=== PATIENT | female | born 1950 | race Caucasian/White ===

== ENCOUNTER 2023-03-24 05:19 | Observation (INO) ==
[2023-03-24 06:24] LABS: Albumin Level 3.6 gm/dl (3.4-5.0); Bilirubin,Total 0.5 mg/dl (0.2-1.0); Calcium 9.3 mg/dl (8.6-10.3); Potassium 3.9 mmol/L (3.5-5.1)
[2023-03-24 06:30] LABS: Albumin Globulin Ratio 1.3 (0.9-2); BUN Creatinine Ratio 15.2 (10-20); Creatinine Clr Calc Pharmacy 63.7 ml/min; Est GFR (African American) 84.9 ml/min; Est GFR (Non-African American) 73.2 ml/min; Globulin 2.8 gm/dl (2.5-4.0); Total Protein 6.4 gm/dl (6.0-8.3)
--- NOTE | 2023-03-24 06:34 | Emergency Department Note ---
Impression & Plan Chest pain, HTN (hypertension), Anemia ED Provider Note NAME: LAUREN GERARDO AGE: 73 SEX: F : 1950 ARRIVES VIA: Walk-In INFORMANT: Patient ED PROVIDER(S): Emilio Morales DO CHIEF COMPLAINT: chest pain HPI: Patient is a 73-year-old female with a past medical history of an WV as well as a CABG who presents to the ER for chest pain which she has been getting intermittently over the past 2 weeks. She notes this comes and goes mainly with walking. Today it started at 3 AM this morning. Lasted for several minutes and then resolved. She took 81 mg of aspirin. No nitro. No arm pain. She does have some pain that goes to to the left shoulder wound occurs. No dysuria urgency or frequency. No nausea or vomiting. No other exacerbating or remitting factors. Additional history provided by at bedside who notes that CABG was within the past two years. ADDITIONAL HISTORY OBTAINED: Per HPI Chronic Medical/Social Conditions Affecting Care: Per HPI PAST MEDICAL HISTORY:See Below PAST SURGICAL HISTORY:See Below FAMILY HISTORY:See Below SOCIAL HISTORY:See Below HOME MEDICATIONS:See Below ALLERGIES:See Below VITALS:See Below PHYSICAL EXAMINATION: GENERAL: Sitting up in bed, alert, well appearing, well nourished, no distress, non-toxic EYE EXAM: normal conjunctiva. OROPHARYNX: no exudate, no erythema, lips, buccal mucosa, and tongue normal and mucous membranes are moist NECK: supple, no nuchal rigidity, no adenopathy, non-tender LUNGS: Clear to auscultation. Normal chest wall mechanics HEART: no murmurs, S1 normal and S2 normal ABDOMEN: abdomen soft, non-tender, normo-active bowel sounds, no masses, no rebound or guarding. UPPER EXTREMITIES: upper extremities are grossly normal. LOWER EXTREMITIES: No pitting edema. Calves are equal bilaterally NEURO EXAM: Normal sensorium, cranial nerves II-XII grossly intact, normal speech, no gross weakness of arms, no gross weakness of legs. MEDICAL DECISION MAKING: Patient is a 73-year-old female with a previous history of an WV and CABG who presents to the ER for intermittent chest pain over the past 2 weeks which is mainly exertional but this morning it occurred and woke her up out of bed. Lasted for several minutes and resolved. [place] like her previous [place]. IV was established blood work was obtained. Labs show no significant leukocytosis. Mild anemia at 11.4. Nothing previous to compare to. BMP along with LFTs bilirubin was unremarkable. Troponin was negative. Lipase was normal. Patient currently pain-free. She was given 243 of aspirin as she took 81 mg at home. Additional history was obtained by who was present at bedside. Discussed with Dr. Ramírez from the hospital service patient was admitted for further work-up. Patient was chest pain-free. External Records Reviewed: None Consults/Care Managements Discussions: Per [facility] Triage Nursing notes reviewed. Limited review of prior medical records performed Vital Signs: reviewed and remarkable for no significant abnormalities Differential diagnosis: Cardiac ischemia, aortic dissection, pulmonary embolism, pneumothorax, pneumonia, pericarditis, myocarditis, esophageal rupture, GERD, cholecystitis, pancreatitis, musculoskeletal, as well as other pathologies. ER treatment provided: See below Diagnostics interpreted by me include EKG and cardiac monitoring as listed below: -Cardiac Monitoring: An order was placed for continuous cardiac monitoring. The monitor shows a rate of 60 with sinus rhythm. -ECG: Sinus rhythm rate 63 Normal axis No PVCs QTc 468 Septal Q waves -Laboratory studies:Interpreted by me as stated above in MDM and shown below. Imaging studies: Xrays: As interpreted by me: Portable AP upright 1 view of the chest shows no focal infiltrate CTs show: none Procedures:none Critical Care: None Past Med/Surg History Medical History (Updated 03/24/23 @ 13:23 by Emilio Morales DO) CAD (coronary artery disease) of bypass graft DM II (diabetes mellitus, type II), controlled HLD (hyperlipidemia) HTN (hypertension) Hx of completed stroke Neuropathy Osteoarthritis Surgical History (Updated 03/24/23 @ 08:47 by Kim Krause PA-C) History of back surgery Hx of colonoscopy Hx of hysterectomy Family History Mother Cancer Grandmother (Maternal) Myocardial infarction Grandfather (Maternal) Myocardial infarction Social History (Updated 07/11/21 @ 13:23 by Whit Bruno) Smoking Status: Never smoker Hx Alcohol Use: No Feels Safe at Home: Yes Allergies Allergies Allergy/AdvReac Type Severity Reaction Status Date / Time lisinopril Allergy Severe ANGIOEDEMA Verified 02/02/22 13:15 Home Meds Home Medications Medication Instructions Recorded Confirmed doxepin 100 mg capsule 100 mg PO HS 07/11/21 03/24/23 famotidine 40 mg tablet 40 mg PO HS 07/11/21 03/24/23 losartan 50 mg tablet 25 mg PO DAILY 07/11/21 03/24/23 metformin 500 mg tablet 500 mg PO DAILY 07/11/21 03/24/23 polyethylene glycol 3350 17 17 g PO DAILY 07/11/21 03/24/23 gram/dose oral powder (Miralax) aspirin 81 mg chewable tablet 81 mg PO QAM 03/24/23 03/24/23 atorvastatin 40 mg tablet 40 mg PO HS 03/24/23 03/24/23 donepezil 10 mg tablet 10 mg PO HS 03/24/23 03/24/23 furosemide 40 mg tablet 40 mg PO QA 03/24/23 03/24/23 hydroxychloroquine 200 mg tablet 200 mg PO QA 03/24/23 03/24/23 metoprolol succinate 25 mg 12.5 mg PO 03/24/23 03/24/23 tablet,extended release 24 hr potassium chloride 10 mEq 10 meq PO QA 03/24/23 03/24/23 tablet,extended release Results & Data (ED) Vital Signs Vital Signs - 24 hr 03/24/23 05:22 03/24/23 05:52 03/24/23 05:52 Temperature 35.7 C L Temperature Source Temporal Artery Scan Pulse Rate 78 Pulse Rate [Apical] 58 L Pulse Rate from SpO2 Sensor Respiratory Rate 16 19 Respiratory Effort / Characteristics Non-Labored Spontaneous Respiratory Depth Normal Blood Pressure 109/61 Blood Pressure Mean 77 Blood Pressure Position Sitting Pulse Oximetry 95 94 Oxygen Delivery Method Room Air Room Air Room Air Sepsis Recent Fever Within 48 Hours No Sepsis New/Unexplained Change in Mental Status N/A Sepsis Action Taken by Nursing No Action Required 03/24/23 05:52 03/24/23 05:53 03/24/23 08:15 Temperature Temperature Source Pulse Rate 57 L 63 Pulse Rate [Apical] Pulse Rate from SpO2 Sensor 63 Respiratory Rate 17 Respiratory Effort / Characteristics Respiratory Depth Blood Pressure 122/78 Blood Pressure Mean 92 Blood Pressure Position Pulse Oximetry 97 Oxygen Delivery Method Room Air Room Air Sepsis Recent Fever Within 48 Hours Sepsis New/Unexplained Change in Mental Status Sepsis Action Taken by Nursing Laboratory Data 03/24/23 05:44 03/24/23 05:44 Lab Results 03/24/23 03/24/23 03/24/23 Range/Units 05:44 05:44 06:03 WBC Cancelled 7.05 RBC Cancelled 3.34 L Hgb Cancelled 11.4 L Hct Cancelled 33.2 L MCV Cancelled 99.4 MCH Cancelled 34.1 H MCHC Cancelled 34.3 RDW Std Deviation Cancelled 52.2 H RDW Coeff of Yanni Cancelled 14.4 Plt Count Cancelled 188 MPV Cancelled 9.5 Immature Gran % (Auto) Cancelled 0.7 Neut % (Auto) Cancelled 50.8 Lymph % (Auto) Cancelled 39.1 [place] % (Auto) Cancelled 6.0 Eos % (Auto) Cancelled 2.7 Baso % (Auto) Cancelled 0.7 Neut # (Auto) Cancelled 3.58 Lymph # (Auto) Cancelled 2.76 [place] # (Auto) Cancelled 0.42 Eos # (Auto) Cancelled 0.19 Baso # (Auto) Cancelled 0.05 Immature Gran # (Auto) Cancelled 0.05 Absolute Nucleated RBC Cancelled Nucleated RBC % (auto) Cancelled Neutrophils % (Manual) Cancelled Band Neutrophils % Cancelled Lymphocytes % (Manual) Cancelled Prolymphocyte % Cancelled Reactive Lymphs % (Man) Cancelled Monocytes % (Manual) Cancelled Eosinophils % (Manual) Cancelled Basophils % (Manual) Cancelled Metamyelocytes % (Man) Cancelled Myelocytes % (Man) Cancelled Promyelocytes % (Man) Cancelled Blast Cells % (Manual) Cancelled Plasma Cell % (Manual) Cancelled Other Cells % Cancelled Nucleated RBC % Cancelled Neutrophils # (Manual) Cancelled Band Neutrophils # Cancelled Total Absolute Neuts Cancelled Lymphocytes # (Manual) Cancelled Prolymphocyte # Cancelled Reactive Lymphs # Cancelled Total Abs Lymphocytes Cancelled Monocytes # (Manual) Cancelled Eosinophils # (Manual) Cancelled Basophils # (Manual) Cancelled Metamyelocytes # (Man) Cancelled Myelocytes # (Manual) Cancelled Promyelocytes # (Man) Cancelled Blast Cells # (Man) Cancelled Plasma Cell # (Manual) Cancelled Other Cells # Cancelled Nucleated RBCs # (Man) Cancelled Hypersegmented Neuts Cancelled Hyposegmented Neuts Cancelled Hypogranular Neuts Cancelled Large Granular Lymphs Cancelled # Lrg Granular Lymphs Cancelled Hairy Cells Cancelled Smudge Cells Cancelled Toxic Granulation Cancelled Toxic Vacuolation Cancelled Dohle Bodies Cancelled Abdelrahman Rods Cancelled Platelet Estimate Cancelled Hypogranular Platelets Cancelled Giant Platelets Cancelled Platelet Satelliting Cancelled RBC Morphology Cancelled Polychromasia Cancelled Hypochromasia Cancelled Poikilocytosis Cancelled Basophilic Stippling Cancelled Anisocytosis Cancelled Microcytosis Cancelled Macrocytosis Cancelled Spherocytes Cancelled Pappenheimer Bodies Cancelled Sickle Cells Cancelled Target Cells Cancelled Tear Drop Cells Cancelled Ovalocytes Cancelled Stomatocytes Cancelled Keen[place] Bodies Cancelled Echinocytes Cancelled Acanthocytes (Spur) Cancelled Rouleaux Cancelled RBC Agglutinates Cancelled Schistocytes Cancelled Sezary Cell Cancelled Sodium 138 (136-145) mmol/L Potassium 3.9 (3.5-5.1) mmol/L Chloride 105 (98-107) mmol/L Carbon Dioxide 23 (21-32) mmol/L Anion Gap 10 (3-11) BUN 12 (6-23) mg/dl Creatinine 0.79 (0.6-1.2) mg/dl Est Cr Clr Drug Dosing 63.7 ml/min Est GFR ( Amer) 84.9 ml/min Est GFR (Non-Af Amer) 73.2 ml/min BUN/Creatinine Ratio 15.2 (10-20) Glucose 106 H (70-99(Fasting)) mg/dl Calcium 9.3 (8.6-10.3) mg/dl Total Bilirubin 0.5 (0.2-1.0) mg/dl AST 28 (13-39) U/L ALT 30 (7-52) U/L Alkaline Phosphatase 120 H (34-104) U/L Troponin I High Sens 3.9 (0-14) pg/ml Total Protein 6.4 (6.0-8.3) gm/dl Albumin 3.6 (3.4-5.0) gm/dl Globulin 2.8 (2.5-4.0) gm/dl Albumin/Globulin Ratio 1.3 (0.9-2) Lipase 26 (11-82) U/L Blood Parasites ID Cancelled 03/24/23 Range/Units 09:24 WBC RBC Hgb Hct MCV MCH MCHC RDW Std Deviation RDW Coeff of Yanni Plt Count MPV Immature Gran % (Auto) Neut % (Auto) Lymph % (Auto) [place] % (Auto) Eos % (Auto) Baso % (Auto) Neut # (Auto) Lymph # (Auto) [place] # (Auto) Eos # (Auto) Baso # (Auto) Immature Gran # (Auto) Absolute Nucleated RBC Nucleated RBC % (auto) Neutrophils % (Manual) Band Neutrophils % Lymphocytes % (Manual) Prolymphocyte % Reactive Lymphs % (Man) Monocytes % (Manual) Eosinophils % (Manual) Basophils % (Manual) Metamyelocytes % (Man) Myelocytes % (Man) Promyelocytes % (Man) Blast Cells % (Manual) Plasma Cell % (Manual) Other Cells % Nucleated RBC % Neutrophils # (Manual) Band Neutrophils # Total Absolute Neuts Lymphocytes # (Manual) Prolymphocyte # Reactive Lymphs # Total Abs Lymphocytes Monocytes # (Manual) Eosinophils # (Manual) Basophils # (Manual) Metamyelocytes # (Man) Myelocytes # (Manual) Promyelocytes # (Man) Blast Cells # (Man) Plasma Cell # (Manual) Other Cells # Nucleated RBCs # (Man) Hypersegmented Neuts Hyposegmented Neuts Hypogranular Neuts Large Granular Lymphs # Lrg Granular Lymphs Hairy Cells Smudge Cells Toxic Granulation Toxic Vacuolation Dohle Bodies Abdelrahman Rods Platelet Estimate Hypogranular Platelets Giant Platelets Platelet Satelliting RBC Morphology Polychromasia Hypochromasia Poikilocytosis Basophilic Stippling Anisocytosis Microcytosis Macrocytosis Spherocytes Pappenheimer Bodies Sickle Cells Target Cells Tear Drop Cells Ovalocytes Stomatocytes Keen[place] Bodies Echinocytes Acanthocytes (Spur) Rouleaux RBC Agglutinates Schistocytes Sezary Cell Sodium (136-145) mmol/L Potassium (3.5-5.1) mmol/L Chloride (98-107) mmol/L Carbon Dioxide (21-32) mmol/L Anion Gap (3-11) BUN (6-23) mg/dl Creatinine (0.6-1.2) mg/dl Est Cr Clr Drug Dosing ml/min Est GFR ( Amer) ml/min Est GFR (Non-Af Amer) ml/min BUN/Creatinine Ratio (10-20) Glucose (70-99(Fasting)) mg/dl Calcium (8.6-10.3) mg/dl Total Bilirubin (0.2-1.0) mg/dl AST (13-39) U/L ALT (7-52) U/L Alkaline Phosphatase (34-104) U/L Troponin I High Sens 4.0 (0-14) pg/ml Total Protein (6.0-8.3) gm/dl Albumin (3.4-5.0) gm/dl Globulin (2.5-4.0) gm/dl Albumin/Globulin Ratio (0.9-2) Lipase (11-82) U/L Blood Parasites ID Administered Medications Discontinued Medications Aspirin (Aspirin Chew 324 Mg) 243 mg PO NOW STA Stop: 03/24/23 06:36 Last Admin: 03/24/23 06:43 Dose: 243 mg Documented By: GEOVANNY Imaging Data Radiologist's Impression: Chest X-Ray 03/24/23 05:33 XR chest 1V portable CLINICAL HISTORY: Chest pain, nonspecific COMPARISON STUDY: Chest radiograph October 28, 2013. FINDINGS: No pneumothorax or pleural effusion is present. There is moderate elevation of the right hemidiaphragm. Median sternotomy wires and mediastinal surgical clips are noted. Cardiac size is normal. Mediastinal contours are normal. There is no evidence for pulmonary edema. No consolidation is identified to suggest pneumonia. IMPRESSION: No acute cardiopulmonary findings. ACT 112: Negative or not required by law. Electronically signed by: Vick Self M.D. 03/24/2023 7:18 AM Discharge Plan Visit Data Chief Complaint: Chest Pain Stated Complaint: CHEST PAIN,PAIN UN LEFT BREAST TO BACK ED Provider: Emilio Morales Discharge Problem: Chest pain, HTN (hypertension), Anemia Patient Disposition: Admitted As Inpatient Discharge Instructions Interventions: ED Discharge Assessment Last Done: 03/24/23 10:27
[2023-03-24 06:35] LABS: Troponin I High Sensitivity 3.9 pg/ml (0-14)
[2023-03-24] MEDS ORDERED: ASPIRIN CHEW 324 MG PO STA (06:35)
[2023-03-24 06:52] LABS: Basophils # (auto) 0.05 K/uL (0.00-0.20); Basophils % (auto) 0.7 %; Eosinophils # (auto) 0.19 K/uL (0.00-0.50); Eosinophils % (auto) 2.7 %; Hematocrit (blood only) 33.2 % (37.0-47.0); Hemoglobin 11.4 g/dl (12.0-16.0); Immature Granulocytes # (auto) 0.05 K/uL (0.01-0.20); Immature Granulocytes % (auto) 0.7 %; Lymphocytes # (auto) 2.76 K/uL (1.20-3.40); Lymphocytes % (auto) 39.1 %; Mean Corpuscular Hemoglobin 34.1 pg (25.0-34.0); Mean Corpuscular Hgb Conc 34.3 g/dL (32.0-36.0); Mean Corpuscular Volume 99.4 fL (80.0-100.0); Mean Platelet Volume 9.5 fL (9.4-12.4); Monocytes # (auto) 0.42 K/uL (0.11-0.59); Neutrophils # (auto) 3.58 K/uL (1.40-6.50); Neutrophils % (auto) 50.8 %; Platelet Count 188 K/uL (130-400); RDW Coefficient of Variation 14.4 % (11.5-14.5); RDW Standard Deviation 52.2 fL (36.4-46.3); Red Blood Count 3.34 M/uL (4.20-5.40); White Blood Count 7.05 K/ul (4.8-10.8)
--- NOTE | 2023-03-24 07:19 | XRay Report ---
XR chest 1V portable CLINICAL HISTORY: Chest pain, nonspecific COMPARISON STUDY: Chest radiograph October 28, 2013. FINDINGS: No pneumothorax or pleural effusion is present. There is moderate elevation of the right he midiaphragm. Median sternotomy wires and mediastinal surgical clips are noted. Cardiac size is normal . Mediastinal contours are normal. There is no evidence for pulmonary edema. No consolidation is iden tified to suggest pneumonia. IMPRESSION: No acute cardiopulmonary findings. ACT 112: Negative or not required by law. Electronically signed by: Vick Self M.D. 03/24/2023 7:18 AM
--- NOTE | 2023-03-24 08:22 | History & Physical Report ---
Date of Service March 24, 2023 Assessment & Plan (1) Chest pain: (2) CAD (coronary artery disease) of bypass graft: (3) HTN (hypertension): (4) HLD (hyperlipidemia): Plan: - Admit to tele for observation for r/o - Trend cardiac biomarkers, initial set was negative, recheck now and Q6H - EKG reviewed as above - Check 2 D echo, no previous to review per the chart - If negative enzymes can consider a stress test - Consult cardiology - PT/OT consulted (5) DM II (diabetes mellitus, type II), controlled: Plan: - Hold metformin, will check A1C - ISS with accuchecks - Follow glucose (6) Neuropathy: Plan: - Bilateral lower extremities - Chronic, stable (7) Osteoarthritis: Plan: - Pt reports no h of rheum arthritis, 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 She reports chest pain on and off for about the past 2 weeks which is radiating into her back. She states its happening at least once per day up to 2-3 x per day, normally when she is walking through the house, it last for a couple of minutes and then goes away on its own. Last night it occurred while she was lying in bed and therefore saw this was severe enough and needed to come to the hospital. She has not trialed any medication to make it better. She didn't think to call her turf farmer in the past weeks. Patient denies any associated shortness of breath, flutter, palpitations. She has been taking her medications as routinely prescribed. Follows with Cardiology, her primary turf farmer is Dr. Prater from [facility]. She is scheduled to see a new provider in May because he was leaving the practice last time she was there, which was about 1 year ago. She notes she fell and broke her shoulder about 5 weeks ago. She has been wearing a sling and using tylenol for pain relief. She is following with Dr. Peoples with [facility] in [place]. She was told to wear the sling for at least 2 more weeks. Patient has been ambulating without any assistive devices. Allergies Allergy/AdvReac Type Severity Reaction Status Date / Time lisinopril Allergy Severe ANGIOEDEMA Verified 07/11/21 13:15 Home Medications Medication Instructions Recorded Confirmed Type doxepin 100 mg capsule 100 mg PO HS 07/11/21 03/24/23 History famotidine 40 mg tablet 40 mg PO HS 07/11/21 03/24/23 History losartan 50 mg tablet 25 mg PO DAILY 07/11/21 03/24/23 History metformin 500 mg tablet 500 mg PO DAILY 07/11/21 03/24/23 History polyethylene glycol 3350 17 17 g PO DAILY 07/11/21 03/24/23 History gram/dose oral powder (Miralax) aspirin 81 mg chewable tablet 81 mg PO QAM 03/24/23 03/24/23 History atorvastatin 40 mg tablet 40 mg PO HS 03/24/23 03/24/23 History donepezil 10 mg tablet 10 mg PO HS 03/24/23 03/24/23 History furosemide 40 mg tablet 40 mg PO QAM 03/24/23 03/24/23 History hydroxychloroquine 200 mg tablet 200 mg PO QAM 03/24/23 03/24/23 History metoprolol succinate 25 mg 12.5 mg PO HS 03/24/23 03/24/23 History tablet,extended release 24 hr potassium chloride 10 mEq 10 meq PO QAM 03/24/23 03/24/23 History tablet,extended release Past Med/Surg History Medical History (Updated 03/24/23 @ 13:23 by Emilio Morales DO) CAD (coronary artery disease) of bypass graft DM II (diabetes mellitus, type II), controlled HLD (hyperlipidemia) HTN (hypertension) Hx of completed stroke Neuropathy Osteoarthritis Surgical History (Updated 03/24/23 @ 08:47 by Kim Krause PA-C) History of back surgery Hx of colonoscopy Hx of hysterectomy Family History Mother Cancer Grandmother (Maternal) Myocardial infarction Grandfather (Maternal) Myocardial infarction Social History (Updated 07/11/21 @ 13:23 by Whit Bruno) Smoking Status: Never smoker Hx Alcohol Use: No Feels Safe at Home: Yes Review of Systems Review of Systems: Constitutional: No fever, sweats or chills Eyes: No diplopia, no worsening or blurred vision ENT: normal hearing, no trouble swallowing Respiratory: No cough, sputum, dyspnea at rest or on exertion Cardiovascular: As per HPI Abdomen: No pain, nausea, vomiting, diarrhea, + chronic constipation, last bm was 3 days ago which is normal for her Musculoskeletal: R shoulder pain due to fracture, otherwiseNo joint pain, calf pain, swelling Neurologic: No weakness, + chronic numbness/tingling in bilateral feet due to neuropathy, or balance problems Psychiatric: No anxiety or depression Skin: No rash or itch Physical Exam Physical Exam: General: awake, alert, no apparent distress,white female Head: Normocephalic, atraumatic ENT: PERRL, EOMI, no pharyngeal exudate, mucous membranes moist Chest: Clear to auscultation, on room air, no adventitious breath sounds Cardiac: No chest pain reproducible with palpation, regular rate and rhythm, no murmur, no JVD, normal peripheral pulses, good capillary refill Abdominal: Hypoactive BS x 4 quadrants, soft, nondistended, nontender to palpation, no rebound or guarding Extremities: Normal inspection, no peripheral edema or erythema, calfs nontender to palpation Psych: Normal mood and affect Neuro: AAO x 3, strength intact bilaterally and rated 5/5, no motor deficits, speech is clear, no peripheral sensory deficits Results & Data Results & Data Vital Signs (Past 12 Hours) Vital Signs Temp Pulse Pulse Resp BP Pulse Ox O2 Del Method 03/24/23 05:53 57 L 03/24/23 05:52 Room Air 03/24/23 05:52 58 L 19 94 Room Air 03/24/23 05:52 Room Air 03/24/23 05:22 35.7 C L 78 16 109/61 95 Room Air Laboratory Results 03/24/23 03/24/23 03/24/23 06:03 05:44 05:44 WBC 7.05 Cancelled RBC 3.34 L Cancelled Hgb 11.4 L Cancelled Hct 33.2 L Cancelled MCV 99.4 Cancelled MCH 34.1 H Cancelled MCHC 34.3 Cancelled RDW Std Deviation 52.2 H Cancelled RDW Coeff of Yanni 14.4 Cancelled Plt Count 188 Cancelled MPV 9.5 Cancelled Immature Gran % (Auto) 0.7 Cancelled Neut % (Auto) 50.8 Cancelled Lymph % (Auto) 39.1 Cancelled Ward % (Auto) 6.0 Cancelled Eos % (Auto) 2.7 Cancelled Baso % (Auto) 0.7 Cancelled Neut # (Auto) 3.58 Cancelled Lymph # (Auto) 2.76 Cancelled Ward # (Auto) 0.42 Cancelled Eos # (Auto) 0.19 Cancelled Baso # (Auto) 0.05 Cancelled Immature Gran # (Auto) 0.05 Cancelled Absolute Nucleated RBC Cancelled Nucleated RBC % (auto) Cancelled Neutrophils % (Manual) Cancelled Band Neutrophils % Cancelled Lymphocytes % (Manual) Cancelled Prolymphocyte % Cancelled Reactive Lymphs % (Man) Cancelled Monocytes % (Manual) Cancelled Eosinophils % (Manual) Cancelled Basophils % (Manual) Cancelled Metamyelocytes % (Man) Cancelled Myelocytes % (Man) Cancelled Promyelocytes % (Man) Cancelled Blast Cells % (Manual) Cancelled Plasma Cell % (Manual) Cancelled Other Cells % Cancelled Nucleated RBC % Cancelled Neutrophils # (Manual) Cancelled Band Neutrophils # Cancelled Total Absolute Neuts Cancelled Lymphocytes # (Manual) Cancelled Prolymphocyte # Cancelled Reactive Lymphs # Cancelled Total Abs Lymphocytes Cancelled Monocytes # (Manual) Cancelled Eosinophils # (Manual) Cancelled Basophils # (Manual) Cancelled Metamyelocytes # (Man) Cancelled Myelocytes # (Manual) Cancelled Promyelocytes # (Man) Cancelled Blast Cells # (Man) Cancelled Plasma Cell # (Manual) Cancelled Other Cells # Cancelled Nucleated RBCs # (Man) Cancelled Hypersegmented Neuts Cancelled Hyposegmented Neuts Cancelled Hypogranular Neuts Cancelled Large Granular Lymphs Cancelled # Lrg Granular Lymphs Cancelled Hairy Cells Cancelled Smudge Cells Cancelled Toxic Granulation Cancelled Toxic Vacuolation Cancelled Dohle Bodies Cancelled Abdelrahman Rods Cancelled Platelet Estimate Cancelled Hypogranular Platelets Cancelled Giant Platelets Cancelled Platelet Satelliting Cancelled RBC Morphology Cancelled Polychromasia Cancelled Hypochromasia Cancelled Poikilocytosis Cancelled Basophilic Stippling Cancelled Anisocytosis Cancelled Microcytosis Cancelled Macrocytosis Cancelled Spherocytes Cancelled Pappenheimer Bodies Cancelled Sickle Cells Cancelled Target Cells Cancelled Tear Drop Cells Cancelled Ovalocytes Cancelled Stomatocytes Cancelled [place] Bodies Cancelled Echinocytes Cancelled Acanthocytes (Spur) Cancelled Rouleaux Cancelled RBC Agglutinates Cancelled Schistocytes Cancelled Sezary Cell Cancelled Sodium 138 Potassium 3.9 Chloride 105 Carbon Dioxide 23 Anion Gap 10 BUN 12 Creatinine 0.79 Est Cr Clr Drug Dosing 63.7 Est GFR ( Amer) 84.9 Est GFR (Non-Af Amer) 73.2 BUN/Creatinine Ratio 15.2 Glucose 106 H Calcium 9.3 Total Bilirubin 0.5 AST 28 ALT 30 Alkaline Phosphatase 120 H Troponin I High Sens 3.9 Total Protein 6.4 Albumin 3.6 Globulin 2.8 Albumin/Globulin Ratio 1.3 Lipase 26 Blood Parasites ID Cancelled Diagnostic Findings Chest X-Ray 03/24/23 05:33 XR chest 1V portable CLINICAL HISTORY: Chest pain, nonspecific COMPARISON STUDY: Chest radiograph October 28, 2013. FINDINGS: No pneumothorax or pleural effusion is present. There is moderate elevation of the right hemidiaphragm. Median sternotomy wires and mediastinal surgical clips are noted. Cardiac size is normal. Mediastinal contours are normal. There is no evidence for pulmonary edema. No consolidation is identified to suggest pneumonia. IMPRESSION: No acute cardiopulmonary findings. ACT 112: Negative or not required by law. Electronically signed by: Vick Self M.D. 03/24/2023 7:18 AM ECG Additional Comments: 24-MAR-2023 05:28:53 [facility]-EDSTAT ROUTINE RETRIEVAL Normal sinus rhythm Septal infarct , age undetermined Abnormal ECG When compared with ECG of 28-OCT-2013 16:43, Premature atrial complexes are no longer Present Septal infarct is now Present Nonspecific T wave abnormality now evident in Anterior leads 25mm/s10mm/[id number] 243CID: 19Unconfirmed Vent. rate 63 BPM MD interval 176 ms QRS duration 86 ms QT/QTc 458/468 ms Supervising Physician Co-Signing Physician Notes I have seen and discussed the case with the collaborating ROXANA. I agree with the above H&P. I have reviewed and confirmed the patients medical history, the findings on physical examination, and the patients diagnosis and treatment plan with Nelida SCHMIDT and agree with the information documented. In short, Ms. Lisbet Painter is 73 year old with history of obstructive coronary artery disease, HTN, DMTII who is admitted for typical chest pain with concern for unstable angina. Work up negative, with stable appearing EKG c/w reported history and negative trop. PE unremarkable. Labs and VS benign. Cardiology consult to eval for unstable angina. Rest of plan as above.
[2023-03-24] MEDS ORDERED: ACETAMINOPHEN 325 MG TAB PO PRN (08:25)
[2023-03-24] MEDS ORDERED: ONDANSETRON INJ 2 MG/ML 2 ML VIAL IV PRN (08:25)
[2023-03-24] MEDS ORDERED: CARBOHYDRATES FOR HYPOGLYCEMIA PO PRN (09:38)
[2023-03-24] MEDS ORDERED: GLUCAGON FOR INJ 1 MG VIAL SQ PRN (09:38)
[2023-03-24] MEDS ORDERED: GLUCOSE 40% GEL 15 GM TUBE PO PRN (09:38)
[2023-03-24] MEDS ORDERED: DEXTROSE 50% 50 ML SYRINGE IV PRN (09:38)
[2023-03-24] MEDS ORDERED: GLUCOSE 10 TAB/TUBE PO PRN (09:38)
[2023-03-24] MEDS ORDERED: FUROSEMIDE 40 MG TAB PO SCH (11:15)
[2023-03-24] MEDS ORDERED: INSULIN ASPART PER UNIT CHARGE SC SCH (11:30)
[2023-03-24] MEDS ORDERED: POLYETHYLENE (MIRALAX) 17 GM PACK PO SCH (11:30)
[2023-03-24] MEDS ORDERED: LOSARTAN POTASSIUM 25 MG TAB PO SCH (11:30)
[2023-03-24] MEDS ORDERED: POTASSIUM CHLORIDE 10 MEQ TABCR PO SCH (11:30)
[2023-03-24] MEDS ORDERED: HYDROXYCHLOROQUINE SULFATE 200 MG TAB PO SCH (11:30)
--- NOTE | 2023-03-24 13:13 | Cardiology Consultation ---
Date of Consultation March 24, 2023 Assessment & Plan (1) Chest pain: (2) CAD (coronary artery disease) of bypass graft: (3) HTN (hypertension): Plan Patient seen/examined today in collaboration with attending shellfish sorter. See supervising shellfish sorter's documentation for additional recommendations and plan of care. Monique Oreilly PA-C [facility] Cardiology Supervising Physician Co-Signing Physician Notes Pt seen and evaluated with [facility] staff. Concur with observations and plans. I was present for H&P. 73 yo woman presenting with chest pain * Known CAD * S/P CABG in 2020 * 3 episodes of chest pain * Duration -minutes * Sharp * Radiating to back * No major HTN on presentation * Troponin negative * EKG - old septal /old inferior (?) - no acute ischemic changes * ECHOcardiogram - LVEF 60-65% - no WMA. No major valvular abnormalities * Continue ASA 81 mg po per day * Continue Lipitor 40 mg po per day * Check Lipids as an outpt * Appears euvolemic - 40 mg po per day * + Fluttering sensation - check Zio patch as an outpt * SBP 120 mmHg - continue Losartan 25 mg po per day * Continue Toprol Xl 12.5 mg po per day * Outpt Sleep Study for NABILA * F/u with [facility] for outpatient nuclear stress test + establish care Morales Delong History of Present Illness Reason for Consultation: Chest pain; history of CAD Requesting Physician: Brooklyn Krause PA-C Attending Physician: Dr. Delong History of Present Illness Patient is a 73 year old female who was admitted to [facility] with complaints of chest pain. History includes: 1. CAD s/p CABGx3 in [facility] in Jul 2020. Primary shellfish sorter is Dr. Prater from [place]. 2. Hypertension 3. Dyslipidemia 4. Prior CVA 5. DM type II 6. Memory impairment Inpatient records reviewed. No documentation in [facility] outpatient records. Patient reports intermittent chest pain x2 weeks. Comes and goes intermittently. Occurs at rest or with exertion. Last night she had episode while laying in bed, and did not resolve quickly, so she came to ER. She did not report symptoms to her shellfish sorter. She did not try SL nitro at home. In ER, EKG demonstrated NSR with poor R wave progression, possible old inferior/septal infarct. Recent EKG not available for comparison. HS troponin negative x3 since admission. Chest xray without acute findings. Other labs without significant findings. Since ER evaluation, no recurrent chest pain. She describes the chest pain as sharp, located in the epigastric, under left breast region and radiating to her back. Allergies Allergy/AdvReac Type Severity Reaction Status Date / Time lisinopril Allergy Severe ANGIOEDEMA Verified 07/11/21 13:15 Home Medications Medication Instructions Recorded Confirmed Type doxepin 100 mg capsule 100 mg PO HS 07/11/21 03/24/23 History famotidine 40 mg tablet 40 mg PO HS 07/11/21 03/24/23 History losartan 50 mg tablet 25 mg PO DAILY 07/11/21 03/24/23 History metformin 500 mg tablet 500 mg PO DAILY 07/11/21 03/24/23 History polyethylene glycol 3350 17 17 g PO DAILY 07/11/21 03/24/23 History gram/dose oral powder (Miralax) aspirin 81 mg chewable tablet 81 mg PO QAM 03/24/23 03/24/23 History atorvastatin 40 mg tablet 40 mg PO HS 03/24/23 03/24/23 History donepezil 10 mg tablet 10 mg PO HS 03/24/23 03/24/23 History furosemide 40 mg tablet 40 mg PO QAM 03/24/23 03/24/23 History hydroxychloroquine 200 mg tablet 200 mg PO QAM 03/24/23 03/24/23 History metoprolol succinate 25 mg 12.5 mg PO HS 03/24/23 03/24/23 History tablet,extended release 24 hr potassium chloride 10 mEq 10 meq PO QAM 03/24/23 03/24/23 History tablet,extended release Patient History Medical History (Updated 03/24/23 @ 13:23 by Emilio Morales DO) CAD (coronary artery disease) of bypass graft DM II (diabetes mellitus, type II), controlled HLD (hyperlipidemia) HTN (hypertension) Hx of completed stroke Neuropathy Osteoarthritis Surgical History (Updated 03/24/23 @ 08:47 by Kim Krause PA-C) History of back surgery Hx of colonoscopy Hx of hysterectomy Family History Mother Cancer Grandmother (Maternal) Myocardial infarction Grandfather (Maternal) Myocardial infarction Social History (Updated 07/11/21 @ 13:23 by Whit Bruno) Smoking Status: Never smoker Hx Alcohol Use: No Feels Safe at Home: Yes Review of Systems Review of Systems: All systems reviewed & are unremarkable except as noted in HPI & below Physical Exam Physical Exam: Obese JVP at base of neck Sternotomy (S/P) S1S2 - soft 2/6 systolic murmur CTA B Right humeral fx - no swelling suggestive of DVT No LE swelling Warm and perfusing Morales Delong Results & Data Vital Signs (Past 12 Hours) Vital Signs Temp Pulse Pulse Resp BP BP Pulse Ox 03/24/23 12:06 68 16 96 03/24/23 12:06 68 16 126/65 96 03/24/23 09:41 63 03/24/23 08:15 63 17 122/78 97 03/24/23 05:53 57 L 03/24/23 05:52 03/24/23 05:52 58 L 19 94 03/24/23 05:52 03/24/23 05:22 35.7 C L 78 16 109/61 95 O2 Del Method 03/24/23 12:06 Room Air 03/24/23 12:06 Room Air 03/24/23 09:41 03/24/23 08:15 Room Air 03/24/23 05:53 03/24/23 05:52 Room Air 03/24/23 05:52 Room Air 03/24/23 05:52 Room Air 03/24/23 05:22 Room Air Laboratory Results Cardiac Enzymes 03/24/23 03/24/23 Range/Units 05:44 09:24 AST 28 (13-39) U/L Troponin I High Sens 3.9 4.0 (0-14) pg/ml CBC 03/24/23 03/24/23 Range/Units 05:44 06:03 WBC Cancelled 7.05 RBC Cancelled 3.34 L Hgb Cancelled 11.4 L Hct Cancelled 33.2 L Plt Count Cancelled 188 Neut # (Auto) Cancelled 3.58 Lymph # (Auto) Cancelled 2.76 [place] # (Auto) Cancelled 0.42 Eos # (Auto) Cancelled 0.19 Baso # (Auto) Cancelled 0.05 Comprehensive Metabolic Panel 03/24/23 Range/Units 05:44 Sodium 138 (136-145) mmol/L Potassium 3.9 (3.5-5.1) mmol/L Chloride 105 (98-107) mmol/L Carbon Dioxide 23 (21-32) mmol/L BUN 12 (6-23) mg/dl Creatinine 0.79 (0.6-1.2) mg/dl Glucose 106 H (70-99(Fasting)) mg/dl Calcium 9.3 (8.6-10.3) mg/dl AST 28 (13-39) U/L ALT 30 (7-52) U/L Alkaline Phosphatase 120 H (34-104) U/L Total Protein 6.4 (6.0-8.3) gm/dl Albumin 3.6 (3.4-5.0) gm/dl Intake and Output 03/23/23 03/24/23 03/24/23 22:59 06:59 14:59 Other: Weight 75.1 kg Weight Measurement Method Chair Scale Diagnostic Findings Telemetry reviewed: NSR no arrhythmias Echo completed 03/24/23: EF 60-65% Borderline concentric LVH Grade I diastolic dysfunction Aortic valve sclerosis without stenosis Mild TR No pulm hypertension EKG reviewed: NSR with old septal infarct vs Poor R wave progression. left axis deviation No recent comparison Chest X-Ray 03/24/23 05:33 XR chest 1V portable CLINICAL HISTORY: Chest pain, nonspecific COMPARISON STUDY: Chest radiograph October 28, 2013. FINDINGS: No pneumothorax or pleural effusion is present. There is moderate elevation of the right hemidiaphragm. Median sternotomy wires and mediastinal surgical clips are noted. Cardiac size is normal. Mediastinal contours are norm al. There is no evidence for pulmonary edema. No consolidation is identified to suggest pneumonia. IMPRESSION: No acute cardiopulmonary findings. ACT 112: Negative or not required by law. Electronically signed by: Vick Self M.D. 03/24/2023 7:18 AM Medications Administered Current Inpatient Medications Acetaminophen (Acetaminophen 325 Mg Tab) 650 mg PO Q4H PRN PRN Reason: Moderate Pain (Scale 4, 5, 6) Stop: 04/23/23 08:24 Aspirin (Aspirin 81 Mg Chew) 81 mg PO QAM ADOLFO Stop: 04/24/23 08:59 Atorvastatin Calcium (Atorvastatin 40 Mg Tab) 40 mg PO HS ADOLFO Stop: 04/23/23 20:59 Dextrose (Dextrose 50% 50 Ml Syringe) 25 - 50 ml IV UD PRN; Protocol PRN Reason: Hypoglycemia Protocol Stop: 04/23/23 09:37 Donepezil HCl (Donepezil Hcl 10 Mg Tab) 10 mg PO HS ADOLFO Stop: 04/23/23 20:59 Doxepin HCl (Doxepin Hcl 50 Mg Capsule) 100 mg PO HS ADOLFO Stop: 04/23/23 20:59 Famotidine (Famotidine 40 Mg Tablet) 40 mg PO HS ADOLFO Stop: 04/23/23 20:59 Furosemide (Furosemide 40 Mg Tab) 40 mg PO QAM ADOLFO Stop: 04/23/23 11:14 Glucagon (Glucagon For Inj 1 Mg Vial) 1 mg SQ UD PRN; Protocol PRN Reason: Hypoglycemia Protocol Stop: 04/23/23 09:37 Glucose (Glucose 10 Tab/Tube) 4 - 8 tab PO UD PRN; Protocol PRN Reason: Hypoglycemia Treatment Stop: 04/23/23 09:37 Glucose (Glucose 40% Gel 15 Gm Tube) 15 - 30 gm PO UD PRN; Protocol PRN Reason: Hypoglycemia Protocol Stop: 04/23/23 09:37 Hydroxychloroquine Sulfate (Hydroxychloroquine Sulfate 200 Mg Tab) 200 mg PO QAM ADOLFO Stop: 04/23/23 11:29 Insulin Aspart (Insulin Aspart Per Unit Charge) 0 units SC ACHS [facility] Stop: 04/23/23 11:29 Losartan Potassium (Losartan Potassium 25 Mg Tab) 25 mg PO DAILY ADOLFO Stop: 04/23/23 11:29 Metoprolol Succinate (Metoprolol Succ 25mg Ext Rel Tab) 12.5 mg PO HS [facility] Stop: 04/23/23 20:59 Miscellaneous (Carbohydrates For Hypoglycemia ) 15 - 30 gm PO UD PRN PRN Reason: Hypoglycemia Protocol Stop: 04/23/23 09:37 Ondansetron HCl (Ondansetron Inj 2 Mg/Ml 2 Ml Vial) 4 mg IV Q4H PRN PRN Reason: Nausea And Vomiting Stop: 04/23/23 08:24 Polyethylene Glycol (Polyethylene (Miralax) 17 Gm Pack) 17 gm PO DAILY ADOLFO Stop: 04/23/23 11:29 Potassium Chloride (Potassium Chloride 10 Meq Tabcr) 10 meq PO QAM [facility] Stop: 04/23/23 11:29
--- NOTE | 2023-03-24 16:05 | Discharge Summary ---
Date of Service March 24, 2023 Admission HPI Per Admitting Provider This is a 73 yo F with PMHx of CAD 07/27/2020 s/p triple bypass surgery in [facility], HTN, HLD, previous stroke, DM type II, osteoarthritis, memory issues. She reports chest pain on and off for about the past 2 weeks which is radiating into her back. She states its happening at least once per day up to 2-3 x per day, normally when she is walking through the house, it last for a couple of minutes and then goes away on its own. Last night it occurred while she was lying in bed and therefore saw this was severe enough and needed to come to the hospital. She has not trialed any medication to make it better. She didn't think to call her flight attendant in the past weeks. Patient denies any associated shortness of breath, flutter, palpitations. She has been taking her medications as routinely prescribed. Follows with Cardiology, her primary flight attendant is Dr. Prater from [place]. She is scheduled to see a new provider in May because he was leaving the practice last time she was there, which was about 1 year ago. She notes she fell and broke her shoulder about 5 weeks ago. She has been wearing a sling and using tylenol for pain relief. She is following with Dr. Peoples with [facility] in [place]. She was told to wear the sling for at least 2 more weeks. Patient has been ambulating without any assistive devices. Admission Exam Per Admitting Provider Same as admitting earlier today 03/24 General: awake, alert, no apparent distress,white female Head: Normocephalic, atraumatic ENT: PERRL, EOMI, no pharyngeal exudate, mucous membranes moist Chest: Clear to auscultation, on room air, no adventitious breath sounds Cardiac: No chest pain reproducible with palpation, regular rate and rhythm, no murmur, no JVD, normal peripheral pulses, good capillary refill Abdominal: Hypoactive BS x 4 quadrants, soft, nondistended, nontender to palpation, no rebound or guarding Extremities: Normal inspection, no peripheral edema or erythema, calfs nontender to palpation Psych: Normal mood and affect Neuro: AAO x 3, strength intact bilaterally and rated 5/5, no motor deficits, speech is clear, no peripheral sensory deficits Principal Diagnosis Chest pain, Discharge Exam General: awake, alert, no apparent distress,white female Head: Normocephalic, atraumatic ENT: PERRL, EOMI, no pharyngeal exudate, mucous membranes moist Chest: Clear to auscultation, on room air, no adventitious breath sounds Cardiac: No chest pain reproducible with palpation, regular rate and rhythm, no murmur, no JVD, normal peripheral pulses, good capillary refill Abdominal: Hypoactive BS x 4 quadrants, soft, nondistended, nontender to palpation, no rebound or guarding Extremities: Normal inspection, no peripheral edema or erythema, calfs nontender to palpation Psych: Normal mood and affect Neuro: AAO x 3, strength intact bilaterally and rated 5/5, no motor deficits, speech is clear, no peripheral sensory deficits Discharge Data Allergies Allergy/AdvReac Type Severity Reaction Status Date / Time lisinopril Allergy Severe ANGIOEDEMA Verified 07/11/21 13:15 Consultations 03/24/23 07:26 ED Decision to Admit Stat 03/24/23 10:28 Consult Cardiology Routine 03/24/23 13:27 HIM [Consult Health Information Management] Routine Ordered Studies Echocardiogram: 03/24/2023 EF 60-65%, borderline concentric left ventricular hypertrophy, grade 1 diastolic dysfunction, aortic valve sclerosis moderate, without significant aortic valvular stenosis. There is mild tricuspid regurg. Doppler findings do not suggest pulmonary hypertension. Hospital Course (1) Chest pain: (2) CAD (coronary artery disease) of bypass graft: (3) HTN (hypertension): (4) HLD (hyperlipidemia): - Admit to tele for observation for r/o - Trend cardiac biomarkers, 2 sets were negative - EKG reviewed as above - Check 2 D echo reviewed per cardiology, as above - Consult cardiology, plan for outpatient Zio patch monitoring, outpatient stress test-consult by Monique Oreilly, appreciate assistance - PT/OT consulted (5) DM II (diabetes mellitus, type II), controlled: - Hold metformin, will check A1C - ISS with accuchecks - Follow glucose (6) Neuropathy: - Bilateral lower extremities - Chronic, stable (7) Osteoarthritis: - Pt reports no hx of rheum arthritis, pt is on plaquenil fpc, will cont inue - Chronic, stable (8) Right humeral fracture: - Chronic, stable - Continue wearing sling, [facility] - if pt does not have sling at bedside will need one here - Continue tylenol for pain relief DVT ppx: scds, teds Lines: 2 PIV CODE: Full code Dispo: From home, observation Total Time Total Time Spent Total Time Spent (In Minutes): 37 Discharge Plan Discharge Items Patient Disposition: Home - Self-Care Reason For Visit: CHEST PAIN Discharge Diagnosis: Chest Pain Condition on Discharge: Good Activity: Resume your previous activity Lifting: Gradually increase as tolerated Bathing: No limitations Sexual Activity: When tolerated Exercise/Sports: Gradually increase as tolerated Driving/Machine Use: No limitations Weightbearing: Full weightbearing Non-emergency contact: Primary Care Provider and Monitoring Engineer Call non-emergency contact if: you have any medication questions, your symptoms worsen, your pain is not controlled, your pain is worsening and your temperature is above 101.5 Follow-up/Referrals: Timmy Wheeler DO [Monitoring Engineer] - (S/p chest pain admission, needs zio patch and outpatient stress test) Jarrod Huber DO [Primary Care Provider] - Diet: Carb Consistent or DM2 and Heart Healthy Addtl Attending Provider Instructions: You were evaluated for chest pain, cardiology was consulted and determined that you are safe for discharge home after 2 negative troponins, negative echocardiogram, and plan for outpatient Zio patch monitoring with follow-up with cardiology and plans for scheduling of outpatient stress test. You were admitted to [facility] due to chest pain and diagnosed with palpitations in the setting of chest pain During your stay here you were treated with supportive care, medications including IV fluids and your symptoms improved. Imaging studies which were completed include complete echocardiogram of your h eart, and were normal. Medications: Continue taking you medications as prescribed Appointments: Follow up with PCP within 1 week, please call to schedule an appointment. Please contact the [facility] office within 1-2 days if you do get a call to schedule a follow up appointment. Pending Studies at Discharge: No Stand-Alone Forms: My Endorse For A Cause, Smoking Cessation Medications and DC Order Prescriptions: Continued losartan 50 mg tablet 25 mg PO DAILY metformin 500 mg tablet 500 mg PO DAILY famotidine 40 mg tablet 40 mg PO HS doxepin 100 mg capsule 100 mg PO HS polyethylene glycol 3350 [Miralax] 17 gram/dose powder 17 g PO DAILY furosemide 40 mg tablet 40 mg PO QAM atorvastatin 40 mg tablet 40 mg PO HS donepezil 10 mg tablet 10 mg PO HS potassium chloride 10 mEq tablet extended release 10 meq PO QAM aspirin 81 mg tablet,chewable 81 mg PO QAM metoprolol succinate 25 mg tablet extended release 24 hr 12.5 mg PO HS hydroxychloroquine 200 mg tablet 200 mg PO QAM Discharge Orders: Discharge Order (Routine); Ordered 03/24/23 Ordered By: Kim Krause Admission Data Admit Date/Time: 03/24/23 09:41 Attending Provider: Golden Zaldivar Admit Provider: Kim Krause Primary Care Provider: Jarrod Huber Other Providers: Venkatesh Ramírez ; Morales Delong Other Interventions: Discharge Summary Assessment (RN) Last Done: 03/24/23 17:21 Supervising Physician Co-Signing Physician Notes I have seen and discussed the case with the collaborating ROXANA. I agree with the above H&P. I have reviewed and confirmed the patients medical history, the findings on physical examination, and the patients diagnosis and treatment plan with Nelida SCHMIDT and agree with the information documented. In short, Mr. Painter with notable cardiac history admitted for chest pain and evaluated by Cardiology. Work up negative to date--plan for OP zio patch and stress test. Discharge as above.
[2023-03-24] MEDS ORDERED: DOXEPIN HCL 50 MG CAPSULE PO SCH (21:00)
[2023-03-24] MEDS ORDERED: FAMOTIDINE 40 MG TABLET PO SCH (21:00)
[2023-03-24] MEDS ORDERED: DONEPEZIL HCL 10 MG TAB PO SCH (21:00)
[2023-03-24] MEDS ORDERED: METOPROLOL SUCC 25MG EXT REL TAB PO SCH (21:00)
[2023-03-24] MEDS ORDERED: ATORVASTATIN 40 MG TAB PO SCH (21:00)
--- NOTE | 2023-03-25 07:19 | Electrocardiogram Report ---
Test Reason : Blood Pressure : / mmHG Vent. Rate : 063 BPM Atrial Rate : 063 BPM P-R Int : 176 ms QRS Dur : 086 ms QT Int : 458 ms P-R-T Axes : 052 -27 031 degrees QTc Int : 468 ms Normal sinus rhythm Septal infarct , age undetermined Abnormal ECG When compared with ECG of 28-OCT-2013 16:43, Premature atrial complexes are no longer Present Septal infarct is now Present Nonspecific T wave abnormality now evident in Anterior leads Confirmed by Matthew Willis ([id number]) on 03/25/2023 7:18:47 AM Referred By: Confirmed By:Matthew Willis
[2023-03-25] MEDS ORDERED: ASPIRIN 81 MG CHEW PO SCH (09:00)
[2023-03-25] MEDS ORDERED: ENOXAPARIN INJ 40 MG/0.4 ML SYR SQ SCH (09:00)
== END 2023-03-24 17:30 | disposition home or self-care (01) ==
LOC: EDINP 05:19 → ED 05:19 → EDINP 10:27

== ENCOUNTER 2024-10-13 08:46 | Inpatient (IN) ==
--- NOTE | 2024-10-11 11:38 | Anesthesiology Consultation ---
Date of Service October 11, 2024 Assessment & Plan (1) Encounter for pre-operative examination: - Check BSG DOS - Infectious disease screening: Per assessment on 10/11/24- No known recent infectious disease contacts or current infectious disease symptoms. - Cardiology visit (10/06/24): "She recently underwent an arteriogram and an attempt at stent placement however that was unable to be performed and she will require an open surgical procedure which is scheduled in the near future. We are not completely sure but her right leg symptoms seem to have started after her carotid stent procedure back in the fall. I tried explaining to her that at times we see this even with cardiac catheterization that after the right groin is accessed sometimes trauma can inadvertently occur to the femoral and iliac vessels even in the best of circumstances.. Her echo was done today and was reviewed with her. Her LV function appears normal.. From a cardiovascular standpoint she is considered to be an appropriate candidate for this upcoming procedure. Her cardiovascular risk is low to intermediate." - Preop testing: PAT traveling secretary indicates that Mahi from surgeon's office emailed PAT message that preop testing (labs, EKG, CXR) is to be done DOS per surgeon "as patient is older and comes from a distance." - Patient acceptable risk for given surgery pending preop testing/evaluation DOS. Chart Review Chart Review: Patient NOT seen in Pre Admission Testing History Surgery Operation Date: 10/13/24 07:30 Proposed Procedures p Right Lower Extremity Common Femoral Artery Endarterectomy - Thierry Stephenson MD Height/Weight Height: 5 ft 6 in Weight: 89.358 kg Allergies Allergy/AdvReac Type Severity Reaction Status Date / Time lisinopril Allergy Severe Angioedema Verified 10/11/24 11:30 gabapentin AdvReac Unknown Verified 09/27/24 09:19 pregabalin AdvReac Unknown Verified 09/27/24 09:19 Medications Home Medications Medication Instructions Recorded Confirmed Last Taken doxepin 100 mg capsule 100 mg PO HS 07/11/21 10/06/24 09/26/24 20:00 famotidine 40 mg tablet 40 mg PO HS 07/11/21 10/06/24 09/26/24 20:00 losartan 50 mg tablet 25 mg PO QAM 07/11/21 10/06/24 09/27/24 06:00 metformin 500 mg tablet 500 mg PO QAM 07/11/21 10/06/24 09/26/24 08:00 polyethylene glycol 3350 17 17 g PO DAILY 07/11/21 10/06/24 09/23/24 gram/dose oral powder (Miralax) aspirin 81 mg chewable tablet 81 mg PO QAM 03/24/23 10/06/24 09/26/24 07:00 atorvastatin 40 mg tablet 40 mg PO HS 03/24/23 10/06/24 09/26/24 20:00 donepezil 10 mg tablet 10 mg PO HS 03/24/23 10/06/24 09/26/24 16:00 furosemide 40 mg tablet 40 mg PO QAM 03/24/23 10/06/24 09/25/24 20:00 hydroxychloroquine 200 mg tablet 200 mg PO QAM 03/24/23 10/06/24 09/25/24 08:00 potassium chloride 10 mEq 10 meq PO QAM 03/24/23 10/06/24 09/26/24 08:00 tablet,extended release Past Medical History Medical History Anemia CAD (coronary artery disease) CABG x3 (2021) Follows with [facility] cardio/Dr. Carrera Carotid artery disease s/p left carotid endarterectomy 03/2024 Carotid doppler 05/2024: There is mild plaque causing <50% TOMMY stenosis. LICA stent appears patent without significant stenosis. Diabetes mellitus, type 2 NIDDM History of hypertension Hx of completed stroke Evidence of old stroke found during workup prior to left carotid endarterectomy (done 03/2024) Head CT 02/23/24: old small left parietal cortical infarct Hx of hyperlipidemia Hx of osteoarthritis Memory problem Forgetful Neuropathy Sleep apnea No device Past Family History Family History Mother Cancer Grandmother (Maternal) Myocardial infarction Grandfather (Maternal) Myocardial infarction Past Surgical History Surgical History History of back surgery L4-L5, "many years ago" History of carotid endarterectomy Left, 04/08/24 History of coronary artery bypass graft CABG x3 (2021) History of esophagogastroduodenoscopy (EGD) Hx of angiography RLE 09/27/24, [facility] Hx of cardiac cath 2021 > CABG x3 Hx of colonoscopy Hx of hysterectomy Hx of LASIK Social History Smoking Status: Never smoker Smoking cigarettes per day: na Do You Dip or Chew Tobacco: No Hx Alcohol Use: No Hx Substance Use: No substance use type: does not use Substance Use Type Other:: na Last Used Substance Other:: na Lab Results Anesthesia Preop Results Results Anesthesia Widget: BUN 11 mg/dl (6-23) 09/27/24 Creat 0.87 mg/dl (0.6-1.2) 09/27/24 POC Glucose 113 mg/dl (70-99) H 09/27/24 Testing Echocardiogram Date: 10/05/24 EF 60%. No RWMA. Grade I DD. No LVH. Atrial septal aneurysm with no evidence of shunting. Mild MR/TR. Normal estimated pulmonary artery pressures. Other Testing Carotid doppler Date: 05/20/24 There is mild plaque causing <50% TOMMY stenosis. LICA stent appears patent without significant stenosis.
--- NOTE | 2024-10-12 13:18 | History & Physical Report ---
Date of Service October 12, 2024 History of Present Illness Primary Care Provider: Jarrod Huber DO Date of Service September 27, 2024 History of Present Illness Primary Care Provider: Jarrod Huber DO Name: KINJAL PAINTER Patient Number: [id number] : [id number] Date of Service: 09/16/2024 Chief Complaint: _New patient consultation for iliac artery disease HPI: _Ms. Painter is an elderly female who presents to Dr. Stephenson's vascular surgery clinic today as a new patient in consultation for right iliac artery disease noted on recent imaging. Patient states that she had a left carotid stent placed at [facility] in April 2024. She states that since that time she has had severe pain in her right lateral hip and thigh, which occurs when standing for long periods, as well as ambulating more than 50 feet. She states that she has to stop and rest for few minutes and then is able to walk again. She does complain of charley horse cramps at night. She feels that her right leg is weak and tired all the time. She has even fallen a few times. She denies headache, fever, chest pain, shortness of breath, abdominal pain, nausea, vomiting, rest pain, nonhealing wounds or ulcers, discoloration of the feet or toes, numbness, tingling, other complaints. Review of systems: Total of 14 systems were reviewed and negative aside from what is related in her HPI Imaging: Patient did have a bilateral lower extremity arterial duplex performed in the office on 08/17/2024 which demonstrates 75-9 9% stenosis of the distal external iliac artery with monophasic flow distal to this area. She has a right leg MELANIE of 0.66. Her left leg demonstrates no significant stenosis throughout with biphasic waveforms and an MELANIE of 1.2. Current Home Meds: (Last Updated 09/16 08:48) aspirin (Aspirin Low Dose 81 mg oral tablet, chewable) TAKE 1 TABLET BY MOUTH EVERY DAY atorvastatin (atorvastatin 40 mg oral tablet) TAKE 1 TABLET BY MOUTH EVERYDAY AT BEDTIME donepezil (donepezil 10 mg oral tablet) 10 mg PO qhs doxepin (doxepin 100 mg oral capsule) TAKE 1 CAPSULE BY MOUTH EVERYDAY AT BEDTIME famotidine (famotidine 40 mg oral tablet) TAKE 1 TABLET BY MOUTH TWICE A DAY hydroxychloroquine (hydroxychloroquine 200 mg oral tablet) 200 mg PO Daily levothyroxine (levothyroxine 50 mcg (0.05 mg) oral tablet) 50 mcg PO Daily losartan (losartan 50 mg oral tablet) 25 mg PO Daily metFORMIN (metFORMIN 500 mg oral tablet) 500 mg PO Daily metoprolol (Metoprolol Succinate ER 25 mg oral tablet, extended release) 12.5 mg PO Daily 12.5mg po qd Allergies and Sensitivities: pregabalin(fatigue) gabapentin(unknown) lisinopril Past Medical History: Problems: Iliac artery stenosis, right Carotid stenosis, left CAD (coronary artery disease) Back pain Hyperlipidemia Neuropathy HTN (hypertension) DM (diabetes mellitus) Surgical history: Positive for a hysterectomy, cholecystectomy, lumbar spine surgery, and transfemoral left carotid stent placement Family history: Positive for coronary disease, diabetes, high blood pressure, stroke Social history: Patient is a lifelong non-smoker. She does not drink alcohol or use illicit drugs. She is lives with her . OBJECTIVE Vitals: Last Updated 09/16/24 08:55 Date Temp BP Location Pulse RR SpO2 Pain 09/16/24 110/64 Left Arm 64 09/16/24 122/60 Right Arm 67 0 04/06/24 110/56 57 97 Vital Signs are the last 3 documented. No Orthostatic Data Available Height and Weight: Last Updated 04/06/24 09:54 Date BMI Wt(kg) Wt(lb) Method Ht(cm) (ft-in) Method 04/06/24 31.33 85.3 188 Standing Scale 165 5-5 Standing Heights and Weights are the last 3 documented. Physical Exam Constitutional: In general patient is a healthy-appearing overweight elderly female in no distress. She is alert and oriented without any focal deficits. Her carotids do not demonstrate a bruit. Her heart is regular, lungs are decreased but clear. Abdomen is soft nontender with normal active bowel sounds in all 4 quadrants. Radial and brachial pulses are +3. Left femoral pulses +3 right femoral pulse is nonpalpable. Left lower extremity distal pulses are +2, right lower extremity distal pulses are nonpalpable. ASSESSMENT: _ PLAN: _ 1 ) _right external iliac artery stenosis with claudication Patient does have a severe stenosis of her right distal external iliac artery on ultrasound, and symptoms of claudication in the right leg. Patient was discussed with Dr. Stephenson, who recommends that patient consider undergoing a right leg angiogram with intervention on the iliac artery lesion. The procedure risks benefits and alternatives were discussed with the patient by myself at Dr. Stephenson's request. Patient expresses understanding and agreement to proceed. This will occur in the next few weeks at the patient's convenience. Patient's daughter is also present today for this discussion. They will call with any other questions. Thank you for letting us participate in the care of this patient. I have personally spent_49__ minutes performing [id number] and [id number] activities on this date of service.Time does not include separately reported services. Activities Include: x__ review of the medical record _x_ obtaining a history _x_ physical exam/evaluation __ review labs _x_ review radiology reports _x_ counseling/educating patient/family/caregiver __ discussion/referral to other healthcare professional _x_ documenting care in the medical record __ independent interpretation of results _x_ communication of results to patient/family/caregiver _x_ coordination of care Signature Line Electronic Signature on File CC: Jarrod Huber, [facility] [address] * CC: Elzbieta Carrera, [address] [address] Electronically Reviewed/Signed by: Sarah Hassan PA-C Author Signature Dt/Tm:09/16/2024 09:59 AM [facility] [place] [place] [address] LM Result Type:HVI Outpt Note Date of Service:September 16, 2024 09:53 EDT Authorization Status:Final Author or Import Date:ROXANA Hassan Lynn on September 16, 2024 09:59 EDT Verified By:ROXANA Hassan Lynn on September 16, 2024 09:59 EDT Encounter info:[id number], [facility], Clinic, 09/16/2024 - 09/16/2024 Allergies Allergy/AdvReac Type Severity Reaction Status Date / Time lisinopril Allergy Severe ANGIOEDEMA Verified 09/27/24 09:18 gabapentin AdvReac Unknown Verified 09/27/24 09:19 pregabalin AdvReac Unknown Verified 09/27/24 09:19 Home Medications Medication Instructions Recorded Confirmed Type doxepin 100 mg capsule 100 mg PO HS 07/11/21 03/24/23 History famotidine 40 mg tablet 40 mg PO HS 07/11/21 09/27/24 History losartan 50 mg tablet 25 mg PO DAILY 07/11/21 09/27/24 History metformin 500 mg tablet 500 mg PO DAILY 07/11/21 09/27/24 History polyethylene glycol 3350 17 17 g PO DAILY 07/11/21 09/27/24 History gram/dose oral powder (Miralax) aspirin 81 mg chewable tablet 81 mg PO QAM 03/24/23 03/24/23 History atorvastatin 40 mg tablet 40 mg PO HS 03/24/23 03/24/23 History donepezil 10 mg tablet 10 mg PO HS 03/24/23 03/24/23 History furosemide 40 mg tablet 40 mg PO QAM 03/24/23 09/27/24 History hydroxychloroquine 200 mg tablet 200 mg PO QAM 03/24/23 03/24/23 History metoprolol succinate 25 mg 12.5 mg PO HS 03/24/23 09/27/24 History tablet,extended release 24 hr potassium chloride 10 mEq 10 meq PO QAM 03/24/23 09/27/24 History tablet,extended release Past Med/Surg History Problem List (Updated 09/27/24 @ 10:02 by June Ochoa RN) Chest pain (Acute) Right humeral fracture Osteoarthritis DM II (diabetes mellitus, type II), controlled HLD (hyperlipidemia) HTN (hypertension) (Acute) CAD (coronary artery disease) of bypass graft Memory problem Neuropathy Lumbar stenosis with neurogenic claudication (Acute 11/02/13) Medical History (Updated 09/27/24 @ 10:02 by June Ochoa RN) Diabetes mellitus, type 2 Anemia Hx of completed stroke Surgical History History of carotid endarterectomy History of coronary artery bypass graft Hx of colonoscopy Hx of hysterectomy History of back surgery Family History Mother CancerGrandmother (Maternal) Myocardial infarctionGrandfather (Maternal) Myocardial infarction Social History (Updated 07/11/21 @ 13:23 by Whit Bruno) Smoking Status: Never smoker Cigarettes Per Day: na; Second Hand Exposure: Yes (none since 1999); Do You Dip or Chew Tobacco: No; Tobacco Cessation Education Requested by Patient: No Hx Alcohol Use: No Hx Substance Use: No Preferred Language: Macanese Communication Ability: Effective Communication Ability Comment: na Washing Machine Operator Required: No Beliefs That Will Affect Care: None Current Living Situation: Spouse Current Living Situation Comment: spouse Other Information That Helps Us Care for You: No Feels Safe at Home: Yes Safety Concerns: Feels Safe At This Time Assistive Devices: Denture - Upper, Denture - Lower and Glasses Results & Data Vital Signs (Past 12 Hours) Vital Signs Temp Pulse Resp BP Pulse Ox O2 Del Method 09/27/24 09:40 36.4 C L 57 L 18 127/50 L 97 Room Air Signed By: <Electronically signed by Thierry Stephenson MD> 09/27/24 1103 Created: 09/27/24 1103 The status of this report is Signed. Draft = Not yet reviewed or approved by Medical Physician. Signed = Reviewed and approved by Medical Physician. Allergies Allergy/AdvReac Type Severity Reaction Status Date / Time lisinopril Allergy Severe Angioedema Verified 10/11/24 11:30 gabapentin AdvReac Unknown Verified 09/27/24 09:19 pregabalin AdvReac Unknown Verified 09/27/24 09:19 Home Medications Medication Instructions Recorded Confirmed Type doxepin 100 mg capsule 100 mg PO HS 07/11/21 10/06/24 History famotidine 40 mg tablet 40 mg PO HS 07/11/21 10/06/24 History losartan 50 mg tablet 25 mg PO QAM 07/11/21 10/06/24 History metformin 500 mg tablet 500 mg PO QAM 07/11/21 10/06/24 History polyethylene glycol 3350 17 17 g PO DAILY 07/11/21 10/06/24 History gram/dose oral powder (Miralax) aspirin 81 mg chewable tablet 81 mg PO QAM 03/24/23 10/06/24 History atorvastatin 40 mg tablet 40 mg PO HS 03/24/23 10/06/24 History donepezil 10 mg tablet 10 mg PO HS 03/24/23 10/06/24 History furosemide 40 mg tablet 40 mg PO QAM 03/24/23 10/06/24 History hydroxychloroquine 200 mg tablet 200 mg PO QAM 03/24/23 10/06/24 History potassium chloride 10 mEq 10 meq PO QAM 03/24/23 10/06/24 History tablet,extended release Past Med/Surg History Problem List Encounter for pre-operative examination Osteoarthritis DM II (diabetes mellitus, type II), controlled HLD (hyperlipidemia) HTN (hypertension) (Acute) CAD (coronary artery disease) of bypass graft Memory problem Neuropathy Lumbar stenosis with neurogenic claudication (Acute 11/02/13) Medical History Anemia CAD (coronary artery disease) CABG x3 (2021) Follows with [facility] cardio/Dr. Carrera Carotid artery disease s/p left carotid endarterectomy 03/2024 Carotid doppler 05/2024: There is mild plaque causing <50% TOMMY stenosis. LICA stent appears patent without significant stenosis. Diabetes mellitus, type 2 NIDDM History of hypertension Hx of completed stroke Evidence of old stroke found during workup prior to left carotid endarterectomy (done 03/2024) Head CT 02/23/24: old small left parietal cortical infarct Hx of hyperlipidemia Hx of osteoarthritis Memory problem Forgetful Neuropathy Sleep apnea No device Surgical History History of back surgery L4-L5, "many years ago" History of carotid endarterectomy Left, 04/08/24 History of coronary artery bypass graft CABG x3 (2021) History of esophagogastroduodenoscopy (EGD) Hx of angiography RLE 09/27/24, [facility] Hx of cardiac cath 2021 > CABG x3 Hx of colonoscopy Hx of hysterectomy Hx of LASIK Family History Mother Cancer Grandmother (Maternal) Myocardial infarction Grandfather (Maternal) Myocardial infarction Social History (Updated 07/11/21 @ 13:23 by Whit Bruno) Smoking Status: Never smoker Cigarettes Per Day: na; Second Hand Exposure: Yes (hx); Do You Dip or Chew Tobacco: No; Tobacco Cessation Education Requested by Patient: No Hx Alcohol Use: No Hx Substance Use: No Preferred Language: Macanese Communication Ability: Effective Communication Ability Comment: na Washing Machine Operator Required: No Beliefs That Will Affect Care: None Current Living Situation: Spouse Current Living Situation Comment: spouse Other Information That Helps Us Care for You: No Feels Safe at Home: Yes Safety Concerns: Feels Safe At This Time Assistive Devices: Denture - Upper, Denture - Lower and Glasses
[~2024-10-13 08:46] MED LIST: DEXAMETHASONE SOD INJ 4 MG/ML VIAL ONE; GLYCOPYRROLATE 0.2 MG/ML VIAL ONE; LIDOCAINE 2% 2 ML VIAL/AMP(20MG/ML) INFIL ONE; MIDAZOLAM HCL 1 MG/ML 2ML VIAL ONE; ONDANSETRON INJ 2 MG/ML 2 ML VIAL ONE; PROPOFOL IV EMULSION 10 MG/ML 20 ML VIAL IV ONE; ROCURONIUM BROMIDE 10 MG/ML 5 ML VIAL IV ONE; SUGAMMADEX SODIUM 200 MG/2 ML VIAL IV ONE; fentaNYL citrate PF 100 MCG/2 ML VIAL ONE
[2024-10-13] MEDS: SODIUM CHLORIDE 0.9% 1,000 ML IV SCH (09:00)
[2024-10-13 09:12] LABS: Basophils # (auto) 0.06 K/uL (0.00-0.20); Eosinophils # (auto) 0.26 K/uL (0.00-0.50); Eosinophils % (auto) 4.2 %; Hematocrit (blood only) 34.7 % (37.0-47.0); Hemoglobin 11.5 g/dl (12.0-16.0); Immature Granulocytes # (auto) 0.01 K/uL (0.01-0.20); Immature Granulocytes % (auto) 0.2 %; Lymphocytes # (auto) 2.61 K/uL (1.20-3.40); Lymphocytes % (auto) 42.3 %; Mean Corpuscular Hemoglobin 31.3 pg (25.0-34.0); Mean Corpuscular Hgb Conc 33.1 g/dL (32.0-36.0); Mean Corpuscular Volume 94.6 fL (80.0-100.0); Mean Platelet Volume 9.4 fL (9.4-12.4); Monocytes # (auto) 0.43 K/uL (0.11-0.59); Neutrophils % (auto) 45.3 %; Platelet Count 182 K/uL (130-400); RDW Coefficient of Variation 14.8 % (11.5-14.5); RDW Standard Deviation 51.4 fL (36.4-46.3); Red Blood Count 3.67 M/uL (4.20-5.40); White Blood Count 6.17 K/ul (4.8-10.8)
[2024-10-13 09:31] LABS: BUN Creatinine Ratio 9.6 (10-20); Calcium 9.2 mg/dl (8.6-10.3); Creatinine Clr Calc Pharmacy 65.1 ml/min; Potassium 4.1 mmol/L (3.5-5.1)
[2024-10-13 09:42] LABS: Partial Thromboplastin Time 26 Seconds (21-31); Prothrombin Time 10.9 Seconds (9.0-12.0)
--- NOTE | 2024-10-13 09:53 | History & Physical Bridge Note ---
Date of Service October 13, 2024 History & Physical Bridge Note I have examined the patient, reviewed the History & Physical and in the interval since the performance of the History & Physical I have noted the following changes of clinical significance: no changes noted
[2024-10-13] MEDS ORDERED: ATROPINE SULFATE 0.1 MG/ML 10ML SYR IV PRN (09:54)
[2024-10-13] MEDS ORDERED: HYDROmorphone INJ 2 MG/ML SYR/VIAL IV PRN (09:54)
[2024-10-13] MEDS ORDERED: fentaNYL citrate PF 100 MCG/2 ML VIAL IV PRN (09:54)
[2024-10-13] MEDS ORDERED: PROMETHAZINE HCL 6.25 MG in SODIUM CHLORIDE 0.9% 50 ML IV PRN (09:54)
[2024-10-13] MEDS ORDERED: ONDANSETRON INJ 2 MG/ML 2 ML VIAL IV PRN ×2 (09:54→14:29)
[2024-10-13] MEDS ORDERED: ePHEDrine sulfate 50 MG/ML AMP IV PRN (09:54)
--- NOTE | 2024-10-13 10:03 | XRay Report ---
XR chest 2V PA/lateral CLINICAL HISTORY: SDS, preop COMPARISON STUDY: 03/24/2023 FINDINGS: Stable CABG. Heart size and pulmonary vasculature are normal. No effusion or consolidation. IMPRESSION: No acute findings. ACT 112: Negative or not required by law. Electronically signed by: Willy Francois M.D. 10/13/2024 10:02 AM
[2024-10-13] MEDS: ceFAZolin 2000MG 2,000 MG/15 ML SYR IV SCH ×2 (10:11→20:34)
[2024-10-13] MEDS ORDERED: PHENYLEPHRINE HCL 25 MG/250 ML NSS IV ONE (10:35)
[2024-10-13] MEDS ORDERED: fentaNYL citrate PF 100 MCG/2 ML VIAL ONE (10:47)
[2024-10-13] MEDS ORDERED: HEPARIN SOD (PORCINE) 1000 UNIT/ML ONE (11:16)
--- OUTSIDE RECORDS SUMMARY | 2024-10-13 11:26 | External Medical Summary | Continuity of Care Document ---
Author Name Unknown Organization [facility] [address] [facility] Address [address] [place], [place] [id number] Care Team Providers Care Bioinformatics Developer Name Role Phone Jarrod Huber Primary Care Physician [phone] Encounter [facility] [id number] Date(s): 10/05/24 - 10/05/24 [facility] [address], [address] [place] [address] [phone] Encounter Diagnosis Peripheral arterial disease(Discharge Diagnosis) - 10/05/24 Discharge Disposition: Home or Self Care Attending Physician: MD Stephenson Eugene J Referring Physician: DO Huber Gregor S Encounter Type: Clinic Allergies, Adverse Reactions, Alerts Substance Criticality Severity Reaction Reaction Severity Status lisinopril Active gabapentin unknown Active pregabalin fatigue Active Assessment and Plan Extracted from: Title:Clinical Document Author:ROXANA Hassan Lynn Date:10/05/24 I OUTPATIENT NOTE Name: KINJAL PAINTER Patient Number: [id number] : 1950 Date of Service: 10/05/2024 Chief Complaint: _Follow-up to discuss surgical intervention HPI: _Ms. Painter is an elderly female who presents to Dr. Stephenson's vascular surgery clinic today for a follow-up appointment after undergoing an angiogram without intervention. Patient initially presented to Dr. Stephenson's office with a severe stenosis versus occlusion of what appeared to be her external iliac artery on the right, and severe right leg claudication symptoms. She was recommended to undergo angiogram with possible intervention. During the procedure, it was noted that the occlusion was in her common femoral artery, not her external iliac. Due to the location of this lesion, this was not amenable to endovascular intervention, and it was decided to bring her in the office to discuss, femoral artery endarterectomy. Patient continues to states that she is hardly able to do anything with her right leg, due to pain in the right leg. She states that she is not very active at home due to the pain in her right leg. She is only able to walk a very short distance before her right leg becomes painful and numb. She denies any nonhealing wounds or ulcerations or discoloration of her right foot. Current Home Meds: (Last Updated 10/05 13:03) aspirin (Aspirin Low Dose 81 mg oral tablet, chewable) TAKE 1 TABLET BY MOUTH EVERY DAY atorvastatin (atorvastatin 40 mg oral tablet) TAKE 1 TABLET BY MOUTH EVERYDAY AT BEDTIME donepezil (donepezil 10 mg oral tablet) 10 mg PO qhs doxepin (doxepin 100 mg oral capsule) TAKE 1 CAPSULE BY MOUTH EVERYDAY AT BEDTIME famotidine (famotidine 40 mg oral tablet) TAKE 1 TABLET BY MOUTH TWICE A DAY furosemide (furosemide 40 mg oral tablet) 1 tab PO every other day. hydroxychloroquine (hydroxychloroquine 200 mg oral tablet) 200 mg PO Daily levothyroxine (levothyroxine 50 mcg (0.05 mg) oral tablet) 50 mcg PO Daily losartan (losartan 50 mg oral tablet) 25 mg PO Daily metFORMIN (metFORMIN 500 mg oral tablet) 500 mg PO Daily Allergies and Sensitivities: pregabalin(fatigue) gabapentin(unknown) lisinopril Past Medical History: Problems: Peripheral arterial disease HTN (hypertension) DM (diabetes mellitus) Iliac artery stenosis, right CAD (coronary artery disease) Carotid stenosis, left Back pain Hyperlipidemia Neuropathy OBJECTIVE Vitals: Last Updated 10/05/24 13:08 Date Temp BP Location Pulse RR SpO2 Pain 10/05/24 0 10/05/24 110/52 Left Arm 72 97 10/05/24 108/60 67 97 Vital Signs are the last 3 documented. No Orthostatic Data Available Height and Weight: Last Updated 10/05/24 10:36 Date BMI Wt(kg) Wt(lb) Method Ht(cm) (ft-in) Method 10/05/24 90 198 Standing Scale 04/06/24 31.33 85.3 188 Standing Scale 165 5-5 Standing Heights and Weights are the last 3 documented. Physical Exam Constitutional: In general patient is an overweight but healthy-appearing well-nourished well-developed elderly female in no distress. She is alert and oriented with any focal deficits. Her right groin puncture is healing as expected. Her femoral pulse on the right is nonpalpable, her right lower extremity distal pulses are also nonpalpable. Her toes demonstrate brisk capillary fill and no sign of ischemia. ASSESSMENT: _ PLAN: _ 1 ) _right common femoral artery occlusion Patient does appear to have a right common femoral artery occlusion and symptoms of severe short distance claudication which is limiting her activity level. As this lesion is not amenable to endovascular intervention, we recommend that she undergo common femoral artery endarterectomy. The procedure benefits and alternatives were discussed with the patient by myself. The risks of the surgery including but not limited to bleeding, infection, vessel trauma, blood clots, need for further surgery, loss of part of the foot or leg, heart attack, , were discussed with the patient by myself at Dr. Stephenson's request. Patient expressed understanding and agreement to proceed. Patient did state that she saw her powder line repairer this morning in the office, we will request cardiac clearance from Dr. Carrera before her procedure. Patient was advised to call with any questions or concerns. Patient's daughter was in the office with her today as well. Thank you for letting us participate in the care of this patient. I have personally spent _36__ minutes performing digj-dv-[id number] and rxo-lspk-re-face activities on this date of service. Time does not include separately reported services. Activities Include: x__ review of the medical record _x_ obtaining a history _x_ physical exam/evaluation __ review labs x__ review radiology reports x__ counseling/educating patient/family/caregiver x__ discussion/referral to other healthcare professional x_ documenting care in the medical record __ independent interpretation of results _x_ communication of results to patient/family/caregiver _x_ coordination of care Medications Aspirin Low Dose 81 mg oral tablet, chewable TAKE 1 TABLET BY MOUTH EVERY DAY Start Date: 04/06/24 Status: Ordered Repeat number: 1 atorvastatin 40 mg oral tablet TAKE 1 TABLET BY MOUTH EVERYDAY AT BEDTIME Start Date: 04/06/24 Status: Ordered Repeat number: 1 donepezil 10 mg oral tablet Start: 04/06/24 9:49:00 AM EDT, 1 tab, PO, qhs Start Date: 04/06/24 Status: Ordered Repeat number: 1 doxepin 100 mg oral capsule TAKE 1 CAPSULE BY MOUTH EVERYDAY AT BEDTIME Start Date: 04/06/24 Status: Ordered Repeat number: 1 famotidine 40 mg oral tablet TAKE 1 TABLET BY MOUTH TWICE A DAY Start Date: 04/06/24 Status: Ordered Repeat number: 1 furosemide 40 mg oral tablet Start: 10/05/24 10:33:00 AM EDT, See Instructions, 1 tab PO every other day. Start Date: 10/05/24 Status: Ordered Repeat number: 1 hydroxychloroquine 200 mg oral tablet Start: 04/06/24 9:49:00 AM EDT, 1 tab, PO, Daily Start Date: 04/06/24 Status: Ordered Repeat number: 1 levothyroxine 50 mcg (0.05 mg) oral tablet Start: 04/06/24 9:49:00 AM EDT, 1 tab, PO, Daily Start Date: 04/06/24 Status: Ordered Repeat number: 1 losartan 50 mg oral tablet Start: 04/06/24 9:49:00 AM EDT, 0.5 tab, PO, Daily Start Date: 04/06/24 Status: Ordered Repeat number: 1 metFORMIN 500 mg oral tablet Start: 04/06/24 9:49:00 AM EDT, 1 tab, PO, Daily Start Date: 04/06/24 Status: Ordered Repeat number: 1 Mental Status 10/05/24 Barriers to Learning one year None evide nt Mandatory Health Literacy Documentation Yes Health Literacy Communication Barriers N ever Primary Language Romansh Problem List Condition Confirmation Course Effective Dates Status H ealth Status Informant Back pain Confirmed Active CAD (coronary artery disease) 1 Confirmed Active DM (diabetes mellitus) Confirmed Active Hyperlipidemia Confirmed Active HTN (hypertension) Confirmed Active Iliac artery stenosis, right Confirmed Active Carotid stenosis, left Confirmed Active Neuropathy Confirmed Active Peripheral arterial disease Confirmed Active 1cabg 2017 Diagnosis Diagnosis Type Effective Dates Health Status Clinical Service Informant Peripheral arterial disease Discharge Diagnosis 10/05/24 Procedures Procedure Date Related Diagnosis Body Site Status RLE Angiogram w/o intervention 09/27/24 Completed Percutaneous transluminal in sertion of stent into left carotid artery via right femoral access 03/2024 Completed Abdominal hysterectomy Co mpleted Appendectomy Completed Back Completed CABG (Coronary artery bypass grafting) planned 1 Completed Exploratory laparotomy Co mpleted 50270 Vital Signs Most recent to oldest [Reference Range]: 1 Heart Rate 72 bpm (10/05/24 1:07 PM) Blood Pressure 110/52mmHg (10/05/24 1:07 PM) Cuff Pulse Pressure 58 mmHg (10/05/24 1:07 PM) BP Location # 1 Left Arm (10/05/24 1:07 PM) Social History Social History Type Response Smoking Status Never smoked cigaret [place] Sex Female Sex Representation Female (finding) [facility] Outpt Note * ROXANA Hassan, Sarah: PERFORM Event Display: [facility] Outpt Note Authored Date: [id number] [facility] OUTPATIENT NOTE Name: KINJAL PAINTER Patient Number: [id number] : 1950 Date of Service: 10/05/2024 Chief Complaint: _Follow-up to discuss surgical intervention HPI: _Ms. Painter is an elderly female who presents to Dr. Stephenson's vascular surgery clinic today fora follow-up appointment after undergoing an angiogram without intervention. Patient initially presented to Dr. Stephenson's office with a severe stenosis versus occlusion of what appeared to be her external iliac artery on the right, and severe right leg claudication symptoms. She was recommended to undergo angiogram with possible intervention. During the procedure, it was noted that the occlusion was in her common femoral artery, not her external iliac. Due to the location of this lesion, this wasnot amenable to endovascular intervention, and it was decided to bring her in the office to discuss, femoral artery endarterectomy. Patient continues to states that she is hardly able to do anything with her right leg, due to pain in the right leg. She states that she is not very active at home dueto the pain in her right leg. She is only able to walk a very short distance before her right leg becomes painful and numb. She denies any nonhealing wounds or ulcerations or discoloration of her right foot. Current Home Meds: (Last Updated 10/05 13:03) aspirin (Aspirin Low Dose 81 mg oral tablet, chewable) TAKE 1 TABLET BY MOUTH EVERY DAY atorvastatin (atorvastatin 40 mg oral tablet) TAKE 1 TABLET BY MOUTH EVERYDAY AT BEDTIME donepezil (donepezil 10 mg oral tablet) 10 mg PO qhs doxepin (doxepin 100 mg oral capsule) TAKE 1 CAPSULE BY MOUTH EVERYDAY AT BEDTIME famotidine (famotidine 40 mg oral tablet) TAKE 1 TABLET BY MOUTH TWICE A DAY furosemide (furosemide 40 mg oral tablet) 1 tab PO every other day. hydroxychloroquine (hydroxychloroquine 200 mg oral tablet) 200 mg PO Daily levothyroxine (levothyroxine 50 mcg (0.05 mg) oral tablet) 50 mcg PO Daily losartan (losartan 50 mg oral tablet) 25 mg PO Daily metFORMIN (metFORMIN 500 mg oral tablet) 500 mg PO Daily Allergies and Sensitivities: pregabalin(fatigue) gabapentin(unknown) lisinopril Past Medical History: Problems: Peripheral arterial disease HTN (hypertension) DM (diabetes mellitus) Iliac artery stenosis, right CAD (coronary artery disease) Carotid stenosis, left Back pain Hyperlipidemia Neuropathy OBJECTIVE Vitals: Last Updated 10/05/24 13:08 Date Temp BP Location Pulse RR SpO2 Pain 10/05/24 0 10/05/24 110/52 Left Arm 72 97 10/05/24 108/60 67 97 Vital Signs are the last 3 documented. No Orthostatic Data Available Height and Weight: Last Updated 10/05/24 10:36 Date BMI Wt(kg) Wt(lb) Method Ht(cm) (ft-in) Method 10/05/24 90 198 Standing Scale 04/06/24 31.33 85.3 188 Standing Scale 165 5-5 Standing Heights and Weights are the last 3 documented. Physical Exam Constitutional: In general patient is an overweight but healthy-appearing well- nourished well-developed elderly female in no distress. She is alert and oriented with any focal deficits. Her right groin puncture is healing as expected. Her femoral pulse on the right is nonpalpable, her right lower ex tremity distal pulses are also nonpalpable. Her toes demonstrate brisk capillary fill and no sign of ischemia. ASSESSMENT: _ PLAN: _ 1 ) _right common femoral artery occlusion Patient does appear to have a right common femoral artery occlusion and symptoms of severe short distance claudication which is limiting her activity level. As this lesion is not amenable to endovascular intervention, we recommend that she undergo common femoral artery endarterectomy. The procedurebenefits and alternatives were discussed with the patient by myself. The risks of the surgery including but not limited to bleeding, infection, vessel trauma, blood clots, need for further surgery, loss of part of the foot or leg, heart attack, , were discussed with the patient by myself at Dr. Stephenson's request. Patient expressed understanding and agreement to proceed. Patient did state that she saw her powder line repairer this morning in the office, we will request cardiacclearance from Dr. Carrera before her procedure. Patient was advised to call with any questions or concerns. Patient's daughter was in the office with her today as well. Thank you for letting us participate in the care of this patient. I have personally spent _36__ minutes performing ccko-mi-koop and ljd-cwxe-cl-face activities on this date of service. Time does not include separately reported services. Activities Include: x__ review of the medical record _x_ obtaining a history _x_ physical exam/evaluation __ review labs x__ review radiology reports x__ counseling/educating patient/family/caregiver x__ discussion/referral to other healthcare professional x_ documenting care in the medical record __ independent interpretation of results _x_ communication of results to patient/family/caregiver _x_ coordination of care Electronic Signature on File CC: Jarrod Huber DO [address] [place] [id number] * CC: Elzbieta Carrera DO [address] [place] [id number] Electronically Reviewed/Signed by: Sarah Hassan PA-C Author Signature Dt/Tm:10/05/2024 02:37 PM [facility] [place] [address] LM Patient Care team information Care Team Personnel Name: ROXANA Hassan Lynn Position: Physician 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 - 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 Surg Member Role: Lifetime Relationship [address]: [address] [place] [address] [place] Telecom: [phone] Name: DO Huber Gregor S Position: Referring Member Role: Primary Care Provider Address: [address] [place] [address] [place] Telecom: [phone] Care Team Related Persons Name: JEANNE PAINTER Name: NAVNEET LAWLER Insurance Providers Guarantor name: KINJAL Da PAINTER Health Plan Information #: 1 Payer: [employer] Member Number: [id number] Policy Number: NA Group Number: [id number] Payer Identifier: [id number] Health Plan Information #: 2 Payer: [employer] Member Number: [id number] Policy Number: NA Group Number: [id number] Payer Identifier: [id number]
--- OUTSIDE RECORDS SUMMARY | 2024-10-13 11:26 | External Medical Summary | Continuity of Care Document ---
Author Name Unknown Organization [facility] [address] Address [address] [place], [place] [address] Care Team Providers Care Berry Picker Machine Operator Name Role Phone Jarrod Huber Primary Care Physician [phone] [id number] Date(s): 10/05/24 - 10/05/24 [facility] [address], [address] [place] [address] [phone] Discharge Disposition: Home or Self Care Attending Physician: DO Carrera Michelle L Encounter Type: Clinic Allergies, Adverse Reactions, Alerts Substance Criticality Severity Reaction Reaction Severity Status lisinopril Active gabapentin unknown Active pregabalin fatigue Active Medications Aspirin Low Dose 81 mg oral [...] Date: 04/06/24 Status: Ordered Repeat number: 1 Problem List Condition Confirmation Course Effective Dates Status H ealth Status Informant Back pain Confirmed Active CAD (coronary artery disease) 1 Confirmed Active DM (diabetes mellitus) Confirmed Active Hyperlipidemia Confirmed Active HTN (hypertension) Confirmed Active Iliac artery stenosis, right Confirmed Active Carotid stenosis, left Confirmed Active Neuropathy Confirmed Active Peripheral arterial disease Confirmed Active 1cabg 2018 Procedures Procedure Date Related Diagnosis Body Site Status RLE Angiogram w/o intervention 09/27/24 Completed Percutaneous transluminal in sertion of stent into left carotid artery via right femoral access 03/2024 Completed Abdominal hysterectomy Co mpleted Appendectomy Completed Back Completed CABG (Coronary artery bypass grafting) planned 1 Completed Exploratory laparotomy Co mpleted 19522 Results Radiology Reports * Exam Date Time Procedure Performing Provider Status 10/05/24 10:18 AM Echo TransTHORacic TTE Complete w/ Co nt Final Notes: (Echo TransTHORacic TTE Complete w/ Cont) Reason For Exam: hx cabg-reassess EF Echo TransTHORacic TTE Complete w/ Cont Report Signatures Finalized by Dr. Elzbieta Carrera DO on 10/05/2024 05:09 PM [place] Act 112: No-No further action needed Summary 1. Technically difficult study due to patient body habitus; Successfully enhanced with Definity contrast per lab protocol for better endocardial definition. 2. Normal left ventricular size for BSA. 3. Normal left ventricular systolic function with no regional wall motion abnormalities. 4. Ejection fraction as calculated by Biplane Simpsons method is 60%. 5. No left ventricular hypertrophy. 6. Grade I diastolic dysfunction of the left ventricle (impaired relaxation pattern) with elevated left atrial pressure. 7. Normal right ventricular size and function. 8. Normal biatrial size. 9. Atrial septal aneurysm with no evidence of shunting by color Doppler. 10. Mild mitral valve regurgitation. 11. Mild tricuspid regurgitation. 12. Normal estimated pulmonary artery pressures, estimated PASP is 26 mmHg. 13. No prior studies for comparison. Patient Info Name: KINJAL GERARDO Age: 74 years : 1950 Gender: Female Ht: 168 cm Wt: 90 kg BSA: 2.08 m2 HR: 61 bpm BP: 126 / 62 mmHg Heart Rhythm: Sinus Rhythm Technical Quality: Technically difficult study Exam Date: 10/05/2024 9:04 AM Exam Location: [facility] Patient Status: Outpatient Staff Ordering Physician: Elzbieta Carrera Medical Assembler: Becca Wheeler RDCS, RVT Attending Physician: Elzbieta Carrera Study Info CPT J3490 - 42263 - Indications Z95.1 - h/o CABG Procedure(s) * A complete two-dimensional, color flow and Doppler transthoracic echocardiogram was performed. * Medical Assembler, Becca Wheeler RDCS, RVT, provided education about ultrasound enhancing agent to the patient. * Failed 2D images were enhanced with Definity per lab protocol. Exam Type: Cardiac Basic Left Ventricle Normal left ventricular size for BSA. Normal left ventricular systolic function with no regional wall motion abnormalities. Ejection fraction as calculated by Biplane Simpsons method is 60%. No left ventricular hypertrophy. Grade I diastolic dysfunction of the left ventricle (impaired relaxation pattern) with elevated left atrial pressure. Right Ventricle Normal right ventricular size and function. TAPSE is normal, 1.6 cm. Left Atrium Normal left atrial size for BSA. Right Atrium Normal right atrial size. Atrial Septum Atrial septal aneurysm with no evidence of shunting by color Doppler. Aortic Valve Calcified, trileaflet aortic valve without stenosis or insufficiency. Pulmonic Valve Structurally unremarkable pulmonic valve with no significant flow abnormalities. Estimated pulmonary arterial mean pressure 10 mmHg. Mitral Valve Mildly calcified mitral valve annulus without stenosis. Mild mitral valve regurgitation. Tricuspid Valve Mild tricuspid regurgitation. Normal estimated pulmonary artery pressures, estimated PASP is 26 mmHg. Pericardium/Pleural No significant pericardial effusion. Inferior Vena Cava Normal IVC size and inspiratory collapse. Estimated right atrial pressure is 3 mmHg. Aorta Normal aortic root, ascending aorta and aortic arch. Calcified sinotubular junction, aortic arch and proximal descending thoracic aorta. Left Ventricular Outflow Tract Name Value Normal LVOT 2D LVOT Diameter 1.9 cm LVOT Doppler LVOT Peak Velocity 1.02 m/s LVOT Peak Gradient 4 mmHg LVOT Mean Gradient 2 mmHg LVOT VTI 24.54 cm LVOT Stroke Volume 72.11 ml LVOT Stroke Volume Index 0.03 l/m2 LVOT Cardiac Output 4.40 l/min LVOT Cardiac Index 2.12 L/min/m2 Pulmonic Valve Name Value Normal RVOT Doppler RVOT Peak Velocity 0.47 m/s RVOT Peak Gradient 1 mmHg PV Doppler PV Peak Velocity 1.03 m/s PV Peak Gradient 4 mmHg PV Regurgitation Doppler IA Peak Velocity 1.28 m/s Mitral Valve Name Value Normal MV Doppler MV Peak Velocity 1.40 m/s MV Peak Gradient 8 mmHg MV Mean Gradient 2 mmHg MV VTI 39.04 cm MV PHT 82 ms MV Area (Cont Eq VTI) 1.8 cm2 MV Area Index (Cont Eq VTI) 0.89 cm2/m2 MV Diastolic Function MV E Peak Velocity 0.98 m/s <=0.50 MV A Peak Velocity 1.30 m/s MV E/A 0.76 <=0.80 MV Decel Time 282 ms MV Annular TDI MV Septal s' Velocity 5.77 cm/s MV Septal e' Velocity 4.57 cm/s >=7.00 MV E/e' (Septal) 21.4 <=8.0 MV Lateral s' Velocity 6.85 cm/s MV Lateral e' Velocity 8.05 cm/s >=10.00 MV E/e' (Lateral) 12.16 <=8.00 MV e' Average 6.31 MV E/e' (Average) 16.80 <=14.00 Tricuspid Valve Name Value Normal TV Regurgitation Doppler TR Peak Velocity 2.39 m/s <=2.80 TR Peak Gradient 23 mmHg Estimated PAP/RSVP RA Pressure 3 mmHg <=5 PA Systolic Pressure 26 mmHg <40 PA Mean Pressure (IA Velocity) 10 mmHg TV Diastolic Function TV E Peak Velocity 0.57 m/s TV A Peak Velocity 0.55 m/s TV E/A 1.03 0.80-2.00 TV Decel Time 285 ms >=120 TV Annular TDI TV Lateral Wanda s' Velocity 8.1 cm/s 9.5-18.7 TV Lateral Wanda e' Velocity 4.5 cm/s <7.8 TV E/e' 12.69 2.00-6.00 Aorta Name Value Normal Ascending Aorta Sinus of Valsalva Diameter 2.8 cm 2.7-3.3 Sinus of Valsalva Index 1.35 cm/m2 1.60-2.00 Prox Asc Ao Diameter 3.1 cm 2.3-3.1 Prox Asc Ao Diameter Index 1.48 cm/m2 1.30-1.90 Thoracic Aorta Desc Ao Peak Velocity 0.92 m/s Desc Ao Peak Gradient 3 mmHg Venous Name Value Normal IVC/SVC IVC Diameter (Insp 2D) 0.3 cm IVC Diameter (Exp 2D) 1.1 cm <=2.1 IVC Diameter Percent Change (2D) 75 % >=50 Aortic Valve Name Value Normal AV Doppler AV Peak Velocity 1.07 m/s <2.00 AV Peak Gradient 5 mmHg AV Area (Cont Eq Blaise) 2.8 cm2 AV Area Index (Cont Eq Blaise) 1.35 cm2/m2 AV V1/V2 Ratio 0.96 AV Regurgitation 2D LVOT Area 2.9 cm2 Ventricles Name Value Normal LV Dimensions 2D/MM IVS Diastolic Thickness (2D) 0.7 cm 0.6-0.9 LVID Diastole (2D) 4.7 cm 3.3-5.1 LVIW Diastolic Thickness (2D) 0.7 cm 0.6-0.9 LVID Systole (2D) 3.0 cm 2.2-3.5 LVOT Diameter 1.9 cm LV Mass (2D Cubed) 102.45 g 67.00-162.00 Relative Wall Thickness (2D) 0.30 LV Fractional Shortening/Ejection Fraction 2D/MM LV Diastolic Volume (4C MOD) 138 ml LV Diastolic Volume (2C MOD) 92 ml LV Diastolic Volume (BP MOD) 114 ml 46-106 LV Diastolic Volume Index (BP MOD) 54.70 ml/m2 29.00-61.00 LV Systolic Volume (BP MOD) 47 ml 14-42 LV Systolic Volume Index (BP MOD) 22.59 ml/m2 8.00-24.00 LV EF (BP MOD) 59 % 58-69 LV SV (BP MOD) 66.73 ml RV Dimensions 2D/MM RV Basal Diastolic Dimension 3.6 cm 2.5-4.1 TAPSE 1.6 cm >=1.7 Atria Name Value Normal LA Dimensions LA Area (4C) 18.4 cm2 LA Length (4C) 5.6 cm LA Area (2C) 19.9 cm2 LA Length (2C) 5.5 cm LA Volume (4C A-L) 51.09 ml LA Volume (2C A-L) 62.04 ml LA Volume (BP A-L) 57 ml 22-52 LA Volume Index (BP A-L) 27.49 ml/m2 <=34.00 RA Dimensions RA Area (4C) 13.4 cm2 <=18.0 Final Signed by:DO Carrera Michelle L Signed (Electronic Signature):10/05/2024 9:04 a Social History Social History Type Response Smoking Status Never smoked cigaret eden Sex Female Sex Representation Female (finding) Patient Care team information Care Team Personnel Name: ROXANA Hassan Lynn Position: Physician Ladies Locker Room Attendant Exempt - Vasc Surg Member Role: Lifetime Relationship Address: [address] [place] [address] [place] Telecom: [phone] Name: DO Huber Gregor S Position: Referring Member Role: Primary Care Provider Address: [address] [place] [address] [place] Telecom: [phone] Care Team Related Persons Name: JEANNE GERARDO Name: NAVNEET LAWLER Insurance Providers Guarantor name: KINJAL GERARDO Health Plan Information #: 1 Payer: [employer] Member Number: [id number] Policy Number: NA Group Number: [id number] Payer Identifier: [id number] Health Plan Information #: 2 Payer: [employer] Member Number: [id number] Policy Number: NA Group Number: NA Payer Identifier: [id number]
--- OUTSIDE RECORDS SUMMARY | 2024-10-13 11:26 | External Medical Summary | Continuity of Care Document ---
Author Name Unknown Organization [facility] [address] [facility] Address [address] [place], [place] [id number] Care Team Providers Care Warehouse Picker Name Role Phone Jarrod Huber Primary Care Physician [phone] [id number] Date(s): 10/05/24 - 10/05/24 [facility] [address], [address] [place] [address] [phone] Encounter Diagnosis CAD (coronary artery disease)(Discharge Diagnosis) - 10/05/24 Iliac artery stenosis, right(Discharge Diagnosis) - 10/05/24 DM (diabetes mellitus)(Discharge Diagnosis) - 10/05/24 HTN (hypertension)(Discharge Diagnosis) - 10/05/24 Hyperlipidemia(Discharge Diagnosis) - 10/06/24 Hypercholesterolemia(Discharge Diagnosis) - 10/06/24 Discharge Disposition: Home or Self Care Attending Physician: DO Carrera Michelle L Encounter Type: Clinic Allergies, Adverse Reactions, Alerts Substance Criticality Severity Reaction Reaction Severity Status lisinopril Active gabapentin unknown Active pregabalin fatigue Active Assessment and Plan Extracted from: Title:Cardiology Office Visit Note Author:DO Carrera Michelle L Date:10/05/24 1. CAD (coronary artery dis ease) Status post CABG x3 2021; history of non-STEMI 2021 2. Iliac artery stenosis, right 3. DM (diabetes mellitus) 4. HTN (hypertension) 5. Hyperlipidemia 6. Hypercholesterolemia From a cardiac standpoint she is doing well. She is considered to be an appropriate cardiovascular candidate for the upcoming right iliac procedure with Dr. Stephenson. I have asked her to stay on her current medications at this time. She will also continue on her current medications. I will follow-up with her in 6 months or sooner if needed. If there are any other concerns that arise at the time of her procedure I be happy to see her at that time. Thank you for allow me to participate in care of this very nice patient. I look forward to participating in her care with you. Elzbieta Carrera DO [facility] Recruitment Internfinance officer [facility] [place], [place] Medications Aspirin Low Dose 81 mg oral [...] Literacy Communication Barriers N ever Primary Language Lithuanian Problem List Condition Confirmation Course Effective Dates [...] Effective Dates Health Status Clinical Service Informant CAD (coronary artery disease) Discharge Diagnosis 10/05/24 Non-Specifie d DM (diabetes mellitus) Discharge Diagnosis 10/05/24 Non-Specifie d Iliac artery stenosis, right Discharge Diagnosis 10/05/24 Non-Specifie d HTN (hypertension) Discharge Diagnosis 10/05/24 Non-Specifie d Hypercholesterolemia Discharge Diagnosis 10/06/24 Non-Specifie d Hyperlipidemia Discharge Diagnosis 10/06/24 Non-Specifie d Procedures Procedure Date Related Diagnosis Body Site Status RLE Angiogram w/o intervention 09/27/24 Completed Percutaneous transluminal in sertion of stent into left carotid artery via right femoral access 03/2024 Completed Abdominal hysterectomy Co mpleted Appendectomy Completed Back Completed CABG (Coronary artery bypass grafting) planned 1 Completed Exploratory laparotomy Co mpleted [id number] Vital Signs Most recent to oldest [Reference Range]: 1 2 Patient Weight 90 kg (10/05/24 10:36 AM) Heart Rate 67 bpm (10/05/24 10:36 AM) Blood Pressure 108/60mmHg (10/05/24 10:36 AM) 100/54mmHg (10/05/24 10:34 AM) Cuff Pulse Pressure 48 mmHg (10/05/24 10:36 AM) Social History Social History Type Response Smoking Status Never smoked cigaret eden Sex Female Sex Representation Female (finding) Cardiology Outpatient Note * DO Carrera Michelle L: PERFORM Event Display: Cardiology Outpt Note Authored Date: [id number] Primary Care Provider DO Huber Gregor S Referring Provider Dr. Thierry Collazo Reason for Consultation Cardiovascular clearance Chief Complaint pt denies any more dizziness, taking lasix every other day- seems to keep swelling and sob to min. Seeing Dr. Stephenson today regarding needing surgery on right leg. History of Present Illness Kinjal Painter was seen today in routine cardiovascular follow-up for preop clearance prior to right iliac artery procedure with Dr. Stephenson. She recently underwent a arteriogram and an attempt at stent placement however that was unable to be performed and she will require an open surgical procedure which is scheduled in the near future. We are not completely sure but her right leg symptoms seem to have started after her carotid stent procedure back in the fall. I tried explaining to her that at times we see this even with cardiac catheterization that after the right groin is accessed sometimes trauma can inadvertently occur to the femoral and iliac vessels even in the best of circumstances. Because her symptoms seem to have started after this procedure it is likely that it is temporally related. Her echo was done today and was reviewed with her. Her LV function appears normal. She has no new cardiac symptoms at this time. From a cardiovascular standpointshe is considered to be an appropriate candidate for this upcoming procedure. Her cardiovascular risk is low to intermediate. She is well-known to me. I first started seeing her back in early 2021 after she presented to [facility] with chest discomfort found to have a non- STEMI was subsequently transferred to [facility] where she underwent left heart catheterization where she was diagnosed with multivessel CAD requiring bypass surgery. She underwent a LINDSEY to her LAD and OM (this is a Y graft) as well as an SVG to her RCA in August 2021. At the time of her CABG she was also noted to have bilateral carotid disease which was being followed by Dr. Collazo. About a year ago her TOMMY was mild to moderate and the LICA was moderate to severe. Back in March she underwent stenting of the left carotid. She is on aspirin as well as Plavix for the carotid and coronary disease. From a cardiovascular standpoint she denies recurrent cardiac symptoms. She has not had chest discomfort or shortness of breath. She has been fairly active. Her last EKG showed normal sinus rhythm low voltage but there were no new changes. The last lipids that I have available showed a total cholesterol 131 her LDL was 60 and that was done on atorvastatin 40 mg. Review of Systems General: no fevers, chills, weight loss of gain HEENT: no changes in vision or hearing; no recent falls or head trauma Cardiac: No other symptoms other than reported in HPI Pulmonary: No symptoms other than reported in HPI Abdomen: No changes in bowel habits, nausea, vomiting, no BRBPR : no changes in urine frequency Extremities: no edema or claudication Physical Exam Vitals & Measurements HR: 67 (Monitored) BP: 108/60 SpO2: 97% WT: 90.000 kg (Dosing) WT: 90 kg Patient is awake alert and oriented x3 and in no acute distress HEENT: 2+ carotid upstrokes, no evidence of carotid bruits LUNGS: Clear to auscultation bilaterally no rales rhonchi or wheezing HEART: Regular rate and rhythm no appreciable murmurs rubs or gallops ABDOMEN: Soft nontender nondistended positive bowel sounds EXTREMITIES: No evidence of clubbing cyanosis or edema PSYCHIATRIC: Patient’s affect appeared appropriate Diagnostic Results See echo done today EKG Normal sinus rhythm low voltage no EKG changes Assessment/Plan 1. CAD (coronary artery disease) Status post CABG x3 2021; history of non-STEMI 202 2. Iliac artery stenosis, right 3. DM (diabetes mellitus) 4. HTN (hypertension) 5. Hyperlipidemia 6. Hypercholesterolemia From a cardiac standpoint she is doing well. She is considered to be an appropriate cardiovascular candidate for the upcoming right iliac procedure with Dr. Stephenson. I have asked her to stay on her current medications at this time. She will also continue on her current medications. I will follow-up with her in 6 months or sooner if needed. If there are any other concerns that arise atthe time of her procedure I be happy to see her at that time. Thank you for allow me to participate in care of this very nice patient. I look forward to participating in her care with you. Elzbieta Carrera DO, FACC Recruitment Internfinance officer [facility] [place] [facility] , [place] Attestation I, Elzbieta Carrera DO [facility] have spent 40 minutes performing the activities necessary in the patients visit. This time does not include separately reported service. Activities include the following: _x_ review of the medical record _x_ obtaining a history _x_ physical exam/evaluation _x_counseling/educating patient/family/caregiver _x_ discussion/referral to other healthcare professionals _x_ documenting care in the medical record _x_ independent interpretation of results _x_ communication of results to patient/family/caregiver _x_ coordination of care Problem List/Past Medical History Ongoing Back pain CAD (coronary artery disease) Carotid stenosis, left DM (diabetes mellitus) HTN (hypertension) Hyperlipidemia Iliac artery stenosis, right Neuropathy Peripheral arterial disease Procedure/Surgical History •RLE Angiogram w/o intervention| Service Date: 09/27/2024•Percutaneous transluminal insertion of stent into left carotid artery via right femoral access| Service Date: 03/2024•CABG (Coronary artery bypass grafting) planned•Exploratory laparotomy•Appendectomy•Abdominal hysterectomy•Back Cardiac History August 2021 status post CABG x 3 LINDSEY to LAD and circumflex OM which is a Y graft, SVG to RCA History of non-STEMI July 2021 Bilateral carotid disease status post left carotid stent March 2024 Intermittent claudication severe right iliac stenosis Hypercholesterolemia Diabetes Medications aspirin(Aspirin Low Dose 81 mg oral tablet, chewable) atorvastatin(atorvastatin 40 mg oral tablet) donepezil(donepezil 10 mg oral tablet), 10 mg= 1 tab, PO, qhs doxepin(doxepin 100 mg oral capsule) famotidine(famotidine 40 mg oral tablet) furosemide(furosemide 40 mg oral tablet), See Instructions hydroxychloroquine(hydroxychloroquine 200 mg oral tablet), 200 mg= 1 tab, PO, Daily levothyroxine(levothyroxine 50 mcg (0.05 mg) oral tablet), 50 mcg= 1 tab, PO, Daily losartan(losartan 50 mg oral tablet), 25 mg= 0.5 tab, PO, Daily metFORMIN(metFORMIN 500 mg oral tablet), 500 mg= 1 tab, PO, Daily Allergies gabapentin unknown lisinopril pregabalin fatigue Social History Smoking Status Never smoked cigarettes Family History Cardiovascular disease: Father. Health Status Family Member(s) Lab Results Test Name Test Result Date/Time Na 138 mmol/L 09/16/2024 10:06 EDT K 4.2 mmol/L 09/16/2024 10:06 EDT Cl- 107 mmol/L 09/16/2024 10:06 EDT HCO3 25 mmol/L 09/16/2024 10:06 EDT Anion Gap 6 mmol/L 09/16/2024 10:06 EDT BUN 10 mg/dL 09/16/2024 10:06 EDT Cret 0.83 mg/dL 09/16/2024 10:06 EDT Estimated CrCl 62.14 mL/min 09/16/2024 10:06 EDT eGFR CKD-EPI 73 mL/min/1.73 m2 09/16/2024 10:06 EDT Glu 97 mg/dL 09/16/2024 10:06 EDT Ca 8.8 mg/dL 09/16/2024 10:06 EDT BNP, NT-Pro 131 pg/mL 09/16/2024 10:06 EDT Electronic Signature on File Electronically Reviewed/Signed by: Elzbieta Carrera DO Author Signature Dt/Tm:10/06/2024 03:11 PM Division of General Cardiology MLS Patient Care team information Care Team Personnel Name: ROXANA Hassan Lynn Position: Physician Storage Facility 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 Exempt - Vasc Surg Member Role: Lifetime Relationship Address: [address] [place] [address] Telecom: [phone] Name: DO Huber Gregor S Position: Referring Member Role: Primary Care Provider Address: [address] [place] [address] [place] Telecom: [phone] Care Team Related Persons Name: JEANNE PAINTER Name: NAVNEET LAWLER Insurance Providers Guarantor name: KINJAL PAINTER Health Plan Information #: 1 Payer: JUAN F Member Number: [id number] Policy Number: NA Group Number: [id number] Payer Identifier: [id number] Health Plan Information #: 2 Payer: AEGODFREY Member Number: [id number] Policy Number: NA Group Number: NA Payer Identifier: [id number]"
[2024-10-13] MEDS: FLOSEAL HEMOSTATIC MATRIX 10ML TOP ONE (12:31)
[2024-10-13] MEDS: ceFAZolin 330 MG/ML 1 GM VIAL ONE (12:40)
[2024-10-13] MEDS: GELATIN SPONGE SZ 100 ONE (12:40)
[2024-10-13] MEDS: HEPARIN (PORCINE) 1000 UNIT/ML 10 ML (CATH LAB USE ONLY) ONE (12:41)
[2024-10-13] MEDS: THROMBIN FOR SOLN 20000 UNIT KIT ONE (12:42)
[2024-10-13] MEDS: SURGICEL ABSORB HEMOSTAT 2IN X 14IN TOP ONE (12:42)
--- NOTE | 2024-10-13 12:44 | Post Operative Brief Note ---
Immediate Post Op Note Date of Surgery October 13, 2024 Pre & Post Diagnosis Operation Date: 10/13/24 09:50 Pre-Op Diagnosis: Peripheral Artery Disease Post-Op Diagnosis: Peripheral Artery Disease I identified the patient and participated in the time-out.: Yes Procedure Operation Date: 10/13/24 09:50 Actual Procedures p Right Lower Extremity Common Femoral Artery Endarterectomy(Right) - Thierry Stephenson MD Surgeon Thierry Stephenson MD Cotton Presser MD Alea L.Minarchick,PAC Estimated Blood Loss 250 Findings Consistent with Post-Op Diagnosis Drains Carreno Catheter (Inserted by Abundio Giles without difficulty, draining clear yellow urine) Anesthesia Type General Complications none Disposition Accompanied Patient To Recovery: No Disposition: Recovery Room
--- NOTE | 2024-10-13 12:59 | Operative Report ---
Post Operative Report Pre & Post Diagnosis Operation Date: 10/13/24 09:50 Pre-Op Diagnosis: Peripheral Artery Disease Post-Op Diagnosis: Peripheral Artery Disease I identified the patient and participated in the time-out.: Yes Procedure Operation Date: 10/13/24 09:50 Actual Procedures p Right Lower Extremity Common Femoral Artery Endarterectomy(Right) - Thierry Stephenson MD Surgeon Thierry Stephenson MD Airline Attendant MD Alea L.Minarchick,PAC Estimated Blood Loss 250 Findings See Below Right common femoral artery had almost occlusive plaque that extended to origin of the superficial femoral artery. Site was hemostatic before closure. Patient had right AT and PT signals at the end of the case. Specimens Right femoral plaque Anesthesia Type General Complications None Indications 74 year old female with history of peripheral artery disease and severe, lifestyle limiting claudication of the right lower extremity. Patient had imaging revealing a near occlusive common femoral artery lesion versus a short segment occlusion with distal reconstitution. Description of Procedure The patient was brought to the operating room and placed on the operating table in supine position. Patient was sedated and intubated and had a Carreno catheter placed by nursing. The right groin was was prepped and draped in the usual sterile fashion. A longitudinal incision was made in the right groin and carried down to the femoral sheath with a combination of electrocautery and sharp dissection. A combination of electrocautery, clips and ties was used for control of superficial branches. The femoral sheath was then opened using Metzenbaum scissors and sharp dissection of the common femoral artery, superficial femoral artery, and profunda femoris was performed. The superficial femoral and profunda arteries were encircled with vessel loops. A Satinsky clamp was positioned at the proximal common femoral artery after the patient was on therapeutic dose of heparin. A #11 blade was used to make a vertical arteriotomy on the common femoral artery which was then extended using Baez scissors proximally and distally onto the superficial femoral artery. A freer elevator was used to free up the occlusive plaque which encompassed the common femoral, superficial femoral and profunda femoris arteries. After all debris was cleared from the femoral artery posterior wall, we ensured there were no flaps with heparinized saline irrigation. Then, a bovine pericardial patch was sutured using 5-0 Prolene in a running fashion. Prior to completion of the patch angioplasty, the profunda femoris, superficial femoral artery and external iliac arteries were unclamped and allowed to be flushed. Thorough irrigation using heparinized saline flush was performed and the patch angioplasty was completed. Thrombin-soaked Gelfoam was applied to the right groin. Meticulous hemostasis using electrocautery and thrombin was achieved. Antibiotic irrigation was used to irrigate the groin. Floseal was played around the suture line and it appeared hemostatic. A multilayer closure of the right groin was completed using 2-0 Vicryl to approximate the femoral sheath as well as multiple layers of subcutaneous tissue. A 3-0 Vicryl suture was used to approximate the deep dermis and fe were used to approximate the skin edges. A sterile dressing was applied to the right groin. The patient had excellent signals in the right lower extremity at the end of the case. This concluded the case and the patient was taken to recovery in stable condition. Dr Stephenson was present and scrubbed for the entirety of the procedure. I attest to the content of the Intraoperative Record and any orders documented therein. Any exceptions are noted below.
[2024-10-13 14:02] LABS: Hematocrit (blood only) 27.6 % (37.0-47.0); Hemoglobin 9.1 g/dl (12.0-16.0)
[2024-10-13] MEDS ORDERED: PHARMACY GLYCEMIC MGMT CONSULT PRN (14:29)
[2024-10-13] MEDS ORDERED: MoRPHine SULFATE 4 MG/ML 1 ML CARP\\VIAL IV PRN (14:29)
--- NOTE | 2024-10-13 14:44 | Anesthesiology Progress Note ---
Date of Service October 13, 2024 Anesthesia Post Procedure Vital Signs Vital Signs: Temp Pulse Pulse Resp BP BP Pulse Ox 10/13/24 14:00 90 12 128/52 L 99 10/13/24 13:50 90 16 129/60 99 10/13/24 13:40 36.5 C 87 14 130/65 98 10/13/24 13:30 86 12 126/48 L 100 10/13/24 13:20 83 12 128/52 L 100 10/13/24 13:12 36.3 C L 89 14 115/70 99 10/13/24 08:59 36.5 C 98 H 20 154/55 H 98 O2 Del Method O2 Flow Rate 10/13/24 14:00 Nasal Cannula 2 10/13/24 13:50 Nasal Cannula 2 10/13/24 13:40 Nasal Cannula 2 10/13/24 13:30 Oxymask 4 10/13/24 13:20 Oxymask 6 10/13/24 13:12 Oxymask 6 10/13/24 08:59 Room Air Transfer of Care Handoff Completed per policy Notes Mental Status: alert / awake / arousable and participated in evaluation Patient Amnestic to Procedure: Yes Nausea / Vomiting: adequately controlled Pain: adequately controlled Airway Patency, RR, SpO2: stable & adequate BP & HR: stable & adequate Hydration State: stable & adequate Anesthetic Complications: no major complications apparent
[2024-10-13] MEDS ORDERED: ARTIFICIAL TEARS OPB PRN (14:46)
--- NOTE | 2024-10-13 14:51 | Pharmacy Report ---
Pharmacy Glycemic Short Note 2 - Date of Service October 13, 2024 - Glycemic Short BSG Results (Last 24 hours): 10/13/24 10/13/24 10/13/24 08:51 09:15 13:15 Glucose 110 H POC Glucose 110 H 132 H OUTPATIENT ANTIDIABETIC REGIMEN: * Metformin * HbA1c ordered for 10/14/24 ASSESSMENT: * 74 yo F with T2DM (unknown outpatient control but good preop and postop BSGs) admitted 10/13 and now POD 0 s/p femoral artery endarterectomy. Dexamethasone 8 mg IV overriden in OT. T2DM diet ordered * Will hold off on basal insulin for now since no BSG's have been >140 mg/dL. However, will add in tonight if BSG > 140 mg/dL * Initiate Novolog - weight based moderate stress estimate to start 2nd good BSG's thus far, but slightly tighter CHO ratio 2nd likely steroid administration PLAN FOR INPATIENT GLYCEMIC CONTROL: * Hold outpatient oral diabetes medication * Basal insulin * Lantus 15 units SQ x1 tonight if BSG > 140 mg/dL * Bolus insulin * NovoLog per scale ACHS or Q6hrs while NPO * Goal Range: Low 110 mg/dL - High 140 mg/dL * Correction Factor: 25 mg/dL/unit * Nutritional / Prandial insulin per carb ratio of 1 unit per 8 grams CHO consumed
--- NOTE | 2024-10-13 15:08 | Critical Care Consultation ---
Date of Consultation October 13, 2024 Assessment & Plan (1) Peripheral arterial disease: Plan Peripheral vascular disease s/p right common femoral artery endarterectomy -Blood pressure goals per vascular surgery -Cont ASA, lipitor, and losartan -Pain control with morphine and oxycodone -Neuro vascular checks per protocol -Wound vac to surgical site -Contact vascular surgery for concerns Supervising Physician Co-Signing Physician Notes Patient separately seen and examined from [facility]. Agree with the note as above. Continue neurovascular checks per protocol. All medications ordered by vascular surgery team. ICU services available should the need arise. History of Present Illness Reason for Consultation: Post operative evaluation and management of a right lower extremity common femoral artery endarterectomy. Attending Physician: Thierry Stephenson MD History of Present Illness Nalini Painter is a 74-year-old female with PMHX of CVA, HTN, HLD, DMII, osteoarthritis, obstructive sleep apnea, CAD, and peripheral vascular disease; who presented to [facility] for a planned right lower extremity common femoral artery endarterectomy. The procedure went well without noted complication and a wound vac was placed to the surgical site. The patient was brought to the ICU post operatively for continued evaluation and management of right common femoral artery endarterectomy for her peripheral artery disease and claudication. Allergies Allergy/AdvReac Type Severity Reaction Status Date / Time lisinopril Allergy Severe Angioedema Verified 10/13/24 09:10 gabapentin AdvReac Unknown Verified 10/13/24 09:10 pregabalin AdvReac Unknown Verified 10/13/24 09:10 Home Medications Medication Instructions Recorded Confirmed Type doxepin 100 mg capsule 100 mg PO HS 07/11/21 10/13/24 History famotidine 40 mg tablet 40 mg PO HS 07/11/21 10/13/24 History losartan 50 mg tablet 25 mg PO QAM 07/11/21 10/13/24 History metformin 500 mg tablet 500 mg PO QAM 07/11/21 10/13/24 History polyethylene glycol 3350 17 17 g PO DAILY 07/11/21 10/13/24 History gram/dose oral powder (Miralax) aspirin 81 mg chewable tablet 81 mg PO QAM 03/24/23 10/13/24 History atorvastatin 40 mg tablet 40 mg PO HS 03/24/23 10/13/24 History donepezil 10 mg tablet 10 mg PO HS 03/24/23 10/13/24 History furosemide 40 mg tablet 40 mg PO QAM 03/24/23 10/13/24 History hydroxychloroquine 200 mg tablet 200 mg PO QAM 03/24/23 10/13/24 History potassium chloride 10 mEq 10 meq PO QAM 03/24/23 10/13/24 History tablet,extended release Patient History Medical History Carotid artery disease s/p left carotid endarterectomy 03/2024 Carotid doppler 05/2024: There is mild plaque causing <50% TOMMY stenosis. LICA stent appears patent without significant stenosis. CAD (coronary artery disease) CABG x3 (2021) Follows with [facility] cardio/Dr. Carrera Hx of osteoarthritis Sleep apnea No device Neuropathy Memory problem Forgetful Hx of hyperlipidemia History of hypertension Diabetes mellitus, type 2 NIDDM Anemia Hx of completed stroke Evidence of old stroke found during workup prior to left carotid endarterectomy (done 03/2024) Head CT 02/23/24: old small left parietal cortical infarct Surgical History Hx of angiography RLE 09/27/24, [facility] History of esophagogastroduodenoscopy (EGD) Hx of LASIK Hx of cardiac cath 2021 > CABG x3 History of carotid endarterectomy Left, 04/08/24 History of coronary artery bypass graft CABG x3 (2021) Hx of colonoscopy Hx of hysterectomy History of back surgery L4-L5, "many years ago" Family History Mother Cancer Grandmother (Maternal) Myocardial infarction Grandfather (Maternal) Myocardial infarction Social History Smoking Status: Never smoker Cigarettes Per Day: na; Second Hand Exposure: Yes (hx); Do You Dip or Chew Tobacco: No; Tobacco Cessation Education Requested by Patient: No Hx Alcohol Use: No Hx Substance Use: No Preferred Language: Romansh Communication Ability: Effective Communication Ability Comment: na Inside Technical Sales Representative Required: No Beliefs That Will Affect Care: None Current Living Situation: Spouse Current Living Situation Comment: spouse Other Information That Helps Us Care for You: No Feels Safe at Home: Yes Safety Concerns: Feels Safe At This Time Assistive Devices: Other Review of Systems 2 Review of Systems: Constitutional: No Weight Change, No Fever, No Chills, No Night Sweats, No Fatigue, No Malaise ENT/Mouth: No Hearing Changes, No Ear Pain, No Nasal Congestion, No Sinus Pain, No Hoarseness, No sore throat, No Rhinorrhea, No Swallowing Difficulty Eyes: + right eye irritation, No Swelling, No Redness, No Foreign Body, No Discharge, No Vision Changes Cardiovascular: No Chest Pain, No SOB, No PND, No Dyspnea on Exertion, No Orthopnea, No Claudication, No Edema, No Palpitations Respiratory: No Cough, No Sputum, No Wheezing, No Smoke Exposure, No Dyspnea Gastrointestinal: No Nausea, No Vomiting, No Diarrhea, No Constipation, No Pain, No Heartburn, No Anorexia, No Dysphagia, No Hematochezia, No Melena, No Flatulence, No Jaundice Genitourinary: No Dysmenorrhea, No DUB, No Dyspareunia, No Dysuria, No Urinary Frequency, No Hematuria, No Urinary Incontinence, No Urgency, No Flank Pain, No Urinary Flow Changes, No Hesitancy Musculoskeletal: No Arthralgias, No Myalgias, No Joint Swelling, No Joint Stiffness, No Back Pain, No Neck Pain, No Injury History Skin: No Skin Lesions, No Pruritis, No Hair Changes, No Breast/Skin Changes, No Nipple Discharge Neuro: No Weakness, No Numbness, No Paresthesias, No Loss of Consciousness, No Syncope, No Dizziness, No Headache, No Coordination Changes, No Recent Falls Psych: No Anxiety/Panic, No Depression, No Insomnia, No Personality Changes, No Delusions, No Rumination, No SI/HI/AH/VH, No Social Issues, No Memory Changes, No Violence/Abuse Hx., No Eating Concerns Heme/Lymph: No Bruising, No Bleeding, No Transfusions History, No Lymphadenopathy Endocrine: No Polyuria, No Polydipsia, No Temperature Intolerance Physical Exam 2 Physical Exam: GEN: Healthy appearing, well-developed, NAD. PSYCH: Good Judgment. AOx3. Normal memory, mood, and affect. HEENT: NC/AT, PERRL, EOMI. No discharge or redness; External ears are normal. Normal TMs. MMM. Normal gums, mucosa, palate,. Good dentition. NECK: Supple, with no masses. CV: RRR, no m/r/g. LUNGS: CTAB, no w/r/c. ABD: Soft, NT/ND, NBS, no masses or organomegaly. : Voiding SKIN: Warm, well perfused. No skin rashes or abnormal lesions. MSK: No deformities, Normal gait. EXT: No clubbing, cyanosis, or edema. Right femoral surgical site with wound vac. NEURO: Ambulating with no limitations. Normal muscle strength and tone. No focal deficits. Results & Data Results & Data Vital Signs (Past 12 Hours) Vital Signs Temp Pulse Pulse Resp BP BP Pulse Ox 10/13/24 14:00 90 12 128/52 L 99 10/13/24 13:50 90 16 129/60 99 10/13/24 13:40 36.5 C 87 14 130/65 98 10/13/24 13:30 86 12 126/48 L 100 10/13/24 13:20 83 12 128/52 L 100 10/13/24 13:12 36.3 C L 89 14 115/70 99 10/13/24 08:59 36.5 C 98 H 20 154/55 H 98 O2 Del Method O2 Flow Rate 10/13/24 14:00 Nasal Cannula 2 10/13/24 13:50 Nasal Cannula 2 10/13/24 13:40 Nasal Cannula 2 10/13/24 13:30 Oxymask 4 10/13/24 13:20 Oxymask 6 10/13/24 13:12 Oxymask 6 10/13/24 08:59 Room Air Laboratory Results 10/13/24 13:52 10/13/24 08:51 Diagnostic Findings None [place] [address] INT INP/OBS CARE 1/40MIN Patient Type New Medical Decision Making Low Complexity Diagnoses Peripheral arterial disease I73.9
[2024-10-13] MEDS: D5W AND 1/2NSS 1,000 ML IV SCH (15:47)
[2024-10-13] MEDS: INSULIN ASPART PER UNIT CHARGE SC SCH (17:15)
--- NOTE | 2024-10-13 17:28 | Electrocardiogram Report ---
Test Reason : Blood Pressure : */* mmHG Vent. Rate : 71 BPM Atrial Rate : 71 BPM P-R Int : 178 ms QRS Dur : 88 ms QT Int : 438 ms P-R-T Axes : 71 -28 73 degrees QTcB Int : 475 ms Sinus rhythm with occasional Premature ventricular complexes Low voltage QRS Septal infarct (cited on or before 24-Mar-2023) Poor R wave progression, consider anterior [place] vs. lead placement vs. LVH Nonspecific ST and T wave abnormality Abnormal ECG When compared with ECG of 24-Mar-2023 05:28, Premature ventricular complexes are now Present Confirmed by Aramis Katz ([id number]) on 10/13/2024 5:28:40 PM Referred By: Thierry Stephenson Confirmed By: Aramis Katz
[2024-10-13] MEDS: LACTATED RINGER'S 1,000 ML IV SCH (17:36)
[2024-10-13] MEDS: ATORVASTATIN 40 MG TAB PO SCH (20:35)
[2024-10-13] MEDS: DONEPEZIL HCL 10 MG TAB PO SCH (20:35)
[2024-10-13] MEDS: DOXEPIN HCL 50 MG CAPSULE PO SCH (20:35)
[2024-10-13] MEDS: FAMOTIDINE 40 MG TABLET PO SCH (20:35)
[2024-10-13] MEDS: LANTUS PER UNIT CHARGE SC ONE (21:14)
[2024-10-14] MEDS: oxyCODONE/ACETAMINOPHEN 5mg/325mg TAB PO PRN (03:11)
[2024-10-14 05:16] LABS: Basophils # (auto) 0.02 K/uL (0.00-0.20); Basophils % (auto) 0.2 %; Hematocrit (blood only) 26.1 % (37.0-47.0); Hemoglobin 8.8 g/dl (12.0-16.0); Immature Granulocytes # (auto) 0.07 K/uL (0.01-0.20); Immature Granulocytes % (auto) 0.6 %; Lymphocytes # (auto) 1.18 K/uL (1.20-3.40); Lymphocytes % (auto) 10.3 %; Mean Corpuscular Hemoglobin 31.7 pg (25.0-34.0); Mean Corpuscular Hgb Conc 33.7 g/dL (32.0-36.0); Mean Corpuscular Volume 93.9 fL (80.0-100.0); Monocytes # (auto) 0.56 K/uL (0.11-0.59); Monocytes % (auto) 4.9 %; Neutrophils # (auto) 9.68 K/uL (1.40-6.50); Platelet Count 186 K/uL (130-400); RDW Coefficient of Variation 14.9 % (11.5-14.5); RDW Standard Deviation 51.3 fL (36.4-46.3); Red Blood Count 2.78 M/uL (4.20-5.40); White Blood Count 11.51 K/ul (4.8-10.8)
[2024-10-14 05:33] LABS: BUN Creatinine Ratio 12.2 (10-20); Calcium 8.4 mg/dl (8.6-10.3); Creatinine Clr Calc Pharmacy 65.9 ml/min; Potassium 4.6 mmol/L (3.5-5.1)
[2024-10-14 06:10] VITALS: PULSE 82
--- NOTE | 2024-10-14 07:34 | Pharmacy Report ---
Pharmacy Glycemic Short Note 2 - Date of Service October 14, 2024 - Glycemic Short BSG Results (Last 24 hours): 10/13/24 10/13/24 10/13/24 08:51 09:15 13:15 Glucose 110 H POC Glucose 110 H 132 H 10/13/24 10/13/24 10/14/24 14:53 20:55 04:12 Glucose 143 H POC Glucose 135 H 161 H 10/14/24 07:11 Glucose POC Glucose 151 H OUTPATIENT ANTIDIABETIC REGIMEN: * Metformin * HbA1c ordered for 10/14/24 ASSESSMENT: 10/14 * POD 1, diet continued. Dextrose-containing fluids discontinued yesterday afternoon. Effects of dexamethasone will likely persist somewhat today, but start wearing off * Will continue prn Lantus this evening but reduce dose * Will keep Novolog as-is. Likely loosen CHO ratio tomorrow if BSG's today well controlled on current regimen 10/13 * 74 yo F with T2DM (unknown outpatient control but good preop and postop BSGs) admitted 10/13 and now POD 0 s/p femoral artery endarterectomy. Dexamethasone 8 mg IV overriden in OT. T2DM diet ordered * Will hold off on basal insulin for now since no BSG's have been >140 mg/dL. However, will add in tonight if BSG > 140 mg/dL * Initiate Novolog - weight based moderate stress estimate to start 2nd good BSG's thus far, but slightly tighter CHO ratio 2nd likely steroid administration PLAN FOR INPATIENT GLYCEMIC CONTROL: * Hold outpatient oral diabetes medication * Basal insulin * Lantus 10 units SQ x1 tonight if BSG > 140 mg/dL * Bolus insulin * NovoLog per scale ACHS or Q6hrs while NPO * Goal Range: Low 110 mg/dL - High 140 mg/dL * Correction Factor: 25 mg/dL/unit * Nutritional / Prandial insulin per carb ratio of 1 unit per 8 grams CHO consumed
[2024-10-14] MEDS: HYDROXYCHLOROQUINE SULFATE 200 MG TAB PO SCH (08:00)
[2024-10-14] MEDS: FUROSEMIDE 40 MG TAB PO SCH (08:00)
[2024-10-14] MEDS: LOSARTAN POTASSIUM 25 MG TAB PO SCH (08:00)
[2024-10-14] MEDS: POTASSIUM CHLORIDE 10 MEQ TABCR PO SCH (08:05)
[2024-10-14] MEDS: POLYETHYLENE (MIRALAX) 17 GM PACK PO SCH (08:05)
[2024-10-14] MEDS: ASPIRIN 81 MG CHEW PO SCH (08:05)
[2024-10-14 10:18] LABS: Estimated Average Glucose 126 mg/dl
[2024-10-14 11:32] VITALS: RESP 19; O2SAT 97
[2024-10-14 11:33] VITALS: TEMP 97.5
--- NOTE | 2024-10-14 13:34 | Surgery Progress Note ---
Date of Service October 14, 2024 Assessment & Plan (1) S/P vascular surgery: Plan: Doing extremely well after right fem endart. Ambulated today Will d\c today (2) Acute blood loss anemia: Plan: Hgb today 8.8. Asymtomatic Will send home on iron and colace Admission and Anticipated Discharge Date Admission Date: October 13, 2024 Subjective Patient ambulated today without difficulty. Complains of some very mild incisional pain. Claims she can feel all her toes now and no longer has any foot discomfort. Physical Exam Constitutional: WD/WN, vitals as above Respiratory: normal respiratory effort; no respiratory distress Cardiovascular: Rate/Rhythm: regular rate and regular rhythm good pedal dopplers Skin: + incision (prevena in place) Neurologic: CN's II-XI intact bilaterally and moves all extremities Psychiatric: A+Ox3, euthymic affect Results & Data Vital Signs (Past 12 Hours) Vital Signs Temp Pulse Pulse Resp BP BP Pulse Ox 10/14/24 11:32 36.4 C L 10/14/24 11:01 158/54 H 10/14/24 11:01 158/54 H 10/14/24 11:01 158/54 H 10/14/24 11:00 82 19 97 10/14/24 10:06 77 14 95 10/14/24 10:00 166/56 H 10/14/24 10:00 166/56 H 10/14/24 10:00 166/56 H 10/14/24 10:00 166/56 H 10/14/24 09:51 79 19 95 10/14/24 09:00 163/69 H 10/14/24 09:00 163/69 H 10/14/24 09:00 73 23 95 10/14/24 08:03 78 15 96 10/14/24 08:00 130/107 H 10/14/24 08:00 130/107 H 10/14/24 08:00 130/107 H 10/14/24 07:54 92 H 19 96 10/14/24 07:00 124/93 10/14/24 07:00 83 15 95 10/14/24 06:00 36.5 C 82 24 159/65 H 94 10/14/24 05:00 80 21 148/70 H 95 10/14/24 04:00 84 24 149/57 H 95 10/14/24 03:00 81 16 159/61 H 96 10/14/24 02:00 87 17 159/58 H 95 O2 Del Method 10/14/24 11:32 10/14/24 11:01 10/14/24 11:01 10/14/24 11:01 10/14/24 11:00 Room Air 10/14/24 10:06 10/14/24 10:00 10/14/24 10:00 10/14/24 10:00 10/14/24 10:00 10/14/24 09:51 10/14/24 09:00 10/14/24 09:00 10/14/24 09:00 10/14/24 08:03 10/14/24 08:00 10/14/24 08:00 10/14/24 08:00 10/14/24 07:54 10/14/24 07:00 10/14/24 07:00 10/14/24 06:00 Room Air 10/14/24 05:00 Room Air 10/14/24 04:00 Room Air 10/14/24 03:00 Room Air 10/14/24 02:00 Room Air
--- NOTE | 2024-10-14 13:41 | Discharge Summary ---
Date of Service October 14, 2024 Admission HPI Per Admitting Provider Date of Service September 27, 2024 History of Present Illness Primary Care Provider: Jarrod Huber DO Name: KINJAL PAINTER Patient Number: [id number] : 1950 Date of Service: 09/16/2024 Chief Complaint: _New patient consultation for iliac artery disease HPI: _Ms. Painter is an elderly female who presents to Dr. Stephenson's vascular surgery clinic today as a new patient in consultation for right iliac artery disease noted on recent imaging. Patient states that she had a left carotid stent placed at [facility] in April 2024. She states that since that time she has had severe pain in her right lateral hip and thigh, which occurs when standing for long periods, as well as ambulating more than 50 feet. She states that she has to stop and rest for few minutes and then is able to walk again. She does complain of charley horse cramps at night. She feels that her right leg is weak and tired all the time. She has even fallen a few times. She denies headache, fever, chest pain, shortness of breath, abdominal pain, nausea, vomiting, rest pain, nonhealing wounds or ulcers, discoloration of the feet or toes, numbness, tingling, other complaints. Review of systems: Total of 14 systems were reviewed and negative aside from what is related in her HPI Imaging: Patient did have a bilateral lower extremity arterial duplex performed in the office on 08/17/2024 which demonstrates 75-9 9% stenosis of the distal external iliac artery with monophasic flow distal to this area. She has a right leg MELANIE of 0.66. Her left leg demonstrates no significant stenosis throughout with biphasic waveforms and an MELANIE of 1.2. Current Home Meds: (Last Updated 09/16 08:48) aspirin (Aspirin Low Dose 81 mg oral tablet, chewable) TAKE 1 TABLET BY MOUTH EVERY DAY atorvastatin (atorvastatin 40 mg oral tablet) TAKE 1 TABLET BY MOUTH EVERYDAY AT BEDTIME donepezil (donepezil 10 mg oral tablet) 10 mg PO qhs doxepin (doxepin 100 mg oral capsule) TAKE 1 CAPSULE BY MOUTH EVERYDAY AT BEDTIME famotidine (famotidine 40 mg oral tablet) TAKE 1 TABLET BY MOUTH TWICE A DAY hydroxychloroquine (hydroxychloroquine 200 mg oral tablet) 200 mg PO Daily levothyroxine (levothyroxine 50 mcg (0.05 mg) oral tablet) 50 mcg PO Daily losartan (losartan 50 mg oral tablet) 25 mg PO Daily metFORMIN (metFORMIN 500 mg oral tablet) 500 mg PO Daily metoprolol (Metoprolol Succinate ER 25 mg oral tablet, extended release) 12.5 mg PO Daily 12.5mg po qd Allergies and Sensitivities: pregabalin(fatigue) gabapentin(unknown) lisinopril Past Medical History: Problems: Iliac artery stenosis, right Carotid stenosis, left CAD (coronary artery disease) Back pain Hyperlipidemia Neuropathy HTN (hypertension) DM (diabetes mellitus) Surgical history: Positive for a hysterectomy, cholecystectomy, lumbar spine surgery, and transfemoral left carotid stent placement Family history: Positive for coronary disease, diabetes, high blood pressure, stroke Social history: Patient is a lifelong non-smoker. She does not drink alcohol or use illicit drugs. She is lives with her . OBJECTIVE Vitals: Last Updated 09/16/24 08:55 Date Temp BP Location Pulse RR SpO2 Pain 09/16/24 110/64 Left Arm 64 09/16/24 122/60 Right Arm 67 0 04/06/24 110/56 57 97 Vital Signs are the last 3 documented. No Orthostatic Data Available Height and Weight: Last Updated 04/06/24 09:54 Date BMI Wt(kg) Wt(lb) Method Ht(cm) (ft-in) Method 04/06/24 31.33 85.3 188 Standing Scale 165 5-5 Standing Heights and Weights are the last 3 documented. Physical Exam Constitutional: In general patient is a healthy-appearing overweight elderly female in no distress. She is alert and oriented without any focal deficits. Her carotids do not demonstrate a bruit. Her heart is regular, lungs are decreased but clear. Abdomen is soft nontender with normal active bowel sounds in all 4 quadrants. Radial and brachial pulses are +3. Left femoral pulses +3 right femoral pulse is nonpalpable. Left lower extremity distal pulses are +2, right lower extremity distal pulses are nonpalpable. ASSESSMENT: _ PLAN: _ 1 ) _right external iliac artery stenosis with claudication Patient does have a severe stenosis of her right distal external iliac artery on ultrasound, and symptoms of claudication in the right leg. Patient was discussed with Dr. Stephenson, who recommends that patient consider undergoing a right leg angiogram with intervention on the iliac artery lesion. The procedure risks benefits and alternatives were discussed with the patient by myself at Dr. Stephenson's request. Patient expresses understanding and agreement to proceed. This will occur in the next few weeks at the patient's convenience. Patient's daughter is also present today for this discussion. They will call with any oth er questions. Thank you for letting us participate in the care of this patient. I have personally spent_49__ minutes performing bosf-rm-oxar and tqy-niya-md-face activities on this date of service.Time does not include separately reported services. Activities Include: x__ review of the medical record _x_ obtaining a history _x_ physical exam/evaluation __ review labs _x_ review radiology reports _x_ counseling/educating patient/family/caregiver __ discussion/referral to other healthcare professional _x_ documenting care in the medical record __ independent interpretation of results _x_ communication of results to patient/family/caregiver _x_ coordination of care Signature Line Electronic Signature on File CC: Jarrod Huber, [facility] [id number] * CC: Elzbieta Carrera, [address] [address] Electronically Reviewed/Signed by: Sarah Hassan PA-C Author Signature Dt/Tm:09/16/2024 09:59 AM [facility] [address] [place] [address] LM Result Type:HVI Outpt Note Date of Service:September 16, 2024 09:53 EDT Authorization Status:Final Author or Import Date:ROXANA Hassan Lynn on September 16, 2024 09:59 EDT Verified By:ROXANA Hassan Lynn on September 16, 2024 09:59 EDT Encounter info:[id number], [facility], Clinic, 09/16/2024 - 09/16/2024 Allergies Allergy/AdvReac Type Severity Reaction Status Date / Time lisinopril Allergy Severe ANGIOEDEMA Verified 09/27/24 09:18 gabapentin AdvReac Unknown Verified 09/27/24 09:19 pregabalin AdvReac Unknown Verified 09/27/24 09:19 Home Medications Medication Instructions Recorded Confirmed Type doxepin 100 mg capsule 100 mg PO HS 07/11/21 03/24/23 History famotidine 40 mg tablet 40 mg PO HS 07/11/21 09/27/24 History losartan 50 mg tablet 25 mg PO DAILY 07/11/21 09/27/24 History metformin 500 mg tablet 500 mg PO DAILY 07/11/21 09/27/24 History polyethylene glycol 3350 17 17 g PO DAILY 07/11/21 09/27/24 History gram/dose oral powder (Miralax) aspirin 81 mg chewable tablet 81 mg PO QAM 03/24/23 03/24/23 History atorvastatin 40 mg tablet 40 mg PO HS 03/24/23 03/24/23 History donepezil 10 mg tablet 10 mg PO HS 03/24/23 03/24/23 History furosemide 40 mg tablet 40 mg PO QAM 03/24/23 09/27/24 History hydroxychloroquine 200 mg tablet 200 mg PO QAM 03/24/23 03/24/23 History metoprolol succinate 25 mg 12.5 mg PO HS 03/24/23 09/27/24 History tablet,extended release 24 hr potassium chloride 10 mEq 10 meq PO QAM 03/24/23 09/27/24 History tablet,extended release Past Med/Surg History Problem List (Updated 09/27/24 @ 10:02 by June Ochoa, ZAINAB) Chest pain (Acute) Right humeral fracture Osteoarthritis DM II (diabetes mellitus, type II), controlled HLD (hyperlipidemia) HTN (hypertension) (Acute) CAD (coronary artery disease) of bypass graft Memory problem Neuropathy Lumbar stenosis with neurogenic claudication (Acute 11/02/13) Medical History (Updated 09/27/24 @ 10:02 by June Ochoa RN) Diabetes mellitus, type 2 Anemia Hx of completed stroke Surgical History History of carotid endarterectomy History of coronary artery bypass graft Hx of colonoscopy Hx of hysterectomy History of back surgery Family History Mother CancerGrandmother (Maternal) Myocardial infarctionGrandfather (Maternal) Myocardial infarction Social History (Updated 07/11/21 @ 13:23 by Whit Bruno) Smoking Status: Never smoker Cigarettes Per Day: na; Second Hand Exposure: Yes (none since 1999); Do You Dip or Chew Tobacco: No; Tobacco Cessation Education Requested by Patient: No Hx Alcohol Use: No Hx Substance Use: No Preferred Language: Arabic Communication Ability: Effective Communication Ability Comment: na Dining Car Steward Required: No Beliefs That Will Affect Care: None Current Living Situation: Spouse Current Living Situation Comment: spouse Other Information That Helps Us Care for You: No Feels Safe at Home: Yes Safety Concerns: Feels Safe At This Time Assistive Devices: Denture - Upper, Denture - Lower and Glasses Results & Data Vital Signs (Past 12 Hours) Vital Signs Temp Pulse Resp BP Pulse Ox O2 Del Method 09/27/24 09:40 36.4 C L 57 L 18 127/50 L 97 Room Air Signed By: <Electronically signed by Thierry Stephenson MD> 09/27/24 1103 Created: 09/27/24 1103 The status of this report is Signed. Draft = Not yet reviewed or approved by Medical Physician. Signed = Reviewed and approved by Medical Physician. Admission Exam Per Admitting Provider Constitutional: In general patient is a healthy-appearing overweight elderly female in no distress. She is alert and oriented without any focal deficits. Her carotids do not demonstrate a bruit. Her heart is regular, lungs are decreased but clear. Abdomen is soft nontender with normal active bowel sounds in all 4 quadrants. Radial and brachial pulses are +3. Left femoral pulses +3 right femoral pulse is nonpalpable. Left lower extremity distal pulses are +2, right lower extremity distal pulses are nonpalpable. Principal Diagnosis right common femoral artery occlusion Discharge Exam Constitutional WD/WN, vitals as above Respiratory normal respiratory effort; no respiratory distress Cardiovascular Rate/Rhythm: regular rate and regular rhythm Skin + incision (prevena in place) Neurologic CN's II-XI intact bilaterally and moves all extremities Psychiatric A+Ox3, euthymic affect Discharge Data Allergies Allergy/AdvReac Type Severity Reaction Status Date / Time lisinopril Allergy Severe Angioedema Verified 10/13/24 09:10 gabapentin AdvReac Unknown Verified 10/13/24 09:10 pregabalin AdvReac Unknown Verified 10/13/24 09:10 Consultations 10/13/24 14:29 Consult Rn Womens Health Routine Consult Rn Womens Health Routine Procedures Performed Operation Date: 10/13/24 09:50 Actual Procedures p Right Lower Extremity Common Femoral Artery Endarterectomy(Right) - Thierry Stephenson MD Hospital Course (1) S/P vascular surgery: Doing extremely well after right fem endart. Ambulated today Will d\c today (2) Acute blood loss anemia: Hgb today 8.8. Asymtomatic Will send home on iron and colace Total Time Total Time Spent Total Time Spent (In Minutes): x Discharge Plan Discharge Items Patient Disposition: Home - Self-Care Reason For Visit: Peripheral Artery Disease Discharge Diagnosis: Right common femoral artery occlusion Activity: Per Instructions section Bathing Comment: May shower once dressing in groin is removed. Sponge bath till then Exercise/Sports: Gradually increase as tolerated Weightbearing: Full weightbearing Non-emergency contact: Surgeon Call non-emergency contact if: your temperature is above 101.5, your wound has increased redness, your wound has increased drainage and your wound pain has increased Follow-up/Referrals: Jarrod Huber DO [Primary Care Provider] - Diet: Carb Consistent or DM2 and Heart Healthy Addtl Attending Provider Instructions: ACTIVITY RECOMMENDATIONS: Once suction no longer working on groin dressing, remove it completely and discard all. SPECIAL CARE INSTRUCTIONS: Call your doctor if: * Temperature above 101 degrees * Pain not relieved by pain medicine ordered * There is increased drainage or redness from any incision * You have any unanswered questions or concerns. Call [phone] to schedule a follow up appointment if one not already scheduled. Pending Studies at Discharge: No Stand-Alone Forms: [facility], Smoking Cessation Medications and DC Order Prescriptions: New oxycodone-acetaminophen [Percocet] 5-325 mg Tablet 1 tab PO Q4H PRN (Reason: pain) Qty: 30 0RF ferrous sulfate [iron] 325 mg (65 mg iron) tablet 325 mg PO BID Qty: 30 0RF docusate sodium [Colace] 100 mg capsule 100 mg PO DAILY Qty: 20 0RF Continued losartan 50 mg tablet 25 mg PO QAM metformin 500 mg tablet 500 mg PO QAM famotidine 40 mg tablet 40 mg PO HS doxepin 100 mg capsule 100 mg PO HS polyethylene glycol 3350 [Miralax] 17 gram/dose powder 17 g PO DAILY furosemide 40 mg tablet 40 mg PO QAM atorvastatin 40 mg tablet 40 mg PO HS donepezil 10 mg tablet 10 mg PO HS potassium chloride 10 mEq tablet extended release 10 meq PO QAM aspirin 81 mg tablet,chewable 81 mg PO QAM hydroxychloroquine 200 mg tablet 200 mg PO QAM Discharge Orders: Discharge Order (Routine); Ordered 10/14/24 Ordered By: Thierry Jama/Other Patient Handouts: Managing Type 2 Diabetes Admission Data Admit Date/Time: 10/13/24 09:52 Attending Provider: Thierry Stephenson Admit Provider: Thierry Stephenson Primary Care Provider: Jarrod Huber Other Providers: Earl Adhikari; Maurice Roa; Aris Hernandez; Russell Lane; Cristhian Gipson; Brett Arvizu; Kerline Gardiner; Fam Cabral
[2024-10-14 14:39] VITALS: BP 159/65
[2024-10-14] MEDS ORDERED: LANTUS PER UNIT CHARGE SC ONE (21:00)
== END 2024-10-14 15:45 | disposition home or self-care (01) | DRG 253 ==
LOC: ASU 08:46 → 1E 09:52

== ENCOUNTER 2025-04-06 09:08 | Inpatient (IN) ==
--- NOTE | 2025-03-31 10:32 | Anesthesiology Consultation ---
Date of Service March 31, 2025 Assessment & Plan Chart Review Chart Review: Acceptable Risk for Surgery and Patient NOT seen in Pre Admission Testing Consults Requested none Proposed Anesthesia Risk / Benefits Reviewed With: PT / POA / Parent / Guardian, Accepts Plan and Informed Consent Obtained History Surgery Operation Date: 04/06/25 07:30 Proposed Procedures p Right Femoral Artery Endarterectomy - Thierry Stephenson MD Height/Weight Height: 5 ft 6 in Weight: 86.183 kg Allergies Allergy/AdvReac Type Severity Reaction Status Date / Time lisinopril Allergy Severe Angioedema Verified 03/28/25 14:08 gabapentin AdvReac Unknown Verified 03/28/25 14:08 pregabalin AdvReac Unknown Verified 03/28/25 14:08 Medications Home Medications Medication Instructions Recorded Confirmed Last Taken doxepin 100 mg capsule 100 mg PO 07/11/21 03/28/25 10/12/24 20:00 famotidine 40 mg tablet 40 mg PO 07/11/21 03/28/25 10/12/24 20:00 losartan 50 mg tablet 25 mg PO QA 07/11/21 03/28/25 10/12/24 08:00 metformin 500 mg tablet 500 mg PO QA 07/11/21 03/28/25 10/10/24 08:00 aspirin 81 mg chewable tablet 81 mg PO QA 03/24/23 03/28/25 10/13/24 05:30 atorvastatin 40 mg tablet 40 mg PO 03/24/23 03/28/25 10/12/24 20:00 donepezil 10 mg tablet 10 mg PO 03/24/23 03/28/25 10/12/24 16:00 furosemide 40 mg tablet 40 mg PO QA 03/24/23 03/28/25 10/10/24 08:00 hydroxychloroquine 200 mg tablet 200 mg PO QA 03/24/23 03/28/25 10/13/24 05:30 potassium chloride 10 mEq 10 meq PO QAM 03/24/23 03/28/25 10/10/24 08:00 tablet,extended release levothyroxine 25 mcg tablet 25 mcg PO QA 03/28/25 03/28/25 Unknown piroxicam 10 mg capsule 10 mg PO QA 03/28/25 03/28/25 Unknown Past Medical History Medical History (Updated 03/28/25 @ 14:19 by Florence Wyatt, RN) Fatty liver Carotid artery disease s/p left carotid endarterectomy 03/2024 Carotid doppler 05/2024: There is mild plaque causing <50% TOMMY stenosis. LICA stent appears patent without significant stenosis. CAD (coronary artery disease) CABG x3 (2021) Follows with [facility] cardio/Dr. Carrera Hx of osteoarthritis Sleep apnea No device Neuropathy Memory problem Forgetful Hx of hyperlipidemia History of hypertension Diabetes mellitus, type 2 NIDDM Anemia Hx of completed stroke Evidence of old stroke found during workup prior to left carotid endarterectomy (done 03/2024) Head CT 02/23/24: old small left parietal cortical infarct Exercise / Class Metabolic Activity II 4-5 Yardwork/Stairs/Walk up hill Past Family History Family History (Updated 03/28/25 @ 14:07 by Florence Wyatt, RN) Mother Cancer Grandmother (Maternal) Myocardial infarction Grandfather (Maternal) Myocardial infarction Other No family history of adverse response to anesthesia Past Surgical History Surgical History Hx of endarterectomy (10/2024) right lower leg common femoral endarterectomy Hx of angiography RLE 09/27/24, [facility] History of esophagogastroduodenoscopy (EGD) Hx of LASIK Hx of cardiac cath 2021 > CABG x3 History of carotid endarterectomy Left, 04/08/24 History of coronary artery bypass graft CABG x3 (2021) Hx of colonoscopy Hx of hysterectomy History of back surgery L4-L5, "many years ago" Past Anesthesia History No Hx of Anesthesia Complications and No Family Hx of Anesthesia Complications History of PONV No Hx of PONV and No Hx of Motion Sickness Social History Smoking Status: Never smoker Do You Dip or Chew Tobacco: No Hx Alcohol Use: No Hx Substance Use: No substance use type: does not use Substance Use Type Other:: na Physical Exam ENMT Mouth: no dentition abnormality Thyromental Distance: > or= 3.5 Finger Breadths Mallampati Class: II Neck normal visual inspection Respiratory normal respiratory effort Auscultation: lungs clear to auscultation bilaterally Cardiovascular Rate/Rhythm: regular rate and regular rhythm Psychiatric Orientation: alert
[~2025-04-06 09:08] MED LIST changes: +DexMEDEtomidine HCL IV 100 MCG/ML VIAL IV ONE; +HEPARIN SOD (PORCINE) 1000 UNIT/ML ONE; -MIDAZOLAM HCL 1 MG/ML 2ML VIAL ONE; -fentaNYL citrate PF 100 MCG/2 ML VIAL ONE
[2025-04-06 09:38] LABS: Hematocrit (blood only) 32.2 % (37.0-47.0); Hemoglobin 10.5 g/dl (12.0-16.0); Immature Granulocytes # (auto) 0.02 K/uL (0.01-0.20); Immature Granulocytes % (auto) 0.4 %; Mean Corpuscular Hemoglobin 30.6 pg (25.0-34.0); Mean Corpuscular Volume 93.9 fL (80.0-100.0); Platelet Count 169 K/uL (130-400); RDW Standard Deviation 56.6 fL (36.4-46.3); Red Blood Count 3.43 M/uL (4.20-5.40); White Blood Count 4.87 K/ul (4.8-10.8)
[2025-04-06 09:52] LABS: Anion Gap 8.0 (3-11); Blood Urea Nitrogen 13.0 mg/dl (6-23); Calcium 9.1 mg/dl (8.6-10.3); Carbon Dioxide 25.0 mmol/L (21-32); Chloride 109.0 mmol/L (98-107); Creatinine Clr Calc Pharmacy 47.8 ml/min; Glucose 103.0 mg/dl (70-99(Fasting)); Potassium 4.5 mmol/L (3.5-5.1); Sodium 142.0 mmol/L (136-145)
[2025-04-06 10:04] LABS: INR 1.1 (0.9-1.1); Partial Thromboplastin Time 24 Seconds (21-31); Prothrombin Time 11.3 Seconds (9.0-12.0)
[2025-04-06] MEDS: SODIUM CHLORIDE 0.9% 1,000 ML IV SCH ×2 (10:05→19:53)
--- NOTE | 2025-04-06 14:19 | History & Physical Report ---
Date of Service April 06, 2025 Assessment & Plan (1) Peripheral arterial disease: Plan: Patient for a right common femoral endarterectomy. I have discussed the risks options and benefits of the procedure with the patient. The patient understands the risks options and benefits and agrees to the procedure. History of Present Illness Chief Complaint: right leg severe claudication Primary Care Provider: Jarrod Huber DO This is a 75yo with severe claudication of the right leg. Endarterectomy of the right common femoral artery was recommended. Allergies Allergy/AdvReac Type Severity Reaction Status Date / Time lisinopril Allergy Severe Angioedema Verified 04/06/25 09:29 gabapentin AdvReac Unknown Verified 04/06/25 09:29 pregabalin AdvReac Unknown Verified 04/06/25 09:29 Home Medications Medication Instructions Recorded Confirmed Type doxepin 100 mg capsule 100 mg PO HS 07/11/21 04/06/25 History famotidine 40 mg tablet 40 mg PO HS 07/11/21 04/06/25 History losartan 50 mg tablet 25 mg PO QAM 07/11/21 04/06/25 History metformin 500 mg tablet 500 mg PO QAM 07/11/21 04/06/25 History aspirin 81 mg chewable tablet 81 mg PO QAM 03/24/23 04/06/25 History atorvastatin 40 mg tablet 40 mg PO HS 03/24/23 04/06/25 History donepezil 10 mg tablet 10 mg PO HS 03/24/23 04/06/25 History furosemide 40 mg tablet 40 mg PO QAM 03/24/23 04/06/25 History hydroxychloroquine 200 mg tablet 200 mg PO QAM 03/24/23 04/06/25 History potassium chloride 10 mEq 10 meq PO QAM 03/24/23 04/06/25 History tablet,extended release levothyroxine 25 mcg tablet 25 mcg PO QAM 03/28/25 04/06/25 History piroxicam 10 mg capsule 10 mg PO QAM 03/28/25 04/06/25 History Past Med/Surg History Problem List S/P vascular surgery Peripheral arterial disease Osteoarthritis DM II (diabetes mellitus, type II), controlled HLD (hyperlipidemia) HTN (hypertension) (Acute) CAD (coronary artery disease) of bypass graft Memory problem Neuropathy Lumbar stenosis with neurogenic claudication (Acute 11/02/13) Medical History Fatty liver Carotid artery disease s/p left carotid endarterectomy 03/2024 Carotid doppler 05/2024: There is mild plaque causing <50% TOMMY stenosis. LICA stent appears patent without significant stenosis. CAD (coronary artery disease) CABG x3 (2021) Follows with [facility] cardio/Dr. Carrera Hx of osteoarthritis Sleep apnea No device Neuropathy Memory problem Forgetful Hx of hyperlipidemia History of hypertension Diabetes mellitus, type 2 NIDDM Anemia Hx of completed stroke Evidence of old stroke found during workup prior to left carotid endarterectomy (done 03/2024) Head CT 02/23/24: old small left parietal cortical infarct Surgical History Hx of endarterectomy (10/2024) right lower leg common femoral endarterectomy Hx of angiography E 09/27/24, [facility] History of esophagogastroduodenoscopy (EGD) Hx of LASIK Hx of cardiac cath 2021 > CABG x3 History of carotid endarterectomy Left, 04/08/24 History of coronary artery bypass graft CABG x3 (2021) Hx of colonoscopy Hx of hysterectomy History of back surgery L4-L5, "many years ago" Family History Mother Cancer Grandmother (Maternal) Myocardial infarction Grandfather (Maternal) Myocardial infarction Other No family history of adverse response to anesthesia Social History Smoking Status: Never smoker Second Hand Exposure: No; Do You Dip or Chew Tobacco: No; Tobacco Cessation Education Requested by Patient: No Hx Alcohol Use: No Hx Substance Use: No Preferred Language: [place] Communication Ability: Effective Boarding House Cook Required: No Beliefs That Will Affect Care: None Current Living Situation: Spouse Current Living Situation Comment: spouse Other Information That Helps Us Care for You: No Feels Safe at Home: Yes Safety Concerns: Feels Safe At This Time Assistive Devices: Denture - Upper, Denture - Lower and Glasses Review of Systems All systems reviewed & are unremarkable except as noted in HPI & below Physical Exam Constitutional: WD/WN, vitals as above Respiratory: normal respiratory effort, lungs clear to auscultation Cardiovascular: RRR, no murmur, no edema Vessels: + posterior tibial pulses abnormal and + dorsalis pedis pulses abnormal Gastrointestinal (Abdomen): normal bowel sounds, soft, nontender, no hepatosplenomegaly Neurologic: CN's II-XI intact bilaterally and moves all extremities Psychiatric: A+Ox3, euthymic affect Results & Data Vital Signs (Past 12 Hours) Vital Signs Temp Pulse Resp BP BP Pulse Ox O2 Del Method 04/06/25 09:36 36.5 C 66 14 147/55 H 141/63 H 98 Room Air Code Status & VTE Plan VTE Prophylaxis Plan VTE Prophylaxis will be ordered: Yes
[2025-04-06] MEDS ORDERED: PHENYLEPHRINE HCL 25 MG/250 ML NSS IV ONE (15:10)
[2025-04-06] MEDS: THROMBIN FOR SOLN 20000 UNIT KIT ONE (15:53)
[2025-04-06] MEDS ORDERED: SODIUM CHLORIDE 0.9% 100 ML IV PRN (15:57)
[2025-04-06] MEDS ORDERED: NOREPINEPHRINE BITARTRATE 1 MG/ML 4 ML VIAL IV ONE (17:05)
--- NOTE | 2025-04-06 18:05 | Post Operative Brief Note ---
Immediate Post Op Note Date of Surgery April 06, 2025 Pre & Post Diagnosis Operation Date: 04/06/25 10:20 Pre-Op Diagnosis: Peripheral Arterial Disease Post-Op Diagnosis: Peripheral Arterial Disease I identified the patient and participated in the time-out.: Yes Procedure Operation Date: 04/06/25 10:20 Actual Procedures pRedo Right Femoral Artery Endarterectomy(Right) - Thierry Stephenson MD Surgeon Thierry Stephenson MD Wastewater Process Engineer Regino,PAC Estimated Blood Loss 800 Findings Consistent with Post-Op Diagnosis Drains Carreno Catheter Anesthesia Type General Complications none Disposition Accompanied Patient To Recovery: No Disposition: Recovery Room
--- NOTE | 2025-04-06 18:05 | Operative Report ---
Post Operative Report Pre & Post Diagnosis Operation Date: 04/06/25 10:20 Pre-Op Diagnosis: Peripheral Arterial Disease Post-Op Diagnosis: Peripheral Arterial Disease I identified the patient and participated in the time-out.: Yes Procedure Operation Date: 04/06/25 10:20 Actual Procedures p Right Femoral Artery Endarterectomy(Right) - Thierry Stephenson MD Surgeon Thierry Stephenson MD Waybill Clerk Regino,PAC Estimated Blood Loss 800 Findings Consistent with Post-Op Diagnosis Specimens none Anesthesia Type General Complications none Disposition Accompanied Patient To Recovery: No Disposition: Recovery Room Indications Patient is a 75yo female with restenosis of her right common femoral artery. She is having significant claudication. Redo endarterectomy was recommended. I have discussed the risks options and benefits of the procedure with the patient. The patient understands the risks options and benefits and agrees to the procedure. Description of Procedure The patient was taken to the operating room and placed in the supine position. The right groin was prepped and draped in a sterile manner. A timeout was performed and the patient identified. A longitudinal groin incision was made. This was carried down to the femoral artery. There was a severe amount of scar tissue present. The femoral vein was adherent to the femoral artery. It was freed up proximally and distally but the mid portion was left intact due to the amount of scar tissue present. The patient was then heparinized. The common femoral artery was clamped above the old patch and below the old patch. A longitudinal arteriotomy was made. The flow surface was barely patent. We endarterectomized a moderate amount of fibrous hyperplasia and then patched the artery with a bovine patch. After removing the clamps there was good doppler signals distal to the patch. Adequate hemostasis was obtained and the wound was then closed with 3-0 vicryl for the subcutaneous layer and 2-0 for what was left of the femoral sheath. [place] were used for the skin. A prevena dressing was then placed. The patient left the operation room in satisfactory condition and tolerated the procedure well. All needle and sponge counts were correct at the end of the procedure. Sarah Hassan Pac assisted due to lack of resident availability and was necessary for positioning, draping, retraction, wound closure deep layers, subcutaneous tissue, and skin closure and was necessary for assisting with the case. I attest to the content of the Intraoperative Record and any orders documented therein. Any exceptions are noted below.
[2025-04-06] MEDS: ceFAZolin 330 MG/ML 1 GM VIAL ONE (18:24)
[2025-04-06] MEDS: HEPARIN (PORCINE) 1000 UNIT/ML 10 ML (CATH LAB USE ONLY) ONE (18:28)
[2025-04-06] MEDS: GELATIN SPONGE SZ 100 ONE (18:29)
[2025-04-06] MEDS ORDERED: ONDANSETRON INJ 2 MG/ML 2 ML VIAL IV PRN ×2 (18:39→19:53)
[2025-04-06] MEDS ORDERED: ATROPINE SULFATE 0.1 MG/ML 10ML SYR IV PRN (18:39)
[2025-04-06] MEDS ORDERED: HYDROmorphone INJ 1 MG/ML SYRINGE IV PRN (18:39)
[2025-04-06 19:05] LABS: Hematocrit (blood only) 34.0 % (37.0-47.0); Hemoglobin 11.0 g/dl (12.0-16.0); Immature Granulocytes # (auto) 0.03 K/uL (0.01-0.20); Immature Granulocytes % (auto) 0.6 %; Mean Corpuscular Hemoglobin 29.5 pg (25.0-34.0); Mean Corpuscular Volume 91.2 fL (80.0-100.0); Platelet Count 129 K/uL (130-400); RDW Standard Deviation 55.9 fL (36.4-46.3); Red Blood Count 3.73 M/uL (4.20-5.40); White Blood Count 5.26 K/ul (4.8-10.8)
[2025-04-06 19:20] LABS: Anion Gap 7.0 (3-11); Blood Urea Nitrogen 12.0 mg/dl (6-23); Calcium 9.0 mg/dl (8.6-10.3); Carbon Dioxide 21.0 mmol/L (21-32); Chloride 113.0 mmol/L (98-107); Creatinine Clr Calc Pharmacy 54.8 ml/min; Glucose 154.0 mg/dl (70-99(Fasting)); Potassium 4.5 mmol/L (3.5-5.1); Sodium 141.0 mmol/L (136-145)
--- NOTE | 2025-04-06 19:21 | Anesthesiology Progress Note ---
Date of Service April 06, 2025 Anesthesia Post Procedure Vital Signs Vital Signs: Temp Pulse Resp BP BP Pulse Ox O2 Del Method 04/06/25 19:10 78 14 100/65 93 Nasal Cannula 04/06/25 19:00 79 14 110/59 L 95 Oxymask 04/06/25 18:50 75 16 121/56 L 100 Oxymask 04/06/25 18:40 75 14 120/63 100 Oxymask 04/06/25 18:30 76 14 119/59 L 100 Oxymask 04/06/25 18:23 36 C L 76 16 125/54 L 100 Oxymask 04/06/25 09:36 36.5 C 66 14 147/55 H 141/63 H 98 Room Air O2 Flow Rate 04/06/25 19:10 2 04/06/25 19:00 2 04/06/25 18:50 2 04/06/25 18:40 2 04/06/25 18:30 4 04/06/25 18:23 6 04/06/25 09:36 Pain Intensity Right Groin: Pain Intensity: 3 Transfer of Care Handoff Completed per policy Notes Mental Status: alert / awake / arousable Patient Amnestic to Procedure: Yes Nausea / Vomiting: adequately controlled Pain: adequately controlled Airway Patency, RR, SpO2: stable & adequate BP & HR: stable & adequate Hydration State: stable & adequate Anesthetic Complications: no major complications apparent and Pt Satisfied with anesthetic care
--- NOTE | 2025-04-06 19:50 | Critical Care Consultation ---
<Statement entered by Zach Jones MD - 04/07/25 13:56> I, Zach Jones MD, reviewed the physical exam, assessment, plan, and management as documented by the Advanced Care Provider Brett GARCIA ([facility]) for this patient encounter. I discussed the case with them, confirmed the findings, and I concur with the proposed plan of care. I was available for consultation throughout the encounter and provided guidance as needed. Date of Consultation April 06, 2025 Assessment & Plan (1) S/P vascular surgery: (2) Peripheral arterial disease: (3) DM II (diabetes mellitus, type II), controlled: (4) HLD (hyperlipidemia): (5) HTN (hypertension): Plan Reason Critically Ill: 75 YOF s/p re-do RIGHT femoral endarterectomy. To ICU for neurovascular and hemodynamic monitoring. Neuro - acute pain surgical, Hx: CVA, LICA stent, Demential CAM ICU: NEGATIVE - Pain control per primary surgical service - Continue Doxepin and Aricept Cardiac - S/P Re-do RIGHT Femoral Endarterectomy, HX: HTN, HLD, CAD (3v CABG 2017), HfpEF - POD #0 from above - NV checks per vascular surgery - BP goals per vascular surgery - Antiplatelets per vascular surgery when hemostasis is ensured - Continue Atorvastatin - HFpEF- - Cozaar in am if renal indices remain stable and hemodynamics remain stable - Lasix same as above Respiratory - No acute needs - wean NC as applicable - Patient denies history of NABILA or CPAP use at home GI - No acute needs, GERD history - Advance diet as tolerated - Continue Famotidine RENAL/LYTES - No acute needs - ICU electrolyte protocol - Follow renal indices in am - No acute needs - sanders post surgical- likely able to discontinue when able to get oob and mobilize ENDO - DMII - Hold Metformin - ICU hyperglycemic protocol goal <180mg/dl HEME - No acute needs - transfuse for hemorrhage, HGB <7.0, or symptomatic anemia ID - No concerns for infective etiology at this time - postoperative abx per surgery LINES/IV ACCESS - PIV, sanders Continue use of these lines DVT PROPHYLAXIS - SCDS, chemoprophylaxis on hold until hemodynamics and hemostasis stable DISPO: ICU until neurovascular, hemodynamics, and blood counts proven stable. I have personally spent 45 minutes of time in the direct management of this patient. This includes time spent evaluating patient, direct bedside care, chart review, placing orders, interpretation of diagnostic studies, discussion with consultants, patient, and family members, as well as other required patient management activities. This time is exclusive of all separately billable procedures, and separate from and in addition to any other service time. Thank you for allowing us to participate in the care of this patient. Please refer to my attending physician's documentation for any further recommendations. History of Present Illness Reason for Consultation: postoperative monitoring s/p re-do Right Femoral Artery Endarterectomy Requesting Physician: Thierry Stephenson MD Attending Physician: Thierry Stephenson MD History of Present Illness 75 YOF with medical history of: CVA, LICA stenosis- (s/p stent 2023), HTN, HLD, DMII, OA, CAD- 3v CABG (2017), PAD/PVD. Patient is s/p re-do RIGHT Femoral artery endarterectomy, following initial surgery in October 2024 and with return of claudication symptoms. She underwent GA with EBL 800ml. She is to the ICU s/p PACU recovery, awake, alert, pain controlled, 2LNC with SPO2 98% and with NSR 80s and BP acceptable 117/56. She is with wound vac to right groin, leg is warm, sensation is intact, no hematoma or bleeding currently appreciated. Patient will stay in ICU tonight for neurovascular monitoring and hemodynamic monitoring. CODE: FULL Allergies Allergy/AdvReac Type Severity Reaction Status Date / Time lisinopril Allergy Severe Angioedema Verified 04/06/25 09:29 gabapentin AdvReac Unknown Verified 04/06/25 09:29 pregabalin AdvReac Unknown Verified 04/06/25 09:29 Home Medications Medication Instructions Recorded Confirmed Type doxepin 100 mg capsule 100 mg PO HS 07/11/21 04/06/25 History famotidine 40 mg tablet 40 mg PO HS 07/11/21 04/06/25 History losartan 50 mg tablet 25 mg PO QAM 07/11/21 04/06/25 History metformin 500 mg tablet 500 mg PO QAM 07/11/21 04/06/25 History aspirin 81 mg chewable tablet 81 mg PO QAM 03/24/23 04/06/25 History atorvastatin 40 mg tablet 40 mg PO HS 03/24/23 04/06/25 History donepezil 10 mg tablet 10 mg PO HS 03/24/23 04/06/25 History furosemide 40 mg tablet 40 mg PO QAM 03/24/23 04/06/25 History hydroxychloroquine 200 mg tablet 200 mg PO QAM 03/24/23 04/06/25 History potassium chloride 10 mEq 10 meq PO QAM 03/24/23 04/06/25 History tablet,extended release levothyroxine 25 mcg tablet 25 mcg PO QAM 03/28/25 04/06/25 History piroxicam 10 mg capsule 10 mg PO QAM 03/28/25 04/06/25 History Patient History Medical History Fatty liver Carotid artery disease s/p left carotid endarterectomy 03/2024 Carotid doppler 05/2024: There is mild plaque causing <50% TOMMY stenosis. LICA stent appears patent without significant stenosis. CAD (coronary artery disease) CABG x3 (2021) Follows with [facility] cardio/Dr. Carrera Hx of osteoarthritis Sleep apnea No device Neuropathy Memory problem Forgetful Hx of hyperlipidemia History of hypertension Diabetes mellitus, type 2 NIDDM Anemia Hx of completed stroke Evidence of old stroke found during workup prior to left carotid endarterectomy (done 03/2024) Head CT 02/23/24: old small left parietal cortical infarct Surgical History Hx of endarterectomy (10/2024) right lower leg common femoral endarterectomy Hx of angiography E 09/27/24, [facility] History of esophagogastroduodenoscopy (EGD) Hx of LASIK Hx of cardiac cath 2021 > CABG x3 History of carotid endarterectomy Left, 04/08/24 History of coronary artery bypass graft CABG x3 (2021) Hx of colonoscopy Hx of hysterectomy History of back surgery L4-L5, "many years ago" Family History Mother Cancer Grandmother (Maternal) Myocardial infarction Grandfather (Maternal) Myocardial infarction Other No family history of adverse response to anesthesia Social History Smoking Status: Never smoker Second Hand Exposure: No; Do You Dip or Chew Tobacco: No; Tobacco Cessation Education Requested by Patient: No Hx Alcohol Use: No Hx Substance Use: No Preferred Language: Turkmen Communication Ability: Effective Real Estate Specialist Required: No Beliefs That Will Affect Care: None Current Living Situation: Spouse Current Living Situation Comment: spouse Other Information That Helps Us Care for You: No Feels Safe at Home: Yes Safety Concerns: Feels Safe At This Time Assistive Devices: Denture - Upper, Denture - Lower and Glasses Review of Systems Review of Systems: REVIEW OF SYSTEMS: Constitutional: No fever, sweats or chills Eyes: No diplopia, no worsening or blurred vision ENT: normal hearing, no trouble swallowing Respiratory: No cough, sputum, dyspnea at rest or on exertion Cardiovascular: No chest pain, tightness or palpitations Abdomen: No pain, nausea, vomiting, diarrhea or constipation Musculoskeletal: (+) cramping, n/t of right leg with activity, Neurologic: No weakness, numbness/tingling, or balance problems Psychiatric: No anxiety or depression Skin: No rash or itch Physical Exam Physical Exam: PHYSICAL EXAM: General: awake, alert, no apparent distress Head: Normocephalic, atraumatic ENT: PERRL, EOMI, no pharyngeal exudate, mucous membranes moist Neuro: AAO x 3, speech clear and appropriate, strength intact bilaterally 5/5, sensation intact and equal all extremities and dermatomes, no pronator drift Chest: equal rise and fall of the chest, no accessory muscle use, no heaves or thrills, Clear to auscultation, on room air, Cardiac: Regular rate and rhythm, telemetry reviewed- NSR no ectopy, skin warm dry, cap refill <3 seconds, peripheral pulses +2 no JVD, no murmur, no edema GI: NABS x 4 quadrants, soft, nontender to palpation, no rebound, guarding or tenderness : Spontaneously voiding, no pain, no CVA tenderness, Skin: RIGHT groin wound vac over incision, no hematoma, no bleeding, no abdominal pain Results & Data Results & Data Vital Signs (Past 12 Hours) Vital Signs Temp Pulse Resp BP BP Pulse Ox O2 Del Method 04/06/25 19:20 36.7 C 80 16 117/56 L 98 Nasal Cannula 04/06/25 19:10 78 14 100/65 93 Nasal Cannula 04/06/25 19:00 79 14 110/59 L 95 Oxymask 04/06/25 18:50 75 16 121/56 L 100 Oxymask 04/06/25 18:40 75 14 120/63 100 Oxymask 04/06/25 18:30 76 14 119/59 L 100 Oxymask 04/06/25 18:23 36 C L 76 16 125/54 L 100 Oxymask 04/06/25 09:36 36.5 C 66 14 147/55 H 141/63 H 98 Room Air O2 Flow Rate 04/06/25 19:20 2 04/06/25 19:10 2 04/06/25 19:00 2 04/06/25 18:50 2 04/06/25 18:40 2 04/06/25 18:30 4 04/06/25 18:23 6 04/06/25 09:36 Laboratory Results Abnormal lab results 04/06/25 04/06/25 04/06/25 Range/Units 09:16 09:39 17:24 RBC 3.43 L (4.20-5.40) M/uL Hgb 10.5 L (12.0-16.0) g/dl POC Hgb 9.5 L (12.0-16.0) g/dl Hct 32.2 L (37.0-47.0) % POC Hct 28 L (37-47) % RDW Std Deviation 56.6 H (36.4-46.3) fL RDW Coeff of Yanni 16.5 H (11.5-14.5) % Plt Count (130-400) K/uL Lymph # (Auto) (1.20-3.40) K/uL Chloride 109 H (98-107) mmol/L POC Total CO2 20 L (24-31) mmol/L Glucose 103 H (70-99(Fasting)) mg/dl POC Glucose 101 H (70-99) mg/dl POC Glucose (other) 126 H (70-99) mg/dl Crossmatch See Detail 04/06/25 04/06/25 Range/Units 18:04 18:31 RBC 3.73 L (4.20-5.40) M/uL Hgb 11.0 L (12.0-16.0) g/dl POC Hgb (12.0-16.0) g/dl Hct 34.0 L (37.0-47.0) % POC Hct (37-47) % RDW Std Deviation 55.9 H (36.4-46.3) fL RDW Coeff of Yanni 16.8 H (11.5-14.5) % Plt Count 129 L (130-400) K/uL Lymph # (Auto) 1.15 L (1.20-3.40) K/uL Chloride 113 H (98-107) mmol/L POC Total CO2 (24-31) mmol/L Glucose 154 H (70-99(Fasting)) mg/dl POC Glucose 139 H (70-99) mg/dl POC Glucose (other) (70-99) mg/dl Crossmatch Coding Level of Care Code 10309 IN/OBS CONSULT LVL 3,45M Diagnoses S/P vascular surgery Z98.890 Peripheral arterial disease I73.9 DM II (diabetes mellitus, type II), controlled E11.9 HLD (hyperlipidemia) E78.5 HTN (hypertension) I10
[2025-04-06] MEDS ORDERED: MoRPHine SULFATE 4 MG/ML 1 ML CARP\\VIAL IV PRN (19:53)
[2025-04-06] MEDS ORDERED: PHARMACY GLYCEMIC MGMT CONSULT PRN (19:53)
[2025-04-06] MEDS: FAMOTIDINE 40 MG TABLET PO SCH (21:23)
[2025-04-06] MEDS: ATORVASTATIN 40 MG TAB PO SCH (21:23)
[2025-04-06] MEDS: DONEPEZIL HCL 10 MG TAB PO SCH (21:23)
[2025-04-06] MEDS: INSULIN ASPART PER UNIT CHARGE SC SCH (21:53)
[2025-04-06] MEDS: DOXEPIN HCL 50 MG CAPSULE PO SCH (22:19)
[2025-04-07 04:52] LABS: Anion Gap 7.0 (3-11); Calcium 8.4 mg/dl (8.6-10.3); Carbon Dioxide 17.0 mmol/L (21-32); Chloride 114.0 mmol/L (98-107); Potassium 5.2 mmol/L (3.5-5.1); Sodium 138.0 mmol/L (136-145)
[2025-04-07 04:58] LABS: Blood Urea Nitrogen 15.0 mg/dl (6-23); Creatinine Clr Calc Pharmacy 56.6 ml/min; Glucose 157.0 mg/dl (70-99(Fasting))
[2025-04-07 05:17] LABS: Hematocrit (blood only) 32.2 % (37.0-47.0); Hemoglobin 10.7 g/dl (12.0-16.0); Mean Corpuscular Hemoglobin 30.1 pg (25.0-34.0); Mean Corpuscular Volume 90.4 fL (80.0-100.0); Platelet Count 125 K/uL (130-400); RDW Standard Deviation 58.8 fL (36.4-46.3); Red Blood Count 3.56 M/uL (4.20-5.40); White Blood Count 8.18 K/ul (4.8-10.8)
[2025-04-07 05:18] LABS: Acanthocytes 2+; Immature Granulocytes # (auto) 0.05 K/uL (0.01-0.20); Immature Granulocytes % (auto) 0.6 %
[2025-04-07 05:21] VITALS: TEMP 98.2
[2025-04-07] MEDS: LEVOTHYROXINE SODIUM 25 MCG TABLET PO SCH (06:18)
[2025-04-07 07:34] LABS: Hemoglobin A1C 5.7 % (4.5-5.6)
[2025-04-07] MEDS: HYDROXYCHLOROQUINE SULFATE 200 MG TAB PO SCH (08:09)
[2025-04-07] MEDS: ASPIRIN 81 MG CHEW PO SCH (08:09)
[2025-04-07] MEDS: LOSARTAN POTASSIUM 25 MG TAB PO SCH (08:09)
[2025-04-07] MEDS: FUROSEMIDE 40 MG TAB PO SCH (08:09)
[2025-04-07] MEDS: PIROXICAM 10 MG CAP PO SCH (08:10)
[2025-04-07] MEDS: POTASSIUM CHLORIDE 10 MEQ TABCR PO SCH (08:12)
--- NOTE | 2025-04-07 09:53 | Surgery Progress Note ---
Date of Service April 07, 2025 Assessment & Plan (1) S/P vascular surgery: Plan: Patient POD 1 from a redo right common femoral endart. She is doing well Will d/c today Admission and Anticipated Discharge Date Admission Date: April 06, 2025 Subjective Patient without complaints. No foot pain. Denies incisional pain. Physical Exam Constitutional: WD/WN, vitals as above Respiratory: normal respiratory effort; no respiratory distress Cardiovascular: RRR, no murmur, no edema Extremities: normal capillary refill Skin: + incision (prevena in case) Neurologic: CN's II-XI intact bilaterally and moves all extremities Psychiatric: A+Ox3, euthymic affect Results & Data Vital Signs (Past 12 Hours) Vital Signs Temp Pulse Resp BP Pulse Ox O2 Del Method 04/07/25 06:00 65 15 130/58 L 99 Room Air 04/07/25 05:00 66 12 134/49 L 97 Room Air 04/07/25 04:00 36.8 C 68 19 133/54 L 97 Room Air 04/07/25 03:06 69 14 129/51 L 96 Room Air 04/07/25 02:11 70 16 134/63 96 Room Air 04/07/25 01:00 70 17 139/55 L 95 Room Air 04/07/25 00:00 36.6 C 79 13 152/61 H 96 Room Air 04/07/25 00:00 71 04/06/25 23:00 74 14 140/60 96 Room Air 04/06/25 22:00 73 12 152/59 H 97 Room Air
[2025-04-07 10:17] VITALS: RESP 19; O2SAT 96
[2025-04-07 11:08] VITALS: BP 117/56
[2025-04-07 12:45] VITALS: PULSE 75
--- NOTE | 2025-04-08 09:45 | Discharge Summary ---
Date of Service April 08, 2025 Admission HPI Per Admitting Provider This is a 75yo with hx of R FISH CONSERVATIONIST endarterectomy in 10/2024. She c/o severe short distance/limiting claudication of the right leg. Imaging demonstrates severe restenosis vs occlusion of R FISH CONSERVATIONIST. Endarterectomy of the right common femoral artery was recommended. Admission Exam Per Admitting Provider Constitutional: WD/WN, vitals as above Respiratory: normal respiratory effort, lungs clear to auscultation Cardiovascular: RRR, no murmur, no edema Vessels: + posterior tibial pulses abnormal and + dorsalis pedis pulses abnormal Gastrointestinal (Abdomen): normal bowel sounds, soft, nontender, no hepatosplenomegaly Neurologic: CN's II-XI intact bilaterally and moves all extremities Psychiatric: A+Ox3, euthymic affect Principal Diagnosis 1. s/p redo R FISH CONSERVATIONIST endarterectomy with bovine patch 2. Severe restenosis of FISH CONSERVATIONIST Discharge Exam Constitutional WD/WN, vitals as above Respiratory normal respiratory effort, lungs clear to auscultation normal respiratory effort; no respiratory distress Cardiovascular RRR, no murmur, no edema Vessels: + posterior tibial pulses abnormal and + dorsalis pedis pulses abnormal Extremities: normal capillary refill Gastrointestinal (Abdomen) normal bowel sounds, soft, nontender, no hepatosplenomegaly Skin + incision (prevena in case) Neurologic CN's II-XI intact bilaterally and moves all extremities Psychiatric A+Ox3, euthymic affect Discharge Data Allergies Allergy/AdvReac Type Severity Reaction Status Date / Time lisinopril Allergy Severe Angioedema Verified 04/06/25 09:29 gabapentin AdvReac Unknown Verified 04/06/25 09:29 pregabalin AdvReac Unknown Verified 04/06/25 09:29 Consultations 04/06/25 19:53 Consult Service Writer Advisor Routine Procedures Performed Operation Date: 04/06/25 10:20 Actual Procedures p Right Femoral Artery Endarterectomy(Right) - Thierry Stephenson MD Hospital Course (1) S/P vascular surgery: Patient POD 1 from a redo right common femoral endart. She is doing well Will d/c today Total Time Total Time Spent Total Time Spent (In Minutes): 0 Discharge Plan Discharge Items Patient Disposition: Home - Self-Care Reason For Visit: RIGHT COMMON FEMORAL ARTERY STENOSIS Discharge Diagnosis: Recurrent right common femoral artery stenosis Activity: Per Instructions section Non-emergency contact: Hospitalist Call non-emergency contact if: your temperature is above 101.5, your wound has increased redness, your wound has increased drainage and your wound pain has increased Follow-up/Referrals: Jarrod Huber DO [Primary Care Provider] - 04/20/25 9:30 am (Primary care hospital follow up scheduled on 04/20/25 at 9:30) Diet: Carb Consistent or DM2 and Heart Healthy Addtl Attending Provider Instructions: ACTIVITY RECOMMENDATIONS: Once suction stops on dressing, remove dressing and discard it all May shower after that SPECIAL CARE INSTRUCTIONS: Call your doctor if: * Temperature above 101 degrees * Pain not relieved by pain medicine ordered * There is increased drainage or redness from any incision * You have any unanswered questions or concerns. Call [phone] to schedule a follow up appointment if one not already scheduled. Pending Studies at Discharge: No Stand-Alone Forms: My [facility] [place], Smoking Cessation Medications and DC Order Prescriptions: New oxycodone-acetaminophen [Percocet] 5-325 mg tablet 1 tab PO Q6H PRN (Reason: pain) Qty: 30 0RF Continued losartan 50 mg tablet 25 mg PO QAM metformin 500 mg tablet 500 mg PO QAM famotidine 40 mg tablet 40 mg PO HS doxepin 100 mg capsule 100 mg PO HS furosemide 40 mg tablet 40 mg PO QAM atorvastatin 40 mg tablet 40 mg PO HS donepezil 10 mg tablet 10 mg PO HS potassium chloride 10 mEq tablet extended release 10 meq PO QAM aspirin 81 mg tablet,chewable 81 mg PO QAM hydroxychloroquine 200 mg tablet 200 mg PO QAM levothyroxine 25 mcg Tablet 25 mcg PO QAM piroxicam 10 mg Capsule 10 mg PO QAM Discharge Orders: Discharge Order (Routine); Ordered 04/07/25 Ordered By: Thierry Jama/Other Patient Handouts: High Blood Sugar (Hyperglycemia), Hypoglycemia (Low Blood Sugar), Managing Type 2 Diabetes, Diabetes: Meal Planning Admission Data Admit Date/Time: 04/06/25 14:15 Attending Provider: Thierry Stephenson Admit Provider: Thierry Stephenson Primary Care Provider: Jarrod Huber Other Providers: Zach Jones Other Interventions: Discharge Summary Assessment (RN) Last Done: 04/07/25 11:07
--- NOTE | 2025-04-26 06:26 | Coding Query ---
PRESENT ON ADMISSION QUERY To promote full compliance with coding requirements relating to pateint care, physician participation is requested in all cases of bookkeeping machine mechanic uncertainty. Please assist us with the question(s) below: Please place an X within the parenthesis (x). The following diagnosis listed in this patient's medical record require physician assistance to determine if they were present on admission (POA) or not. Please advise for each diagnosis whether it was present on admission, not present on admission, or if it was clinically undetermined. 1. HFpEF (documented on the 04/06 Critical Care Consultation) (x ) Clinically Undetermined. Please Specify further, regarding HFpEF below: ( x) Chronic HFpEF - as noted in history section PRESENT ON ADMISSION- this is not an acute exacerbation and remained on her chronic medications from home. ( ) Acute HFpEF ( ) Acute on Chronic HFpEF ( ) Other: Please Specify Thank you Kelley Meyer *Definition of the present on admission (POA)-Present on admission is defined as present at the time the order for inpatient admission occurs. Conditions that develop during an outpatient encounter prior to a written order for inpatient admission (including emergency department, observation, or outpatient surgery) are considered present on admission. IZach MD, supervised and reviewed the physical exam, assessment, plan, and management as documented by the Advanced Care Provider JOSE Saunders for this patient encounter. I concur with the determination of Chronic HFpEF (not acute exacerbation) as delineated in the above query. BERTHA
== END 2025-04-07 13:40 | disposition home or self-care (01) | DRG 253 ==
LOC: ASU 09:08 → 1E 14:15

== ENCOUNTER 2025-04-08 18:26 | Inpatient (IN) ==
[2025-04-08 19:07] LABS: Hematocrit (blood only) 29.9 % (37.0-47.0); Hemoglobin 10.0 g/dl (12.0-16.0); Immature Granulocytes # (auto) 0.02 K/uL (0.01-0.20); Immature Granulocytes % (auto) 0.4 %; Mean Corpuscular Hemoglobin 31.1 pg (25.0-34.0); Mean Corpuscular Volume 92.9 fL (80.0-100.0); Platelet Count 127 K/uL (130-400); RDW Standard Deviation 60.1 fL (36.4-46.3); Red Blood Count 3.22 M/uL (4.20-5.40); White Blood Count 5.38 K/ul (4.8-10.8)
[2025-04-08 19:24] LABS: Alanine Aminotransferase 12 U/L (7-52); Albumin Globulin Ratio 1.2 (0.9-2); Albumin Level 3.3 gm/dl (3.4-5.0); Alkaline Phosphatase 82 U/L (34-104); Anion Gap 8 (3-11); Bilirubin,Total 0.6 mg/dl (0.2-1.0); Blood Urea Nitrogen 28 mg/dl (6-23); Calcium 8.6 mg/dl (8.6-10.3); Carbon Dioxide 21 mmol/L (21-32); Chloride 105 mmol/L (98-107); Globulin 2.7 gm/dl (2.5-4.0); Glucose 111 mg/dl (70-99(Fasting)); Potassium 4.3 mmol/L (3.5-5.1); Sodium 134 mmol/L (136-145); Total Protein 6.0 gm/dl (6.0-8.3)
[2025-04-08] MEDS: PLASMA-LYTE A 1,000 ML IV ONE (19:34)
[2025-04-08] MEDS: OPTIRAY 320 125ml IV ONE (20:28)
[2025-04-08 20:31] LABS: INR 1.1 (0.9-1.1); Partial Thromboplastin Time 23 Seconds (21-31); Prothrombin Time 11.2 Seconds (9.0-12.0)
--- NOTE | 2025-04-08 20:49 | Emergency Department Note ---
Impression & Plan Episode of generalized weakness, Anemia, DEB (acute kidney injury), Post- operative pain, Thrombocytopenia, Acute dehydration ED Provider Note NAME: KINJAL GERARDO AGE: 75 SEX: F : 1950 ARRIVES VIA: Walk-In INFORMANT: Patient, family ED PROVIDER(S): Gil Hardy DO CHIEF COMPLAINT: generalized weakness HPI: This is a 75-year-old female with the PMHx of PAD s/p recent femoral endarterectomy, DDD, HTN, HLD, CAD, DM2 and osteoporosis presenting to [facility] for further evaluation of generalized weakness. Patient is accompanied by her family who provide additional history. They state that she has been progressively worsening since surgery. She has been weak and not able to have a good appetite. She has had worsening RLE swelling. Notes pain at the right groin and throughout the abdomen. Family states that her BP was low at home today and vascular surgery sent her to the ED. They deny fever or chills. No cough or congestion. Denies chest pain or palpitations. No shortness of breath. They deny nausea and vomiting. No urinary complaints. No recent changes in bowel movements. Patient denies recent changes in medications or OTC supplements. Patient offers no other complaints, today. ADDITIONAL HISTORY OBTAINED: Per HPI Chronic Medical/Social Conditions Affecting Care: Per HPI PAST MEDICAL HISTORY: See Below PAST SURGICAL HISTORY: See Below FAMILY HISTORY: See Below SOCIAL HISTORY: See Below HOME MEDICATIONS: See Below ALLERGIES: See Below VITALS: See Below PHYSICAL EXAMINATION: GENERAL: Sitting up in bed, alert, ill appearing, well nourished, no distress, non-toxic EYE EXAM: conjunctival pallor OROPHARYNX: no exudate, no erythema, lips, buccal mucosa, and tongue normal and mucous membranes are dry NECK: supple, no nuchal rigidity, no adenopathy, non-tender LUNGS: Clear to auscultation. Normal chest wall mechanics HEART: no murmurs, regular rate, regular rhythm ABDOMEN: abdomen soft, generalized tenderness, no masses, no rebound or guarding. BACK: Back is symmetrical on inspection and there is no deformity, no midline tenderness, no CVA tenderness. SKIN: no rashes and no bruising UPPER EXTREMITIES: upper extremities are grossly normal. LOWER EXTREMITIES: significant swelling of the RLE, worse in the right thigh and groin. NVI. No pulsatile mass. NEURO EXAM: Normal sensorium, GCS 15, normal speech, no gross weakness of arms, no gross weakness of legs. MEDICAL DECISION MAKING: Differential diagnoses includes but not limited to failure to thrive, functional decline, dehydration, electrolyte derangements, acute anemia, postoperative bleeding, surgical complication, PNA, UTI In summary, this is a 75 year old female who presented with generalized weakness. Differential as above. Nursing notes and pertinent past medical records reviewed. Vital signs reviewed and the patient is afebrile and HDS. History and presentation revealed recent vascular surgery procedure now with essentially failure to thrive. She could have just significant decompensation and functional decline in this setting. Could be postoperative complication including ongoing bleeding. Physical examination revealed as above. As a result of my initial evaluation, plan for labs and CTA imaging while given analgesia and IVFR. Diagnostics interpreted by me include EKG and cardiac monitoring as listed below: -Cardiac Monitoring: An order was placed for continuous cardiac monitoring. The monitor shows a rate of 70-90s with regular rhythm. -ECG: NSR at 84bpm. No significant ST segment changes to suggest STEMI. Some T wave flattening/inversion in the lateral leads. Left axis deviation noted. Patient completed laboratory studies and imaging. CXR independently interpreted by me reveals no evidence of focal consolidation to suggest pna. No large pneumothorax or pleural effusion. No obvious displaced rib fracture. Results independently interpreted by me are relatively stable anemia but she continues to have downfall. She did have 2u PRBCs postoperatively. I question whether the patient is having ongoing bleeding from her operation. Does have mild thrombocytopenia. Normal coagulation studies. Does have an DEB with minimal hyponatremia. Given that she is recently postoperative from femoral endarterectomy with significant lower extremity swelling and abdominal pain, CTAs of the abdomen/pelvis with runoff obtained. The patient was managed with IV fluid resuscitation as well as pain control medications. She did improve while in the emergency department. Patient's history is complicated by recent surgery now with acute dehydration and DEB. Patient is struggled to ambulate and perform ADLs following surgery. I do believe her reported low blood pressures at home are likely related to her dehydration. I do feel she should be admitted to the hospital given electrolyte derangements and kidney function found on labs today. CTA imaging did not reveal obvious present of acute bleeding. Ultimately, the decision was made to admit the patient for acute dehydration and DEB following recent vascular procedure. I discussed the case with the hospitalist service via telephone/Tiger[employer] and they are agreeable to admit the patient to their services. Based on the above, including the patient's age, coexisting illnesses, labs, imaging, and exam findings the decision to treat as an inpatient. I discussed the patient with the hospitalist team who recommended admission to their services. They received the medications, treatments, interventions indicated above and their condition remained guarded. I discussed my findings with the patient and their family and they understand and agree with the treatment plan. All patient / family questions were answered to their satisfaction. Consults/Care Managements Discussions: Per [facility] treatment provided: See above Procedures:none Critical Care: None The chart was completed utilizing [employer] Speech voice recognition software. Grammatical errors, random word insertions, pronoun errors, and incomplete sentences are an occasional consequence of this system due to software limitations, ambient noise, and hardware issues. Any formal questions or concerns about the content, text, or information contained within the body of this dictation should be directly addressed to the physician for clarification. Past Med/Surg History Problem List (Updated 04/11/25 @ 17:20 by Gil Hardy DO) Acute dehydration (Acute) Thrombocytopenia (Acute) Post-operative pain (Acute) DEB (acute kidney injury) (Acute) Anemia (Acute) Episode of generalized weakness (Acute) Anemia Right leg DVT Coronary artery disease Edema of right lower extremity Generalized weakness Acute kidney injury S/P vascular surgery Peripheral arterial disease Osteoarthritis DM II (diabetes mellitus, type II), controlled HLD (hyperlipidemia) HTN (hypertension) (Acute) CAD (coronary artery disease) of bypass graft Memory problem Neuropathy Lumbar stenosis with neurogenic claudication (Acute 11/02/13) Medical History Fatty liver Carotid artery disease s/p left carotid endarterectomy 03/2024 Carotid doppler 05/2024: There is mild plaque causing <50% TOMMY stenosis. LICA stent appears patent without significant stenosis. CAD (coronary artery disease) CABG x3 (2021) Follows with [facility] cardio/Dr. Carrera Hx of osteoarthritis Sleep apnea No device Neuropathy Memory problem Forgetful Hx of hyperlipidemia History of hypertension Diabetes mellitus, type 2 NIDDM Anemia Hx of completed stroke Evidence of old stroke found during workup prior to left carotid endarterectomy (done 03/2024) Head CT 02/23/24: old small left parietal cortical infarct Surgical History Hx of endarterectomy (10/2024) right lower leg common femoral endarterectomy Hx of angiography RLE 09/27/24, [facility] History of esophagogastroduodenoscopy (EGD) Hx of LASIK Hx of cardiac cath 2021 > CABG x3 History of carotid endarterectomy Left, 04/08/24 History of coronary artery bypass graft CABG x3 (2021) Hx of colonoscopy Hx of hysterectomy History of back surgery L4-L5, "many years ago" Family History Mother Cancer Grandmother (Maternal) Myocardial infarction Grandfather (Maternal) Myocardial infarction Other No family history of adverse response to anesthesia Social History Smoking Status: Never smoker Second Hand Exposure: No; Do You Dip or Chew Tobacco: No; Tobacco Cessation Education Requested by Patient: No Hx Alcohol Use: No Hx Substance Use: No Preferred Language: Ukrainian Communication Ability: Effective Shrink Pit Supervisor Required: No Beliefs That Will Affect Care: None Current Living Situation: Spouse Current Living Situation Comment: spouse Other Information That Helps Us Care for You: No Feels Safe at Home: Yes Safety Concerns: Feels Safe At This Time Assistive Devices: Walker Allergies Allergies Allergy/AdvReac Type Severity Reaction Status Date / Time lisinopril Allergy Severe Angioedema Verified 04/08/25 22:11 gabapentin AdvReac Intermediate "FLUSHING/H Verified 04/08/25 22:11 OT" pregabalin AdvReac Intermediate "FLUSHING/H Verified 04/08/25 22:11 OT" Home Meds Home Medications Medication Instructions Recorded Confirmed doxepin 100 mg capsule 100 mg PO HS 07/11/21 04/08/25 famotidine 40 mg tablet 40 mg PO HS 07/11/21 04/08/25 losartan 50 mg tablet 25 mg PO QAM 07/11/21 04/08/25 metformin 500 mg tablet 500 mg PO QAM 07/11/21 04/08/25 aspirin 81 mg chewable tablet 81 mg PO QAM 03/24/23 04/08/25 atorvastatin 40 mg tablet 40 mg PO HS 03/24/23 04/08/25 donepezil 10 mg tablet 10 mg PO HS 03/24/23 04/08/25 furosemide 40 mg tablet 40 mg PO QAM 03/24/23 04/08/25 hydroxychloroquine 200 mg tablet 200 mg PO QAM 03/24/23 04/08/25 potassium chloride 10 mEq 10 meq PO QAM 03/24/23 04/08/25 tablet,extended release levothyroxine 25 mcg tablet 25 mcg PO QAM 03/28/25 04/08/25 piroxicam 10 mg capsule 10 mg PO QAM 03/28/25 04/08/25 Previous Rx's Medication Instructions Recorded oxycodone-acetaminophen 5 mg-325 1 tab PO Q6H PRN pain #30 tabs 04/07/25 mg tablet (Percocet) Results & Data (ED) Vital Signs Vital Signs - 24 hr 04/08/25 18:30 04/08/25 19:03 04/08/25 19:28 Temperature 36.6 C Temperature Source Temporal Artery Scan Pulse Rate 81 75 80 Pulse Rate [Apical] Respiratory Rate 20 19 Respiratory Effort / Characteristics Respiratory Depth Normal Respiratory Pattern Blood Pressure 109/65 Blood Pressure [Right Arm] Blood Pressure Mean 79 Blood Pressure Mean [Right Arm] Pulse Oximetry 99 98 Oxygen Delivery Method Room Air Room Air Sepsis Recent Fever Within 48 Hours No Sepsis New/Unexplained Change in Mental Status No Sepsis Action Taken by Nursing No Action Required 04/08/25 19:32 04/08/25 19:56 04/08/25 21:28 Temperature 36.8 C Temperature Source Oral Pulse Rate Pulse Rate [Apical] 77 72 83 Respiratory Rate 16 15 18 Respiratory Effort / Characteristics Non-Labored Spontaneous Non-Labored Spontaneous Non-Labored Spontaneous Respiratory Depth Normal Normal Normal Respiratory Pattern Regular Regular Regular Blood Pressure Blood Pressure [Right Arm] 126/50 L 126/55 L 116/64 Blood Pressure Mean Blood Pressure Mean [Right Arm] 75 78 81 Pulse Oximetry 99 98 98 Oxygen Delivery Method Room Air Room Air Room Air Sepsis Recent Fever Within 48 Hours Sepsis New/Unexplained Change in Mental Status Sepsis Action Taken by Nursing 04/08/25 22:24 04/08/25 23:09 Temperature Temperature Source Pulse Rate 93 H Pulse Rate [Apical] 93 H Respiratory Rate 17 Respiratory Effort / Characteristics Non-Labored Spontaneous Respiratory Depth Normal Respiratory Pattern Regular Blood Pressure Blood Pressure [Right Arm] 121/50 L Blood Pressure Mean Blood Pressure Mean [Right Arm] 73 Pulse Oximetry 96 Oxygen Delivery Method Room Air Sepsis Recent Fever Within 48 Hours Sepsis New/Unexplained Change in Mental Status Sepsis Action Taken by Nursing Laboratory Data 04/11/25 12:24 04/11/25 06:12 Lab Results 04/08/25 Range/Units 18:47 WBC 5.38 (4.8-10.8) K/ul RBC 3.22 L (4.20-5.40) M/uL Hgb 10.0 L (12.0-16.0) g/dl Hct 29.9 L (37.0-47.0) % MCV 92.9 (80.0-100.0) fL MCH 31.1 (25.0-34.0) pg MCHC 33.4 (32.0-36.0) g/dL RDW Std Deviation 60.1 H (36.4-46.3) fL RDW Coeff of Yanni 17.5 H (11.5-14.5) % Plt Count 127 L (130-400) K/uL MPV 9.8 (9.4-12.4) fL Immature Gran % (Auto) 0.4 % Neut % (Auto) 68.2 % Lymph % (Auto) 23.8 % Worth % (Auto) 7.4 % Eos % (Auto) 0.0 % Baso % (Auto) 0.2 % Neut # (Auto) 3.67 (1.40-6.50) K/uL Lymph # (Auto) 1.28 (1.20-3.40) K/uL Worth # (Auto) 0.40 (0.11-0.59) K/uL Eos # (Auto) 0.00 (0.00-0.50) K/uL Baso # (Auto) 0.01 (0.00-0.20) K/uL Immature Gran # (Auto) 0.02 (0.01-0.20) K/uL PT 11.2 (9.0-12.0) Seconds INR 1.1 (0.9-1.1) APTT 23 (21-31) Seconds PTT Ratio 0.8 Sodium 134 L (136-145) mmol/L Potassium 4.3 (3.5-5.1) mmol/L Chloride 105 (98-107) mmol/L Carbon Dioxide 21 (21-32) mmol/L Anion Gap 8 (3-11) BUN 28 H (6-23) mg/dl Creatinine 1.31 H D (0.6-1.2) mg/dl Est Cr Clr Drug Dosing Not Reportable eGFR 41.96 BUN/Creatinine Ratio 21.4 H (10-20) Glucose 111 H (70-99(Fasting)) mg/dl Calcium 8.6 (8.6-10.3) mg/dl Total Bilirubin 0.6 (0.2-1.0) mg/dl AST 19 (13-39) U/L ALT 12 (7-52) U/L Alkaline Phosphatase 82 (34-104) U/L Troponin I High Sens 4.6 (0-14) pg/ml Total Protein 6.0 (6.0-8.3) gm/dl Albumin 3.3 L (3.4-5.0) gm/dl Globulin 2.7 (2.5-4.0) gm/dl Albumin/Globulin Ratio 1.2 (0.9-2) Administered Medications Acetaminophen (Acetaminophen 325 Mg Tab) 650 mg PO Q4H PRN PRN Reason: Pain or Fever Stop: 05/09/25 01:16 Last Admin: 04/10/25 21:52 Dose: 650 mg Documented By: OVIDIO Aspirin (Aspirin 81 Mg Chew) 81 mg PO [facility] Stop: 05/09/25 08:59 Last Admin: 04/11/25 08:45 Dose: 81 mg Documented By: Admin: 04/10/25 08:40 Dose: 81 mg Documented By: Admin: 04/09/25 08:27 Dose: 81 mg Documented By: ÁNGEL Atorvastatin Calcium (Atorvastatin 40 Mg Tab) 40 mg PO [facility] Stop: 05/09/25 20:59 Last Admin: 04/10/25 20:42 Dose: 40 mg Documented By: Admin: 04/09/25 20:59 Dose: 40 mg Documented By: OVIDIO Donepezil HCl (Donepezil Hcl 10 Mg Tab) 10 mg PO [facility] Stop: 05/09/25 20:59 Last Admin: 04/10/25 20:43 Dose: 10 mg Documented By: Admin: 04/09/25 20:59 Dose: 10 mg Documented By: OVIDIO Famotidine (Famotidine 40 Mg Tablet) 40 mg PO HS ADOL[facility] Stop: 05/09/25 20:59 Last Admin: 04/10/25 20:42 Dose: 40 mg Documented By: Admin: 04/09/25 20:59 Dose: 40 mg Documented By: OVIDIO Hydroxychloroquine Sulfate (Hydroxychloroquine Sulfate 200 Mg Tab) 200 mg PO QAM ADOLFO Stop: 05/09/25 08:59 Last Admin: 04/11/25 08:45 Dose: 200 mg Documented By: Admin: 04/10/25 08:40 Dose: 200 mg Documented By: Admin: 04/09/25 08:29 Dose: 200 mg Documented By: ÁNGEL Heparin Sodium/Dextrose (Heparin 61342 Unit/500 Ml D5w) 25,000 units in 500 mls @ 21 mls/hr IV .[id number] ADOLFO; Protocol Stop: 05/09/25 15:44 Last Admin: 04/11/25 15:45 Dose: 1,050 units/hr, 21 mls/hr Documented By: RONI Co-signed By: ALMA Titration: 04/11/25 15:02 Dose: Infused Documented By: RONI Co-signed By: ALMA Titration: 04/11/25 07:12 Dose: 1,050 units/hr, 21 mls/hr Documented By: ALMA Co-signed By: OVIDIO Titration: 04/11/25 07:08 Dose: 1,050 units/hr, 21 mls/hr Documented By: ALMA Co-signed By: OVIDIO Titration: 04/10/25 18:55 Dose: 1,050 units/hr, 21 mls/hr Documented By: OVIDIO Co-signed By: ÁNGEL Admin: 04/10/25 15:13 Dose: 1,050 units/hr, 21 mls/hr Documented By: ÁNGEL Co-signed By: YANCY Titration: 04/10/25 14:43 Dose: Infused Documented By: ÁNGEL Co-signed By: YANCY Titration: 04/10/25 08:39 Dose: 1,050 units/hr, 21 mls/hr Documented By: ÁNGEL Co-signed By: YANCY Titration: 04/10/25 06:54 Dose: 1,050 units/hr, 21 mls/hr Documented By: ÁNGEL Co-signed By: OVIDIO Admin: 04/10/25 01:31 EDT Dose: Not Given Documented By: Titration: 04/10/25 01:25 EDT Dose: 1,050 units/hr, 21 mls/hr Documented By: OVIDIO Co-signed By: HUMZA Titration: 04/10/25 00:22 Dose: 0 units/hr, 0 mls/hr Documented By: OVIDIO Co-signed By: HUMZA Titration: 04/09/25 19:06 Dose: 1,250 units/hr, 25 mls/hr Documented By: OVIDIO Co-signed By: ÁNGEL Admin: 04/09/25 16:22 Dose: 1,250 units/hr, 25 mls/hr Documented By: ÁNGEL Co-signed By: YANCY Insulin Aspart (Insulin Aspart Per Unit Charge) 0 units SC ACHS ADOLFO Stop: 05/09/25 07:29 Last Admin: 04/11/25 12:14 Dose: 4 units Documented By: ALMA Co-signed By: palma Admin: 04/11/25 08:46 Dose: 4 units Documented By: ALMA Co-signed By: palma Admin: 04/10/25 21:07 Dose: Not Given Documented By: Admin: 04/10/25 17:02 Dose: 5 units Documented By: ÁNGEL Co-signed By: ja Admin: 04/10/25 12:14 Dose: 5 units Documented By: ÁNGEL Co-signed By: Admin: 04/10/25 08:39 Dose: 6 units Documented By: ÁNGEL Co-signed By: YANCY Admin: 04/09/25 20:47 Dose: Not Given Documented By: Admin: 04/09/25 16:45 Dose: 5 units Documented By: ÁNGLE Co-signed By: SEVERINO Admin: 04/09/25 12:06 Dose: Not Given Documented By: Admin: 04/09/25 08:27 Dose: 4 units Documented By: ÁNGEL Co-signed By: YOU Levothyroxine Sodium (Levothyroxine Sodium 25 Mcg Tablet) 25 mcg PO DAILYBB ADOLFO Stop: 05/09/25 06:29 Last Admin: 04/11/25 05:47 Dose: 25 mcg Documented By: Admin: 04/10/25 06:03 Dose: 25 mcg Documented By: Admin: 04/09/25 06:08 Dose: 25 mcg Documented By: OVIDIO Losartan Potassium (Losartan Potassium 25 Mg Tab) 25 mg PO [facility] Stop: 05/09/25 08:59 Last Admin: 04/11/25 08:45 Dose: 25 mg Documented By: Admin: 04/10/25 08:40 Dose: 25 mg Documented By: Admin: 04/09/25 08:29 Dose: 25 mg Documented By: ÁNGEL Oxycodone/Acetaminophen (Oxycodone/Acetaminophen 5mg/325mg Tab) 1 tab PO Q6H PRN PRN Reason: Moderate Pain (Scale 4, 5, 6) Stop: 04/23/25 01:16 Last Admin: 04/09/25 08:44 Dose: 1 tab Documented By: ÁNGEL Piroxicam (Piroxicam 10 Mg Cap) 10 mg PO [facility] Stop: 05/09/25 08:59 Last Admin: 04/11/25 08:45 Dose: 10 mg Documented By: Admin: 04/10/25 08:41 Dose: 10 mg Documented By: Admin: 04/09/25 08:29 Dose: 10 mg Documented By: ÁNGEL Polyethylene Glycol (Polyethylene (Miralax) 17 Gm Pack) 17 gm PO DAILY [facility] Stop: 05/10/25 08:59 Last Admin: 04/11/25 08:46 Dose: Not Given Documented By: Admin: 04/10/25 08:41 Dose: 17 gm Documented By: ÁNGEL Discontinued Medications Atorvastatin Calcium (Atorvastatin 40 Mg Tab) 40 mg PO NOW STA Stop: 04/08/25 23:08 Last Admin: 04/08/25 23:39 Dose: 40 mg Documented By: nathaly Donepezil HCl (Donepezil Hcl 10 Mg Tab) 10 mg PO NOW STA Stop: 04/08/25 23:08 Last Admin: 04/08/25 23:39 Dose: 10 mg Documented By: nathaly Famotidine (Famotidine 20 Mg Tab) 20 mg PO NOW ONE Stop: 04/08/25 23:08 Last Admin: 04/08/25 23:39 Dose: 20 mg Documented By: nathaly Fentanyl Citrate (Fentanyl Citrate Pf 100 Mcg/2 Ml Vial) 50 mcg IV NOW ONE Stop: 04/08/25 19:18 Last Admin: 04/08/25 19:57 Dose: 50 mcg Documented By: nathaly Heparin Sodium (Porcine) (Heparin Sod 5,000 Unit/0.5 Ml Vial) 5,000 units SQ Q12 ADOLFO Stop: 05/09/25 08:59 Last Admin: 04/09/25 08:28 Dose: 5,000 units Documented By: ÁNGEL Heparin Sodium (Porcine) (Heparin Sod (Porcine) 1000 Unit/Ml) 5,000 units IV NOW ONE Stop: 04/09/25 16:16 Last Admin: 04/09/25 16:22 Dose: 5,000 units Documented By: ÁNGEL Co-signed By: YANCY Heparin Sodium/Dextrose (Heparin Iv Adult Wt-Based Standard W/ Initial Bolus Protocol) 1 each IV NOW STA; Protocol Stop: 04/09/25 15:30 Last Admin: 04/09/25 16:23 Dose: 1 each Documented By: ÁNGEL Parenteral Electrolytes (Plasma-Lyte A Ph 7.4) 1,000 mls @ 999 mls/hr IV .Q1H1M ONE Stop: 04/08/25 20:17 Last Infusion: 04/08/25 20:45 Dose: Infused Documented By: nathaly Admin: 04/08/25 19:34 Dose: 999 mls/hr Documented By: nathaly Parenteral Electrolytes (Plasma-Lyte A Ph 7.4) 1,000 mls @ 125 mls/hr IV .Q8H ADOLFO Stop: 04/11/25 22:14 Last Infusion: 04/09/25 10:54 Dose: Infused Documented By: Admin: 04/09/25 06:07 Dose: 125 mls/hr Documented By: Infusion: 04/09/25 06:07 Dose: Infused Documented By: Admin: 04/08/25 22:24 Dose: 125 mls/hr Documented By: nathaly Sodium Chloride (Nss) 1,000 mls @ 80 mls/hr IV .[id number] ADOLFO Stop: 04/12/25 09:59 Last Infusion: 04/10/25 10:13 Dose: Infused Documented By: Admin: 04/09/25 23:52 Dose: 80 mls/hr Documented By: Infusion: 04/09/25 23:31 Dose: Infused Documented By: Admin: 04/09/25 11:01 Dose: 80 mls/hr Documented By: ÁNGEL Ioversol (Optiray 320 125ml) 120 ml IV ONCE ONE Stop: 04/08/25 20:29 Last Admin: 04/08/25 20:28 Dose: 120 ml Documented By: FRANK Miscellaneous (Patient's Height &/Or Weight Needed) 1 each N/A Q2H STA Stop: 04/09/25 01:22 Last Admin: 04/09/25 01:39 Dose: Not Given Documented By: [facility] Imaging Data Radiologist's Impression: Abdomen/Pelvis CTA 04/08/25 19:15 Exam(s): CTA ABDOMEN + PELVIS With Contrast EXAM: CT Angiography Abdomen and Pelvis With Intravenous Contrast CLINICAL HISTORY: Reason for exam: Recent femoral endarterectomy now with tightenin. TECHNIQUE: Axial computed tomographic angiography images of the abdomen and pelvis with intravenous contrast. CTDI is 19.38 mGy and DLP is 1830.21 mGy-cm. Automated exposure control was utilized for the study. A dose lowering technique was utilized adhering to the principles of ALARA. MIP reconstructed images were created and reviewed. CONTRAST: Contrast must be dictated COMPARISON: 03/22/2025 FINDINGS: There is atherosclerosis of the abdominal aorta without aneurysm or dissection. There is mild calcific stenosis of the celiac artery origin. There is moderate calcific stenosis of the SMA origin. Both renal arteries appear adequately patent. MARY is patent. Right common, internal common external iliac arteries are adequately patent. There are postprocedural changes in the right inguinal region with subcutaneous gas, subcutaneous hematoma measuring approximately 5 cm, and skin closure fe. No aneurysm, pseudoaneurysm, or active bleeding is visualized. Right common femoral artery and visualized proximal segments of the deep and superficial femoral arteries are adequately patent. Left common, internal, and external iliac arteries are adequately patent. Left common femoral artery and visualized proximal segments of the deep and superficial femoral arteries are adequately patent. Patient has undergone prior sternotomy. Heart size is normal. Coronary arteries are calcified. Lung bases demonstrate subsegmental atelectasis bilaterally. Liver, gallbladder, spleen, pancreas, adrenal glands, and kidneys are unremarkable. Appendix is not identified. There are no secondary signs of appendicitis. There is no obstructive or inflammatory bowel change. Urinary bladder is unremarkable. Uterus is surgically absent. Skeleton appears intact. IMPRESSION: Status post recent right femoral endarterectomy with expected postoperative soft tissue changes in the right inguinal region, as described above. Visualized portion of the right femoral artery is adequately patent. No aneurysm, pseudoaneurysm, or active bleeding is visible. Electronically signed by: Brian Baron M.D. 04/08/25 21:09 PM Lower Extremity CTA 04/08/25 19:15 Exam(s): CTA EXTREMITY RIGHT LOWER W/WO Contrast IV Amt: 115cc opti 320 EXAM: CT Angiography of the Right Lower Extremity With Intravenous Contrast CLINICAL HISTORY: Reason for exam: recent femoral endarectomy. TECHNIQUE: Axial computed tomographic angiography images of the right lower extremity with intravenous contrast. CTDI is 19.38 mGy and DLP is 1830. 21 mGy-cm. Automated exposure control was utilized for the study. A dose lowering technique was utilized adhering to the principles of ALARA. MIP reconstructed images were created and reviewed. CONTRAST: Patient received 115cc opti 320 of IV contrast COMPARISON: No relevant prior studies available. FINDINGS: Patient is status post recent right femoral endarterectomy. There are right inguinal skin closure fe with subjacent soft tissue edema, soft tissue gas, and postprocedural hematoma formation. Surgical clips surround the common femoral artery. Common, deep, and superficial femoral arteries are adequately patent. There is approximately 50% stenosis in the upper popliteal artery (series 4, image 177). Calf arteries are excluded from view. There is subcutaneous edema throughout the leg. There are no acute osseous findings. IMPRESSION: 1. Status post recent right femoral endarterectomy with expected postprocedural soft tissue changes. 2. Right lower extremity arteries are imaged from the common femoral artery through the popliteal artery. 3. Approximately 50% popliteal artery stenosis. Otherwise, no significant stenosis. Electronically signed by: Brian Baron M.D. 04/08/25 22:03 PM Chest X-Ray 04/08/25 19:17 EXAM: Portable AP chest radiograph TECHNIQUE: AP portable radiograph of the chest was obtained. INDICATION: Shortness of breath Comparison: Chest radiograph October 13, 2024 FINDINGS: LINES and TUBES: None CARDIOVASCULAR: Cardiac silhouette is stably enlarged in size with redemonstrated post-CABG changes. LUNGS/PLEURA: No focal consolidation identified. Mild pulmonary vascular congestion and chronic interstitial lung changes appear similar to previous. No significant pleural fluid. No discernible pneumothorax. OSSEOUS/OTHER: No displaced acute osseous process identified. IMPRESSION: No focal consolidation is identified. Electronically signed by Rao Alicia 04-08-2025 9:14 PM Discharge Plan Visit Data Chief Complaint: Referred by Doctor Stated Complaint: LOW BLOOD PRESSURE SURGEY WED DOC REFERRAL ED Provider: Gil Hardy Discharge Problem: Episode of generalized weakness, Anemia, DEB (acute kidney injury), Post- operative pain, Thrombocytopenia, Acute dehydration Patient Disposition: Admitted As Inpatient Condition: Serious Discharge Instructions Interventions: ED Discharge Assessment Last Done: 04/09/25 00:27
--- NOTE | 2025-04-08 21:11 | CT Scan Report ---
Exam(s): CTA ABDOMEN + PELVIS With Contrast EXAM: CT Angiography Abdomen and Pelvis With Intravenous Contrast CLINICAL HISTORY: Reason for exam: Recent femoral endarterectomy now with tightenin. TECHNIQUE: Axial computed tomographic angiography images of the abdomen and pelvis with intravenous contrast. CTDI is 19.38 mGy and DLP is 1830.21 mGy-cm. Automated exposure control was utilized for the study. A dose lowering technique was utilized adhering to the principles of ALARA. MIP reconstructed images were created and reviewed. CONTRAST: Contrast must be dictated COMPARISON: 03/22/2025 FINDINGS: There is atherosclerosis of the abdominal aorta without aneurysm or dissection. There is mild calcific stenosis of the celiac artery origin. There is moderate calcific stenosis of the SMA origin. Both renal arteries appear adequately patent. MARY is patent. Right common, internal common external iliac arteries are adequately patent. There are postprocedural changes in the right inguinal region with subcutaneous gas, subcutaneous hematoma measuring approximately 5 cm, and skin closure fe. No aneurysm, pseudoaneurysm, or active bleeding is visualized. Right common femoral artery and visualized proximal segments of the deep and superficial femoral arteries are adequately patent. Left common, internal, and external iliac arteries are adequately patent. Left common femoral artery and visualized proximal segments of the deep and superficial femoral arteries are adequately patent. Patient has undergone prior sternotomy. Heart size is normal. Coronary arteries are calcified. Lung bases demonstrate subsegmental atelectasis bilaterally. Liver, gallbladder, spleen, pancreas, adrenal glands, and kidneys are unremarkable. Appendix is not identified. There are no secondary signs of appendicitis. There is no obstructive or inflammatory bowel change. Urinary bladder is unremarkable. Uterus is surgically absent. Skeleton appears intact. IMPRESSION: Status post recent right femoral endarterectomy with expected postoperative soft tissue changes in the right inguinal region, as described above. Visualized portion of the right femoral artery is adequately patent. No aneurysm, pseudoaneurysm, or active bleeding is visible. Electronically signed by: Brian Baron M.D. 04/08/25 21:09 PM
--- NOTE | 2025-04-08 21:14 | XRay Report ---
EXAM: Portable AP chest radiograph TECHNIQUE: AP portable radiograph of the chest was obtained. INDICATION: Shortness of breath Comparison: Chest radiograph October 13, 2024 FINDINGS: LINES and TUBES: None CARDIOVASCULAR: Cardiac silhouette is stably enlarged in size with redemonstrated post-CABG changes. LUNGS/PLEURA: No focal consolidation identified. Mild pulmonary vascular congestion and chronic interstitial lung changes appear similar to previous. No significant pleural fluid. No discernible pneumothorax. OSSEOUS/OTHER: No displaced acute osseous process identified. IMPRESSION: No focal consolidation is identified. Electronically signed by Rao Alicia 04-08-2025 9:14 PM
--- NOTE | 2025-04-08 22:03 | CT Scan Report ---
Exam(s): CTA EXTREMITY RIGHT LOWER W/WO Contrast IV Amt: 115cc opti 320 EXAM: CT Angiography of the Right Lower Extremity With Intravenous Contrast CLINICAL HISTORY: Reason for exam: recent femoral endarectomy. TECHNIQUE: Axial computed tomographic angiography images of the right lower extremity with intravenous contrast. CTDI is 19.38 mGy and DLP is 1830. 21 mGy-cm. Automated exposure control was utilized for the study. A dose lowering technique was utilized adhering to the principles of ALARA. MIP reconstructed images were created and reviewed. CONTRAST: Patient received 115cc opti 320 of IV contrast COMPARISON: No relevant prior studies available. FINDINGS: Patient is status post recent right femoral endarterectomy. There are right inguinal skin closure fe with subjacent soft tissue edema, soft tissue gas, and postprocedural hematoma formation. Surgical clips surround the common femoral artery. Common, deep, and superficial femoral arteries are adequately patent. There is approximately 50% stenosis in the upper popliteal artery (series 4, image 177). Calf arteries are excluded from view. There is subcutaneous edema throughout the leg. There are no acute osseous findings. IMPRESSION: 1. Status post recent right femoral endarterectomy with expected postprocedural soft tissue changes. 2. Right lower extremity arteries are imaged from the common femoral artery through the popliteal artery. 3. Approximately 50% popliteal artery stenosis. Otherwise, no significant stenosis. Electronically signed by: Brian Baron M.D. 04/08/25 22:03 PM
[2025-04-08] MEDS: PLASMA-LYTE A 1,000 ML IV SCH (22:24)
--- NOTE | 2025-04-08 23:21 | History & Physical Report ---
Date of Service April 08, 2025 Assessment & Plan (1) Generalized weakness: (2) S/P vascular surgery: (3) Peripheral arterial disease: (4) Acute kidney injury: Plan The patient is a 75-year-old female with past medical history including peripheral arterial disease, osteoarthritis, diabetes mellitus type 2, hyperlipidemia, hypertension, CAD, memory impairment, peripheral neuropathy, lumbar stenosis with neurogenic claudication, GERD, hypothyroidism, and arthritis. She underwent a redo of a right femoral artery endarterectomy on 04/06, and was discharged on 04/07/2025. She has had decreased oral intake since discharge, and family reports that she has been significantly weak, fatigued, has had decreased oral intake both liquids and solids. She was noted to have some increased swelling in the right lower extremity, and was brought into the emergency department for assessment. Family also reports that she was told by cardiology that she was to start Plavix after the surgery, and is unsure what the start date was supposed to be. Patient reports that her oral intake is somewhat diminished due to feeling nauseous and having no appetite. Generalized weakness, fatigue, lethargy/ambulatory dysfunction- Decreased oral intake due to nausea and generalized malaise after recent surgery In part secondary to acute kidney injury associated with dehydration. Status post 1 L Plasma-Lyte in the ED Finishing a second liter of Plasma-Lyte at 125 mL/h Will need PT/OT assessment after strength improved enough. Status post right femoral artery endarterectomy- Palpable pulses bilaterally distally CT angiography right lower extremity, CT angiography abdomen and pelvis with expected postoperative findings Chest x-ray negative Consult vascular surgery Dr. Stephenson Acute kidney injury- Creatinine 1.31, with base 0.93 IV fluids as noted above Hold losartan, furosemide, potassium chloride and piroxicam Repeat laboratories in the a.m. CAD/hypertension- Continue aspirin. Patient requires a restart date for Plavix Diabetes mellitus- Hold metformin Glucose on admission is 111. Patient has had cyst low oral intake, will hold off on fingersticks at this point Memory dysfunction- Continue donepezil Hold doxepin until patient is less lethargic Hypothyroidism- Continue levothyroxine Arthritis- Continue hydroxychloroquine Disposition- Patient appears very weak Should order PT/OT when she stronger to participate She may benefit from inpatient rehab stay following admission, however, may be reluctant to do so. History of Present Illness Chief Complaint: The patient presents to the emergency department with generalized fatigue, weakness, swelling of the right lower extremity, after having undergone right femoral artery endarterectomy on admission from 04/06-04/07. Oral intake has not been good since that time as family reports. She has not been ambulating much, primarily sitting in her chair. Primary Care Provider: Jarrod Huber DO The patient is a 75-year-old female with past medical history including peripheral arterial disease, osteoarthritis, diabetes mellitus type 2, hyperlipidemia, hypertension, CAD, memory impairment, peripheral neuropathy, lumbar stenosis with neurogenic claudication, GERD, hypothyroidism, and arthritis. She underwent a redo of a right femoral artery endarterectomy on , and was discharged on 04/07/2025. She has had decreased oral intake since discharge, and family reports that she has been significantly weak, fatigued, has had decreased oral intake both liquids and solids. She was noted to have some increased swelling in the right lower extremity, and was brought into the emergency department for assessment. Family also reports that she was told by cardiology that she was to start Plavix after the surgery, and is unsure what the start date was supposed to be. Patient reports that her oral intake is somewhat diminished due to feeling nauseous and having no appetite. Allergies Allergy/AdvReac Type Severity Reaction Status Date / Time lisinopril Allergy Severe Angioedema Verified 04/08/25 22:11 gabapentin AdvReac Intermediate "FLUSHING/H Verified 04/08/25 22:11 OT" pregabalin AdvReac Intermediate "FLUSHING/H Verified 04/08/25 22:11 OT" Home Medications Medication Instructions Recorded Confirmed Type doxepin 100 mg capsule 100 mg PO HS 07/11/21 04/08/25 History famotidine 40 mg tablet 40 mg PO HS 07/11/21 04/08/25 History losartan 50 mg tablet 25 mg PO QAM 07/11/21 04/08/25 History metformin 500 mg tablet 500 mg PO QAM 07/11/21 04/08/25 History aspirin 81 mg chewable tablet 81 mg PO QAM 03/24/23 04/08/25 History atorvastatin 40 mg tablet 40 mg PO HS 03/24/23 04/08/25 History donepezil 10 mg tablet 10 mg PO HS 03/24/23 04/08/25 History furosemide 40 mg tablet 40 mg PO QAM 03/24/23 04/08/25 History hydroxychloroquine 200 mg tablet 200 mg PO QAM 03/24/23 04/08/25 History potassium chloride 10 mEq 10 meq PO QAM 03/24/23 04/08/25 History tablet,extended release levothyroxine 25 mcg tablet 25 mcg PO QAM 03/28/25 04/08/25 History piroxicam 10 mg capsule 10 mg PO QAM 03/28/25 04/08/25 History oxycodone-acetaminophen 5 mg-325 1 tab PO Q6H PRN pain #30 tabs 04/07/25 04/08/25 Rx mg tablet (Percocet) Past Med/Surg History Problem List (Updated 04/09/25 @ 05:05 by Dejuan Barclay MD) Generalized weakness Acute kidney injury S/P vascular surgery Peripheral arterial disease Osteoarthritis DM II (diabetes mellitus, type II), controlled HLD (hyperlipidemia) HTN (hypertension) (Acute) CAD (coronary artery disease) of bypass graft Memory problem Neuropathy Lumbar stenosis with neurogenic claudication (Acute 11/02/13) Medical History Fatty liver Carotid artery disease s/p left carotid endarterectomy 03/2024 Carotid doppler 05/2024: There is mild plaque causing <50% TOMMY stenosis. LICA stent appears patent without significant stenosis. CAD (coronary artery disease) CABG x3 (2021) Follows with [facility] cardio/Dr. Carrera Hx of osteoarthritis Sleep apnea No device Neuropathy Memory problem Forgetful Hx of hyperlipidemia History of hypertension Diabetes mellitus, type 2 NIDDM Anemia Hx of completed stroke Evidence of old stroke found during workup prior to left carotid endarterectomy (done 03/2024) Head CT 02/23/24: old small left parietal cortical infarct Surgical History Hx of endarterectomy (10/2024) right lower leg common femoral endarterectomy Hx of angiography RLE 09/27/24, [facility] History of esophagogastroduodenoscopy (EGD) Hx of LASIK Hx of cardiac cath 2021 > CABG x3 History of carotid endarterectomy Left, 04/08/24 History of coronary artery bypass graft CABG x3 (2021) Hx of colonoscopy Hx of hysterectomy History of back surgery L4-L5, "many years ago" Family History Mother Cancer Grandmother (Maternal) Myocardial infarction Grandfather (Maternal) Myocardial infarction Other No family history of adverse response to anesthesia Social History Smoking Status: Never smoker Second Hand Exposure: No; Do You Dip or Chew Tobacco: No; Tobacco Cessation Education Requested by Patient: No Hx Alcohol Use: No Hx Substance Use: No Preferred Language: Egyptian Communication Ability: Effective Daily Release And Dupe Printer Required: No Beliefs That Will Affect Care: None Current Living Situation: Spouse Current Living Situation Comment: spouse Other Information That Helps Us Care for You: No Feels Safe at Home: Yes Safety Concerns: Feels Safe At This Time Assistive Devices: Denture - Upper, Denture - Lower and Glasses Review of Systems Review of Systems: HPI and ROS are completed with the help of patient's family, as she is somewhat fatigued, intermittently mildly confused, and finds it difficult to answer questions. The patient and family denies that she has had chest pain, palpitations, sore throat, fevers, chills, sweats, vomiting, diarrhea , constipation, abdominal pain, pelvic pain, blood in urine or stool, dysuria, urinary frequency or urgency, loss of consciousness, rash, abnormal bruising or bleeding, focal weakness, numbness or tingling in arms, back or neck pain, or night sweats. The review of systems is otherwise negative other than for that already noted above, and at least 10 systems have been reviewed. Physical Exam Physical Exam: The patient is awake, intermittently mildly confused/fatigued, well developed and well nourished, normocephalic and atraumatic, lying in bed and in no acute distress. HEENT--PERRL, EOMI, mucous membranes and oropharynx mildly dry. Neck--supple. No JVD. No bruits. Thyroid normal, trachea midline, no adenopathy. Heart--normal S1 and S2. No murmurs, rubs or gallops. Lungs--clear bilaterally, no respiratory distress, no accessory muscle use. Abdomen--normal bowel sounds and soft. Nontender. Nondistended, no hernias or masses, no organomegaly. Extremities--1+ pretibial pitting edema on the right, none on the left. There are good distal pulses b/l. Dermatologic--normal skin turgor, normal color, Neurologic--cranial nerves II through XII grossly intact. Rheumatologic--normal range of motion. Psychiatric--normal affect. Results & Data Results & Data Vital Signs (Past 12 Hours) Vital Signs Temp Pulse Pulse Resp BP BP Pulse Ox 04/08/25 23:09 93 H 04/08/25 22:24 93 H 17 121/50 L 96 04/08/25 21:28 36.8 C 83 18 116/64 98 04/08/25 19:56 72 15 126/55 L 98 04/08/25 19:32 77 16 126/50 L 99 04/08/25 19:28 80 19 98 04/08/25 19:03 75 04/08/25 18:30 36.6 C 81 20 109/65 99 O2 Del Method 04/08/25 23:09 04/08/25 22:24 Room Air 04/08/25 21:28 Room Air 04/08/25 19:56 Room Air 04/08/25 19:32 Room Air 04/08/25 19:28 Room Air 04/08/25 19:03 04/08/25 18:30 Room Air Laboratory Results Laboratory Results WBC 5.38 K/ul (4.8-10.8) 04/08/25 18:47 RBC 3.22 M/uL (4.20-5.40) L 04/08/25 18:47 Hgb 10.0 g/dl (12.0-16.0) L 04/08/25 18:47 Hct 29.9 % (37.0-47.0) L 04/08/25 18:47 MCV 92.9 fL (80.0-100.0) 04/08/25 18:47 MCH 31.1 pg (25.0-34.0) 04/08/25 18:47 MCHC 33.4 g/dL (32.0-36.0) 04/08/25 18:47 RDW Std Deviation 60.1 fL (36.4-46.3) H 04/08/25 18:47 RDW Coeff of Yanni 17.5 % (11.5-14.5) H 04/08/25 18:47 Plt Count 127 K/uL (130-400) L 04/08/25 18:47 MPV 9.8 fL (9.4-12.4) 04/08/25 18:47 Immature Gran % (Auto) 0.4 % 04/08/25 18:47 Neut % (Auto) 68.2 % 04/08/25 18:47 Lymph % (Auto) 23.8 % 04/08/25 18:47 [place] % (Auto) 7.4 % 04/08/25 18:47 Eos % (Auto) 0.0 % 04/08/25 18:47 Baso % (Auto) 0.2 % 04/08/25 18:47 Neut # (Auto) 3.67 K/uL (1.40-6.50) 04/08/25 18:47 Lymph # (Auto) 1.28 K/uL (1.20-3.40) 04/08/25 18:47 [place] # (Auto) 0.40 K/uL (0.11-0.59) 04/08/25 18:47 Eos # (Auto) 0.00 K/uL (0.00-0.50) 04/08/25 18:47 Baso # (Auto) 0.01 K/uL (0.00-0.20) 04/08/25 18:47 Immature Gran # (Auto) 0.02 K/uL (0.01-0.20) 04/08/25 18:47 PT 11.2 Seconds (9.0-12.0) 04/08/25 18:47 INR 1.1 (0.9-1.1) 04/08/25 18:47 APTT 23 Seconds (21-31) 04/08/25 18:47 PTT Ratio 0.8 04/08/25 18:47 Sodium 134 mmol/L (136-145) L 04/08/25 18:47 Potassium 4.3 mmol/L (3.5-5.1) 04/08/25 18:47 Chloride 105 mmol/L (98-107) 04/08/25 18:47 Carbon Dioxide 21 mmol/L (21-32) 04/08/25 18:47 Anion Gap 8 (3-11) 04/08/25 18:47 BUN 28 mg/dl (6-23) H 04/08/25 18:47 Creatinine 1.31 mg/dl (0.6-1.2) H D 04/08/25 18:47 Est Cr Clr Drug Dosing Not Reportable 04/08/25 18:47 eGFR 41.96 04/08/25 18:47 BUN/Creatinine Ratio 21.4 (10-20) H 04/08/25 18:47 Glucose 111 mg/dl (70-99(Fasting)) H 04/08/25 18:47 Calcium 8.6 mg/dl (8.6-10.3) 04/08/25 18:47 Total Bilirubin 0.6 mg/dl (0.2-1.0) 04/08/25 18:47 AST 19 U/L (13-39) 04/08/25 18:47 ALT 12 U/L (7-52) 04/08/25 18:47 Alkaline Phosphatase 82 U/L (34-104) 04/08/25 18:47 Troponin I High Sens 4.6 pg/ml (0-14) 04/08/25 18:47 Total Protein 6.0 gm/dl (6.0-8.3) 04/08/25 18:47 Albumin 3.3 gm/dl (3.4-5.0) L 04/08/25 18:47 Globulin 2.7 gm/dl (2.5-4.0) 04/08/25 18:47 Albumin/Globulin Ratio 1.2 (0.9-2) 04/08/25 18:47 Urine Color Yellow 04/09/25 01:30 Urine Appearance Clear (Clear) 04/09/25 01:30 Urine pH 5.0 (4.5-7.5) 04/09/25 01:30 Ur Specific [place] > 1.045 (1.000-1.030) H 04/09/25 01:30 Urine Protein Negative (Negative) 04/09/25 01:30 Urine Glucose (UA) Negative (Negative) 04/09/25 01:30 Urine Ketones Negative (Negative) 04/09/25 01:30 Urine Blood Negative (Negative) 04/09/25 01:30 Urine Nitrite Negative (Negative) 04/09/25 01: Urine Bilirubin Negative (Negative) 04/09/25 01:30 Urine Urobilinogen Negative (Negative) 04/09/25 01:30 Ur Leukocyte Esterase Negative (Negative) 04/09/25 01:30 Urine Comment 04/09/25 01:30 Impressions Abdomen/Pelvis CTA 04/08/25 19:15 Exam(s): CTA ABDOMEN + PELVIS With Contrast EXAM: CT Angiography Abdomen and Pelvis With Intravenous Contrast CLINICAL HISTORY: Reason for exam: Recent femoral endarterectomy now with tightenin. TECHNIQUE: Axial computed tomographic angiography images of the abdomen and pelvis with intravenous contrast. CTDI is 19.38 mGy and DLP is 1830.21 mGy-cm. Automated exposure control was utilized for the study. A dose lowering technique was utilized adhering to the principles of ALARA. MIP reconstructed images were created and reviewed. CONTRAST: Contrast must be dictated COMPARISON: 03/22/2025 FINDINGS: There is atherosclerosis of the abdominal aorta without aneurysm or dissection. There is mild calcific stenosis of the celiac artery origin. There is moderate calcific stenosis of the SMA origin. Both renal arteries appear adequately patent. MARY is patent. Right common, internal common external iliac arteries are adequately patent. There are postprocedural changes in the right inguinal region with subcutaneous gas, subcutaneous hematoma measuring approximately 5 cm, and skin closure fe. No aneurysm, pseudoaneurysm, or active bleeding is visualized. Right common femoral artery and visualized proximal segments of the deep and superficial femoral arteries are adequately patent. Left common, internal, and external iliac arteries are adequately patent. Left common femoral artery and visualized proximal segments of the deep and superficial femoral arteries are adequately patent. Patient has undergone prior sternotomy. Heart size is normal. Coronary arteries are calcified. Lung bases demonstrate subsegmental atelectasis bilaterally. Liver, gallbladder, spleen, pancreas, adrenal glands, and kidneys are unremarkable. Appendix is not identified. There are no secondary signs of appendicitis. There is no obstructive or inflammatory bowel change. Urinary bladder is unremarkable. Uterus is surgically absent. Skeleton appears intact. IMPRESSION: Status post recent right femoral endarterectomy with expected postoperative soft tissue changes in the right inguinal region, as described above. Visualized portion of the right femoral artery is adequately patent. No aneurysm, pseudoaneurysm, or active bleeding is visible. Electronically signed by: Brian Baron M.D. 04/08/25 21:09 PM Lower Extremity CTA 04/08/25 19:15 Exam(s): CTA EXTREMITY RIGHT LOWER W/WO Contrast IV Amt: 115cc opti 320 EXAM: CT Angiography of the Right Lower Extremity With Intravenous Contrast CLINICAL HISTORY: Reason for exam: recent femoral endarectomy. TECHNIQUE: Axial computed tomographic angiography images of the right lower extremity with intravenous contrast. CTDI is 19.38 mGy and DLP is 1830. 21 mGy-cm. Automated exposure control was utilized for the study. A dose lowering technique was utilized adhering to the principles of ALARA. MIP reconstructed images were created and reviewed. CONTRAST: Patient received 115cc opti 320 of IV contrast COMPARISON: No relevant prior studies available. FINDINGS: Patient is status post recent right femoral endarterectomy. There are right inguinal skin closure fe with subjacent soft tissue edema, soft tissue gas, and postprocedural hematoma formation. Surgical clips surround the common femoral artery. Common, deep, and superficial femoral arteries are adequately patent. There is approximately 50% stenosis in the upper popliteal artery (series 4, image 177). Calf arteries are excluded from view. There is subcutaneous edema throughout the leg. There are no acute osseous findings. IMPRESSION: 1. Status post recent right femoral endarterectomy with expected postprocedural soft tissue changes. 2. Right lower extremity arteries are imaged from the common femoral artery through the popliteal artery. 3. Approximately 50% popliteal artery stenosis. Otherwise, no significant stenosis. Electronically signed by: Brian Baron M.D. 04/08/25 22:03 PM Chest X-Ray 04/08/25 19:17 EXAM: Portable AP chest radiograph TECHNIQUE: AP portable radiograph of the chest was obtained. INDICATION: Shortness of breath Comparison: Chest radiograph October 13, 2024 FINDINGS: LINES and TUBES: None CARDIOVASCULAR: Cardiac silhouette is stably enlarged in size with redemonstrated post-CABG changes. LUNGS/PLEURA: No focal consolidation identified. Mild pulmonary vascular congestion and chronic interstitial lung changes appear similar to previous. No significant pleural fluid. No discernible pneumothorax. OSSEOUS/OTHER: No displaced acute osseous process identified. IMPRESSION: No focal consolidation is identified. Electronically signed by Rao Alicia 04-08-2025 9:14 PM Code Status & VTE Plan Code Status Full code VTE Prophylaxis Plan VTE Prophylaxis will be ordered: Yes PG Care Time/CCT Total # of Minutes Spent Total Time Spent with Patient: Total time spent is greater than 50% in coordination of care (as documented) at patient's floor/unit and/or counseling patient: Coding Level of Care Code 63483 INT INP/OBS CARE MIN Diagnoses Generalized weakness R53.1 S/P vascular surgery Z98.890 Peripheral arterial disease I73.9 Acute kidney injury N17.9
[2025-04-08] MEDS: DONEPEZIL HCL 10 MG TAB PO STA (23:39)
[2025-04-08] MEDS: ATORVASTATIN 40 MG TAB PO STA (23:39)
[2025-04-08] MEDS: FAMOTIDINE 20 MG TAB PO ONE (23:39)
[2025-04-09] MEDS: Patient's HEIGHT &/or WEIGHT Needed STA (01:39)
[2025-04-09 01:57] LABS: Appearance Urine Clear (Clear); Glucose Urine UA Negative (Negative)
[2025-04-09] MEDS: LEVOTHYROXINE SODIUM 25 MCG TABLET PO SCH (06:08)
[2025-04-09] MEDS: ASPIRIN 81 MG CHEW PO SCH (08:27)
[2025-04-09] MEDS: INSULIN ASPART PER UNIT CHARGE SC SCH (08:27)
[2025-04-09] MEDS: HEPARIN SOD 5,000 UNIT/0.5 ML VIAL SQ SCH (08:28)
[2025-04-09] MEDS: HYDROXYCHLOROQUINE SULFATE 200 MG TAB PO SCH (08:29)
[2025-04-09] MEDS: PIROXICAM 10 MG CAP PO SCH (08:29)
[2025-04-09] MEDS: LOSARTAN POTASSIUM 25 MG TAB PO SCH (08:29)
[2025-04-09 09:15] LABS: Hematocrit (blood only) 25.0 % (37.0-47.0); Hemoglobin 8.5 g/dl (12.0-16.0); Mean Corpuscular Hemoglobin 31.0 pg (25.0-34.0); Mean Corpuscular Volume 91.2 fL (80.0-100.0); Platelet Count 104 K/uL (130-400); RDW Standard Deviation 56.9 fL (36.4-46.3); Red Blood Count 2.74 M/uL (4.20-5.40); White Blood Count 3.84 K/ul (4.8-10.8)
[2025-04-09 09:26] LABS: Alanine Aminotransferase 9.0 U/L (7-52); Albumin Globulin Ratio 1.3 (0.9-2); Albumin Level 2.9 gm/dl (3.4-5.0); Alkaline Phosphatase 64.0 U/L (34-104); Anion Gap 5.0 (3-11); Bilirubin,Total 0.8 mg/dl (0.2-1.0); Blood Urea Nitrogen 22.0 mg/dl (6-23); Calcium 7.8 mg/dl (8.6-10.3); Carbon Dioxide 23.0 mmol/L (21-32); Chloride 104.0 mmol/L (98-107); Creatinine Clr Calc Pharmacy 58.0 ml/min; Globulin 2.2 gm/dl (2.5-4.0); Glucose 142.0 mg/dl (70-99(Fasting)); Magnesium 1.9 mg/dl (1.7-2.4); Potassium 4.2 mmol/L (3.5-5.1); Sodium 132.0 mmol/L (136-145); Total Protein 5.1 gm/dl (6.0-8.3)
[2025-04-09 09:45] LABS: Immature Granulocytes # (auto) 0.01 K/uL (0.01-0.20); Immature Granulocytes % (auto) 0.3 %; Polychromasia 1+
[2025-04-09] MEDS: SODIUM CHLORIDE 0.9% 1,000 ML IV SCH (11:01)
--- NOTE | 2025-04-09 13:22 | Hospitalist Progress Note ---
Date of Service April 09, 2025 Assessment & Plan (1) Generalized weakness: Plan: Adult failure to thrive after recent discharge after vascular surgery of the right lower extremity. She is unable to ambulate. Symptomatic care (2) S/P vascular surgery: Plan: Recent revascularization of the right lower extremity. Vascular surgery consultation requested and pending (3) Peripheral arterial disease: Plan: Recent revascularization of the right lower extremity. Vascular surgery consultation requested and pending (4) Acute kidney injury: Plan: Mild. Present on admission. Resolved with IV fluids. Monitor urine output and serial labs (5) Edema of right lower extremity: Plan: Postoperative after revascularization of right lower extremity. Venous Doppler study pending to rule out DVT (6) DM II (diabetes mellitus, type II), controlled: Plan: ADA diet. Sliding scale coverage. (7) HTN (hypertension): Plan: Currently stable. Losartan is on hold (8) Coronary artery disease: Plan: Stable. History of coronary artery bypass grafting. Continue current medical management. Plan OT and PT assessments requested along with vascular surgery consultation. She probably will need placement at the time of discharge. Admission and Anticipated Discharge Date Admission Date: April 08, 2025 Subjective Alert and oriented. No distress. She was just discharged by the vascular surgery service after revascularization surgery of the right lower extremity. She has failed going straight to home. She is unable to ambulate and the right lower extremity is markedly swollen. Venous Doppler study ordered and pending. CTA however reveals patent arterial circulation. Vascular surgery consult requested and pending. Creatinine has improved back to baseline with IV fluids. Losartan, Lasix, potassium are on hold temporarily. OT and PT assessments have been requested. She probably will need rehab placement at the time of discharge Review of Systems 2 Review of Systems: Constitutionalno fever or chills ENTno blurred vision, no double vision, no epistaxis, no sore throat Respiratoryno cough, no wheezing, no shortness of breath Cardiacno palpitations, no chest pain, no syncope Valdemar nausea, vomiting, diarrhea, melena, hematochezia GUno urinary retention, no urinary incontinence, no dysuria, no hematuria Musculoskeletalright lower extremity swelling. Wound VAC present in the right inguinal region. Right lower extremity surgical sites are unremarkable Skinno bruising, no rashes, no pruritus Neurono isolated weakness, no paresthesia, no weakness Psychno depression, no anxiety Physical Exam 2 Physical Exam: General-alert and oriented x3, no fever, no chills HEENT-head atraumatic and normocephalic, pupils equal and reactive to light, extraocular muscles intact Neck-no lymphadenopathy or thyromegaly, trachea midline Chest-clear to auscultation. No rales, wheezing or rhonchi Cardiac-regular rate and rhythm, normal S1 and S2 Abdomen-normal bowel sounds, no hepatosplenomegaly Extremities-right inguinal wound VAC in place. Right lower extremity diffuse edema. Neuro-cranial nerves II through XII intact, motor and sensory function within normal limits, strength symmetrical with generalized weakness, no focal deficits Psych-normal affect, normal mood Results & Data Results & Data Vital Signs (Past 12 Hours) Vital Signs Temp Pulse Pulse Resp BP BP Pulse Ox 04/09/25 10:53 36.9 C 75 18 94/55 L 96 04/09/25 07:27 37.0 C 94 H 18 128/67 95 04/09/25 03:24 37.2 C 94 H 18 124/64 95 04/09/25 01:24 95 H 04/09/25 01:21 04/09/25 01:17 37.0 C 102 H 16 125/70 94 O2 Del Method 04/09/25 10:53 Room Air 04/09/25 07:27 Room Air 04/09/25 03:24 Room Air 04/09/25 01:24 04/09/25 01:21 Room Air 04/09/25 01:17 Room Air Laboratory Results 04/09/25 08:18 04/09/25 08:18 PG Care Time/CCT Total # of Minutes Spent Total Time Spent with Patient: Total time spent is greater than 50% in coordination of care (as documented) at patient's floor/unit and/or counseling patient: Coding Level of Care Code 63699 SUB INP/OBS CARE 3/50MIN Diagnoses Generalized weakness R53.1 S/P vascular surgery Z98.890 Peripheral arterial disease I73.9 Acute kidney injury N17.9 Edema of right lower extremity R60.0 DM II (diabetes mellitus, type II), controlled E11.9 HTN (hypertension) I10 Coronary artery disease I25.10
--- NOTE | 2025-04-09 15:01 | Ultrasound Report ---
EXAM: US Duplex Right Lower Extremity Veins INDICATION: Swelling. TECHNIQUE: Real-time duplex ultrasound scan of the right lower extremity veins integrating B-mode two-dimensional vascular structure, Doppler spectral analysis, color flow Doppler imaging and compression. COMPARISON: No relevant prior studies available. FINDINGS: Deep veins: Right femoral and popliteal veins are occluded with some flow noted in the distal popliteal vein. The vessels are not compressible. Superficial veins: No abnormality noted. No thrombus in the visualized great saphenous vein. Soft tissues: Tissue in the region labeled area of wound obscured by shadowing. IMPRESSION: Positive for deep venous thrombosis of the right femoral and popliteal veins. ACT 112: N/A Electronically signed by Ruth Bagley 04-09-2025 3:00 PM
[2025-04-09] MEDS: HEPARIN 25000 UNIT/500 ML D5W 25,000 UNITS/500 ML BAG IV SCH (16:22)
[2025-04-09] MEDS: HEPARIN SOD (PORCINE) 1000 UNIT/ML IV ONE (16:22)
[2025-04-09] MEDS: Heparin IV Adult Wt-Based Standard w/ INITIAL Bolus Protocol IV STA (16:23)
[2025-04-09] MEDS ORDERED: POLYETHYLENE (MIRALAX) 17 GM PACK PO PRN (16:55)
[2025-04-09] MEDS: FAMOTIDINE 40 MG TABLET PO SCH (20:59)
[2025-04-09] MEDS: ATORVASTATIN 40 MG TAB PO SCH (20:59)
[2025-04-09] MEDS: DONEPEZIL HCL 10 MG TAB PO SCH (20:59)
[2025-04-10 00:20] LABS: ANTI-Xa, UFH(UnfractionatedHep 0.99 IU/ml (0.3-0.7)
--- NOTE | 2025-04-10 05:55 | Electrocardiogram Report ---
Test Reason : Blood Pressure : */* mmHG Vent. Rate : 84 BPM Atrial Rate : 84 BPM P-R Int : 182 ms QRS Dur : 86 ms QT Int : 350 ms P-R-T Axes : 41 -36 117 degrees QTcB Int : 413 ms Normal sinus rhythm Left axis deviation Septal infarct (cited on or before 24-Mar-2023) T wave abnormality, consider lateral ischemia Nonspecific T wave abnormality Abnormal ECG When compared with ECG of 13-Oct-2024 09:21, Premature ventricular complexes are no longer Present T wave inversion now evident in Lateral leads Confirmed by Aramis Katz ([id number]) on 04/10/2025 5:54:47 AM Referred By: Thierry Stephenson Confirmed By: Aramis Katz
[2025-04-10 07:20] LABS: Hematocrit (blood only) 24.2 % (37.0-47.0); Hemoglobin 7.8 g/dl (12.0-16.0); Mean Corpuscular Hemoglobin 29.8 pg (25.0-34.0); Mean Corpuscular Volume 92.4 fL (80.0-100.0); Platelet Count 102 K/uL (130-400); RDW Standard Deviation 56.5 fL (36.4-46.3); Red Blood Count 2.62 M/uL (4.20-5.40); White Blood Count 5.00 K/ul (4.8-10.8)
[2025-04-10 07:38] LABS: ANTI-Xa, UFH(UnfractionatedHep 0.66 IU/ml (0.3-0.7)
[2025-04-10 08:03] LABS: Anion Gap 4.0 (3-11); Blood Urea Nitrogen 17.0 mg/dl (6-23); Calcium 7.6 mg/dl (8.6-10.3); Carbon Dioxide 23.0 mmol/L (21-32); Chloride 109.0 mmol/L (98-107); Creatinine Clr Calc Pharmacy 72.2 ml/min; Glucose 108.0 mg/dl (70-99(Fasting)); Potassium 4.1 mmol/L (3.5-5.1); Sodium 136.0 mmol/L (136-145)
[2025-04-10 08:23] LABS: Immature Granulocytes # (auto) 0.02 K/uL (0.01-0.20); Immature Granulocytes % (auto) 0.4 %; Ovalocytes 1+; Polychromasia 1+
[2025-04-10] MEDS: POLYETHYLENE (MIRALAX) 17 GM PACK PO SCH (08:41)
--- NOTE | 2025-04-10 12:36 | Hospitalist Progress Note ---
Date of Service April 10, 2025 Assessment & Plan (1) Right leg DVT: Plan: Present on admission. Confirmed by venous Doppler study. She has now on intravenous heparin drip and will eventually be converted to an oral anticoagulant. Leg elevation as tolerated. (2) Generalized weakness: Plan: Adult failure to thrive after recent discharge after vascular surgery of the right lower extremity. She is unable to ambulate. Symptomatic care (3) S/P vascular surgery: Plan: Recent revascularization of the right lower extremity. CTA studies on admission reveal patent arterial circulation. Vascular surgery consultation requested and pending (4) Peripheral arterial disease: Plan: Recent revascularization of the right lower extremity. Vascular surgery consultation requested and pending (5) Acute kidney injury: Plan: Mild. Present on admission. Resolved with IV fluids. Monitor urine output and serial labs (6) Edema of right lower extremity: Plan: Due to extensive right lower extremity DVT and also postoperative after revascularization of right lower extremity. (7) DM II (diabetes mellitus, type II), controlled: Plan: ADA diet. Sliding scale coverage. (8) HTN (hypertension): Plan: Currently stable. Losartan is on hold (9) Coronary artery disease: Plan: Stable. History of coronary artery bypass grafting. Continue current medical management. Plan OT and PT assessments requested along with vascular surgery consultation. She probably will need placement at the time of discharge. Admission and Anticipated Discharge Date Admission Date: April 08, 2025 Subjective Alert and oriented. No distress. She is now on a heparin drip due to presence of right lower extremity DVT seen on venous Doppler study. Vascular surgery consultation requested. Creatinine has improved down to 0.7. IV fluids discontinued. She has a wound VAC in place in the right inguinal region. It appears she is going to need temporary SNF placement at the time of discharge. Review of Systems 2 Review of Systems: Constitutionalno fever or chills ENTno blurred vision, no double vision, no epistaxis, no sore throat Respiratoryno cough, no wheezing, no shortness of breath Cardiacno palpitations, no chest pain, no syncope Val[place]ar nausea, vomiting, diarrhea, melena, hematochezia GUno urinary retention, no urinary incontinence, no dysuria, no hematuria Musculoskeletalright lower extremity swelling. Wound VAC present in the right inguinal region. Right lower extremity surgical sites are unremarkable Skinno bruising, no rashes, no pruritus Neurono isolated weakness, no paresthesia, no weakness Psychno depression, no anxiety Physical Exam 2 Physical Exam: General-alert and oriented x3, no fever, no chills HEENT-head atraumatic and normocephalic, pupils equal and reactive to light, extraocular muscles intact Neck-no lymphadenopathy or thyromegaly, trachea midline Chest-clear to auscultation. No rales, wheezing or rhonchi Cardiac-regular rate and rhythm, normal S1 and S2 Abdomen-normal bowel sounds, no hepatosplenomegaly Extremities-right inguinal wound VAC in place. Right lower extremity diffuse edema. Neuro-cranial nerves II through XII intact, motor and sensory function within normal limits, strength symmetrical with generalized weakness, no focal deficits Psych-normal affect, normal mood Results & Data Results & Data Vital Signs (Past 12 Hours) Vital Signs Temp Pulse Resp BP BP Pulse Ox O2 Del Method 04/10/25 11:16 36.7 C 78 18 136/65 99 Room Air 04/10/25 07:12 36.9 C 77 18 122/66 97 Room Air 04/10/25 02:31 36.5 C 79 16 132/69 95 Room Air Laboratory Results 04/10/25 06:36 04/10/25 06:36 PG Care Time/CCT Total # of Minutes Spent Total Time Spent with Patient: Total time spent is greater than 50% in coordination of care (as documented) at patient's floor/unit and/or counseling patient: Coding Level of Care Code 82275 SUB INP/OBS CARE 2/35MIN Diagnoses Right leg DVT I82.401 Generalized weakness R53.1 S/P vascular surgery Z98.890 Peripheral arterial disease I73.9 Acute kidney injury N17.9 Edema of right lower extremity R60.0 DM II (diabetes mellitus, type II), controlled E11.9 HTN (hypertension) I10 Coronary artery disease I25.10
[2025-04-10] MEDS: ACETAMINOPHEN 325 MG TAB PO PRN (21:52)
[2025-04-11 06:43] LABS: Hematocrit (blood only) 21.5 % (37.0-47.0); Hemoglobin 7.0 g/dl (12.0-16.0); Mean Corpuscular Hemoglobin 30.3 pg (25.0-34.0); Mean Corpuscular Volume 93.1 fL (80.0-100.0); Platelet Count 121 K/uL (130-400); RDW Standard Deviation 56.0 fL (36.4-46.3); Red Blood Count 2.31 M/uL (4.20-5.40); White Blood Count 6.03 K/ul (4.8-10.8)
[2025-04-11 07:08] LABS: Immature Granulocytes # (auto) 0.09 K/uL (0.01-0.20); Immature Granulocytes % (auto) 1.5 %; Polychromasia 1+
[2025-04-11 07:10] LABS: ANTI-Xa, UFH(UnfractionatedHep 0.59 IU/ml (0.3-0.7)
[2025-04-11 07:11] LABS: Anion Gap 2.0 (3-11); Blood Urea Nitrogen 15.0 mg/dl (6-23); Calcium 7.9 mg/dl (8.6-10.3); Carbon Dioxide 27.0 mmol/L (21-32); Chloride 111.0 mmol/L (98-107); Creatinine Clr Calc Pharmacy 77.3 ml/min; Glucose 108.0 mg/dl (70-99(Fasting)); Potassium 4.0 mmol/L (3.5-5.1); Sodium 140.0 mmol/L (136-145)
--- NOTE | 2025-04-11 09:21 | Consultation ---
Date of Consultation April 11, 2025 Assessment & Plan (1) Right leg DVT: Pt with long RLE DVT and severe edema, only POD#5 after RLE FAMILY CONSULTANT endarterectomy. Currently on heparin. Discussed with Dr Stephenson, recommends pt undergo RLE venogram with mechanical thrombectomy in OR tomorrow. Pt agreeable. History of Present Illness Reason for Consultation: RLE DVT Attending Physician: Kyle Faustin DO History of Present Illness 75 yo f with hx of HTN, DMII, CAD, hyperlipidemia, PAD, neuropathy, admitted with RLE DVT and generalized weakness, seen in consultation today. Pt known to Dr Stephenson, is now POD #5 after redo RLE FAMILY CONSULTANT endarterectomy. She was d/c home on POD#1 and returned to [facility] the next day d/t generalized weakness and RLE pain. Pt states burning pain R groin, severe RLE edema and heaviness, and difficulty ambulating. Denies GILL, fever, chest pain, SOB, abd pain, N/V, rest pain, claudication, other complaints. CTA RLE demonstrates patent endarterectomy site, no active bleeding. RLE venous US demonstrates DVT from pop through femoral veins. Allergies Allergy/AdvReac Type Severity Reaction Status Date / Time lisinopril Allergy Severe Angioedema Verified 04/08/25 22:11 gabapentin AdvReac Intermediate "FLUSHING/H Verified 04/08/25 22:11 OT" pregabalin AdvReac Intermediate "FLUSHING/H Verified 04/08/25 22:11 OT" Home Medications Medication Instructions Recorded Confirmed Type doxepin 100 mg capsule 100 mg PO HS 07/11/21 04/08/25 History famotidine 40 mg tablet 40 mg PO HS 07/11/21 04/08/25 History losartan 50 mg tablet 25 mg PO QAM 07/11/21 04/08/25 History metformin 500 mg tablet 500 mg PO QAM 07/11/21 04/08/25 History aspirin 81 mg chewable tablet 81 mg PO QAM 03/24/23 04/08/25 History atorvastatin 40 mg tablet 40 mg PO HS 03/24/23 04/08/25 History donepezil 10 mg tablet 10 mg PO HS 03/24/23 04/08/25 History furosemide 40 mg tablet 40 mg PO QAM 03/24/23 04/08/25 History hydroxychloroquine 200 mg tablet 200 mg PO QAM 03/24/23 04/08/25 History potassium chloride 10 mEq 10 meq PO QAM 03/24/23 04/08/25 History tablet,extended release levothyroxine 25 mcg tablet 25 mcg PO QAM 03/28/25 04/08/25 History piroxicam 10 mg capsule 10 mg PO QAM 03/28/25 04/08/25 History oxycodone-acetaminophen 5 mg-325 1 tab PO Q6H PRN pain #30 tabs 04/07/25 04/08/25 Rx mg tablet (Percocet) Patient History Medical History Fatty liver Carotid artery disease s/p left carotid endarterectomy 03/2024 Carotid doppler 05/2024: There is mild plaque causing <50% TOMMY stenosis. LICA stent appears patent without significant stenosis. CAD (coronary artery disease) CABG x3 (2021) Follows with [facility] cardio/Dr. Carrera Hx of osteoarthritis Sleep apnea No device Neuropathy Memory problem Forgetful Hx of hyperlipidemia History of hypertension Diabetes mellitus, type 2 NIDDM Anemia Hx of completed stroke Evidence of old stroke found during workup prior to left carotid endarterectomy (done 03/2024) Head CT 02/23/24: old small left parietal cortical infarct Surgical History Hx of endarterectomy (10/2024) right lower leg common femoral endarterectomy Hx of angiography E 09/27/24, [facility] History of esophagogastroduodenoscopy (EGD) Hx of LASIK Hx of cardiac cath 2021 > CABG x3 History of carotid endarterectomy Left, 04/08/24 History of coronary artery bypass graft CABG x3 (2021) Hx of colonoscopy Hx of hysterectomy History of back surgery L4-L5, "many years ago" Family History Mother Cancer Grandmother (Maternal) Myocardial infarction Grandfather (Maternal) Myocardial infarction Other No family history of adverse response to anesthesia Social History Smoking Status: Never smoker Second Hand Exposure: No; Do You Dip or Chew Tobacco: No; Tobacco Cessation Education Requested by Patient: No Hx Alcohol Use: No Hx Substance Use: No Preferred Language: Nigerian Communication Ability: Effective Wad Blanking Press Adjuster Required: No Beliefs That Will Affect Care: None Current Living Situation: Spouse Current Living Situation Comment: spouse Other Information That Helps Us Care for You: No Feels Safe at Home: Yes Safety Concerns: Feels Safe At This Time Assistive Devices: Walker Physical Exam Constitutional: WD/WN, vitals as above healthy appearing, cooperative and comfortable; not in distress Respiratory: normal respiratory effort, lungs clear to auscultation Auscultation: + diminished lung sounds Cardiovascular: Rate/Rhythm: regular rate and regular rhythm Vessels: posterior tibial pulses present, dorsalis pedis pulses present and radial pulses present; + abnormal peripheral pulses Extremities: normal capillary refill and + edema (+4 RLE, blister on foot) Gastrointestinal (Abdomen): Inspection/Auscultation: abdomen normal to inspection and normal bowel sounds Percussion/Palpation: abdomen soft; abdomen nontender Musculoskeletal: no cyanosis or clubbing, extremities motor strength 5/5 Skin: RLE groin incision intact with fe, + mild bloody drainage. periwound area with multiple fluid filled blisters. Neurologic: moves all extremities and awake; no focal motor deficits and not confused Psychiatric: A+Ox3, euthymic affect Results & Data Vital Signs (Past 12 Hours) Vital Signs Temp Pulse Pulse Resp BP BP Pulse Ox 04/11/25 08:00 67 04/11/25 07:00 36.5 C 65 18 123/49 L 97 04/11/25 03:13 36.4 C L 72 16 128/70 97 04/10/25 23:49 36.7 C 78 20 123/67 96 04/10/25 22:46 78 O2 Del Method 04/11/25 08:00 04/11/25 07:00 Room Air 04/11/25 03:13 Room Air 04/10/25 23:49 Room Air 04/10/25 22:46
[2025-04-11] MEDS ORDERED: SODIUM CHLORIDE 0.9% 100 ML IV PRN ×2 (10:37→12:35)
--- NOTE | 2025-04-11 10:56 | Progress Note ---
Date of Service April 11, 2025 Assessment & Plan (1) Anemia: Plan: - patient with acute on chronic anemia - currently on IV heparin for an acute DVT - no obvious/overt bleeding identified - check stool studies, iron panel - recheck H/H q4 hours and transfuse for Hgb <7 (2) Right leg DVT: Plan: Present on admission. Confirmed by venous Doppler study. She has now on intravenous heparin drip and will eventually be converted to an oral anticoagulant. Leg elevation as tolerated. - appreciate vascular input; to go to OR on 04/12/25 for mechanical thrombectomy (3) Generalized weakness: Plan: Adult failure to thrive after recent discharge after vascular surgery of the right lower extremity. She is unable to ambulate. Symptomatic care (4) S/P vascular surgery: Plan: Recent revascularization of the right lower extremity. CTA studies on admission reveal patent arterial circulation. Vascular surgery consultation requested and pending (5) Peripheral arterial disease: Plan: Recent revascularization of the right lower extremity. Vascular surgery consultation requested and pending (6) Acute kidney injury: Plan: Mild. Present on admission. Resolved with IV fluids. Monitor urine output and serial labs (7) Edema of right lower extremity: Plan: Due to extensive right lower extremity DVT and also postoperative after revascularization of right lower extremity. (8) DM II (diabetes mellitus, type II), controlled: Plan: ADA diet. Sliding scale coverage. (9) HTN (hypertension): Plan: Currently stable. Losartan is on hold (10) Coronary artery disease: Plan: Stable. History of coronary artery bypass grafting. Continue current medical management. Plan OT and PT assessments requested along with vascular surgery consultation. She probably will need placement at the time of discharge. This is a 75 year old female with a PMH of DM2, HTN, HLD, CAD w hx of CABG, PAD w recent RLE LEGAL EDITOR endarterectomy - coming in on 04/08 POD#1 due to a combination of RLE swelling and decreased oral intake with functional decline. On arrival here, was found to have a RLE DVT and started on IV heparin. Vascular surgery saw patient and plan is for OR on 04/12/25 for mechanical thrombectomy. Patient's Hgb has been dropping to 7.0 on 04/11. No obvious, overt bleeding identified. Admission and Anticipated Discharge Date Admission Date: April 08, 2025 Results & Data Vital Signs (Past 12 Hours) Vital Signs Temp Pulse Pulse Resp BP BP Pulse Ox 04/11/25 08:00 67 04/11/25 07:00 36.5 C 65 18 123/49 L 97 04/11/25 03:13 36.4 C L 72 16 128/70 97 04/10/25 23:49 36.7 C 78 20 123/67 96 O2 Del Method 04/11/25 08:00 04/11/25 07:00 Room Air 04/11/25 03:13 Room Air 04/10/25 23:49 Room Air PG Care Time/CCT Total # of Minutes Spent Total Time Spent with Patient: Total time spent is greater than 50% in coordination of care (as documented) at patient's floor/unit and/or counseling patient: Coding Level of Care Code 35032 SUB INP/OBS CARE 3/50MIN Diagnoses Anemia D64.9 Right leg DVT I82.401 Generalized weakness R53.1 S/P vascular surgery Z98.890 Peripheral arterial disease I73.9 Acute kidney injury N17.9 Edema of right lower extremity R60.0 DM II (diabetes mellitus, type II), controlled E11.9 HTN (hypertension) I10 Coronary artery disease I25.10
[2025-04-11 13:15] LABS: Hematocrit (blood only) 22.4 % (37.0-47.0); Hemoglobin 7.1 g/dl (12.0-16.0)
[2025-04-11 13:25] LABS: Iron 34 mcg/dl (35-150); Total Iron Binding Cap Calc 266 mcg/dl (250-450); Transferrin 190 mg/dl (200-360); Transferrin (FE) Percent Satur 13 % (15-50)
[2025-04-12 06:51] LABS: Anion Gap 5.0 (3-11); Blood Urea Nitrogen 15.0 mg/dl (6-23); Calcium 8.0 mg/dl (8.6-10.3); Carbon Dioxide 24.0 mmol/L (21-32); Chloride 111.0 mmol/L (98-107); Creatinine Clr Calc Pharmacy 65.7 ml/min; Glucose 109.0 mg/dl (70-99(Fasting)); Potassium 4.0 mmol/L (3.5-5.1); Sodium 140.0 mmol/L (136-145)
[2025-04-12 06:57] LABS: ANTI-Xa, UFH(UnfractionatedHep 0.50 IU/ml (0.3-0.7)
[2025-04-12 07:09] LABS: Hematocrit (blood only) 28.2 % (37.0-47.0); Hemoglobin 9.8 g/dl (12.0-16.0); Mean Corpuscular Hemoglobin 30.5 pg (25.0-34.0); Mean Corpuscular Volume 87.9 fL (80.0-100.0); Platelet Count 127 K/uL (130-400); RDW Standard Deviation 53.1 fL (36.4-46.3); Red Blood Count 3.21 M/uL (4.20-5.40); White Blood Count 7.23 K/ul (4.8-10.8)
[2025-04-12 07:10] LABS: Immature Granulocytes # (auto) 0.39 K/uL (0.01-0.20); Immature Granulocytes % (auto) 5.4 %; Polychromasia 1+
--- NOTE | 2025-04-12 07:41 | History & Physical Bridge Note ---
Date of Service April 12, 2025 History & Physical Bridge Note Patient for mechanical thrombectomy of her right lower extremity venous system. I have discussed the risks options and benefits of the procedure with the patient. The patient understands the risks options and benefits and agrees to the procedure. I have examined the patient, reviewed the History & Physical and in the interval since the performance of the History & Physical I have noted the following changes of clinical significance: no changes noted
[2025-04-12] MEDS: MIDAZOLAM HCL 1 MG/ML 2ML VIAL ONE (08:25)
[2025-04-12] MEDS: HEPARIN SOD (PORCINE) 1000 UNIT/ML ONE (08:35)
[2025-04-12] MEDS: LIDOCAINE 1% LOCAL 20 ML VIAL ONE (09:11)
--- NOTE | 2025-04-12 09:26 | Procedure Note ---
Angiogram Post Procedure Fluoroscopy Time (minutes): 7.1 Conscious Sedation Time (minutes): 79 Radiation (mGy): 427 Contrast: 77 Post Operative Report Pre & Post Diagnosis Operation Date: 04/12/25 08:00 Pre-Op Diagnosis: Right Leg DVT Post-Op Diagnosis: Right Leg DVT I identified the patient and participated in the time-out.: Yes Procedure Operation Date: 04/12/25 08:00 Actual Procedures p Right Lower Extremity Venogram, Percutaneous Transluminal Angioplasty and Stenting of Right commm femoral Vein, Right Lower Extremity Venous Mechanical Thrombectomy, Moderated Sedation time: (Right) - Thierry Stephenson MD Surgeon Thierry Stephneson MD Shredder Operator none Estimated Blood Loss 30 Findings Consistent with Post-Op Diagnosis Specimens none Anesthesia Type RN Sedation Complications none Disposition Accompanied Patient To Recovery: No Disposition: Recovery Room Indications This is a 75-year-old female who developed a right lower extremity DVT post endarterectomy of the common femoral artery which was a redo. This started a couple days after surgery when she was home. This plan recommended thrombectomy and possible stenting if needed. Most likely cause is a narrowing of the vein in the groin secondary to extensive scar tissue. I have discussed the risks options and benefits of the procedure with the patient. The patient understands the risks options and benefits and agrees to the procedure. Description of Procedure The patient was taken antiacid and placed in the prone position. After the right popliteal fossa was prepped draped in a sterile manner timeout was performed and the patient was identified. Using ultrasound guidance the right popliteal vein was identified. It was of good caliber and did contain flow and was patent. Using micropuncture technique and ultrasound we punctured the right popliteal vein and inserted a microsheath. We then upsized to a 5 Marshallese sheath. Venography was performed which showed occlusion of these femoral vein at the site adductor hiatus. There is faint reconstitution in the external iliac vein. We then inserted an 035 wire. This was passed up through the clot easily to the femoral vein where resistance was felt. We then used a quick cross to traverse this area. The wire passed easily with a quick cross. We then removed the quick cross. we then upsized the sheath to the 17 Marshallese Penumbra sheath. We then inserted a 16 Marshallese penumbra device and performed 2 passes up to the common femoral vein. We cannot traverse the suspected area of narrowing. We therefore put in the dilator sheath into the tunnel. This passed through the lesion easily. We then used the penumbra to do the external iliac which did contain a small amount of clot just above the common femoral vein. The penumbra device was removed. Venogram showed the vein to be widely patent up to the common femoral vein 1 area of stenosis was noted. We then inserted a 14 x 30 protg. This was deployed in the stenotic area without difficulty. We then postdilated with a by 8 x 40 and a 10 x 40 balloon. Completion venogram at that time showed the femoral and common femoral vein and external iliac veins were widely patent. The stenotic area had good results with no residual steno sis. She now had rapid flow through the vein to the vena cava. At that point the sheath was pulled pressure was applied at venous stasis with pain.The patient left the operation room in satisfactory condition and tolerated the procedure well. All needle and sponge counts were correct at the end of the procedure. I attest to the content of the Intraoperative Record and any orders documented therein. Any exceptions are noted below.
--- NOTE | 2025-04-12 09:34 | Pre Anesthesia Assessment ---
Date of Service April 12, 2025 Pre Sedation Assessment Vital Signs Temp Pulse Pulse Pulse Resp BP BP 04/12/25 09:30 73 14 149/48 H 04/12/25 09:25 73 14 140/61 04/12/25 09:20 75 14 134/59 L 04/12/25 09:15 75 14 149/58 H 04/12/25 09:10 77 14 145/69 H 04/12/25 09:05 77 14 149/55 H 04/12/25 09:00 80 14 146/63 H 04/12/25 08:55 85 14 147/57 H 04/12/25 08:50 83 14 155/58 H 04/12/25 08:45 80 14 139/60 04/12/25 08:40 74 14 141/53 H 04/12/25 08:35 71 14 153/64 H 04/12/25 08:30 75 14 144/50 H 04/12/25 08:25 76 16 148/67 H 04/12/25 08:21 73 18 165/62 H 04/12/25 07:31 36.7 C 69 18 142/59 H 04/12/25 07:27 36.7 C 76 20 142/59 H 04/12/25 02:48 36.8 C 71 16 148/65 H 04/11/25 23:22 74 04/11/25 22:10 36.8 C 85 18 149/76 H 04/11/25 19:28 36.9 C 71 20 129/56 L 04/11/25 19:13 36.9 C 70 18 129/56 L 04/11/25 18:10 36.7 C 75 16 137/68 04/11/25 17:10 36.5 C 75 16 136/57 L 04/11/25 16:40 36.8 C 74 16 150/70 H 04/11/25 16:25 36.5 C 80 20 156/71 H 04/11/25 16:09 36.7 C 75 18 137/69 04/11/25 16:01 36.6 C 69 99 H 145/61 H 04/11/25 15:51 36.6 C 71 20 131/62 04/11/25 15:00 68 04/11/25 14:51 36.8 C 71 16 130/70 04/11/25 14:21 36.6 C 75 18 133/64 04/11/25 14:05 36.8 C 67 16 04/11/25 13:50 36.4 C L 69 16 124/63 04/11/25 13:37 36.5 C 70 18 04/11/25 11:10 36.5 C 66 18 BP Pulse Ox O2 Del Method O2 Flow Rate 04/12/25 09:30 100 Oxymask 4 04/12/25 09:25 100 Oxymask 4 04/12/25 09:20 100 Oxymask 4 04/12/25 09:15 100 Oxymask 4 04/12/25 09:10 100 Oxymask 4 04/12/25 09:05 100 Oxymask 4 04/12/25 09:00 100 Oxymask 4 04/12/25 08:55 100 Oxymask 4 04/12/25 08:50 100 Oxymask 4 04/12/25 08:45 100 Oxymask 4 04/12/25 08:40 100 Oxymask 4 04/12/25 08:35 100 Oxymask 4 04/12/25 08:30 100 Oxymask 4 04/12/25 08:25 100 Oxymask 4 04/12/25 08:21 100 Oxymask 4 04/12/25 07:31 97 Room Air 04/12/25 07:27 97 Room Air 04/12/25 02:48 95 Room Air 04/11/25 23:22 04/11/25 22:10 96 Room Air 04/11/25 19:28 99 0 04/11/25 19:13 99 Room Air 04/11/25 18:10 97 04/11/25 17:10 98 04/11/25 16:40 98 04/11/25 16:25 99 04/11/25 16:09 98 04/11/25 16:01 16 L 04/11/25 15:51 100 04/11/25 15:00 04/11/25 14:51 99 04/11/25 14:21 98 04/11/25 14:05 99 04/11/25 13:50 98 04/11/25 13:37 125/68 98 Room Air 04/11/25 11:10 132/64 100 Room Air Cardiovascular RRR, no murmur, no edema Respiratory normal respiratory effort, lungs clear to auscultation Pre-Sedation Airway Assessment Smoking Status: Never smoker Hx Sleep Apnea: No Short, Thick Neck: No Thyromental Distance: > or= 3.5 Finger Breadths Oral Cavity: + WNL Mallampati Class: II ASA: ASA3 NPO Status Date of Last Intake of Fluids: 04/11/25 Time of Last Intake of Fluids: 23:00 Date of Last Intake of Solid Food: 04/11/25 Time of Last Intake of Solid Foods: 23:00 Procedure Planning Contraindications for Sedation: none Current Medications Reviewed: Yes Notes The planned sedation has been discussed with the patient. Informed Consent was obtained. I have identified the patient, determined the appropriateness of sedation and have assessed the patient immediately prior to the procedure. All medicine(s) and interventions are by my order.
--- NOTE | 2025-04-12 10:23 | Post Anesthesia Assessment ---
Date of Service April 12, 2025 Post Sedation Assessment Vital Signs Temp Pulse Pulse Pulse Resp BP BP 04/12/25 10:02 36.8 C 64 16 129/68 04/12/25 09:44 81 14 145/58 H 04/12/25 09:39 79 14 133/60 04/12/25 09:35 77 14 134/62 04/12/25 09:30 73 14 149/48 H 04/12/25 09:25 73 14 140/61 04/12/25 09:20 75 14 134/59 L 04/12/25 09:15 75 14 149/58 H 04/12/25 09:10 77 14 145/69 H 04/12/25 09:05 77 14 149/55 H 04/12/25 09:00 80 14 146/63 H 04/12/25 08:55 85 14 147/57 H 04/12/25 08:50 83 14 155/58 H 04/12/25 08:45 80 14 139/60 04/12/25 08:40 74 14 141/53 H 04/12/25 08:35 71 14 153/64 H 04/12/25 08:30 75 14 144/50 H 04/12/25 08:25 76 16 148/67 H 04/12/25 08:21 73 18 165/62 H 04/12/25 07:31 36.7 C 69 18 142/59 H 04/12/25 07:27 36.7 C 76 20 142/59 H 04/12/25 02:48 36.8 C 71 16 148/65 H 04/11/25 23:22 74 04/11/25 22:10 36.8 C 85 18 149/76 H 04/11/25 19:28 36.9 C 71 20 129/56 L 04/11/25 19:13 36.9 C 70 18 129/56 L 04/11/25 18:10 36.7 C 75 16 137/68 04/11/25 17:10 36.5 C 75 16 136/57 L 04/11/25 16:40 36.8 C 74 16 150/70 H 04/11/25 16:25 36.5 C 80 20 156/71 H 04/11/25 16:09 36.7 C 75 18 137/69 04/11/25 16:01 36.6 C 69 99 H 145/61 H 04/11/25 15:51 36.6 C 71 20 131/62 04/11/25 15:00 68 04/11/25 14:51 36.8 C 71 16 130/70 04/11/25 14:21 36.6 C 75 18 133/64 04/11/25 14:05 36.8 C 67 16 04/11/25 13:50 36.4 C L 69 16 124/63 04/11/25 13:37 36.5 C 70 18 04/11/25 11:10 36.5 C 66 18 BP Pulse Ox O2 Del Method O2 Flow Rate 04/12/25 10:02 96 04/12/25 09:44 100 Room Air 04/12/25 09:39 100 Room Air 04/12/25 09:35 100 Oxymask 4 04/12/25 09:30 100 Oxymask 4 04/12/25 09:25 100 Oxymask 4 04/12/25 09:20 100 Oxymask 4 04/12/25 09:15 100 Oxymask 4 04/12/25 09:10 100 Oxymask 4 04/12/25 09:05 100 Oxymask 4 04/12/25 09:00 100 Oxymask 4 04/12/25 08:55 100 Oxymask 4 04/12/25 08:50 100 Oxymask 4 04/12/25 08:45 100 Oxymask 4 04/12/25 08:40 100 Oxymask 4 04/12/25 08:35 100 Oxymask 4 04/12/25 08:30 100 Oxymask 4 04/12/25 08:25 100 Oxymask 4 04/12/25 08:21 100 Oxymask 4 04/12/25 07:31 97 Room Air 04/12/25 07:27 97 Room Air 04/12/25 02:48 95 Room Air 04/11/25 23:22 04/11/25 22:10 96 Room Air 04/11/25 19:28 99 0 04/11/25 19:13 99 Room Air 04/11/25 18:10 97 04/11/25 17:10 98 04/11/25 16:40 98 04/11/25 16:25 99 04/11/25 16:09 98 11/03/25 16:01 16 L 04/11/25 15:51 100 04/11/25 15:00 04/11/25 14:51 99 04/11/25 14:21 98 04/11/25 14:05 99 04/11/25 13:50 98 04/11/25 13:37 125/68 98 Room Air 04/11/25 11:10 132/64 100 Room Air Recovery Score Activity: Moves 4 extremities Respiration: Deep Breath/Cough Circulation: +/-20% PreAnes Value Consciousness: Fully Awake Oxygen Saturation: > 92% On Room Air Post Anesthesia Score: 10 Discharge Sedation Level of Care: Fast Track Phase II Post Sedation Plan On clinical assessment, the patient appears to have tolerated the sedation without complications. Patient is recovering as anticipated. Patient will continue to be monitored by nursing and may be discharged when sedation discharge criteria are met per below protocol. Upon Completions of procedure up to 15 minutes continue every 5 minute vital signs and the P.A.R. score; then discharge to a Phase I or Fast Track to Phase II per the following guidelines: * Discharge Patient to appropriate Phase II area if PAR is 8 or greater or return to pre- procedure baseline. The post - procedure orders will be as directed. * If PAR score is less than 8 or not return to pre-procedure baseline then patient will follow Phase I monitoring till PAR is reached for Phase II. The Phase I may be done in procedure room or may call to secure a Phase I area. * If naloxone or flumazenil are used for reversal, hold in Phase I for continued monitoring from when last reversal dose was given for a minimum of 60 minutes or longer pending the nurse and/or physician discretion of patient condition before discharge to Phase II. Please call the Sedation Physician to re-evaluate and complete post-note for discharge to Phase II area. Do NOT discharge from procedure sedation or Phase 1 until post- sedation evaluation note is complete by procedure /sedation MD Sedation Discharge Instructions to be given to the patient at discharge to home.
[2025-04-12] MEDS: SODIUM CHLORIDE 0.9% 1,000 ML IV SCH (10:42)
--- NOTE | 2025-04-12 11:00 | Communication Note ---
Date of Service: April 12, 2025 will run heparin for 24 hours then switch to eliquis and can be discharged.
--- NOTE | 2025-04-12 15:57 | Progress Note ---
Date of Service April 12, 2025 Assessment & Plan (1) Anemia: Plan: - patient with acute on chronic anemia - currently on IV heparin - s/p two units pRBCs, Hgb up to >9 (2) Right leg DVT: Plan: went to OR on 04/12/25 for mechanical thrombectomy Plan is for IV heparin x24 hours and then d/c with Eliquis (3) Generalized weakness: Plan: Adult failure to thrive after recent discharge after vascular surgery of the right lower extremity. She is unable to ambulate. Symptomatic care (4) S/P vascular surgery: Plan: Recent revascularization of the right lower extremity. CTA studies on admission reveal patent arterial circulation. Vascular surgery consultation requested and pending (5) Peripheral arterial disease: Plan: Recent revascularization of the right lower extremity. Vascular surgery consultation requested and pending (6) Acute kidney injury: Plan: Mild. Present on admission. Resolved with IV fluids. Monitor urine output and serial labs (7) Edema of right lower extremity: Plan: Due to extensive right lower extremity DVT and also postoperative after revascularization of right lower extremity. (8) DM II (diabetes mellitus, type II), controlled: Plan: ADA diet. Sliding scale coverage. (9) HTN (hypertension): Plan: Currently stable. Losartan is on hold (10) Coronary artery disease: Plan: Stable. History of coronary artery bypass grafting. Continue current medical management. Plan OT and PT assessments requested along with vascular surgery consultation. She probably will need placement at the time of discharge. This is a 75 year old female with a PMH of DM2, HTN, HLD, CAD w hx of CABG, PAD w recent RLE FILTER BED PLACER endarterectomy - coming in on 04/08 POD#1 due to a combination of RLE swelling and decreased oral intake with functional decline. On arrival here, was found to have a RLE DVT and started on IV heparin. Vascular surgery saw patient and plan is for OR on 04/12/25 for mechanical thrombectomy. Patient's Hgb has been dropping to 7.0 on 04/11. No obvious, overt bleeding identified. had the mechanical thrombectomy, plan is for SNF on discharge. Admission and Anticipated Discharge Date Admission Date: April 08, 2025 Subjective Patient is doing well post-procedure. Eager to get home Review of Systems Review of Systems: Constitutionalno fever or chills ENTno blurred vision, no double vision, no epistaxis, no sore throat Respiratoryno cough, no wheezing, no shortness of breath Cardiacno palpitations, no chest pain, no syncope Valdemar nausea, vomiting, diarrhea, melena, hematochezia GUno urinary retention, no urinary incontinence, no dysuria, no hematuria Musculoskeletalright lower extremity swelling. Wound VAC present in the right inguinal region. Right lower extremity surgical sites are unremarkable Skinno bruising, no rashes, no pruritus Neurono isolated weakness, no paresthesia, no weakness Psychno depression, no anxiety Physical Exam Physical Exam: VITALS: Reviewed. WEIGHT/BMI reviewed. GEN: Healthy appearing, well-developed, NAD. PSYCH: Good Judgment. AOx3. Normal memory, mood, and affect. HEENT -Head: NC/AT; -Eyes: PERRL, EOMI. No discharge or redn ess; -Ears: External ears are normal. Normal TMs. -Nose: Normal nares. -Mouth and throat: MMM. Normal gums, muc toña, palate,. Good dentition. NECK: Supple, with no masses. CV: RRR, no m/r/g. LUNGS: CTAB, no w/r/c. ABD: Soft, NT/ND, NBS, no masses or organomegaly. : N/A SKIN: Warm, well perfused. No skin rashes or abnormal lesions. MSK: No deformities, Normal gait. EXT: No clubbing, cyanosis, or edema. NEURO: Ambulating with no limitations. Normal muscle strength and tone. No focal deficits. Results & Data Vital Signs (Past 12 Hours) Vital Signs Temp Pulse Pulse Pulse Resp BP Pulse Ox 04/12/25 11:57 04/12/25 11:45 36.3 C L 58 L 23 122/55 L 97 04/12/25 11:00 36.2 C L 61 16 129/72 98 04/12/25 10:30 36.4 C L 69 16 128/65 04/12/25 10:02 36.8 C 64 16 129/68 96 04/12/25 09:44 81 14 145/58 H 100 04/12/25 09:39 79 14 133/60 100 04/12/25 09:35 77 14 134/62 100 04/12/25 09:30 73 14 149/48 H 100 04/12/25 09:25 73 14 140/61 100 04/12/25 09:20 75 14 134/59 L 100 04/12/25 09:15 75 14 149/58 H 100 04/12/25 09:10 77 14 145/69 H 100 04/12/25 09:05 77 14 149/55 H 100 04/12/25 09:00 80 14 146/63 H 100 04/12/25 08:55 85 14 147/57 H 100 04/12/25 08:50 83 14 155/58 H 100 04/12/25 08:45 80 14 139/60 100 04/12/25 08:40 74 14 141/53 H 100 04/12/25 08:35 71 14 153/64 H 100 04/12/25 08:30 75 14 144/50 H 100 04/12/25 08:25 76 16 148/67 H 100 04/12/25 08:21 73 18 165/62 H 100 04/12/25 07:31 36.7 C 69 18 142/59 H 97 04/12/25 07:27 36.7 C 76 20 142/59 H 97 04/12/25 05:35 72 O2 Del Method O2 Flow Rate 04/12/25 11:57 Room Air 04/12/25 11:45 Room Air 04/12/25 11:00 Room Air 04/12/25 10:30 Room Air 04/12/25 10:02 04/12/25 09:44 Room Air 04/12/25 09:39 Room Air 04/12/25 09:35 Oxymask 4 04/12/25 09:30 Oxymask 4 04/12/25 09:25 Oxymask 4 04/12/25 09:20 Oxymask 4 04/12/25 09:15 Oxymask 4 04/12/25 09:10 Oxymask 4 04/12/25 09:05 Oxymask 4 04/12/25 09:00 Oxymask 4 04/12/25 08:55 Oxymask 4 04/12/25 08:50 Oxymask 4 04/12/25 08:45 Oxymask 4 04/12/25 08:40 Oxymask 4 04/12/25 08:35 Oxymask 4 04/12/25 08:30 Oxymask 4 04/12/25 08:25 Oxymask 4 04/12/25 08:21 Oxymask 4 04/12/25 07:31 Room Air 04/12/25 07:27 Room Air 04/12/25 05:35 Laboratory Results Laboratory Results WBC 7.23 K/ul (4.8-10.8) 04/12/25 06:14 RBC 3.21 M/uL (4.20-5.40) L 04/12/25 06:14 Hgb 9.8 g/dl (12.0-16.0) L 04/12/25 06:14 Hct 28.2 % (37.0-47.0) L 04/12/25 06:14 MCV 87.9 fL (80.0-100.0) D 04/12/25 06:14 MCH 30.5 pg (25.0-34.0) 04/12/25 06:14 MCHC 34.8 g/dL (32.0-36.0) 04/12/25 06:14 RDW Std Deviation 53.1 fL (36.4-46.3) H 04/12/25 06:14 RDW Coeff of Yanni 17.3 % (11.5-14.5) H 04/12/25 06:14 Plt Count 127 K/uL (130-400) L 04/12/25 06:14 MPV 9.3 fL (9.4-12.4) L 04/12/25 06:14 Immature Gran % (Auto) 5.4 % 04/12/25 06:14 Neut % (Auto) 53.0 % 04/12/25 06:14 Lymph % (Auto) 32.6 % 04/12/25 06:14 [place] % (Auto) 8.3 % 04/12/25 06:14 Eos % (Auto) 0.0 % 04/12/25 06:14 Baso % (Auto) 0.7 % 04/12/25 06:14 Neut # (Auto) 3.83 K/uL (1.40-6.50) 04/12/25 06:14 Lymph # (Auto) 2.36 K/uL (1.20-3.40) 04/12/25 06:14 [place]ton # (Auto) 0.60 K/uL (0.11-0.59) H 04/12/25 06:14 Eos # (Auto) 0.00 K/uL (0.00-0.50) 04/12/25 06:14 Baso # (Auto) 0.05 K/uL (0.00-0.20) 04/12/25 06:14 Immature Gran # (Auto) 0.39 K/uL (0.01-0.20) H 04/12/25 06:14 Polychromasia 1+ 04/12/25 06:14 Ovalocytes 1+ 04/10/25 06:36 PT 11.2 Seconds (9.0-12.0) 04/08/25 18:47 INR 1.1 (0.9-1.1) 04/08/25 18:47 APTT 23 Seconds (21-31) 04/08/25 18:47 PTT Ratio 0.8 04/08/25 18:47 Heparin Anti-Xa, Unfract 0.50 IU/ml (0.3-0.7) 04/12/25 06:14 Sodium 140 mmol/L (136-145) 04/12/25 06:14 Potassium 4.0 mmol/L (3.5-5.1) 04/12/25 06:14 Chloride 111 mmol/L (98-107) H 04/12/25 06:14 Carbon Dioxide 24 mmol/L (21-32) 04/12/25 06:14 Anion Gap 5 (3-11) 04/12/25 06:14 BUN 15 mg/dl (6-23) 04/12/25 06:14 Creatinine 0.84 mg/dl (0.6-1.2) 04/12/25 06:14 Est Cr Clr Drug Dosing 65.7 ml/min 04/12/25 06:14 eGFR 71.53 04/12/25 06:14 BUN/Creatinine Ratio 17.9 (10-20) 04/12/25 06:14 Glucose 109 mg/dl (70-99(Fasting)) H 04/12/25 06:14 POC Glucose 136 mg/dl (70-99) H 04/12/25 16:07 Calcium 8.0 mg/dl (8.6-10.3) L 04/12/25 06:14 Magnesium 1.9 mg/dl (1.7-2.4) 04/09/25 08:18 Iron 34 mcg/dl (35-150) L 04/11/25 12:24 TIBC 266 mcg/dl (250-450) 04/11/25 12:24 Transferrin 190 mg/dl (200-360) L 04/11/25 12:24 Transferrin % Sat 13 % (15-50) L 04/11/25 12:24 Total Bilirubin 0.8 mg/dl (0.2-1.0) 04/09/25 08:18 AST 14 U/L (13-39) 04/09/25 08:18 ALT 9 U/L (7-52) 04/09/25 08:18 Alkaline Phosphatase 64 U/L (34-104) 04/09/25 08:18 Troponin I High Sens 4.6 pg/ml (0-14) 04/08/25 18:47 Total Protein 5.1 gm/dl (6.0-8.3) L 04/09/25 08:18 Albumin 2.9 gm/dl (3.4-5.0) L 04/09/25 08:18 Globulin 2.2 gm/dl (2.5-4.0) L 04/09/25 08:18 Albumin/Globulin Ratio 1.3 (0.9-2) 04/09/25 08:18 Urine Color Yellow 04/09/25 01:30 Urine Appearance Clear (Clear) 04/09/25 01:30 Urine pH 5.0 (4.5-7.5) 04/09/25 01:30 Ur Specific [place] > 1.045 (1.000-1.030) H 04/09/25 01:30 Urine Protein Negative (Negative) 04/09/25 01:30 Urine Glucose (UA) Negative (Negative) 04/09/25 01:30 Urine Ketones Negative (Negative) 04/09/25 01:30 Urine Blood Negative (Negative) 04/09/25 01:30 Urine Nitrite Negative (Negative) 04/09/25 01:30 Urine Bilirubin Negative (Negative) 04/09/25 01:30 Urine Urobilinogen Negative (Negative) 04/09/25 01:30 Ur Leukocyte Esterase Negative (Negative) 04/09/25 01:30 Urine Comment 04/09/25 01:30 Blood Type A Positive 04/11/25 11:14 Antibody Screen NEGATIVE 04/11/25 11:14 Crossmatch See Detail 04/11/25 11:14 Impressions Abdomen/Pelvis CTA 04/08/25 19:15 Exam(s): CTA ABDOMEN + PELVIS With Contrast EXAM: CT Angiography Abdomen and Pelvis With Intravenous Contrast CLINICAL HISTORY: Reason for exam: Recent femoral endarterectomy now with tightenin. TECHNIQUE: Axial computed tomographic angiography images of the abdomen and pelvis with intravenous contrast. CTDI is 19.38 mGy and DLP is 1830.21 mGy-cm. Automated exposure control was utilized for the study. A dose lowering technique was utilized adhering to the principles of ALARA. MIP reconstructed images were created and reviewed. CONTRAST: Contrast must be dictated COMPARISON: 03/22/2025 FINDINGS: There is atherosclerosis of the abdominal aorta without aneurysm or dissection. There is mild calcific stenosis of the celiac artery origin. There is moderate calcific stenosis of the SMA origin. Both renal arteries appear adequately patent. MARY is patent. Right common, internal common external iliac arteries are adequately patent. There are postprocedural changes in the right inguinal region with subcutaneous gas, subcutaneous hematoma measuring approximately 5 cm, and skin closure fe. No aneurysm, pseudoaneurysm, or active bleeding is visualized. Right common femoral artery and visualized proximal segments of the deep and superficial femoral arteries are adequately patent. Left common, internal, and external iliac arteries are adequately patent. Left common femoral artery and visualized proximal segments of the deep and superficial femoral arteries are adequately patent. Patient has undergone prior sternotomy. Heart size is normal. Coronary arteries are calcified. Lung bases demonstrate subsegmental atelectasis bilaterally. Liver, gallbladder, spleen, pancreas, adrenal glands, and kidneys are unremarkable. Appendix is not identified. There are no secondary signs of appendicitis. There is no obstructive or inflammatory bowel change. Urinary bladder is unremarkable. Uterus is surgically absent. Skeleton appears intact. IMPRESSION: Status post recent right femoral endarterectomy with expected postoperative soft tissue changes in the right inguinal region, as described above. Visualized portion of the right femoral artery is adequately patent. No aneurysm, pseudoaneurysm, or active bleeding is visible. Electronically signed by: Brian Baron M.D. 04/08/25 21:09 PM Lower Extremity CTA 04/08/25 19:15 Exam(s): CTA EXTREMITY RIGHT LOWER W/WO Contrast IV Amt: 115cc opti 320 EXAM: CT Angiography of the Right Lower Extremity With Intravenous Contrast CLINICAL HISTORY: Reason for exam: recent femoral endarectomy. TECHNIQUE: Axial computed tomographic angiography images of the right lower extremity with intravenous contrast. CTDI is 19.38 mGy and DLP is 1830. 21 mGy-cm. Automated exposure control was utilized for the study. A dose lowering technique was utilized adhering to the principles of ALARA. MIP reconstructed images were created and reviewed. CONTRAST: Patient received 115cc opti 320 of IV contrast COMPARISON: No relevant prior studies available. FINDINGS: Patient is status post recent right femoral endarterectomy. There are right inguinal skin closure fe with subjacent soft tissue edema, soft tissue gas, and postprocedural hematoma formation. Surgical clips surround the common femoral artery. Common, deep, and superficial femoral arteries are adequately patent. There is approximately 50% stenosis in the upper popliteal artery (series 4, image 177). Calf arteries are excluded from view. There is subcutaneous edema throughout the leg. There are no acute osseous findings. IMPRESSION: 1. Status post recent right femoral endarterectomy with expected postprocedural soft tissue changes. 2. Right lower extremity arteries are imaged from the common femoral artery through the popliteal artery. 3. Approximately 50% popliteal artery stenosis. Otherwise, no significant stenosis. Electronically signed by: Brian Barno M.D. 04/08/25 22:03 PM Chest X-Ray 04/08/25 19:17 EXAM: Portable AP chest radiograph TECHNIQUE: AP portable radiograph of the chest was obtained. INDICATION: Shortness of breath Comparison: Chest radiograph October 13, 2024 FINDINGS: LINES and TUBES: None CARDIOVASCULAR: Cardiac silhouette is stably enlarged in size with redemonstrated post-CABG changes. LUNGS/PLEURA: No focal consolidation identified. Mild pulmonary vascular congestion and chronic interstitial lung changes appear similar to previous. No significant pleural fluid. No discernible pneumothorax. OSSEOUS/OTHER: No displaced acute osseous process identified. IMPRESSION: No focal consolidation is identified. Electronically signed by Rao Alicia 04-08-2025 9:14 PM Venous Doppler Study 04/09/25 12:22 EXAM: US Duplex Right Lower Extremity Veins INDICATION: Swelling. TECHNIQUE: Real-time duplex ultrasound scan of the right lower extremity veins integrating B-mode two-dimensional vascular structure, Doppler spectral analysis, color flow Doppler imaging and compression. COMPARISON: No relevant prior studies available. FINDINGS: Deep veins: Right femoral and popliteal veins are occluded with some flow noted in the distal popliteal vein. The vessels are not compressible. Superficial veins: No abnormality noted. No thrombus in the visualized great saphenous vein. Soft tissues: Tissue in the region labeled area of wound obscured by shadowing. IMPRESSION: Positive for deep venous thrombosis of the right femoral and popliteal veins. ACT 112: N/A Electronically signed by Ruth Bagley 04-09-2025 3:00 PM PG Care Time/CCT Total # of Minutes Spent Total Time Spent with Patient: Total time spent is greater than 50% in coordination of care (as documented) at patient's floor/unit and/or counseling patient: Coding Level of Care Code 05303 SUB INP/OBS CARE 2/35MIN Diagnoses Anemia D64.9 Right leg DVT I82.401 Generalized weakness R53.1 S/P vascular surgery Z98.890 Peripheral arterial disease I73.9 Acute kidney injury N17.9 Edema of right lower extremity R60.0 DM II (diabetes mellitus, type II), controlled E11.9 HTN (hypertension) I10 Coronary artery disease I25.10
[2025-04-12] MEDS: VISIPAQUE IV ONE (19:08)
[2025-04-12] MEDS: MELATONIN 3 MG TAB PO ONE (23:24)
[2025-04-12] MEDS: SIMETHICONE 80 MG CHEW PO PRN (23:24)
--- NOTE | 2025-04-13 06:39 | CT Scan Report ---
EXAM: CT abd pelvis wo con CLINICAL HISTORY: ? urinary obstruction, pelvic fullness, pain TECHNIQUE: Contiguous axial images were obtained from the level of the diaphragm to the pubic symphysis without intravenous or oral contrast. Coronal and sagittal reconstructions were likewise performed and indicated to increase the sensitivity for detecting clinically relevant pathology. CT scan was performed according to ALARA (as low as reasonably achievable). COMPARISON: 19:10:12 [employer] RN. FINDINGS: The visualized lung bases are clear. Evaluation of the abdominal and pelvic visceral organs is limited without intravenous contrast. The unenhanced liver, spleen, pancreas, and adrenal glands are grossly unremarkable. The gallbladder shows microlithiasis without cholecystitis. The kidneys are normal in size and attenuation without obvious calcification. There is no hydronephrosis or perinephric stranding. Dilated right mid ureter, possibly due to peristalsis. Rest of the ureters are normal in caliber. No adenopathy is seen. No evidence of focal or diffuse bowel wall thickening or evidence of bowel obstruction is seen. No imaging evidence of appendicitis. The aorta is normal in caliber. The urinary bladder is empty with sanders's bulb in situ. Pelvic viscera are grossly unremarkable. No aggressive appearing osseous lesions are identified. Approximately 15 x 16 x 16 cm size well defined heterogeneous collection with internal hyperattenuating areas are noted involving right side of pelvis region, extending into the right inguinal and proximal thigh region. It is noted along the course of right external iliac and femoral vessels- angiography correlation suggested. Medially it compressing the urinary bladder and adjacent pelvic bowel loops.- possibility of large hematoma, likely. Post-operative changes seen in right inguinal region. Soft tissue swelling with fat stranding seen in right lateral abdominal wall. IMPRESSION: Uncomplicated cholelithiasis.-stable. A huge well defined heterogeneous collection with internal hyperattenuating areas are noted involving right side of pelvis region, extending into the right inguinal and proximal thigh region. It is noted along the course of right external iliac and femoral vessels- angiography correlation suggested. Medially it compressing the urinary bladder and adjacent pelvic bowel loops.- possibility of large hematoma likely - angiography correlation suggested.-new finding. Electronically signed by Julio César Winters 04-13-2025 06:39 AM
[2025-04-13 06:47] LABS: Hematocrit (blood only) 22.3 % (37.0-47.0); Hemoglobin 7.5 g/dl (12.0-16.0); Mean Corpuscular Hemoglobin 30.2 pg (25.0-34.0); Mean Corpuscular Volume 89.9 fL (80.0-100.0); Platelet Count 136 K/uL (130-400); RDW Standard Deviation 55.9 fL (36.4-46.3); Red Blood Count 2.48 M/uL (4.20-5.40); White Blood Count 10.03 K/ul (4.8-10.8)
[2025-04-13 07:17] LABS: Anion Gap 6.0 (3-11); Blood Urea Nitrogen 17.0 mg/dl (6-23); Calcium 8.1 mg/dl (8.6-10.3); Carbon Dioxide 23.0 mmol/L (21-32); Chloride 106.0 mmol/L (98-107); Creatinine Clr Calc Pharmacy 78.9 ml/min; Glucose 139.0 mg/dl (70-99(Fasting)); Potassium 4.2 mmol/L (3.5-5.1); Sodium 135.0 mmol/L (136-145)
[2025-04-13 07:29] LABS: Immature Granulocytes # (auto) 0.62 K/uL (0.01-0.20); Immature Granulocytes % (auto) 6.2 %; Polychromasia 1+
[2025-04-13 07:32] LABS: ANTI-Xa, UFH(UnfractionatedHep 0.58 IU/ml (0.3-0.7)
[2025-04-13] MEDS: OPTIRAY 320 125ml IV ONE (08:19)
[2025-04-13] MEDS ORDERED: APIXABAN 5 MG TABLET PO SCH (09:00)
[2025-04-13] MEDS: [UNRECOGNIZED DRUG - REMARK] ONE (09:24)
--- NOTE | 2025-04-13 09:55 | CT Scan Report ---
CT angio abd pelvis wo/w con HISTORY: 75 years-old Female pelvic hematoma acute pelvic pain with reported pelvic hematoma. Status post right lower extremity venogram with angioplasty and stenting of the right common femoral vein a long with chemical thrombectomy. History of DVT. COMPARISON: CT abdomen and pelvis of same day at 5:29 AM TECHNIQUE: CTA abdomen and pelvis was obtained with and without IV contrast. 3-D coronal and sagittal images were obtained and submitted for review. All measurements were obtained according to NASCET cr iteria. A dose lowering technique was used consistent with the principals of BOOKER. FINDINGS: CTA: Mild cardiomegaly. Median sternotomy with coronary arterial calcifications. Moderate atheroscler osis of aorta and branch vessels. There is 60% stenosis at the origin of the celiac trunk. There is m ultifocal moderate to high-grade stenosis noted throughout the superior mesenteric artery. There is m oderate stenosis at the origin of the renal arteries bilaterally. Moderate stenosis at the origin of the inferior mesenteric artery. The bilateral common and external iliac arteries are patent. There is mild narrowing within the right external iliac artery on image 285 series 5 with an adjacent stent w ithin the external iliac vein. No aneurysmal dissection. Large multiloculated extraperitoneal hematom a within the right hemipelvis and right inguinal tissues redemonstrated measuring up to approximately 19 x 13 x 16 cm. There is a tiny focus of active extravasation noted within the midline inferior asp ect of the intrapelvic hematoma on image 309 series 7 seen on the venogram images. Additionally, ther e is progressively hyperdense hemorrhage within the right inguinal tissues on the venographic images. Right inguinal surgical clips with prominent subcutaneous edema of the right upper thigh. CT ABDOMEN/PELVIS: No pneumatosis or pneumoperitoneum. The lung bases are generally clear. Unremarkab le spleen, moderately atrophic pancreas and adrenal glands. Cholelithiasis without CT evidence of acu te cholecystitis. Liver is within normal limits. Patency of the hepatic and portal veins. The noncont rast study demonstrates contrast in the renal collecting systems and ureters. There is mild right-hunter ed hydroureteronephrosis with delayed nephrogram which has developed since the prior study, likely se condary to mass effect from the pelvic hematoma. No ureteral calculi identified. Decompressed urinary bladder contrast and Carreno balloon catheter in place. No lymphadenopathy. No bowel obstruction or viraj wel wall thickening. Trace pelvic ascites with body wall edema/anasarca. No acute fracture IMPRESSION: 1. Status post placement of a right femoral venous stent with surgical clips again noted within the r ight inguinal tissues. 2. Large right inguinal/extraperitoneal right hemipelvis hematoma measuring up to approximately 19 cm appears stable in size from the study obtained at 5:31 AM this morning. This demonstrates no active arterial extravasation, however there is a tiny focus of extravasation noted on the delayed venogram images. 3. Interval development of mild right-sided hydroureteronephrosis and delayed nephrogram secondary to mass effect upon the urinary bladder and right UVJ from the large hematoma. 4. Incidental findings as above. ACT 112: Negative or not required by law. The above report was generated using voice recognition software. It may contain grammatical, syntax o r spelling errors. Electronically signed by: Neri Hendricks M.D. 04/13/2025 9:54 AM
[2025-04-13] MEDS ORDERED: SODIUM CHLORIDE 0.9% 100 ML IV PRN (10:36)
[2025-04-13] MEDS: MoRPHine SULFATE 2 MG/ML CARP IV STA (11:21)
[2025-04-13] MEDS: MoRPHine SULFATE 4 MG/ML 1 ML CARP\\VIAL ONE (11:46)
--- NOTE | 2025-04-13 13:53 | Surgery Progress Note ---
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 Now s/p RLE venogram with mechanical thrombectomy and CFV stent. RLE edema improved. d/t current pain level and hematoma, would consider rehab at discharge. (2) Anemia: Plan: Pt with large pelvic/retroperitoneal hematoma and decreased hgb. No active bleeding noted on CTA. AC held for now, possibly will be restarted in next few days. Continue to monitor. Admission and Anticipated Discharge Date Admission Date: April 08, 2025 Subjective 75 yo f 1 week s/p R VOLLEYBALL PLAYER redo endarterectomy with bovine patch, and now POD #1 after RLE venogram with mechanical thrombectomy and CFV stent placement, seen in f/u today. Pt currently sleeping after getting pain medication. Pt c/o nearly constant urge to urinate and severe R pelvic and low back pain. Review of Systems Review of Systems: All systems reviewed & are unremarkable except as noted in HPI & below Physical Exam Constitutional: WD/WN, vitals as above healthy appearing and comfortable; not in distress Cardiovascular: Vessels: posterior tibial pulses present, dorsalis pedis pulses present and radial pulses present; + abnormal peripheral pulses Extremities: normal capillary refill and + edema (+3 RLE, improved from previous.) R pop vein puncture dressing in place, no significant hematoma or active bleeding noted. Gastrointestinal (Abdomen): Inspection/Auscultation: abdomen normal to inspection and normal bowel sounds Percussion/Palpation: + abdomen tender (RLQ, flank) and abdomen soft Musculoskeletal: no cyanosis or clubbing, extremities motor strength 5/5 Neurologic: moves all extremities Psychiatric: A+Ox3, euthymic affect Results & Data Vital Signs (Past 12 Hours) Vital Signs Temp Pulse Pulse Resp BP BP BP 04/13/25 13:26 36.4 C L 75 18 128/53 L 04/13/25 13:11 36.5 C 74 20 129/52 L 04/13/25 12:54 36.4 C L 75 18 130/52 L 04/13/25 12:38 36.6 C 75 18 133/56 L 04/13/25 10:50 65 04/13/25 10:49 36.3 C L 67 23 144/72 H 04/13/25 07:24 36.3 C L 70 23 138/70 04/13/25 06:00 85 04/13/25 02:28 36.4 C L 82 18 125/69 Pulse Ox O2 Del Method 04/13/25 13:26 98 04/13/25 13:11 04/13/25 12:54 04/13/25 12:38 97 04/13/25 10:50 04/13/25 10:49 97 Room Air 04/13/25 07:24 98 Room Air 04/13/25 06:00 04/13/25 02:28 100 Room Air
--- NOTE | 2025-04-13 16:11 | Progress Note ---
Date of Service April 13, 2025 Assessment & Plan (1) Anemia: Plan: - patient with acute on chronic anemia - currently on IV heparin - s/p two units pRBCs, Hgb up to >9 04/13 - large pelvic hematoma noted - Hgb dropped to 7.5 - transfusion ordered - plan to hold Eliquis for a few days and then restart - appreciate vascular input (2) Right leg DVT: Plan: went to OR on 04/12/25 for mechanical thrombectomy Plan is for IV heparin x24 hours and then d/c with Eliquis (3) Generalized weakness: Plan: Adult failure to thrive after recent discharge after vascular surgery of the right lower extremity. She is unable to ambulate. Symptomatic care (4) S/P vascular surgery: Plan: Recent revascularization of the right lower extremity. CTA studies on admission reveal patent arterial circulation. Vascular surgery consultation requested and pending (5) Peripheral arterial disease: Plan: Recent revascularization of the right lower extremity. Vascular surgery consultation requested and pending (6) Acute kidney injury: Plan: Mild. Present on admission. Resolved with IV fluids. Monitor urine output and serial labs (7) Edema of right lower extremity: Plan: Due to extensive right lower extremity DVT and also postoperative after revascularization of right lower extremity. (8) DM II (diabetes mellitus, type II), controlled: Plan: ADA diet. Sliding scale coverage. (9) HTN (hypertension): Plan: Currently stable. Losartan is on hold (10) Coronary artery disease: Plan: Stable. History of coronary artery bypass grafting. Continue current medical management. Plan OT and PT assessments requested along with vascular surgery consultation. She probably will need placement at the time of discharge. 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 On arrival here, was found to have a RLE DVT and started on IV heparin. Vascular surgery saw patient and plan is for OR on 04/12/25 for mechanical thrombectomy. Patient's Hgb has been dropping to 7.0 on 04/11. No obvious, overt bleeding identified. had the mechanical thrombectomy, plan is for SNF on discharge. Admission and Anticipated Discharge Date Admission Date: April 08, 2025 Subjective Patient had abdominal bloating last evening, stated she needed her Carreno out, which was removed, but then she had urinary retention and bladder scan showed >300cc. A CT was done and showed pelvic hematoma. Review of Systems Review of Systems: Constitutionalno fever or chills ENTno blurred vision, no double vision, no epistaxis, no sore throat Respiratoryno cough, no wheezing, no shortness of breath Cardiacno palpitations, no chest pain, no syncope Valdemar nausea, vomiting, diarrhea, melena, hematochezia GUno urinary retention, no urinary incontinence, no dysuria, no hematuria Musculoskeletalright lower extremity swelling. Wound VAC present in the right inguinal region. Right lower extremity surgical sites are unremarkable Skinno bruising, no rashes, no pruritus Neurono isolated weakness, no paresthesia, no weakness Psychno depression, no anxiety Physical Exam Physical Exam: VITALS: Reviewed. WEIGHT/BMI reviewed. GEN: Healthy appearing, well-developed, NAD. PSYCH: Good Judgment. AOx3. Normal memory, mood, and affect. HEENT -Head: NC/AT; -Eyes: PERRL, EOMI. No discharge or redn ess; -Ears: External ears are normal. Normal TMs. -Nose: Normal nares. -Mouth and throat: MMM. Normal gums, muc toña, palate,. Good dentition. NECK: Supple, with no masses. CV: RRR, no m/r/g. LUNGS: CTAB, no w/r/c. ABD: Soft, NT/ND, NBS, no masses or organomegaly. : N/A SKIN: Warm, well perfused. No skin rashes or abnormal lesions. MSK: No deformities, Normal gait. EXT: No clubbing, cyanosis, or edema. NEURO: Ambulating with no limitations. Normal muscle strength and tone. No focal deficits. Results & Data Vital Signs (Past 12 Hours) Vital Signs Temp Pulse Pulse Resp BP BP BP 04/13/25 15:08 36.3 C L 72 23 134/54 L 04/13/25 14:56 36.3 C L 72 18 134/54 L 04/13/25 14:49 36.5 C 71 18 127/46 L 04/13/25 13:56 36.3 C L 76 20 149/57 H 04/13/25 13:26 36.4 C L 75 18 128/53 L 04/13/25 13:11 36.5 C 74 20 129/52 L 04/13/25 12:54 36.4 C L 75 18 130/52 L 04/13/25 12:38 36.6 C 75 18 133/56 L 04/13/25 10:50 65 04/13/25 10:49 36.3 C L 67 23 144/72 H 04/13/25 07:24 36.3 C L 70 23 138/70 04/13/25 06:00 85 Pulse Ox O2 Del Method 04/13/25 15:08 97 Room Air 04/13/25 14:56 97 04/13/25 14:49 04/13/25 13:56 98 04/13/25 13:26 98 04/13/25 13:11 04/13/25 12:54 04/13/25 12:38 97 04/13/25 10:50 04/13/25 10:49 97 Room Air 04/13/25 07:24 98 Room Air 04/13/25 06:00 PG Care Time/CCT Total # of Minutes Spent Total Time Spent with Patient: Total time spent is greater than 50% in coordination of care (as documented) at patient's floor/unit and/or counseling patient: Coding Level of Care Code 43952 SUB INP/OBS CARE 3/50MIN Diagnoses Anemia D64.9 Right leg DVT I82.401 Generalized weakness R53.1 S/P vascular surgery Z98.890 Peripheral arterial disease I73.9 Acute kidney injury N17.9 Edema of right lower extremity R60.0 DM II (diabetes mellitus, type II), controlled E11.9 HTN (hypertension) I10 Coronary artery disease I25.10
[2025-04-13] MEDS: ONDANSETRON INJ 2 MG/ML 2 ML VIAL IV PRN (18:23)
[2025-04-13] MEDS: SODIUM CHLORIDE 0.9% 500 ML IV SCH (20:41)
[2025-04-14] MEDS: MoRPHine SULFATE 4 MG/ML 1 ML CARP\\VIAL IV PRN (05:53)
[2025-04-14 06:38] LABS: Hematocrit (blood only) 28.0 % (37.0-47.0); Hemoglobin 9.7 g/dl (12.0-16.0); Mean Corpuscular Hemoglobin 30.5 pg (25.0-34.0); Mean Corpuscular Volume 88.1 fL (80.0-100.0); Platelet Count 141 K/uL (130-400); RDW Standard Deviation 49.1 fL (36.4-46.3); Red Blood Count 3.18 M/uL (4.20-5.40); White Blood Count 11.98 K/ul (4.8-10.8)
[2025-04-14 07:06] LABS: Anion Gap 7.0 (3-11); Blood Urea Nitrogen 19.0 mg/dl (6-23); Calcium 8.3 mg/dl (8.6-10.3); Carbon Dioxide 22.0 mmol/L (21-32); Chloride 105.0 mmol/L (98-107); Creatinine Clr Calc Pharmacy 58.2 ml/min; Glucose 123.0 mg/dl (70-99(Fasting)); Magnesium 1.9 mg/dl (1.7-2.4); Potassium 4.4 mmol/L (3.5-5.1); Sodium 134.0 mmol/L (136-145)
[2025-04-14 07:36] LABS: Immature Granulocytes # (auto) 0.82 K/uL (0.01-0.20); Immature Granulocytes % (auto) 6.8 %; Polychromasia 1+
--- NOTE | 2025-04-14 09:05 | XRay Report ---
KUB HISTORY: r/o SBO COMPARISON STUDY: CT scans yesterday FINDINGS: There is residual contrast in the renal collecting systems and ureters. There is stable mil d right hydronephrosis. There is a large amount of retained stool at the right colon. Otherwise there is mild retained stool. There is a mildly dilated small bowel loop at the left upper quadrant measur ing 3.1 cm diameter. No other bowel distention seen. No gross free air. Stable surgical clips at the right groin region. IMPRESSION: 1. Mildly dilated left upper quadrant small bowel loop of uncertain significance. No other bowel dist ention seen. There is a large amount retained stool at the right colon. 2. Otherwise as described. ACT 112: Negative or not required by law. The above report was generated using voice recognition software. It may contain grammatical, syntax o r spelling errors. Electronically signed by: Willy Francois M.D. 04/14/2025 9:04 AM
[2025-04-14] MEDS: SENNA 8.6 MG TAB PO SCH (17:27)
--- NOTE | 2025-04-14 18:11 | Progress Note ---
Date of Service April 14, 2025 Assessment & Plan (1) Anemia: Plan: - patient with acute on chronic anemia - currently on IV heparin - s/p two units pRBCs, Hgb up to >9 04/13 - large pelvic hematoma noted - Hgb dropped to 7.5 - transfusion ordered - plan to hold Eliquis for a few days and then restart - appreciate vascular input 04/14 - remove Carreno - bowel care ordered - continue to hold AC - vascular to decide on when to start Eliquis - Hgb up to >9 (2) Right leg DVT: Plan: went to OR on 04/12/25 for mechanical thrombectomy (3) Generalized weakness: Plan: Adult failure to thrive after recent discharge after vascular surgery of the right lower extremity. She is unable to ambulate. Symptomatic care (4) S/P vascular surgery: Plan: Recent revascularization of the right lower extremity. CTA studies on admission reveal patent arterial circulation. Vascular surgery consultation requested and pending (5) Peripheral arterial disease: Plan: Recent revascularization of the right lower extremity. Vascular surgery consultation requested and pending (6) Acute kidney injury: Plan: Mild. Present on admission. Resolved with IV fluids. Monitor urine output and serial labs (7) Edema of right lower extremity: Plan: Due to extensive right lower extremity DVT and also postoperative after revascularization of right lower extremity. (8) DM II (diabetes mellitus, type II), controlled: Plan: ADA diet. Sliding scale coverage. (9) HTN (hypertension): Plan: Currently stable. Losartan is on hold (10) Coronary artery disease: Plan: Stable. History of coronary artery bypass grafting. Continue current medical management. Plan OT and PT assessments requested along with vascular surgery consultation. She probably will need placement at the time of discharge. This is a 75 year old female with a PMH of DM2, HTN, HLD, CAD w hx of CABG, PAD w recent RLE ORTHODONTIST endarterectomy - coming in on 04/08 POD#1 due to a combination of RLE swelling and decreased oral intake with functional decline. On arrival here, was found to have a RLE DVT and started on IV heparin. Vascular surgery saw patient and plan is for OR on 04/12/25 for mechanical thrombectomy. Patient's Hgb has been dropping to 7.0 on 04/11. No obvious, overt bleeding identified. had the mechanical thrombectomy, plan is for SNF on discharge. Admission and Anticipated Discharge Date Admission Date: April 08, 2025 Subjective Patient is doing better today still has constipation; no BM for days Review of Systems Review of Systems: Constitutionalno fever or chills ENTno blurred vision, no double vision, no epistaxis, no sore throat Respiratoryno cough, no wheezing, no shortness of breath Cardiacno palpitations, no chest pain, no syncope Valdemar nausea, vomiting, diarrhea, melena, hematochezia GUno urinary retention, no urinary incontinence, no dysuria, no hematuria Musculoskeletalright lower extremity swelling. Wound VAC present in the right inguinal region. Right lower extremity surgical sites are unremarkable Skinno bruising, no rashes, no pruritus Neurono isolated weakness, no paresthesia, no weakness Psychno depression, no anxiety Physical Exam Physical Exam: VITALS: Reviewed. WEIGHT/BMI reviewed. GEN: Healthy appearing, well-developed, NAD. PSYCH: Good Judgment. AOx3. Normal memory, mood, and affect. HEENT -Head: NC/AT; -Eyes: PERRL, EOMI. No discharge or redn ess; -Ears: External ears are normal. Normal TMs. -Nose: Normal nares. -Mouth and throat: MMM. Normal gums, muc toña, palate,. Good dentition. NECK: Supple, with no masses. CV: RRR, no m/r/g. LUNGS: CTAB, no w/r/c. ABD: Soft, NT/ND, NBS, no masses or organomegaly. : N/A SKIN: Warm, well perfused. No skin rashes or abnormal lesions. MSK: No deformities, Normal gait. EXT: No clubbing, cyanosis, or edema. NEURO: Ambulating with no limitations. Normal muscle strength and tone. No focal deficits. Results & Data Vital Signs (Past 12 Hours) Vital Signs Temp Pulse Pulse Resp BP Pulse Ox O2 Del Method 04/14/25 16:09 36.6 C 79 23 148/69 H 98 Room Air 04/14/25 15:00 72 04/14/25 11:17 36.6 C 80 21 160/65 H 98 Room Air 04/14/25 08:00 Room Air 04/14/25 07:12 36.7 C 75 21 150/59 H 97 Room Air PG Care Time/CCT Total # of Minutes Spent Total Time Spent with Patient: Total time spent is greater than 50% in coordination of care (as documented) at patient's floor/unit and/or counseling patient: Coding Level of Care Code 20614 SUB INP/OBS CARE 2/35MIN Diagnoses Anemia D64.9 Right leg DVT I82.401 Generalized weakness R53.1 S/P vascular surgery Z98.890 Peripheral arterial disease I73.9 Acute kidney injury N17.9 Edema of right lower extremity R60.0 DM II (diabetes mellitus, type II), controlled E11.9 HTN (hypertension) I10 Coronary artery disease I25.10
[2025-04-15 06:49] LABS: Hematocrit (blood only) 26.3 % (37.0-47.0); Hemoglobin 9.0 g/dl (12.0-16.0); Immature Granulocytes # (auto) 0.37 K/uL (0.01-0.20); Immature Granulocytes % (auto) 4.1 %; Mean Corpuscular Hemoglobin 30.9 pg (25.0-34.0); Mean Corpuscular Volume 90.4 fL (80.0-100.0); Platelet Count 136 K/uL (130-400); RDW Standard Deviation 51.8 fL (36.4-46.3); Red Blood Count 2.91 M/uL (4.20-5.40); White Blood Count 9.07 K/ul (4.8-10.8)
[2025-04-15 07:09] LABS: Anion Gap 8.0 (3-11); Blood Urea Nitrogen 24.0 mg/dl (6-23); Calcium 8.4 mg/dl (8.6-10.3); Carbon Dioxide 20.0 mmol/L (21-32); Chloride 103.0 mmol/L (98-107); Creatinine Clr Calc Pharmacy 52.8 ml/min; Glucose 127.0 mg/dl (70-99(Fasting)); Potassium 4.3 mmol/L (3.5-5.1); Sodium 131.0 mmol/L (136-145)
--- NOTE | 2025-04-15 10:08 | Surgery Progress Note ---
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 Now s/p RLE venogram with mechanical thrombectomy and CFV stent. RLE edema improved. Pt with adequate pain control. Ok for d/c to rehab from vascular standpoint. (2) Anemia: Plan: Pt with large pelvic/retroperitoneal hematoma, no active bleeding on CTA. Hgb stable, vss. Will restart eliquis today. 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 Pt states feeling tired and having some R sided abd pain, but otherwise feeling ok. No new complaints. Review of Systems Review of Systems: All systems reviewed & are unremarkable except as noted in HPI & below Physical Exam Constitutional: WD/WN, vitals as above healthy appearing, cooperative and comfortable; not in distress Cardiovascular: Rate/Rhythm: regular rate and regular rhythm Vessels: posterior tibial pulses present, dorsalis pedis pulses present and radial pulses present; + abnormal peripheral pulses Extremities: normal capillary refill and + edema (+3 RLE, improved from previous.) Gastrointestinal (Abdomen): Inspection/Auscultation: normal bowel sounds Percussion/Palpation: + abdomen tender (RLQ, flank) and abdomen soft Musculoskeletal: no cyanosis or clubbing, extremities motor strength 5/5 Skin: no rashes, warm and dry (Rgroin incision C/D/I, drying blisters, no erythema.+swelling) Neurologic: moves all extremities and awake; no focal motor deficits and not confused Psychiatric: A+Ox3, euthymic affect Results & Data Vital Signs (Past 12 Hours) Vital Signs Temp Pulse Pulse Resp BP Pulse Ox O2 Del Method 04/15/25 08:10 36.4 C L 71 20 169/67 H 96 Room Air 04/15/25 07:00 76 04/15/25 03:39 36.4 C L 82 18 157/68 H 99 Room Air 04/15/25 01:19 74 04/14/25 23:49 36.4 C L 84 20 139/72 98 Room Air
[2025-04-15] MEDS: APIXABAN 5 MG TABLET PO SCH (11:33)
--- NOTE | 2025-04-15 19:17 | Hospitalist Progress Note ---
Date of Service April 15, 2025 Assessment & Plan (1) Anemia: Plan: - patient with acute on chronic anemia - currently on IV heparin - s/p two units pRBCs, Hgb up to >9 04/13 - large pelvic hematoma noted - Hgb dropped to 7.5 - transfusion ordered - plan to hold Eliquis for a few days and then restart - appreciate vascular input 04/14 - remove Sanders - bowel care ordered - continue to hold AC - vascular to decide on when to start Eliquis - Hgb up to >9 (2) Right leg DVT: Plan: went to OR on 04/12/25 for mechanical thrombectomy (3) Generalized weakness: Plan: Adult failure to thrive after recent discharge after vascular surgery of the right lower extremity. She is unable to ambulate. Symptomatic care (4) S/P vascular surgery: Plan: Recent revascularization of the right lower extremity. CTA studies on admission reveal patent arterial circulation. Vascular surgery consultation requested and pending (5) Peripheral arterial disease: Plan: Recent revascularization of the right lower extremity. Vascular surgery consultation requested and pending (6) Acute kidney injury: Plan: Mild. Present on admission. Resolved with IV fluids. Monitor urine output and serial labs (7) Edema of right lower extremity: Plan: Due to extensive right lower extremity DVT and also postoperative after revascularization of right lower extremity. (8) DM II (diabetes mellitus, type II), controlled: Plan: ADA diet. Sliding scale coverage. (9) HTN (hypertension): Plan: Currently stable. Losartan is on hold (10) Coronary artery disease: Plan: Stable. History of coronary artery bypass grafting. Continue current medical management. Plan OT and PT assessments requested along with vascular surgery consultation. She probably will need placement at the time of discharge. This is a 75 year old female with a PMH of DM2, HTN, HLD, CAD w hx of CABG, PAD w recent RLE CONSUMER ADVOCATE endarterectomy - coming in on 04/08 POD#1 due to a combination of RLE swelling and decreased oral intake with functional decline. On arrival here, was found to have a RLE DVT and started on IV heparin. Vascular surgery saw patient and plan is for OR on 04/12/25 for mechanical thrombectomy. Patient's Hgb has been dropping to 7.0 on 04/11. No obvious, overt bleeding identified. had the mechanical thrombectomy, plan is for SNF on discharge. Admission and Anticipated Discharge Date Admission Date: April 08, 2025 Subjective "I am weak. I have not gotten out of this bed since I came to this hospital on 04/08/2025. I need some rehab. I also need something to help my bowels move. I haven't had a bowel movement on Friday (04/10/2025); normally, I have a bowel movement every 3 days. My belly hurts because all of the poo-poo is inside me and needs to come out. Usually, I take miralax at home to move the bowels. Do you have something to help me move my bowels?" Review of Systems Constitutional: Positive for generalized weakness. Positive for constipation/obstipation with last bowel movement on Friday (04/10) in [facility]. Negative for antecedent/coincident fevers, chills, diaphoresis, cough, wheeze, sore throat, hemoptysis, chest pains, palpitations, pleurisy, nausea, vomiting, diarrhea, pelvic pain, hematemesis, hematochezia, melena, hematuria, dysuria, frequency, urgency, headaches, dizziness, lightheadedness, visual changes, hearing changes, falls, syncope, trauma, travel history, sick contacts, or food/drug ingestions novel or new. All other review of systems are reported as negative by the patient on 04/15/2025. Physical Exam Constitutional: General: Uncomfortable with constipation/obstipation, but cooperative and coherent. Wide awake and alert. Not confused, lethargic, or obtunded. Patient speaks in complete, fluent, and articulate sentences, without pause, interruption, cough, or wheeze. HEENT: NC/AT. EOMI. PERRL. No nystagmus, gaze paresis, anisocoria, miosis, mydriasis, chemosis, hyphema, scleral injection, conjunctivitis, pterygium. No otorrhea. No rhinorrhea. Neck: Supple, no stridor, bruit, or goiter. Jugular venous pressure 3 cm above the sternal angle of Gagan, which is typically 5 cm above the right atrium. Lymph: No anterior/posterior cervical lymphadenopathy, supraclavicular/infraclavicular lymphadenopathy, axilla/epitrochlear/inguinal lymphadenopathy. Chest: Symmetric rise and fall with respirations. Non-tender to palpation. Heart: RRR, S1 and S2. No S3 or S4 summation gallop. No tripartite friction rub. No murmur. Lungs: Clear to auscultation and percussion. No audible expiratory wheeze, egophony, pectoriloquy, increase in tactile fremitus, or flatness/dullness to percussion at the bases. Abd: Soft, protuberant due to obesity with BMI 37.6 (height 165.1 cm, wt. 102.5 kg), non-tender, non-distended. Bowel sounds auscultated in all 4 quadrants. No rebound, guarding, Muhammad's sign, or organomegaly. Ext: No clubbing, cyanosis, or edema. 2+ pedal pulses bilaterally. Skin: No decubitus ulcer or enanthem or exanthem. Right upper thigh with discrete areas of denudation without discharge (sanguineous, serous, suppurative), erythema, edema, induration, warmth, tenderness, crepitus, fluctuance, malodor, or lymphangitic streaking. Neuro: Alert and oriented in regards to person, place, time, and situation. No tremors, tics, or myoclonus. DTR+. 5/5 motor strength in all 4 extremities, both proximally and distally. Urology: No sanders catheter. + purewick with 100cc of vane colored urine. No urethral discharge. Results & Data Results & Data Vital Signs (Past 12 Hours) Vital Signs Temp Pulse Pulse Resp BP Pulse Ox O2 Del Method 04/15/25 14:00 75 04/15/25 12:29 36.6 C 85 20 140/80 97 Room Air 04/15/25 09:00 Room Air 04/15/25 08:10 36.4 C L 71 20 169/67 H 96 Room Air Laboratory Results Abnormal lab results 04/14/25 04/15/25 04/15/25 Range/Units 20:47 06:32 07:31 RBC 2.91 L (4.20-5.40) M/uL Hgb 9.0 L (12.0-16.0) g/dl Hct 26.3 L (37.0-47.0) % RDW Std Deviation 51.8 H (36.4-46.3) fL RDW Coeff of Yanni 16.7 H (11.5-14.5) % MPV 9.2 L (9.4-12.4) fL Neut # (Auto) 6.82 H (1.40-6.50) K/uL Lymph # (Auto) 1.18 L (1.20-3.40) K/uL [place] # (Auto) 0.65 H (0.11-0.59) K/uL Immature Gran # (Auto) 0.37 H (0.01-0.20) K/uL Sodium 131 L (136-145) mmol/L Carbon Dioxide 20 L (21-32) mmol/L BUN 24 H (6-23) mg/dl BUN/Creatinine Ratio 22.6 H (10-20) Glucose 127 H (70-99(Fasting)) mg/dl POC Glucose 179 H 124 H (70-99) mg/dl Calcium 8.4 L (8.6-10.3) mg/dl Total Creatine Kinase (26-192) U/L 04/15/25 04/15/25 04/15/25 Range/Units 08:27 11:31 16:13 RBC (4.20-5.40) M/uL Hgb (12.0-16.0) g/dl Hct (37.0-47.0) % RDW Std Deviation (36.4-46.3) fL RDW Coeff of Yanni (11.5-14.5) % MPV (9.4-12.4) fL Neut # (Auto) (1.40-6.50) K/uL Lymph # (Auto) (1.20-3.40) K/uL [place] # (Auto) (0.11-0.59) K/uL Immature Gran # (Auto) (0.01-0.20) K/uL Sodium (136-145) mmol/L Carbon Dioxide (21-32) mmol/L BUN (6-23) mg/dl BUN/Creatinine Ratio (10-20) Glucose (70-99(Fasting)) mg/dl POC Glucose 126 H 129 H (70-99) mg/dl Calcium (8.6-10.3) mg/dl Total Creatine Kinase 23 L (26-192) U/L PG Care Time/CCT Total # of Minutes Spent Total Time Spent with Patient: Total time spent is greater than 50% in coordination of care (as documented) at patient's floor/unit and/or counseling patient: Coding Level of Care Code 99975 SUB INP/OBS CARE 2/35MIN Diagnoses Anemia D64.9 Right leg DVT I82.401 Generalized weakness R53.1 S/P vascular surgery Z98.890 Peripheral arterial disease I73.9 Acute kidney injury N17.9 Edema of right lower extremity R60.0 DM II (diabetes mellitus, type II), controlled E11.9 HTN (hypertension) I10 Coronary artery disease I25.10
[2025-04-15] MEDS: MAGNESIUM CITRATE 296 ML/BTL PO STA (19:24)
[2025-04-16] MEDS: MoRPHine SULFATE 4 MG/ML 1 ML CARP\\VIAL IV STA (02:23)
[2025-04-16] MEDS: MoRPHine SULFATE 4 MG/ML 1 ML CARP\\VIAL IV PRN (08:34)
[2025-04-16 09:27] LABS: Anion Gap 8.0 (3-11); Blood Urea Nitrogen 33.0 mg/dl (6-23); Calcium 8.6 mg/dl (8.6-10.3); Carbon Dioxide 23.0 mmol/L (21-32); Chloride 96.0 mmol/L (98-107); Creatinine Clr Calc Pharmacy 41.4 ml/min; Glucose 139.0 mg/dl (70-99(Fasting)); Potassium 4.8 mmol/L (3.5-5.1); Sodium 127.0 mmol/L (136-145)
[2025-04-16] MEDS: MAGNESIUM CITRATE 296 ML/BTL PO STA (10:10)
[2025-04-16] MEDS: SODIUM CHLORIDE 0.9% 1,000 ML IV SCH (10:11)
[2025-04-16 17:09] LABS: Hematocrit (blood only) 30.3 % (37.0-47.0); Hemoglobin 10.3 g/dl (12.0-16.0); Mean Corpuscular Hemoglobin 31.0 pg (25.0-34.0); Mean Corpuscular Volume 91.3 fL (80.0-100.0); Platelet Count 172 K/uL (130-400); RDW Standard Deviation 52.4 fL (36.4-46.3); Red Blood Count 3.32 M/uL (4.20-5.40); White Blood Count 10.50 K/ul (4.8-10.8)
[2025-04-16 17:13] LABS: Immature Granulocytes # (auto) 0.22 K/uL (0.01-0.20); Immature Granulocytes % (auto) 2.0 %
--- NOTE | 2025-04-16 19:08 | Hospitalist Progress Note ---
Date of Service April 16, 2025 Assessment & Plan (1) Anemia: Plan: - patient with acute on chronic anemia - currently on IV heparin - s/p two units pRBCs, Hgb up to >9 04/13 - large pelvic hematoma noted - Hgb dropped to 7.5 - transfusion ordered - plan to hold Eliquis for a few days and then restart - appreciate vascular input 04/14 - remove Sanders - bowel care ordered - continue to hold AC - vascular to decide on when to start Eliquis - Hgb up to >9 (2) Right leg DVT: Plan: went to OR on 04/12/25 for mechanical thrombectomy (3) Generalized weakness: Plan: Adult failure to thrive after recent discharge after vascular surgery of the right lower extremity. She is unable to ambulate. Symptomatic care (4) S/P vascular surgery: Plan: Recent revascularization of the right lower extremity. CTA studies on admission reveal patent arterial circulation. Vascular surgery consultation requested and pending (5) Peripheral arterial disease: Plan: Recent revascularization of the right lower extremity. Vascular surgery consultation requested and pending (6) Acute kidney injury: Plan: Mild. Present on admission. Resolved with IV fluids. Monitor urine output and serial labs (7) Edema of right lower extremity: Plan: Due to extensive right lower extremity DVT and also postoperative after revascularization of right lower extremity. (8) DM II (diabetes mellitus, type II), controlled: Plan: ADA diet. Sliding scale coverage. (9) HTN (hypertension): Plan: Currently stable. Losartan is on hold (10) Coronary artery disease: Plan: Stable. History of coronary artery bypass grafting. Continue current medical management. Plan OT and PT assessments requested along with vascular surgery consultation. She probably will need placement at the time of discharge. This is a 75 year old female with a PMH of DM2, HTN, HLD, CAD w hx of CABG, PAD w recent RLE GREEN MEAT GRADER endarterectomy - coming in on 04/08 POD#1 due to a combination of RLE swelling and decreased oral intake with functional decline. On arrival here, was found to have a RLE DVT and started on IV heparin. Vascular surgery saw patient and plan is for OR on 04/12/25 for mechanical thrombectomy. Patient's Hgb has been dropping to 7.0 on 04/11. No obvious, overt bleeding identified. had the mechanical thrombectomy, plan is for SNF on discharge. Admission and Anticipated Discharge Date Admission Date: April 08, 2025 Subjective "The magnesium citrate didn't work for me yesterday (04/15/2025, 7:24pm). I have not yet had a bowel movement. I am starting to burp now, too. I also need something to help my bowels move. I haven't had a bowel movement on Friday (04/10/2025); normally, I have a bowel movement every 3 days. My belly hurts because all of the poo-poo is inside me and needs to come out. Usually, I take miralax at home to move the bowels. Do you have something to help me move my bowels?" Review of Systems Constitutional: Positive for generalized weakness. Positive for constipation/obstipation with last bowel movement on Friday (04/10/2025) in [facility]. Negative for antecedent/coincident fevers, chills, diaphoresis, cough, wheeze, sore throat, hemoptysis, chest pains, palpitations, pleurisy, nausea, vomiting, diarrhea, pelvic pain, hematemesis, hematochezia, melena, hematuria, dysuria, frequency, urgency, headaches, dizziness, lightheadedness, visual changes, hearing changes, falls, syncope, trauma, travel history, sick contacts, or food/drug ingestions novel or new. All other review of systems are reported as negative by the patient on 04/16/2025. Physical Exam Constitutional: General: Uncomfortable with constipation/obstipation, but cooperative and coherent. Wide awake and alert. Not confused, lethargic, or obtunded. Patient speaks in complete, fluent, and articulate sentences, without pause, interruption, cough, or wheeze. HEENT: NC/AT. EOMI. PERRL. No nystagmus, gaze paresis, anisocoria, miosis, mydriasis, chemosis, hyphema, scleral injection, conjunctivitis, pterygium. No otorrhea. No rhinorrhea. Neck: Supple, no stridor, bruit, or goiter. Jugular venous pressure 3 cm above the sternal angle of [place], which is typically 5 cm above the right atrium. Lymph: No anterior/posterior cervical lymphadenopathy, supraclavicu lar/infraclavicular lymphadenopathy, axilla/epitrochlear/inguinal lymphadenopathy. Chest: Symmetric rise and fall with respirations. Non-tender to palpation. Heart: RRR, S1 and S2. No S3 or S4 summation gallop. No tripartite friction rub. No murmur. Lungs: Clear to auscultation and percussion. No audible expiratory wheeze, egophony, pectoriloquy, increase in tactile fremitus, or flatness/dullness to percussion at the bases. Abd: Soft, protuberant due to obesity with BMI 37.6 (height 165.1 cm, wt. 102.5 kg), non-tender, non-distended. Bowel sounds auscultated in all 4 quadrants. No rebound, guarding, Muhammad's sign, or organomegaly. Ext: No clubbing, cyanosis, or edema. 2+ pedal pulses bilaterally. Skin: No decubitus ulcer or enanthem or exanthem. Right upper thigh with discrete areas of denudation without discharge (sanguineous, serous, suppurative), erythema, edema, induration, warmth, tenderness, crepitus, fluctuance, malodor, or lymphangitic streaking. Neuro: Alert and oriented in regards to person, place, time, and situation. No tremors, tics, or myoclonus. DTR+. 5/5 motor strength in all 4 extremities, both proximally and distally. Urology: No sanders catheter. + purewick with 100cc of vane colored urine. No urethral discharge. Results & Data Results & Data Vital Signs (Past 12 Hours) Vital Signs Temp Pulse Pulse Resp BP Pulse Ox O2 Del Method 04/16/25 15:50 36.7 C 80 18 148/70 H 98 Room Air 04/16/25 13:48 88 04/16/25 11:11 36.7 C 79 18 134/55 L 97 Room Air 04/16/25 08:53 77 04/16/25 07:47 36.6 C 80 16 135/71 97 Room Air Laboratory Results Abnormal lab results 04/15/25 04/16/25 04/16/25 Range/Units 20:16 07:21 08:51 RBC (4.20-5.40) M/uL Hgb (12.0-16.0) g/dl Hct (37.0-47.0) % RDW Std Deviation (36.4-46.3) fL RDW Coeff of Yanni (11.5-14.5) % MPV (9.4-12.4) fL Neut # (Auto) (1.40-6.50) K/uL Lymph # (Auto) (1.20-3.40) K/uL Immature Gran # (Auto) (0.01-0.20) K/uL Sodium 127 L (136-145) mmol/L Chloride 96 L (98-107) mmol/L BUN 33 H (6-23) mg/dl Creatinine 1.34 H (0.6-1.2) mg/dl BUN/Creatinine Ratio 24.6 H (10-20) Glucose 139 H (70-99(Fasting)) mg/dl POC Glucose 143 H 136 H (70-99) mg/dl 04/16/25 04/16/25 04/16/25 Range/Units 11:20 15:48 16:49 RBC 3.32 L (4.20-5.40) M/uL Hgb 10.3 L (12.0-16.0) g/dl Hct 30.3 L (37.0-47.0) % RDW Std Deviation 52.4 H (36.4-46.3) fL RDW Coeff of Yanni 16.7 H (11.5-14.5) % MPV 9.0 L (9.4-12.4) fL Neut # (Auto) 9.01 H (1.40-6.50) K/uL Lymph # (Auto) 1.04 L (1.20-3.40) K/uL Immature Gran # (Auto) 0.22 H (0.01-0.20) K/uL Sodium (136-145) mmol/L Chloride (98-107) mmol/L BUN (6-23) mg/dl Creatinine (0.6-1.2) mg/dl BUN/Creatinine Ratio (10-20) Glucose (70-99(Fasting)) mg/dl POC Glucose 129 H 129 H (70-99) mg/dl PG Care Time/CCT Total # of Minutes Spent Total Time Spent with Patient: Total time spent is greater than 50% in coordination of care (as documented) at patient's floor/unit and/or counseling patient: Coding Level of Care Code 94138 SUB INP/OBS CARE 2/35MIN Diagnoses Anemia D64.9 Right leg DVT I82.401 Generalized weakness R53.1 S/P vascular surgery Z98.890 Peripheral arterial disease I73.9 Acute kidney injury N17.9 Edema of right lower extremity R60.0 DM II (diabetes mellitus, type II), controlled E11.9 HTN (hypertension) I10 Coronary artery disease I25.10
[2025-04-17 06:32] LABS: Hematocrit (blood only) 23.0 % (37.0-47.0); Hemoglobin 7.6 g/dl (12.0-16.0); Immature Granulocytes # (auto) 0.12 K/uL (0.01-0.20); Immature Granulocytes % (auto) 1.4 %; Mean Corpuscular Hemoglobin 30.6 pg (25.0-34.0); Mean Corpuscular Volume 92.7 fL (80.0-100.0); Platelet Count 159 K/uL (130-400); RDW Standard Deviation 52.9 fL (36.4-46.3); Red Blood Count 2.48 M/uL (4.20-5.40); White Blood Count 8.35 K/ul (4.8-10.8)
[2025-04-17 06:53] LABS: Polychromasia 2+
[2025-04-17 07:20] LABS: Anion Gap 5.0 (3-11); Calcium 8.0 mg/dl (8.6-10.3); Carbon Dioxide 23.0 mmol/L (21-32); Chloride 103.0 mmol/L (98-107); Potassium 4.8 mmol/L (3.5-5.1); Sodium 131.0 mmol/L (136-145)
[2025-04-17 07:25] LABS: Blood Urea Nitrogen 33.0 mg/dl (6-23); Creatinine Clr Calc Pharmacy 50.4 ml/min; Glucose 113.0 mg/dl (70-99(Fasting))
--- NOTE | 2025-04-17 12:00 | XRay Report ---
PA CHEST RADIOGRAPH AND UPRIGHT AND SUPINE AP RADIOGRAPHS OF THE ABDOMEN CLINICAL HISTORY: constipation: eval for stool burden. COMPARISON STUDY: Chest radiograph April 08, 2025. CTA of the abdomen and pelvis April 13, 2025. KUB April 14, 2025. FINDINGS: There are median sternotomy wires. Cardiomediastinal silhouette is unremarkable. No pneumo thorax or pleural effusion is present. There is no consolidation. There is no evidence for free air. The bowel gas pattern is normal. The amount of stool within the colon and rectum is within normal cross its. Right groin surgical clips and skin fe are present. IMPRESSION: 1. No free air or evidence for a bowel obstruction. 2. Amount of stool within normal limits. 3. No acute cardiopulmonary findings. ACT 112: Negative or not required by law. Electronically signed by: Vick Self M.D. 04/17/2025 11:57 AM
[2025-04-17] MEDS: FUROSEMIDE 40 MG TAB PO ONE (16:04)
--- NOTE | 2025-04-17 17:15 | Hospitalist Progress Note ---
Date of Service April 17, 2025 Assessment & Plan (1) Anemia: Plan: - patient with acute on chronic anemia - currently on IV heparin - s/p two units pRBCs, Hgb up to >9 04/13 - large pelvic hematoma noted - Hgb dropped to 7.5 - transfusion ordered - plan to hold Eliquis for a few days and then restart - appreciate vascular input 04/14 - remove Sanders - bowel care ordered - continue to hold AC - vascular to decide on when to start Eliquis - Hgb up to >9 04/15,8, 9: [id number] normocytic, normochromic anemia: cf., Hb 11.4 g/dL (03/24/2023, 6:03am). cf., Hg 11.5 g/dL (10/13/2024, 8:51am). cf., Hb 9.1 g/dL (10/13/2024, 1:52pm). cf., Hb 8.8 g/dL (10/14/2024, 4:12am). cf., Hb 10.5 g/dL (04/06/2025, 9:16am). cf., Hb 11.0 g/dL (04/06/2025, 6:04pm). cf., Hb 10.7 g/dL (04/07/2025, 4:12am). cf., Hb 10.0 g/dL (04/08/2025, 6:47pm).(admission date). cf., Hb 8.5 g/dL (04/09/2025, 8:18am). cf., Hb 7.8 g/dL (04/10/2025, 6:36am). cf., Hb 7.0 g/dL (04/11/2025, 6:12am).(patient subsequently received 2 units of packed RBC transfusions). cf., Hb 7.1 g/dL (04/11/2025, 12:24pm). cf., Hb 9.8 g/dL (04/12/2025, 6:14am). cf., Hb 7.5 g/dL (04/13/2025, 6:32am).(patient subsequently received 2 units of packed RBC transfusions). cf., Hb 9.7 g/dL (04/14/2025, 5:50am). cf., Hb 9.0 g/dL (04/15/2025, 6:32am). cf., Hb 10.3 g/dL (04/16/2025, 4:49pm).(patient subsequently received 3 liters of 0.9% NS @ 101 mL/hr (start date/time, 04/16/2025, 10:11am, 8:09pm; 04/17/2025, 6:14am) to address BUN/gas engine performance engineer 33/1.34 (04/16/2025, 8:51am). cf., Hb 7.6 g/dL (04/17/2025, 6:14am).(decline in Hb levels is most likely due to hemodilution from IV fluid administered on 04/16/2025 and on 04/17/2025, but patient reports "red" urine today; subsequently, U/A with microscopy was ordered (04/17/2025, 5:25pm) to evaluate for hematuria, and apixaban 5mg PO bid x 5 doses administered (on 04/15/2025, 11:33am, 8:38pm; 04/16/2025, 8:28am, 9:52pm; 04/17/2025, 7:37am) has been discontinued on 04/17/2025, 4:00pm. Also, I discontinued 0.9% NS @ 101 mL/hr on 04/17/2025, 4:00pm, and started patient back on her home-scheduled lasix 40mg PO daily (04/17/2024, 4:04pm) to mitigate bilateral leg/to edema. Check repeat Hb on 04/17/2025, 6:00pm and on 04/18/2025, 4:44am and reserve packed RBC transfusion for Hb level < 7 g/dL.) (2) Right leg DVT: Plan: went to OR on 04/12/25 for mechanical thrombectomy (3) Generalized weakness: Plan: Adult failure to thrive after recent discharge after vascular surgery of the right lower extremity. She is unable to ambulate. Symptomatic care (4) S/P vascular surgery: Plan: Recent revascularization of the right lower extremity. CTA studies on admission reveal patent arterial circulation. Vascular surgery consultation requested and pending (5) Peripheral arterial disease: Plan: Recent revascularization of the right lower extremity. Vascular surgery consultation requested and pending (6) Acute kidney injury: Plan: Mild. Present on admission. Resolved with IV fluids. Monitor urine output and serial labs (7) Edema of right lower extremity: Plan: Due to extensive right lower extremity DVT and also postoperative after revascularization of right lower extremity. (8) DM II (diabetes mellitus, type II), controlled: Plan: ADA diet. Sliding scale coverage. (9) HTN (hypertension): Plan: Currently stable. Losartan is on hold (10) Coronary artery disease: Plan: Stable. History of coronary artery bypass grafting. Continue current medical management. Plan OT and PT assessments requested along with vascular surgery consultation. She probably will need placement at the time of discharge. 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 On arrival here, was found to have a RLE DVT and started on IV heparin. Vascular surgery saw patient and plan is for OR on 04/12/25 for mechanical thrombectomy. Patient's Hgb has been dropping to 7.0 on 04/11. No obvious, overt bleeding identified. had the mechanical thrombectomy, plan is for SNF on discharge. Admission and Anticipated Discharge Date Admission Date: April 08, 2025 Subjective "I had a lot of bowel come out yesterday (04/16/2025) and again some bowel came out today (04/17/2025) after that second dose of magnesium citrate (e.g., 296mL PO x 2 doses on 04/15/2025, 7:24pm; 04/16/2025, 10:10am). I feel better, a lot better. Still feel weak. Review of Systems Constitutional: Positive for generalized weakness. Positive for constipation/obstipation with last bowel movement on Friday (04/10/2025) in [facility], RESOLVED on Friday (04/16/2025) with passage of copious amounts of stool after second dose of magnesium citrate (e.g., magnesium citrate 296mL PO x 2 doses on 04/15/2025, 7:24pm; 04/16/2025, 10:10am). Negative for antecedent/coincident fevers, chills, diaphoresis, cough, wheeze, sore throat, hemoptysis, chest pains, palpitations, pleurisy, nausea, vomiting, diarrhea, pelvic pain, hematemesis, hematochezia, melena, hematuria, dysuria, frequency, urgency, headaches, dizziness, lightheadedness, visual changes, hearing changes, falls, syncope, trauma, travel history, sick contacts, or food/drug ingestions novel or new. All other review of systems are reported as negative by the patient on 04/16/2025. Physical Exam Constitutional: General: Comfortable, cooperative and coherent. Wide awake and alert. Not confused, lethargic, or obtunded. Patient speaks in complete, fluent, and articulate sentences, without pause, interruption, cough, or wheeze. HEENT: NC/AT. EOMI. PERRL. No nystagmus, gaze paresis, anisocoria, miosis, mydriasis, chemosis, hyphema, scleral injection, conjunctivitis, pterygium. No otorrhea. No rhinorrhea. Neck: Supple, no stridor, bruit, or goiter. Jugular venous pressure 3 cm above the sternal angle of G[place], which is typically 5 cm above the right atrium. Lymph: No anterior/posterior cervical lymphadenopathy, supraclavicular/infraclavicular lymphadenopathy, axilla/epitrochlear/inguinal lymphadenopathy. Chest: Symmetric rise and fall with respirations. Non-tender to palpation. Heart: RRR, S1 and S2. No S3 or S4 summation gallop. No tripartite friction rub. No murmur. Lungs: Clear to auscultation and percussion. No audible expiratory wheeze, egophony, pectoriloquy, increase in tactile fremitus, or flatness/dullness to percussion at the bases. Abd: Soft, protuberant due to obesity with BMI 37.6 (height 165.1 cm, wt. 102.5 kg), non-tender, non-distended. Bowel sounds auscultated in all 4 quadrants. No rebound, guarding, Muhammad's sign, or organomegaly. Ext: No clubbing, cyanosis, or edema. 2+ pedal pulses bilaterally. Skin: No decubitus ulcer or enanthem or exanthem. Right upper thigh with discrete areas of denudation without discharge (sanguineous, serous, suppurative), erythema, edema, warmth, tenderness, crepitus, fluctuance, malodor, or lymphangitic streaking. Right upper thigh/inguinal region with massive induration (due to "large right inguinal/extraperitoneal right hemipelvis hematoma measuring up to approximately 19 cm" (as reported on 04/13/2025, 7:41am CTA abd/pelvis)). Neuro: Alert and oriented in regards to person, place, time, and situation. No tremors, tics, or myoclonus. DTR+. 5/5 motor strength in all 4 extremities, both proximally and distally. Urology: No sanders catheter. + purewick with 100cc of vane colored urine. No urethral discharge. Results & Data Results & Data Vital Signs (Past 12 Hours) Vital Signs Temp Pulse Pulse Resp BP Pulse Ox O2 Del Method 04/17/25 16:30 36.7 C 68 127/67 96 Room Air 04/17/25 13:00 72 04/17/25 11:58 36.5 C 74 18 125/49 L 92 Room Air 04/17/25 07:32 36.6 C 78 18 145/71 H 95 Room Air 04/17/25 05:30 76 Diagnostic Findings KUB (04/14/2025, 7:00am): 1. Mildly dilated left upper quadrant small bowel loop of uncertain significance. No other bowel distention seen. 2. There is a large amount retained stool at the right colon. CTA abd/pelvis with/without IV contrast (04/13/2025, 7:41am): 1. Status post placement of a right femoral venous stent with surgical clips again noted within the right inguinal tissues. 2. Large right inguinal/extraperitoneal right hemipelvis hematoma measuring up to approximately 19 cm appears stable in size from the study obtained at 5:31 AM this morning. This demonstrates no active arterial extravasation, however there is a tiny focus of extravasation noted on the delayed venogram images. 3. Interval development of mild right-sided hydroureteronephrosis and delayed nephrogram secondary to mass effect upon the urinary bladder and right UVJ from the large hematoma. PG Care Time/CCT Total # of Minutes Spent Total Time Spent with Patient: Total time spent is greater than 50% in coordination of care (as documented) at patient's floor/unit and/or counseling patient: Coding Level of Care Code 73865 SUB INP/OBS CARE 2/35MIN Diagnoses Anemia D64.9 Right leg DVT I82.401 Generalized weakness R53.1 S/P vascular surgery Z98.890 Peripheral arterial disease I73.9 Acute kidney injury N17.9 Edema of right lower extremity R60.0 DM II (diabetes mellitus, type II), controlled E11.9 HTN (hypertension) I10 Coronary artery disease I25.10
[2025-04-17 21:24] LABS: Appearance Urine Cloudy (Clear); Bacteria Urine Automated 3+ (None Seen); Glucose Urine UA Negative (Negative); RBC Urine Automated >20 /hpf (0-2)
[2025-04-18 07:06] LABS: Hematocrit (blood only) 24.7 % (37.0-47.0); Hemoglobin 8.2 g/dl (12.0-16.0); Immature Granulocytes # (auto) 0.13 K/uL (0.01-0.20); Immature Granulocytes % (auto) 1.6 %; Mean Corpuscular Hemoglobin 30.9 pg (25.0-34.0); Mean Corpuscular Volume 93.2 fL (80.0-100.0); Platelet Count 200 K/uL (130-400); RDW Standard Deviation 54.3 fL (36.4-46.3); Red Blood Count 2.65 M/uL (4.20-5.40); White Blood Count 8.06 K/ul (4.8-10.8)
[2025-04-18 07:21] LABS: Anion Gap 6.0 (3-11); Blood Urea Nitrogen 37.0 mg/dl (6-23); Calcium 8.3 mg/dl (8.6-10.3); Carbon Dioxide 24.0 mmol/L (21-32); Chloride 100.0 mmol/L (98-107); Creatinine Clr Calc Pharmacy 43.0 ml/min; Glucose 118.0 mg/dl (70-99(Fasting)); Potassium 4.4 mmol/L (3.5-5.1); Sodium 130.0 mmol/L (136-145)
[2025-04-18] MEDS: FUROSEMIDE 40 MG TAB PO SCH (08:05)
--- NOTE | 2025-04-18 10:10 | Surgery Progress Note ---
Date of Service April 18, 2025 Assessment & Plan (1) Right leg DVT: Plan: Pt with long RLE DVT and severe edema, postop after RLE MARINE OILER endarterectomy. Now s/p RLE venogram with mechanical thrombectomy and CFV stent. RLE edema had improved, however, appears worse today. Pt with adequate pain control. Pt eliquis was held by medicine. Would recommend restart humberto for venous stent patentcy. d/t increased edema, will order RLE venous and IVC/iliac V US to r/o rethrombosis. If negative for DVT/rethrombosis, ok for d/c to rehab on AC. (2) Anemia: Plan: Pt with large pelvic/retroperitoneal hematoma, no active bleeding on CTA last week. Hgb stable, vss. Eliquis was held by medical team yesterday. Will restart today. Admission and Anticipated Discharge Date Admission Date: April 08, 2025 Subjective 75 yo f s/p RLE MARINE OILER redo endarterectomy with bovine patch, now also s/p RLE mechanical thrombectomy with CFV stent placement, seen in f/u today. Pt states feeling ok, undergoing PT presently. Has ambulated to BR and back with walker. No new complaints. Review of Systems Review of Systems: All systems reviewed & are unremarkable except as noted in HPI & below Physical Exam Constitutional: WD/WN, vitals as above healthy appearing, cooperative and comfortable; not in distress Cardiovascular: Vessels: posterior tibial pulses present, dorsalis pedis pulses present and radial pulses present; + abnormal peripheral pulses Extremities: normal capillary refill and + edema (+4 RLE) Gastrointestinal (Abdomen): Inspection/Auscultation: abdomen normal to inspection and normal bowel sounds Percussion/Palpation: + abdomen tender (RLQ, flank) and abdomen soft Musculoskeletal: no cyanosis or clubbing, extremities motor strength 5/5 Skin: no rashes, warm and dry (Rgroin incision C/D/I, drying blisters, no erythema.+swelling) Neurologic: moves all extremities and awake; no focal motor deficits and not confused Psychiatric: A+Ox3, euthymic affect Results & Data Vital Signs (Past 12 Hours) Vital Signs Temp Pulse Pulse Resp BP BP Pulse Ox 04/18/25 07:44 36.3 C L 64 20 136/62 99 04/18/25 03:30 36.4 C L 74 22 127/69 99 04/18/25 00:11 80 04/17/25 23:40 36.3 C L 73 18 144/64 H 97 O2 Del Method 04/18/25 07:44 Room Air 04/18/25 03:30 Room Air 04/18/25 00:11 04/17/25 23:40 Room Air
--- NOTE | 2025-04-18 10:19 | Hospitalist Progress Note ---
Date of Service April 18, 2025 Assessment & Plan (1) Right leg DVT: Plan: Suspected complication of right lower extremity arterial surgery done recently. She underwent mechanical thrombectomy of the right femoral vein this admission on April 12 per vascular surgery. Eliquis has been restarted. (2) Anemia: Plan: Suspected acute blood loss anemia related to her recent surgery. Hemoglobin has now improved to 8.2. Eliquis has been restarted. Hematuria has apparently resolved after Carreno catheter was removed. Will follow (3) Generalized weakness: Plan: Adult failure to thrive after recent discharge after vascular surgery of the right lower extremity, complicated by right lower extremity DVT. She has resultant ambulatory dysfunction. OT and PT recommend SNF placement which is pending at [facility]. (4) S/P vascular surgery: Plan: Recent revascularization of the right lower extremity. CTA studies on admission reveal patent arterial circulation. Vascular surgery consultation and recommendations appreciated (5) Peripheral arterial disease: Plan: Recent revascularization of the right lower extremity. Vascular surgery consultation and recommendations appreciated (6) Acute kidney injury: Plan: Mild. Present on admission. Monitor urine output and serial labs (7) Edema of right lower extremity: Plan: Due to extensive right lower extremity DVT and also postoperative after revascularization of right lower extremity. Should improve now that right lower extremity DVT is being treated. Continue Lasix therapy. (8) DM II (diabetes mellitus, type II), controlled: Plan: ADA diet. Sliding scale coverage while hospitalized. (9) HTN (hypertension): Plan: Currently stable. Losartan has been discontinued (10) Coronary artery disease: Plan: Stable. History of coronary artery bypass grafting. Continue current medical management. Plan Anticipate discharge to [facility] SNF when insurance authorization is received. She is medically stable for discharge. Admission and Anticipated Discharge Date Admission Date: April 08, 2025 Subjective Alert and oriented. No distress. The patient states that her hematuria has resolved but nursing staff states that she is an unreliable historian. I messaged vascular surgery about restarting her Eliquis and it has been reordered today, April 18. Losartan has been discontinued due to mildly elevated creatinine level. Hemoglobin is uptrending, now 8.2 this morning, April 18. Review of Systems 2 Review of Systems: Constitutionalno fever or chills ENTno blurred vision, no double vision, no epistaxis, no sore throat Respiratoryno cough, no wheezing, no shortness of breath Cardiacno palpitations, no chest pain, no syncope [place]ar nausea, vomiting, diarrhea, melena, hematochezia GUno urinary retention, no urinary incontinence, no dysuria, no hematuria Musculoskeletalno joint pain, no muscle tenderness Skinno bruising, no rashes, no pruritus. Wound VAC in place right inguinal region Neurono isolated weakness, no paresthesia, no weakness Psychno depression, no anxiety Physical Exam 2 Physical Exam: General-alert and oriented x3, no fever, no chills HEENT-head atraumatic and normocephalic, pupils equal and reactive to light, extraocular muscles intact Neck-no lymphadenopathy or thyromegaly, trachea midline Chest-clear to auscultation. No rales, wheezing or rhonchi Cardiac-regular rate and rhythm, normal S1 and S2 Abdomen-normal bowel sounds, no hepatosplenomegaly Extremities-bilateral lower extremity edema noted, more pronounced on the right. Wound VAC present right inguinal region. Neuro-cranial nerves II through XII intact, motor and sensory function within normal limits, strength symmetrical, no focal deficits Psych-normal affect, normal mood Results & Data Results & Data Vital Signs (Past 12 Hours) Vital Signs Temp Pulse Pulse Resp BP BP Pulse Ox 04/18/25 07:44 36.3 C L 64 20 136/62 99 04/18/25 03:30 36.4 C L 74 22 127/69 99 04/18/25 00:11 80 04/17/25 23:40 36.3 C L 73 18 144/64 H 97 O2 Del Method 04/18/25 07:44 Room Air 04/18/25 03:30 Room Air 04/18/25 00:11 04/17/25 23:40 Room Air Laboratory Results 04/18/25 06:40 04/18/25 06:40 PG Care Time/CCT Total # of Minutes Spent Total Time Spent with Patient: Total time spent is greater than 50% in coordination of care (as documented) at patient's floor/unit and/or counseling patient: Coding Level of Care Code 86956 SUB INP/OBS CARE 3/50MIN Diagnoses Right leg DVT I82.401 Anemia D64.9 Generalized weakness R53.1 S/P vascular surgery Z98.890 Peripheral arterial disease I73.9 Acute kidney injury N17.9 Edema of right lower extremity R60.0 DM II (diabetes mellitus, type II), controlled E11.9 HTN (hypertension) I10 Coronary artery disease I25.10
[2025-04-18] MEDS: APIXABAN 5 MG TABLET PO SCH (10:41)
--- NOTE | 2025-04-18 12:38 | Ultrasound Report ---
RIGHT LOWER EXTREMITY VENOUS DOPPLER CLINICAL HISTORY: RLE edema, r/o DVT. Recent thrombectomy. COMPARISON STUDY: Right lower extremity venous Doppler ultrasound April 09, 2025. CTA of the abdom en and pelvis April 13, 2025. TECHNIQUE: Sonography of the deep venous system of the right lower extremity was performed. Compress ion and augmentation were evaluated. FINDINGS: This exam is compromised by suboptimal penetration. There is occlusive deep venous thrombus within the right common femoral, superficial femoral and popliteal veins. There is also superficial thrombus within the right greater saphenous vein. The amount of thrombus appears similar to ultrasoun d of April 09, 2025. Therefore, this favors recurrent thrombosis following thrombectomy. Right calf vessels were not well visualized on this exam. A 6.6 x 6.5 x 3.8 cm complex medial right thigh fluid collection represents a hematoma which is similar in size to CT of April 13, 2025. This contains n o color flow. IMPRESSION: 1. Occlusive deep venous thrombus within the right common femoral, superficial femoral and popliteal veins with superficial thrombus within the greater saphenous vein. Amount of thrombus similar to prio r ultrasound suggestive of recurrent thrombosis. 2. No significant change in size of a medial right thigh hematoma since prior CT of April 13, 2025. ACT 112: Negative or not required by law. Electronically signed by: Vick Self M.D. 04/18/2025 12:37 PM
--- NOTE | 2025-04-18 12:49 | Ultrasound Report ---
US duplex aorta/iliacs/IVC ltd CLINICAL HISTORY: RLE edema, r/o DVT COMPARISON STUDY: Lower extremity Doppler earlier today. CT of 04/13/2025. FINDINGS: Portion of the IVC is obscured. IVC in the region of the liver shows no evidence of thrombu s or occlusion. No evidence of thrombus or occlusion seen at the left iliac vein. Evaluation of the r ight iliac vein is limited by overlying bowel gas, nondiagnostic. The known pelvic hematoma is partia lly visualized. IMPRESSION: Limited exam. Nondiagnostic evaluation of the right iliac vein. No thrombus seen in the left iliac vein. No thrombus seen in the visualized portion of the IVC. ACT 112: Negative or not required by law. Electronically signed by: Willy Francois M.D. 04/18/2025 12:47 PM
--- NOTE | 2025-04-18 12:59 | Communication Note ---
Date of Service: April 18, 2025 Patient's leg improved after initial mechanical thrombectomy. It looks like she had slightly tinged urine this weekend and her anticoag was stopped. Her leg today is markedly more swollen. She had a repeat usn today which showed recurrent thrombosis of her right femoral and common femoral vein. Would recommend heparinization at this time. We will discuss with her tomorrow about doing a repeat mechanical thrombectomy of her right lower extremity. Recommend we hold off on eliquis until the thrombecotmy is completed. It looks like we can do it on Friday.
[2025-04-18] MEDS: HEPARIN 25000 UNIT/500 ML D5W 25,000 UNITS/500 ML BAG IV SCH (15:11)
[2025-04-18] MEDS: HEPARIN SOD (PORCINE) 1000 UNIT/ML IV ONE (15:11)
[2025-04-18] MEDS: Heparin IV Adult Wt-Based Standard w/ INITIAL Bolus Protocol IV STA (15:20)
[2025-04-18 15:36] LABS: INR 1.1 (0.9-1.1); Partial Thromboplastin Time 30 Seconds (21-31); Prothrombin Time 11.3 Seconds (9.0-12.0)
--- NOTE | 2025-04-18 18:30 | XRay Report ---
Abdominal radiograph, one view History: Abdominal pain Comparison: 04/13/2025 Findings: Single AP view of the abdomen performed. The bowel gas pattern appears nonobstructive. Colonic stool burden appears mild to moderate. Mild air partially visualized in the stomach. No pneumatosis or portal venous gas. No abnormal calcifications project over the abdomen. No acute abnormality of the bony structures. Surgical clips as well as a staple line overlies the right groin region. Impression: Nonobstructive bowel gas pattern Electronically signed by Gabe Arvizu 04-18-2025 6:29 PM
[2025-04-18] MEDS: POLYETHYLENE (MIRALAX) 17 GM PACK PO ONE (20:14)
[2025-04-18] MEDS: DOCUSATE SODIUM 100 MG CAP PO SCH (20:14)
[2025-04-18 22:02] LABS: ANTI-Xa, UFH(UnfractionatedHep > 1.50 IU/ml (0.3-0.7)
[2025-04-18 23:56] LABS: ANTI-Xa, UFH(UnfractionatedHep > 1.50 IU/ml (0.3-0.7)
[2025-04-19 01:18] LABS: ANTI-Xa, UFH(UnfractionatedHep > 1.50 IU/ml (0.3-0.7)
[2025-04-19 02:55] LABS: ANTI-Xa, UFH(UnfractionatedHep 1.35 IU/ml (0.3-0.7)
[2025-04-19 06:05] LABS: Hematocrit (blood only) 23.5 % (37.0-47.0); Hemoglobin 7.9 g/dl (12.0-16.0); Immature Granulocytes # (auto) 0.11 K/uL (0.01-0.20); Immature Granulocytes % (auto) 1.3 %; Mean Corpuscular Hemoglobin 31.0 pg (25.0-34.0); Mean Corpuscular Volume 92.2 fL (80.0-100.0); Platelet Count 238 K/uL (130-400); RDW Standard Deviation 53.4 fL (36.4-46.3); Red Blood Count 2.55 M/uL (4.20-5.40); White Blood Count 8.55 K/ul (4.8-10.8)
[2025-04-19 06:26] LABS: Anion Gap 8.0 (3-11); Blood Urea Nitrogen 39.0 mg/dl (6-23); Calcium 8.4 mg/dl (8.6-10.3); Carbon Dioxide 22.0 mmol/L (21-32); Chloride 100.0 mmol/L (98-107); Creatinine Clr Calc Pharmacy 46.6 ml/min; Glucose 116.0 mg/dl (70-99(Fasting)); Potassium 4.8 mmol/L (3.5-5.1); Sodium 130.0 mmol/L (136-145)
[2025-04-19 06:39] LABS: Polychromasia 1+; Toxic Granulation 1+
[2025-04-19 06:55] LABS: ANTI-Xa, UFH(UnfractionatedHep 1.20 IU/ml (0.3-0.7)
[2025-04-19 08:43] LABS: ANTI-Xa, UFH(UnfractionatedHep 1.15 IU/ml (0.3-0.7)
[2025-04-19 10:44] LABS: ANTI-Xa, UFH(UnfractionatedHep 0.81 IU/ml (0.3-0.7)
--- NOTE | 2025-04-19 12:00 | Hospitalist Progress Note ---
Date of Service April 19, 2025 Assessment & Plan (1) Right leg DVT: Plan: Suspected complication of right lower extremity arterial surgery done recently. She underwent mechanical thrombectomy of the right femoral vein this admission on April 12 per vascular surgery. This procedure will be repeated again tomorrow, April 20. Eliquis is on hold and she is currently on a heparin drip. (2) Anemia: Plan: Suspected acute blood loss anemia related to her recent surgery. Hemoglobin is stable at 7.9. She is now on a heparin drip and Eliquis has been placed on hold. Hematuria resolved after Carreno catheter was removed. Will follow (3) Generalized weakness: Plan: Adult failure to thrive after recent discharge after vascular surgery of the right lower extremity, complicated by right lower extremity DVT. She has resultant ambulatory dysfunction. OT and PT recommend SNF placement which is pending at [facility]. (4) S/P vascular surgery: Plan: Recent revascularization of the right lower extremity. CTA studies on admission reveal patent arterial circulation. Vascular surgery consultation and recommendations appreciated (5) Peripheral arterial disease: Plan: Recent revascularization of the right lower extremity. Vascular surgery consultation and recommendations appreciated (6) Acute kidney injury: Plan: Mild. Present on admission. Monitor urine output and serial labs (7) Edema of right lower extremity: Plan: Due to extensive right lower extremity DVT and also postoperative after revascularization of right lower extremity. Edema should eventually resolve with treatment of right lower extremity DVT. Continue Lasix therapy. (8) DM II (diabetes mellitus, type II), controlled: Plan: ADA diet. Sliding scale coverage while hospitalized. (9) HTN (hypertension): Plan: Currently stable. Losartan has been discontinued (10) Coronary artery disease: Plan: Stable. History of coronary artery bypass grafting. Continue current medical management. Plan Anticipate discharge to [facility] SNF hopefully later this week. Admission and Anticipated Discharge Date Admission Date: April 08, 2025 Subjective Alert and oriented. No distress. Hemoglobin remained stable on heparin drip. She will undergo repeat right lower extremity venous thrombectomy tomorrow, April 20. Blood pressure remains stable. Losartan has been discontinued. Creatinine has trended downward to 1.2. Review of Systems 2 Review of Systems: Constitutionalno fever or chills ENTno blurred vision, no double vision, no epistaxis, no sore throat Respiratoryno cough, no wheezing, no shortness of breath Cardiacno palpitations, no chest pain, no syncope Valdemar nausea, vomiting, diarrhea, melena, hematochezia GUno urinary retention, no urinary incontinence, no dysuria, no hematuria Musculoskeletalno joint pain, no muscle tenderness Skinno bruising, no rashes, no pruritus. Wound VAC in place right inguinal region Neurono isolated weakness, no paresthesia, no weakness Psychno depression, no anxiety Physical Exam 2 Physical Exam: General-alert and oriented x3, no fever, no chills HEENT-head atraumatic and normocephalic, pupils equal and reactive to light, extraocular muscles intact Neck-no lymphadenopathy or thyromegaly, trachea midline Chest-clear to auscultation. No rales, wheezing or rhonchi Cardiac-regular rate and rhythm, normal S1 and S2 Abdomen-normal bowel sounds, no hepatosplenomegaly Extremities-bilateral lower extremity edema noted, more pronounced on the right. Wound VAC present right inguinal region. Neuro-cranial nerves II through XII intact, motor and sensory function within normal limits, strength symmetrical, no focal deficits Psych-normal affect, normal mood Results & Data Results & Data Vital Signs (Past 12 Hours) Vital Signs Temp Pulse Pulse Resp BP BP Pulse Ox 04/19/25 11:17 77 04/19/25 11:01 36.8 C 73 18 135/72 97 04/19/25 08:14 36.6 C 68 18 150/61 H 98 04/19/25 02:29 36.3 C L 72 18 155/71 H 99 O2 Del Method 04/19/25 11:17 04/19/25 11:01 Room Air 04/19/25 08:14 Room Air 04/19/25 02:29 Room Air Laboratory Results 04/19/25 05:48 04/19/25 05:48 PG Care Time/CCT Total # of Minutes Spent Total Time Spent with Patient: Total time spent is greater than 50% in coordination of care (as documented) at patient's floor/unit and/or counseling patient: Coding Level of Care Code 48621 SUB INP/OBS CARE 2/35MIN Diagnoses Right leg DVT I82.401 Anemia D64.9 Generalized weakness R53.1 S/P vascular surgery Z98.890 Peripheral arterial disease I73.9 Acute kidney injury N17.9 Edema of right lower extremity R60.0 DM II (diabetes mellitus, type II), controlled E11.9 HTN (hypertension) I10 Coronary artery disease I25.10
[2025-04-19 12:13] LABS: ANTI-Xa, UFH(UnfractionatedHep 0.73 IU/ml (0.3-0.7)
[2025-04-19 13:12] LABS: ANTI-Xa, UFH(UnfractionatedHep 0.74 IU/ml (0.3-0.7)
--- NOTE | 2025-04-19 13:25 | Surgery Progress Note ---
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 Now s/p RLE venogram with mechanical thrombectomy and CFV stent on 04/12. RLE edema had improved, however, appeared worse yesterday. New venous US imaging done yesterday demonstrated rethrombosis of RLE femoral vein. Pt restarted on heparin. Pt discussed at length with Dr Stephenson. d/t severe RLE edema and extensive proximal DVT, recommend pt undergo a RLE venogram and mechanical thrombectomy later this week. Pt is agreeable. If her AC can remain uninterrupted postop, will hopefully have improved mcfp results. (2) Anemia: Plan: Pt with large pelvic/retroperitoneal hematoma, no active bleeding on CTA last week. Hgb remains stable, vss. Pt currently on heparin for acute DVT. Admission and Anticipated Discharge Date Admission Date: April 08, 2025 Subjective 75 yo f now 2 wks s/p RLE redo COLORING CHECKER endarterectomy with bovine patch, and 1 wk s/p RLE venogram with mechanical thrombectomy and CFV stent placement, seen in f/u today. Pt states RLE pain is same, no different. States her edema is the same as well. No new complaints. Review of Systems Review of Systems: All systems reviewed & are unremarkable except as noted in HPI & below Physical Exam Constitutional: WD/WN, vitals as above healthy appearing, cooperative and comfortable; not in distress Respiratory: normal respiratory effort, lungs clear to auscultation Auscultation: + diminished lung sounds Cardiovascular: Rate/Rhythm: regular rate and regular rhythm Vessels: posterior tibial pulses present, dorsalis pedis pulses present and radial pulses present; + abnormal peripheral pulses Extremities: normal capillary refill and + edema (+4 RLE) Gastrointestinal (Abdomen): Inspection/Auscultation: abdomen normal to inspection and normal bowel sounds Percussion/Palpation: + abdomen tender (RLQ, flank) and abdomen soft Musculoskeletal: no cyanosis or clubbing, extremities motor strength 5/5 Skin: no rashes, warm and dry (Rgroin incision C/D/I, drying blisters, no erythema.+swelling) Neurologic: moves all extremities and awake; no focal motor deficits and not confused Psychiatric: A+Ox3, euthymic affect Results & Data Vital Signs (Past 12 Hours) Vital Signs Temp Pulse Pulse Resp BP BP Pulse Ox 04/19/25 11:17 77 04/19/25 11:01 36.8 C 73 18 135/72 97 04/19/25 08:14 36.6 C 68 18 150/61 H 98 04/19/25 02:29 36.3 C L 72 18 155/71 H 99 O2 Del Method 04/19/25 11:17 04/19/25 11:01 Room Air 04/19/25 08:14 Room Air 04/19/25 02:29 Room Air
[2025-04-19 14:45] LABS: ANTI-Xa, UFH(UnfractionatedHep 0.73 IU/ml (0.3-0.7)
[2025-04-19 16:28] LABS: ANTI-Xa, UFH(UnfractionatedHep 0.70 IU/ml (0.3-0.7)
[2025-04-19] MEDS: MAGNESIUM CITRATE 296 ML/BTL PO STA (17:39)
[2025-04-20 01:22] LABS: ANTI-Xa, UFH(UnfractionatedHep 0.85 IU/ml (0.3-0.7)
[2025-04-20 07:16] LABS: Hematocrit (blood only) 23.9 % (37.0-47.0); Hemoglobin 8.0 g/dL (12.0-16.0); Immature Granulocytes # (auto) 0.09 K/uL (0.01-0.20); Immature Granulocytes % (auto) 1.1 %; Mean Corpuscular Hemoglobin 30.9 pg (25.0-34.0); Mean Corpuscular Volume 92.3 fL (80.0-100.0); Platelet Count 275 K/uL (130-400); RDW Standard Deviation 54.4 fL (36.4-46.3); Red Blood Count 2.59 M/uL (4.20-5.40); White Blood Count 8.00 K/ul (4.8-10.8)
[2025-04-20 07:34] LABS: Anion Gap 7.0 (3-11); Blood Urea Nitrogen 33.0 mg/dl (6-23); Calcium 8.6 mg/dl (8.6-10.3); Carbon Dioxide 25.0 mmol/L (21-32); Chloride 100.0 mmol/L (98-107); Creatinine Clr Calc Pharmacy 51.7 ml/min; Glucose 111.0 mg/dl (70-99(Fasting)); Potassium 4.7 mmol/L (3.5-5.1); Sodium 132.0 mmol/L (136-145)
[2025-04-20 08:09] LABS: ANTI-Xa, UFH(UnfractionatedHep 0.82 IU/ml (0.3-0.7)
--- NOTE | 2025-04-20 11:23 | Hospitalist Progress Note ---
Date of Service April 20, 2025 Assessment & Plan (1) Right leg DVT: Plan: Suspected complication of right lower extremity arterial surgery done recently. She underwent mechanical thrombectomy of the right femoral vein this admission on April 12 per vascular surgery. This procedure will be repeated again on April 22. Eliquis is on hold and she is currently on a heparin drip. (2) Anemia: Plan: Suspected acute blood loss anemia related to her recent surgery. Hemoglobin is stable at 8.0. She is now on a heparin drip and Eliquis has been placed on hold. Hematuria resolved after Carreno catheter was removed. Will follow (3) Generalized weakness: Plan: Adult failure to thrive after recent discharge after vascular surgery of the right lower extremity, complicated by right lower extremity DVT. She has resultant ambulatory dysfunction. OT and PT recommend SNF placement which is pending at [facility]. (4) S/P vascular surgery: Plan: Recent revascularization of the right lower extremity. CTA studies on admission reveal patent arterial circulation. Vascular surgery consultation and recommendations appreciated (5) Peripheral arterial disease: Plan: Recent revascularization of the right lower extremity. Vascular surgery consultation and recommendations appreciated (6) Acute kidney injury: Plan: Mild. Present on admission. Now resolved. Monitor urine output and serial labs (7) Edema of right lower extremity: Plan: Due to extensive right lower extremity DVT and also postoperative after revascularization of right lower extremity. Edema should eventually resolve with treatment of right lower extremity DVT. Continue Lasix therapy. (8) DM II (diabetes mellitus, type II), controlled: Plan: ADA diet. Sliding scale coverage while hospitalized. (9) HTN (hypertension): Plan: Currently stable. Losartan has been discontinued (10) Coronary artery disease: Plan: Stable. History of coronary artery bypass grafting. Continue current medical management. Plan Anticipate eventual discharge to [facility] SNF. Admission and Anticipated Discharge Date Admission Date: April 08, 2025 Subjective The patient is awake and alert without complaint. Family states that her orientation is a bit off. I reassured them that this should resolve eventually and is not permanent. Unfortunately, the repeat thrombectomy procedure has been delayed until this April 22. She remains on a heparin drip. Hemoglobin remains stable at 8.0. Creatinine continues to improve, now down to 1.0. She remains off losartan. Review of Systems 2 Review of Systems: Constitutionalno fever or chills ENTno blurred vision, no double vision, no epistaxis, no sore throat Respiratoryno cough, no wheezing, no shortness of breath Cardiacno palpitations, no chest pain, no syncope Valdemar nausea, vomiting, diarrhea, melena, hematochezia GUno urinary retention, no urinary incontinence, no dysuria, no hematuria Musculoskeletalno joint pain, no muscle tenderness Skinno bruising, no rashes, no pruritus. Wound VAC in place right inguinal region Neurono isolated weakness, no paresthesia, no weakness Psychno depression, no anxiety Physical Exam 2 Physical Exam: General-alert and oriented x3, no fever, no chills HEENT-head atraumatic and normocephalic, pupils equal and reactive to light, extraocular muscles intact Neck-no lymphadenopathy or thyromegaly, trachea midline Chest-clear to auscultation. No rales, wheezing or rhonchi Cardiac-regular rate and rhythm, normal S1 and S2 Abdomen-normal bowel sounds, no hepatosplenomegaly Extremities-bilateral lower extremity edema noted, more pronounced on the right. Wound VAC present right inguinal region. Neuro-cranial nerves II through XII intact, motor and sensory function within normal limits, strength symmetrical, no focal deficits Psych-normal affect, normal mood Results & Data Results & Data Vital Signs (Past 12 Hours) Vital Signs Temp Pulse Resp BP Pulse Ox O2 Del Method 04/20/25 08:40 Room Air 04/20/25 07:41 36.4 C L 69 18 154/76 H 98 Room Air 04/20/25 02:42 36.6 C 74 20 137/79 99 Room Air Laboratory Results 04/20/25 06:50 04/20/25 06:50 PG Care Time/CCT Total # of Minutes Spent Total Time Spent with Patient: Total time spent is greater than 50% in coordination of care (as documented) at patient's floor/unit and/or counseling patient: Coding Level of Care Code 66727 SUB INP/OBS CARE 2/35MIN Diagnoses Right leg DVT I82.401 Anemia D64.9 Generalized weakness R53.1 S/P vascular surgery Z98.890 Peripheral arterial disease I73.9 Acute kidney injury N17.9 Edema of right lower extremity R60.0 DM II (diabetes mellitus, type II), controlled E11.9 HTN (hypertension) I10 Coronary artery disease I25.10
[2025-04-20 17:21] LABS: ANTI-Xa, UFH(UnfractionatedHep 0.47 IU/ml (0.3-0.7)
[2025-04-21 06:49] LABS: Hematocrit (blood only) 23.9 % (37.0-47.0); Hemoglobin 8.0 g/dL (12.0-16.0); Immature Granulocytes # (auto) 0.09 K/uL (0.01-0.20); Immature Granulocytes % (auto) 1.2 %; Mean Corpuscular Hemoglobin 30.9 pg (25.0-34.0); Mean Corpuscular Volume 92.3 fL (80.0-100.0); Platelet Count 284 K/uL (130-400); RDW Standard Deviation 55.1 fL (36.4-46.3); Red Blood Count 2.59 M/uL (4.20-5.40); White Blood Count 7.25 K/ul (4.8-10.8)
[2025-04-21 07:12] LABS: ANTI-Xa, UFH(UnfractionatedHep 0.20 IU/ml (0.3-0.7)
[2025-04-21 07:29] LABS: Anion Gap 7.0 (3-11); Calcium 8.4 mg/dl (8.6-10.3); Carbon Dioxide 25.0 mmol/L (21-32); Chloride 102.0 mmol/L (98-107); Potassium 4.4 mmol/L (3.5-5.1); Sodium 134.0 mmol/L (136-145)
[2025-04-21 07:35] LABS: Blood Urea Nitrogen 26.0 mg/dl (6-23); Creatinine Clr Calc Pharmacy 52.6 ml/min; Glucose 117.0 mg/dl (70-99(Fasting))
[2025-04-21] MEDS ORDERED: SODIUM CHLORIDE 0.9% 100 ML IV PRN ×2 (07:54→08:03)
--- NOTE | 2025-04-21 13:04 | Surgery Progress Note ---
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 Now s/p RLE venogram with mechanical thrombectomy and CFV stent on 04/12. She had reoccluded her venous system of the right lower extremity. Plan on mechanical thrombectomy tomorrow. I have discussed the risks options and benefits of the procedure with the patient. The patient understands the risks options and benefits and agrees to the procedure. (2) Anemia: Plan: Will transfuse 1 unit today due to procedure tomorrow. Hgb remains stable Admission and Anticipated Discharge Date Admission Date: April 08, 2025 Subjective Patient with reocclusion of her right lower extremity venous system while off anticoag. Will attempt a [facility] thrombectomy tomorrow. Physical Exam Constitutional: WD/WN, vitals as above Respiratory: normal respiratory effort; no respiratory distress Cardiovascular: Rate/Rhythm: regular rate and regular rhythm Extremities: + edema (marked edema right lower extremity) Neurologic: CN's II-XI intact bilaterally and moves all extremities Psychiatric: A+Ox3, euthymic affect Results & Data Vital Signs (Past 12 Hours) Vital Signs Temp Pulse Pulse Resp BP BP Pulse Ox 04/21/25 12:57 36.6 C 69 18 132/66 100 04/21/25 11:57 36.7 C 70 18 137/61 96 04/21/25 10:57 36.8 C 67 18 124/68 96 04/21/25 10:27 36.3 C L 72 16 120/47 L 98 04/21/25 10:12 36.7 C 78 18 130/48 L 96 04/21/25 09:52 36.6 C 70 18 148/69 H 96 04/21/25 08:40 04/21/25 08:39 36.7 C 71 18 134/72 99 04/21/25 07:40 75 04/21/25 04:27 37.2 C 82 18 152/59 H 96 O2 Del Method O2 Flow Rate 04/21/25 12:57 0 04/21/25 11:57 0 04/21/25 10:57 04/21/25 10:27 04/21/25 10:12 0 04/21/25 09:52 0 04/21/25 08:40 Room Air 04/21/25 08:39 Room Air 04/21/25 07:40 04/21/25 04:27 Room Air
--- NOTE | 2025-04-21 13:24 | Hospitalist Progress Note ---
Date of Service April 21, 2025 Assessment & Plan (1) Right leg DVT: Plan: Suspected complication of right lower extremity arterial surgery done recently. She underwent mechanical thrombectomy of the right femoral vein this admission on April 12 per vascular surgery. This procedure will be repeated again on April 22. Eliquis is on hold and she is currently on a heparin drip. (2) Anemia: Plan: Suspected acute blood loss anemia related to her recent surgery. Hemoglobin is stable at 8.0. She is now on a heparin drip and Eliquis has been placed on hold. Hematuria resolved after Carreno catheter was removed. Vascular team is ordered 1 unit packed red blood cell transfusion today, April 21. Will follow (3) Generalized weakness: Plan: Adult failure to thrive after recent discharge after vascular surgery of the right lower extremity, complicated by right lower extremity DVT. She has resultant ambulatory dysfunction. OT and PT recommend SNF placement which is pending at [facility]. Family however has stated that they simply want to take her home at the time of discharge. (4) S/P vascular surgery: Plan: Recent revascularization of the right lower extremity. CTA studies on admission reveal patent arterial circulation. Vascular surgery consultation and recommendations appreciated (5) Peripheral arterial disease: Plan: Recent revascularization of the right lower extremity. Vascular surgery consultation and recommendations appreciated (6) Acute kidney injury: Plan: Mild on admission. Now resolved. Monitor urine output and serial labs (7) Edema of right lower extremity: Plan: Due to extensive right lower extremity DVT and also postoperative after revascularization of right lower extremity. Edema should eventually resolve with treatment of right lower extremity DVT. Continue Lasix therapy. (8) DM II (diabetes mellitus, type II), controlled: Plan: ADA diet. Sliding scale coverage while hospitalized. (9) HTN (hypertension): Plan: Currently stable. Losartan has been discontinued (10) Coronary artery disease: Plan: Stable. History of coronary artery bypass grafting. Continue current medical management. Plan Anticipate eventual discharge to either [facility] SNF or home with home health services. Admission and Anticipated Discharge Date Admission Date: April 08, 2025 Subjective Alert and oriented. No distress. Vascular team has ordered 1 unit packed red blood cell transfusion for hemoglobin 8.0. She remains on heparin drip and Eliquis is on hold. Blood pressure stable off losartan. She will undergo repeat right lower extremity venous thrombectomy tomorrow, April 22 Review of Systems 2 Review of Systems: Constitutionalno fever or chills ENTno blurred vision, no double vision, no epistaxis, no sore throat Respiratoryno cough, no wheezing, no shortness of breath Cardiacno palpitations, no chest pain, no syncope Valdemar nausea, vomiting, diarrhea, melena, hematochezia GUno urinary retention, no urinary incontinence, no dysuria, no hematuria Musculoskeletalno joint pain, no muscle tenderness Skinno bruising, no rashes, no pruritus. Wound VAC in place right inguinal region Neurono isolated weakness, no paresthesia, no weakness Psychno depression, no anxiety Physical Exam 2 Physical Exam: General-alert and oriented x3, no fever, no chills HEENT-head atraumatic and normocephalic, pupils equal and reactive to light, extraocular muscles intact Neck-no lymphadenopathy or thyromegaly, trachea midline Chest-clear to auscultation. No rales, wheezing or rhonchi Cardiac-regular rate and rhythm, normal S1 and S2 Abdomen-normal bowel sounds, no hepatosplenomegaly Extremities-bilateral lower extremity edema noted, more pronounced on the right. Wound VAC present right inguinal region. Neuro-cranial nerves II through XII intact, motor and sensory function within normal limits, strength symmetrical, no focal deficits Psych-normal affect, normal mood Results & Data Results & Data Vital Signs (Past 12 Hours) Vital Signs Temp Pulse Pulse Resp BP BP Pulse Ox 04/21/25 12:57 36.6 C 69 18 132/66 100 04/21/25 11:57 36.7 C 70 18 137/61 96 04/21/25 10:57 36.8 C 67 18 124/68 96 04/21/25 10:27 36.3 C L 72 16 120/47 L 98 04/21/25 10:12 36.7 C 78 18 130/48 L 96 04/21/25 09:52 36.6 C 70 18 148/69 H 96 04/21/25 08:40 04/21/25 08:39 36.7 C 71 18 134/72 99 04/21/25 07:40 75 04/21/25 04:27 37.2 C 82 18 152/59 H 96 O2 Del Method O2 Flow Rate 04/21/25 12:57 0 04/21/25 11:57 0 04/21/25 10:57 04/21/25 10:27 04/21/25 10:12 0 04/21/25 09:52 0 04/21/25 08:40 Room Air 04/21/25 08:39 Room Air 04/21/25 07:40 04/21/25 04:27 Room Air Laboratory Results 04/21/25 06:35 04/21/25 06:35 PG Care Time/CCT Total # of Minutes Spent Total Time Spent with Patient: Total time spent is greater than 50% in coordination of care (as documented) at patient's floor/unit and/or counseling patient: Coding Level of Care Code 25164 SUB INP/OBS CARE 2/35MIN Diagnoses Right leg DVT I82.401 Anemia D64.9 Generalized weakness R53.1 S/P vascular surgery Z98.890 Peripheral arterial disease I73.9 Acute kidney injury N17.9 Edema of right lower extremity R60.0 DM II (diabetes mellitus, type II), controlled E11.9 HTN (hypertension) I10 Coronary artery disease I25.10
[2025-04-21 16:11] LABS: Hematocrit (blood only) 28.5 % (37.0-47.0); Hemoglobin 9.5 g/dL (12.0-16.0)
[2025-04-21 16:30] LABS: ANTI-Xa, UFH(UnfractionatedHep 0.23 IU/ml (0.3-0.7)
[2025-04-21] MEDS: MELATONIN 3 MG TAB PO PRN (21:50)
[2025-04-21 23:59] LABS: ANTI-Xa, UFH(UnfractionatedHep 0.21 IU/ml (0.3-0.7)
[2025-04-22 06:30] LABS: Hematocrit (blood only) 28.3 % (37.0-47.0); Hemoglobin 9.6 g/dL (12.0-16.0); Immature Granulocytes # (auto) 0.07 K/uL (0.01-0.20); Immature Granulocytes % (auto) 1.0 %; Mean Corpuscular Hemoglobin 30.5 pg (25.0-34.0); Mean Corpuscular Volume 89.8 fL (80.0-100.0); Platelet Count 291 K/uL (130-400); RDW Standard Deviation 55.8 fL (36.4-46.3); Red Blood Count 3.15 M/uL (4.20-5.40); White Blood Count 6.85 K/ul (4.8-10.8)
[2025-04-22 06:46] LABS: Anion Gap 9.0 (3-11); Blood Urea Nitrogen 22.0 mg/dl (6-23); Calcium 8.7 mg/dl (8.6-10.3); Carbon Dioxide 22.0 mmol/L (21-32); Chloride 101.0 mmol/L (98-107); Creatinine Clr Calc Pharmacy 53.7 ml/min; Glucose 117.0 mg/dl (70-99(Fasting)); Potassium 4.2 mmol/L (3.5-5.1); Sodium 132.0 mmol/L (136-145)
[2025-04-22 07:00] LABS: ANTI-Xa, UFH(UnfractionatedHep 0.15 IU/ml (0.3-0.7)
[2025-04-22] MEDS: HEPARIN SOD (PORCINE) 1000 UNIT/ML IV ONE (07:31)
[2025-04-22] MEDS: SIMETHICONE 80 MG CHEW PO SCH (08:23)
--- NOTE | 2025-04-22 09:43 | History & Physical Bridge Note ---
Date of Service April 22, 2025 History & Physical Bridge Note [facility] venous [facility]. I have discussed the risks options and benefits of the procedure with the patient. The patient understands the risks options and benefits and agrees to the procedure. I have examined the patient, reviewed the History & Physical and in the interval since the performance of the History & Physical I have noted the following changes of clinical significance: no changes noted
[2025-04-22] MEDS: SODIUM CHLORIDE 0.9% 1,000 ML IV SCH ×2 (10:01→13:20)
[2025-04-22] MEDS: MIDAZOLAM HCL 1 MG/ML 2ML VIAL ONE ×3 (10:45→12:20)
--- NOTE | 2025-04-22 12:40 | Post Operative Brief Note ---
Immediate Post Op Note Date of Surgery April 22, 2025 Pre & Post Diagnosis Operation Date: 04/22/25 09:50 Pre-Op Diagnosis: DEEP VEIN THROMBOSIS RIGHT LOWER EXTREMITY Post-Op Diagnosis: DEEP VEIN THROMBOSIS RIGHT LOWER EXTREMITY I identified the patient and participated in the time-out.: Yes Procedure Operation Date: 04/22/25 09:50 Actual Procedures p Right Lower Extremity Venogram,Mechanical Thrombectomy Right Lower Extremity,Percutaneous Transluminal Angioplasty and Stenting Right Common Iliac Vein,Right External Iliac Vein,Right Common Femoral Vein,Ultrasound Localization of Right Vein,Moderate Sedatio 1045-(Right) - Thierry Stephenson MD Surgeon Thierry Stephenson MD [employer] Manager none Estimated Blood Loss 400 Findings Consistent with Post-Op Diagnosis Drains Carreno Catheter (Arrived to OR with Carreno in place) Anesthesia Type RN Sedation Complications none Disposition Accompanied Patient To Recovery: No Disposition: Recovery Room
--- NOTE | 2025-04-22 12:43 | Procedure Note ---
Angiogram Post Procedure Fluoroscopy Time (minutes): 27.5 Conscious Sedation Time (minutes): 121 Radiation (mGy): 851 Contrast: 150 Post Operative Report Pre & Post Diagnosis Operation Date: 04/22/25 09:50 Pre-Op Diagnosis: DEEP VEIN THROMBOSIS RIGHT LOWER EXTREMITY Post-Op Diagnosis: DEEP VEIN THROMBOSIS RIGHT LOWER EXTREMITY I identified the patient and participated in the time-out.: Yes Procedure Operation Date: 04/22/25 09:50 Actual Procedures p Right Lower Extremity Venogram,Mechanical Thrombectomy Right Lower Extremity,Percutaneous Transluminal Angioplasty and Stenting Right Common Iliac Vein,Right External Iliac Vein,Right Common Femoral Vein,Ultrasound Localization of Right Vein,Moderate Sedatio 5073-4656(Right) - Thierry Stephenson MD Surgeon Thierry Stephenson MD Sole Splitter none Estimated Blood Loss 400 Findings Consistent with Post-Op Diagnosis Anesthesia Type RN Sedation Complications none Disposition Accompanied Patient To Recovery: No Disposition: Recovery Room I attest to the content of the Intraoperative Record and any orders documented therein. Any exceptions are noted below.
[2025-04-22] MEDS: LIDOCAINE 1% LOCAL 20 ML VIAL ONE (13:11)
[2025-04-22] MEDS: HEPARIN SOD (PORCINE) 1000 UNIT/ML ONE (13:11)
[2025-04-22] MEDS: CLOPIDOGREL BISULFATE 300 MG TAB PO STA (13:19)
[2025-04-22] MEDS: VISIPAQUE IV PRN (13:22)
--- NOTE | 2025-04-22 14:53 | Hospitalist Progress Note ---
Date of Service April 22, 2025 Assessment & Plan (1) Right leg DVT: Plan: Suspected complication of right lower extremity arterial surgery done recently. She underwent mechanical thrombectomy of the right femoral vein this admission on April 12 per vascular surgery. This procedure was repeated again today, April 22, with stenting of the right lower extremity venous system. Eliquis has been restarted. (2) Anemia: Plan: Suspected acute blood loss anemia related to her recent surgery. Hemoglobin remains stable. Hemoglobin 9.6 today, April 22. Heparin drip has been switched back to Eliquis. Hematuria resolved after Carreno catheter was removed. Vascular team is ordered 1 unit packed red blood cell transfusion on April 21. Serial labs (3) Generalized weakness: Plan: Adult failure to thrive after recent discharge after vascular surgery of the right lower extremity, complicated by right lower extremity DVT. She has resultant ambulatory dysfunction. OT and PT recommend SNF placement but the patient and family have decided to simply go home with home health services at the time of discharge which will be sometime next week. (4) S/P vascular surgery: Plan: Recent revascularization of the right lower extremity. CTA studies on admission reveal patent arterial circulation. Vascular surgery consultation and recommendations appreciated (5) Peripheral arterial disease: Plan: Recent revascularization of the right lower extremity. Vascular surgery consultation and recommendations appreciated (6) Acute kidney injury: Plan: Mild on admission. Now resolved. Monitor urine output and serial labs (7) Edema of right lower extremity: Plan: Due to extensive right lower extremity DVT and also postoperative edema after revascularization of right lower extremity. Edema should eventually resolve with treatment of right lower extremity DVT. Continue Lasix therapy and Eliquis. (8) DM II (diabetes mellitus, type II), controlled: Plan: ADA diet. Sliding scale coverage while hospitalized. (9) HTN (hypertension): Plan: Currently stable. Losartan has been discontinued (10) Coronary artery disease: Plan: Stable. History of coronary artery bypass grafting. Continue current medical management. Plan Anticipate eventual discharge to home with home health services sometime next week. Admission and Anticipated Discharge Date Admission Date: April 08, 2025 Subjective The patient was seen after her right lower extremity venous thrombectomy and venous stenting today, April 22. She is alert and oriented. Family is at the bedside. Heparin drip has been converted to Eliquis. Hemoglobin 9.6 this morning, April 22. Will follow. She will remain hospitalized through the weekend and family has decided to take her home with home health services rather than go to SNF at the time of discharge. Review of Systems 2 Review of Systems: Constitutionalno fever or chills ENTno blurred vision, no double vision, no epistaxis, no sore throat Respiratoryno cough, no wheezing, no shortness of breath Cardiacno palpitations, no chest pain, no syncope Valdemar nausea, vomiting, diarrhea, melena, hematochezia GUno urinary retention, no urinary incontinence, no dysuria, no hematuria Musculoskeletalno joint pain, no muscle tenderness Skinno bruising, no rashes, no pruritus. Wound VAC in place right inguinal region Neurono isolated weakness, no paresthesia, no weakness Psychno depression, no anxiety Physical Exam 2 Physical Exam: General-alert and oriented x3, no fever, no chills HEENT-head atraumatic and normocephalic, pupils equal and reactive to light, extraocular muscles intact Neck-no lymphadenopathy or thyromegaly, trachea midline Chest-clear to auscultation. No rales, wheezing or rhonchi Cardiac-regular rate and rhythm, normal S1 and S2 Abdomen-normal bowel sounds, no hepatosplenomegaly Extremities-bilateral lower extremity edema noted, more pronounced on the right. Hemostasis noted at the right groin surgical sites Neuro-cranial nerves II through XII intact, motor and sensory function within normal limits, strength symmetrical, no focal deficits Psych-normal affect, normal mood Results & Data Results & Data Vital Signs (Past 12 Hours) Vital Signs Temp Pulse Pulse Pulse Resp BP Pulse Ox 04/22/25 13:12 36.3 C L 63 14 145/74 H 97 04/22/25 13:07 65 16 136/82 98 04/22/25 13:06 67 04/22/25 12:58 68 14 143/56 H 100 04/22/25 12:45 76 18 152/74 H 99 04/22/25 12:40 69 18 150/67 H 100 04/22/25 12:35 67 15 155/66 H 100 04/22/25 12:30 67 13 152/66 H 100 04/22/25 12:25 66 15 146/64 H 100 04/22/25 12:20 68 13 130/56 L 100 04/22/25 12:15 71 12 138/65 100 04/22/25 12:10 67 16 118/52 L 100 04/22/25 12:05 67 13 128/61 100 04/22/25 12:00 68 13 114/52 L 100 04/22/25 11:55 68 13 123/50 L 100 04/22/25 11:50 68 13 115/48 L 100 04/22/25 11:45 71 14 118/61 100 04/22/25 11:40 68 15 130/54 L 100 04/22/25 11:35 63 14 126/55 L 100 04/22/25 11:30 61 12 134/61 100 04/22/25 11:25 61 14 139/52 L 100 04/22/25 11:20 63 14 137/62 100 04/22/25 11:15 62 14 135/56 L 100 04/22/25 11:10 64 14 129/58 L 100 04/22/25 11:05 66 14 120/60 100 04/22/25 11:00 63 14 118/54 L 100 04/22/25 10:55 66 14 124/58 L 100 04/22/25 10:50 65 13 121/57 L 100 04/22/25 10:45 64 15 132/62 100 04/22/25 10:34 65 15 130/61 100 04/22/25 09:21 36.9 C 61 18 149/55 H 100 04/22/25 07:45 36.6 C 62 20 118/66 99 04/22/25 06:24 68 O2 Del Method O2 Flow Rate 04/22/25 13:12 Room Air 04/22/25 13:07 Room Air 04/22/25 13:06 04/22/25 12:58 Room Air 04/22/25 12:45 Room Air 04/22/25 12:40 Oxymask 4 04/22/25 12:35 Oxymask 4 04/22/25 12:30 Oxymask 4 04/22/25 12:25 Oxymask 4 04/22/25 12:20 Oxymask 4 04/22/25 12:15 Oxymask 4 04/22/25 12:10 Oxymask 4 04/22/25 12:05 Oxymask 4 04/22/25 12:00 Oxymask 4 04/22/25 11:55 Oxymask 4 04/22/25 11:50 Oxymask 4 04/22/25 11:45 Oxymask 4 04/22/25 11:40 Oxymask 4 04/22/25 11:35 Oxymask 4 04/22/25 11:30 Oxymask 4 04/22/25 11:25 Oxymask 4 04/22/25 11:20 Oxymask 4 04/22/25 11:15 Oxymask 4 04/22/25 11:10 Oxymask 4 04/22/25 11:05 Oxymask 4 04/22/25 11:00 Oxymask 4 04/22/25 10:55 Oxymask 4 04/22/25 10:50 Oxymask 4 04/22/25 10:45 Oxymask 4 04/22/25 10:34 Oxymask 4 04/22/25 09:21 Room Air 04/22/25 07:45 Room Air 04/22/25 06:24 Laboratory Results 04/22/25 06:14 04/22/25 06:14 PG Care Time/CCT Total # of Minutes Spent Total Time Spent with Patient: Total time spent is greater than 50% in coordination of care (as documented) at patient's floor/unit and/or counseling patient: Coding Level of Care Code 62188 SUB INP/OBS CARE 2/35MIN Diagnoses Right leg DVT I82.401 Anemia D64.9 Generalized weakness R53.1 S/P vascular surgery Z98.890 Peripheral arterial disease I73.9 Acute kidney injury N17.9 Edema of right lower extremity R60.0 DM II (diabetes mellitus, type II), controlled E11.9 HTN (hypertension) I10 Coronary artery disease I25.10
[2025-04-22 15:19] LABS: Partial Thromboplastin Time 61 Seconds (21-31)
[2025-04-22 15:20] LABS: ANTI-Xa, UFH(UnfractionatedHep 0.59 IU/ml (0.3-0.7)
[2025-04-22] MEDS ORDERED: Heparin IV Adult Wt-Based Standard w/ INITIAL Bolus Protocol IV STA (23:34)
[2025-04-23] MEDS: HEPARIN SOD (PORCINE) 1000 UNIT/ML IV ONE (01:23)
[2025-04-23] MEDS: HEPARIN 25000 UNIT/500 ML D5W 25,000 UNITS/500 ML BAG IV SCH (01:25)
[2025-04-23 01:46] LABS: Hematocrit (blood only) 22.0 % (37.0-47.0); Hemoglobin 7.4 g/dL (12.0-16.0)
--- NOTE | 2025-04-23 01:53 | Ultrasound Report ---
EXAM: US arterial duplex LE RT CLINICAL HISTORY: Groin r/o hematoma vs psudoanurysm. TECHNIQUE: Ultrasound examination of the right lower extremity arteries was performed in real time and duplex. One or more of the following were performed- spectral analysis, resistive index, waveform analysis, and pulsed Doppler. COMPARISON: None. FINDINGS: Vessel Flow Pattern Right Peak Velocity Right (cm/sec) Common Femoral Artery (SENIOR ANALYTICAL CHEMIST) Triphasic 198.4 Deep Femoral Artery (DPA) Triphasic 183.7 Superficial Femoral Artery (SFA) Triphasic 168.6 Triphasic waveforms seen in the visualized arteries. No mural plaques or hemodynamically significant stenosis is noted in the arteries of both lower extremities. Slightly raised velocities of the visualized arteries. No evidence of significant stenosis (50%) or hemodynamically significant lesions. Normal triphasic/triphasic waveform pattern observed throughout the evaluated segments. Additional Findings: Evidence of pseudoneyrsum seen in the form of turbulent flow with the Kelsey-Garcia sign, noted closely related to the femoral vein outside the vessel confinements at the inguinal region. Multiple heterogeneous hematomas, with one seen in the inguinal region/groin measuring about 11.4 x 6.2 x 6.5 cm. A smaller hematoma is seen inferior to the above-mentioned, seen in the thigh, measuring about 6.8 x 3.6 x 6.5. A third hematoma is noted within the pelvis adjacent to the lateral bladder wall, measuring about 15 x 10 x 9 cm. IMPRESSION: 1. Evidence of right inguinal pseudoaneurysm with suspected venous origin. 2. Multiple pelvic, groin, and thigh hematomas. 3. Slightly raised velocities of the visualized arteries. 4. Further CT angiography for more accurate delineation is recommended. 5. No evidence of significant stenosis or occlusion. Electronically signed by Jefe Guzmán 04-23-2025 01:53 AM
[2025-04-23 05:47] LABS: Hematocrit (blood only) 23.1 % (37.0-47.0); Hemoglobin 7.5 g/dL (12.0-16.0); Immature Granulocytes # (auto) 0.09 K/uL (0.01-0.20); Immature Granulocytes % (auto) 1.3 %; Mean Corpuscular Hemoglobin 29.6 pg (25.0-34.0); Mean Corpuscular Volume 91.3 fL (80.0-100.0); Platelet Count 243 K/uL (130-400); RDW Standard Deviation 55.6 fL (36.4-46.3); Red Blood Count 2.53 M/uL (4.20-5.40); White Blood Count 7.17 K/ul (4.8-10.8)
[2025-04-23 06:08] LABS: Anion Gap 7.0 (3-11); Blood Urea Nitrogen 21.0 mg/dl (6-23); Calcium 8.1 mg/dl (8.6-10.3); Carbon Dioxide 25.0 mmol/L (21-32); Chloride 104.0 mmol/L (98-107); Creatinine Clr Calc Pharmacy 51.7 ml/min; Glucose 118.0 mg/dl (70-99(Fasting)); Potassium 4.3 mmol/L (3.5-5.1); Sodium 136.0 mmol/L (136-145)
[2025-04-23 06:31] LABS: Polychromasia 1+
[2025-04-23] MEDS ORDERED: SODIUM CHLORIDE 0.9% 100 ML IV PRN (07:57)
--- NOTE | 2025-04-23 08:19 | Communication Note ---
Date of Service: April 23, 2025 Patient hgb down to 7.5. This is not unexpected due to blood loss from the type of procedure done. Will transfuse 2 units. Will need to continue heparin till tomorrow then switch to eliquis.
[2025-04-23] MEDS: CLOPIDOGREL BISULFATE 75 MG TAB PO SCH (08:40)
[2025-04-23 08:41] LABS: ANTI-Xa, UFH(UnfractionatedHep 0.77 IU/ml (0.3-0.7)
--- NOTE | 2025-04-23 11:02 | Hospitalist Progress Note ---
Date of Service April 23, 2025 Assessment & Plan (1) Right leg DVT: Plan: Suspected complication of right lower extremity arterial surgery done recently. She underwent mechanical thrombectomy of the right femoral vein this admission on April 12 per vascular surgery. This procedure was repeated again on April 22 with stenting of the right lower extremity venous system. She remains on heparin drip at this time. Eventual switch to Eliquis per vascular surgery (2) Anemia: Plan: Suspected acute blood loss anemia related to her recent surgery. 2 units packed red blood cells ordered for hemoglobin 7.5 this morning per vascular surgery. Hematuria resolved after Carreno catheter was removed. Serial labs (3) Generalized weakness: Plan: Adult failure to thrive after recent discharge after vascular surgery of the right lower extremity, complicated by right lower extremity DVT. She has resultant ambulatory dysfunction. OT and PT recommend SNF placement but the patient and family have decided to simply go home with home health services at the time of discharge which will be sometime next week. (4) S/P vascular surgery: Plan: Recent arterial revascularization of the right lower extremity. CTA studies on admission reveal patent arterial circulation. Vascular surgery consultation and recommendations appreciated (5) Peripheral arterial disease: Plan: Recent arterial revascularization of the right lower extremity. Vascular surgery consultation and recommendations appreciated (6) Acute kidney injury: Plan: Mild on admission. Now resolved. Monitor urine output and serial labs (7) Edema of right lower extremity: Plan: Due to extensive right lower extremity DVT and also postoperative edema after revascularization of right lower extremity. Edema should eventually resolve with treatment of right lower extremity DVT. Continue Lasix therapy and anticoagulation (8) DM II (diabetes mellitus, type II), controlled: Plan: ADA diet. Sliding scale coverage while hospitalized. (9) HTN (hypertension): Plan: Currently stable. Losartan has been discontinued (10) Coronary artery disease: Plan: Stable. History of coronary artery bypass grafting. Continue current medical management. Plan Anticipate eventual discharge to home with home health services sometime next week. Admission and Anticipated Discharge Date Admission Date: April 08, 2025 Subjective Alert and oriented. No complaints. Daughter is at the bedside. Vascular surgery has ordered 2 units packed red blood cells for hemoglobin which has dropped to 7.5 due to her recent surgery. Vascular surgery also prefers her to remain on a heparin drip for now rather than Eliquis. Review of Systems 2 Review of Systems: Constitutionalno fever or chills ENTno blurred vision, no double vision, no epistaxis, no sore throat Respiratoryno cough, no wheezing, no shortness of breath Cardiacno palpitations, no chest pain, no syncope Valdemar nausea, vomiting, diarrhea, melena, hematochezia GUno urinary retention, no urinary incontinence, no dysuria, no hematuria Musculoskeletalno joint pain, no muscle tenderness Skinno bruising, no rashes, no pruritus. Superficial wounds noted in right inguinal region from recent surgeries Neurono isolated weakness, no paresthesia, no weakness Psychno depression, no anxiety Physical Exam 2 Physical Exam: General-alert and oriented x3, no fever, no chills HEENT-head atraumatic and normocephalic, pupils equal and reactive to light, extraocular muscles intact Neck-no lymphadenopathy or thyromegaly, trachea midline Chest-clear to auscultation. No rales, wheezing or rhonchi Cardiac-regular rate and rhythm, normal S1 and S2 Abdomen-normal bowel sounds, no hepatosplenomegaly Extremities-bilateral lower extremity edema noted. Hemostasis noted at the right groin surgical sites Neuro-cranial nerves II through XII intact, motor and sensory function within normal limits, strength symmetrical, no focal deficits Psych-normal affect, normal mood Results & Data Results & Data Vital Signs (Past 12 Hours) Vital Signs Temp Pulse Pulse Resp BP BP BP 04/23/25 10:05 36.6 C 81 16 143/65 H 04/23/25 10:03 36.6 C 76 16 144/68 H 04/23/25 09:42 36.7 C 75 16 144/71 H 04/23/25 07:23 36.9 C 81 18 148/70 H 04/23/25 05:44 75 04/23/25 02:54 36.9 C 88 18 151/67 H 04/22/25 23:50 36.4 C L 77 18 155/70 H 04/22/25 22:59 75 Pulse Ox O2 Del Method 04/23/25 10:05 98 04/23/25 10:03 98 04/23/25 09:42 98 04/23/25 07:23 98 Room Air 04/23/25 05:44 04/23/25 02:54 97 Room Air 04/22/25 23:50 98 Room Air 04/22/25 22:59 Laboratory Results 04/23/25 05:07 11/15/25 05:07 PG Care Time/CCT Total # of Minutes Spent Total Time Spent with Patient: Total time spent is greater than 50% in coordination of care (as documented) at patient's floor/unit and/or counseling patient: Coding Level of Care Code 60780 SUB INP/OBS CARE 2/35MIN Diagnoses Right leg DVT I82.401 Anemia D64.9 Generalized weakness R53.1 S/P vascular surgery Z98.890 Peripheral arterial disease I73.9 Acute kidney injury N17.9 Edema of right lower extremity R60.0 DM II (diabetes mellitus, type II), controlled E11.9 HTN (hypertension) I10 Coronary artery disease I25.10
[2025-04-23 14:38] LABS: ANTI-Xa, UFH(UnfractionatedHep 0.61 IU/ml (0.3-0.7)
[2025-04-23 19:37] LABS: Hematocrit (blood only) 29.1 % (37.0-47.0); Hemoglobin 10.0 g/dL (12.0-16.0)
[2025-04-24 07:31] LABS: Hematocrit (blood only) 26.4 % (37.0-47.0); Hemoglobin 9.0 g/dL (12.0-16.0); Immature Granulocytes # (auto) 0.09 K/uL (0.01-0.20); Immature Granulocytes % (auto) 1.6 %; Mean Corpuscular Hemoglobin 30.4 pg (25.0-34.0); Mean Corpuscular Volume 89.2 fL (80.0-100.0); Platelet Count 195 K/uL (130-400); RDW Standard Deviation 51.3 fL (36.4-46.3); Red Blood Count 2.96 M/uL (4.20-5.40); White Blood Count 5.80 K/ul (4.8-10.8)
[2025-04-24 07:48] LABS: ANTI-Xa, UFH(UnfractionatedHep 0.53 IU/ml (0.3-0.7)
[2025-04-24 08:22] LABS: Anion Gap 6.0 (3-11); Calcium 8.0 mg/dl (8.6-10.3); Carbon Dioxide 24.0 mmol/L (21-32); Chloride 107.0 mmol/L (98-107); Potassium 3.8 mmol/L (3.5-5.1); Sodium 137.0 mmol/L (136-145)
[2025-04-24 08:27] LABS: Blood Urea Nitrogen 19.0 mg/dl (6-23); Creatinine Clr Calc Pharmacy 59.1 ml/min; Glucose 104.0 mg/dl (70-99(Fasting))
[2025-04-24] MEDS: LOSARTAN POTASSIUM 25 MG TAB PO SCH (09:19)
[2025-04-24] MEDS: APIXABAN 5 MG TABLET PO SCH (09:19)
--- NOTE | 2025-04-24 10:35 | Hospitalist Progress Note ---
Date of Service April 24, 2025 Assessment & Plan (1) Right leg DVT: Plan: Suspected complication of right lower extremity arterial surgery done recently. She underwent mechanical thrombectomy of the right femoral vein this admission on April 12 per vascular surgery. This procedure was repeated again on April 22 with stenting of the right lower extremity venous system. She remains on heparin drip at this time. Eventual switch to Eliquis per vascular surgery (2) Anemia: Plan: Suspected acute blood loss anemia related to her recent surgery. 2 units packed red blood cells administered yesterday, April 13, for hemoglobin 7.5. Hemoglobin level today, April 24, is 9.0. Hematuria resolved after Carreno catheter was removed. Serial labs (3) Generalized weakness: Plan: Adult failure to thrive after recent discharge after vascular surgery of the right lower extremity, complicated by right lower extremity DVT. She has resultant ambulatory dysfunction. OT and PT recommend SNF placement but the patient and family have decided to simply go home with home health services at the time of discharge which will be sometime next week. (4) S/P vascular surgery: Plan: Recent arterial revascularization of the right lower extremity. CTA studies on admission reveal patent arterial circulation. Vascular surgery consultation and recommendations appreciated (5) Peripheral arterial disease: Plan: Recent arterial revascularization of the right lower extremity. Vascular surgery consultation and recommendations appreciated (6) Acute kidney injury: Plan: Mild on admission. Now resolved. Monitor urine output and serial labs (7) Edema of right lower extremity: Plan: Due to extensive right lower extremity DVT and also postoperative edema after revascularization of right lower extremity. Edema should eventually resolve with treatment of right lower extremity DVT. Continue Lasix therapy and anticoagulation (8) DM II (diabetes mellitus, type II), controlled: Plan: ADA diet. Sliding scale coverage while hospitalized. (9) HTN (hypertension): Plan: Blood pressure mildly elevated today, April 24. Losartan has been restarted. (10) Coronary artery disease: Plan: Stable. History of coronary artery bypass grafting. Continue current medical management. (11) Wound of foot: Plan: Bilateral superficial plantar forefoot wounds. Continue local care. Wound care nurse consultation requested Plan Anticipate eventual discharge to home with home health services sometime this coming week when cleared for discharge by vascular surgery. Admission and Anticipated Discharge Date Admission Date: April 08, 2025 Subjective Alert and oriented. She has bilateral superficial foot wounds that appear clean at this point. Wound care consultation requested. Hemoglobin 9.0 this morning, April 24, after 2 units packed red blood cells administered yesterday. Losartan has been restarted. She is requesting her doxepin at bedtime and this has been reordered. She remains on a heparin drip for now. Review of Systems 2 Review of Systems: Constitutionalno fever or chills ENTno blurred vision, no double vision, no epistaxis, no sore throat Respiratoryno cough, no wheezing, no shortness of breath Cardiacno palpitations, no chest pain, no syncope Valdemar nausea, vomiting, diarrhea, melena, hematochezia GUno urinary retention, no urinary incontinence, no dysuria, no hematuria Musculoskeletalno joint pain, no muscle tenderness Skinno bruising, no rashes, no pruritus. Superficial wounds noted in right inguinal region from recent surgeries Neurono isolated weakness, no paresthesia, no weakness Psychno depression, no anxiety Physical Exam 2 Physical Exam: General-alert and oriented x3, no fever, no chills HEENT-head atraumatic and normocephalic, pupils equal and reactive to light, extraocular muscles intact Neck-no lymphadenopathy or thyromegaly, trachea midline Chest-clear to auscultation. No rales, wheezing or rhonchi Cardiac-regular rate and rhythm, normal S1 and S2 Abdomen-normal bowel sounds, no hepatosplenomegaly Extremities-bilateral lower extremity edema noted. Hemostasis noted at the right groin surgical sites Skinbilateral superficial dorsal forefoot wounds noted without associated sequela of infection. Neuro-cranial nerves II through XII intact, motor and sensory function within normal limits, strength symmetrical, no focal deficits Psych-normal affect, normal mood Results & Data Results & Data Vital Signs (Past 12 Hours) Vital Signs Temp Pulse Pulse Resp BP Pulse Ox O2 Del Method 04/24/25 07:13 36.6 C 73 19 150/69 H 96 Room Air 04/24/25 05:33 68 04/24/25 02:30 36.8 C 77 18 151/74 H 95 Room Air 04/23/25 23:15 74 04/23/25 22:51 37.1 C 79 16 136/72 96 Room Air Laboratory Results 04/24/25 07:12 04/24/25 07:12 PG Care Time/CCT Total # of Minutes Spent Total Time Spent with Patient: Total time spent is greater than 50% in coordination of care (as documented) at patient's floor/unit and/or counseling patient: Coding Level of Care Code 25210 SUB INP/OBS CARE 3/50MIN Diagnoses Right leg DVT I82.401 Anemia D64.9 Generalized weakness R53.1 S/P vascular surgery Z98.890 Peripheral arterial disease I73.9 Acute kidney injury N17.9 Edema of right lower extremity R60.0 DM II (diabetes mellitus, type II), controlled E11.9 HTN (hypertension) I10 Coronary artery disease I25.10 Wound of foot S91.309A
[2025-04-24] MEDS: DOXEPIN HCL 50 MG CAPSULE PO SCH (21:16)
[2025-04-25 05:16] VITALS: RESP 18
--- NOTE | 2025-04-25 09:48 | Surgery Progress Note ---
Date of Service April 25, 2025 Assessment & Plan (1) Right leg DVT: Plan: Pt with long RLE DVT and severe edema, postop after RLE BEE RAISER endarterectomy. Now s/p RLE venogram with mechanical thrombectomy and CFV stent on 04/12. She had reoccluded her venous system of the right lower extremity, and redo thrombectomy was performed. She was to be on heparin post op, however, this was stopped by the primary team d/t minor bleeding from the venous puncture, and was restarted about 16 hr later. Due to this interruption in therapy and her high risk for reocclusion of her venous stents, would recommend she have another venous US and IVC/iliac US done today, although clinically her leg edema appears improved. Orders placed. She was transitioned to eliquis yesterday. From a vascular standpoint, pt is ok for d/c today on eliquis and plavix, after her venous US. Our office will call pt to schedule followup visits. (2) Anemia: Plan: Hgb remains stable, no sign of active bleeding. Admission and Anticipated Discharge Date Admission Date: April 08, 2025 Subjective 75 yo f 2 wks s/p R BEE RAISER redo endarterectomy with bovine patch, 1 wk s/p RLE venography with mechanical thrombectomy and CFV stent, and now 3 days s/p RLE redo venography with mechanical thrombectomy and venous stenting, seen in f/u today. Pt states her RLE feels good, swelling is improved, has been ambulating to BR and back, pain much improved. Looking forward to having her fe out. Review of Systems Review of Systems: All systems reviewed & are unremarkable except as noted in HPI & below Physical Exam Constitutional: WD/WN, vitals as above healthy appearing, cooperative and comfortable; not in distress Respiratory: normal respiratory effort, lungs clear to auscultation Auscultation: + diminished lung sounds Cardiovascular: Rate/Rhythm: regular rate and regular rhythm Vessels: posterior tibial pulses present, dorsalis pedis pulses present and radial pulses present; + abnormal peripheral pulses Extremities: normal capillary refill and + edema (+2 RLE, soft) Gastrointestinal (Abdomen): Inspection/Auscultation: abdomen normal to inspection and normal bowel sounds Percussion/Palpation: + abdomen tender (RLQ, flank) and abdomen soft Musculoskeletal: no cyanosis or clubbing, extremities motor strength 5/5 Skin: no rashes, warm and dry (Rgroin incision C/D/I, drying blisters, no erythema) fe removed today without dehiscence. No bleeding Neurologic: moves all extremities and awake; no focal motor deficits and not confused Psychiatric: A+Ox3, euthymic affect Results & Data Vital Signs (Past 12 Hours) Vital Signs Temp Pulse Pulse Resp BP BP Pulse Ox 04/25/25 08:16 36.8 C 67 18 128/48 L 97 04/25/25 05:15 36.9 C 73 18 154/67 H 94 04/24/25 23:14 87 04/24/25 23:08 36.9 C 81 17 129/63 95 O2 Del Method 04/25/25 08:16 Room Air 04/25/25 05:15 Room Air 04/24/25 23:14 04/24/25 23:08 Room Air
[2025-04-25 11:58] LABS: Hematocrit (blood only) 30.1 % (37.0-47.0); Hemoglobin 10.0 g/dL (12.0-16.0); Mean Corpuscular Hemoglobin 30.4 pg (25.0-34.0); Mean Corpuscular Volume 91.5 fL (80.0-100.0); Platelet Count 216 K/uL (130-400); RDW Standard Deviation 54.5 fL (36.4-46.3); Red Blood Count 3.29 M/uL (4.20-5.40); White Blood Count 6.00 K/ul (4.8-10.8)
[2025-04-25 12:14] LABS: Alanine Aminotransferase 26.0 U/L (7-52); Albumin Globulin Ratio 0.9 (0.9-2); Albumin Level 2.7 gm/dl (3.4-5.0); Alkaline Phosphatase 193.0 U/L (34-104); Anion Gap 7.0 (3-11); Bilirubin,Total 1.0 mg/dl (0.2-1.0); Blood Urea Nitrogen 16.0 mg/dl (6-23); Calcium 8.4 mg/dl (8.6-10.3); Carbon Dioxide 23.0 mmol/L (21-32); Chloride 108.0 mmol/L (98-107); Creatinine Clr Calc Pharmacy 61.9 ml/min; Globulin 2.9 gm/dl (2.5-4.0); Glucose 117.0 mg/dl (70-99(Fasting)); Magnesium 2.0 mg/dl (1.7-2.4); Potassium 3.8 mmol/L (3.5-5.1); Sodium 138.0 mmol/L (136-145); Total Protein 5.6 gm/dl (6.0-8.3)
--- NOTE | 2025-04-25 15:20 | Ultrasound Report ---
US duplex aorta/iliacs/IVC ltd HISTORY: 75 years-old Female DVT COMPARISON: Ultrasound study 04/18/2025, CTA abdomen and pelvis 04/13/2025. TECHNIQUE: Multiple real time ultrasound images of the IVC and iliac vessels were obtained assessing grayscale appearance, color and spectral flow FINDINGS: Limited study secondary to patient body habitus. IVC at the level of the liver appears patent. Partia lly visualized large pelvic midline hematoma again noted measuring up to approximately 18 x 16 x 10 c m which demonstrates areas of central color flow. The iliac veins appear patent bilaterally without t hrombus. IMPRESSION: 1. No IVC or iliac vein thrombus identified. 2. Large pelvic hematoma redemonstrated which is similar in size to the CTA study from 04/13/2025 and demonstrates possible areas of central color flow/persistent active bleeding. Continued follow-up is needed. ACT 112: Negative or not required by law. The above report was generated using voice recognition software. It may contain grammatical, syntax o r spelling errors. Electronically signed by: Neri Hendricks M.D. 04/25/2025 3:19 PM
[2025-04-25 15:22] VITALS: TEMP 98.1; O2SAT 99
--- NOTE | 2025-04-25 16:12 | Ultrasound Report ---
US venous doppler LE RT HISTORY: 75 years-old Female DVT acute pain and swelling of the right lower leg COMPARISON: Duplex Doppler study 04/22/2025, CTA abdomen and pelvis 04/13/2025 Doppler study . TECHNIQUE: Multiple real-time sonographic images of the right lower extremity deep venous structures were obtained assessing grayscale appearance, color and spectral flow. FINDINGS: Limited exam secondary to patient body habitus. Subcutaneous edema. Right inguinal and pelvic hematom a redemonstrated. Femoral venous stent is present, therefore the manager assessment was unable to compress t he profunda femoris and proximal superficial femoral veins. The previously noted occlusive thrombi wi thin the common femoral, superficial femoral and popliteal veins is not definitively seen. IMPRESSION: Limited study. Previously noted occlusive deep venous thrombi seen on the 04/18/2025 study are not de finitively seen on today's exam. ACT 112: Negative or not required by law. The above report was generated using voice recognition software. It may contain grammatical, syntax o r spelling errors. Electronically signed by: Neri Hendricks M.D. 04/25/2025 4:11 PM
[2025-04-25 17:38] VITALS: BP 129/63; PULSE 61
--- NOTE | 2025-04-26 07:57 | Discharge Summary ---
Discharge Summary Date of Service April 25, 2025 Principal Dx & Hospital Course #1 = Principal Diagnosis (1) Right leg DVT: (2) Anemia: (3) Generalized weakness: (4) S/P vascular surgery: (5) Peripheral arterial disease: (6) Acute kidney injury: (7) Edema of right lower extremity: (8) DM II (diabetes mellitus, type II), controlled: (9) HTN (hypertension): (10) Coronary artery disease: (11) Wound of foot: Plan Nalini Painter is a 75 year old female admitted to [facility] from April 08 to April 25, 2025 due to right leg swelling, fatigue, weakness and decreased oral intake following right femoral artery endarterectomy on April 06, 2025. She was diagnosed with an acute right leg deep vein thrombosis. This was treated with intravenous heparin and she underwent right lower extremity venous mechanical thrombectomy on April 12 with stenting of right common femoral vein. Her post operative course was complicated by hematoma and anticoagulation was held which caused reaccumulation of clot and she had to undergo repeat mechanical thrombectomy right lower extremity and stenting of right common iliac vein, right external iliac vein and right common femoral vein on April 22. Her hemoglobin is now stable on clopidogrel and Eliquis. Of note she had also been receiving aspirin but on discussion with Dr Stephenson on discharge she only requires the clopidogrel and Eliquis. Of note her Eliquis prescription is for the loading dose but she was directed to only be taking 5mg PO BID. Her post operative course was also been complicated by bilateral leg swelling and foot ulcers which do not appear to be infected on day of discharge but high risk of this. She will follow up with wound care as an outpatient in addition to Dr Stephenson. Wound care instructions added by dress draper for home health to help dress these. Leg swelling likely as a result of DVT but given it is also on her left leg; likely initially holding her Lasix (restart on 04/17) led to this but she reports this has been improving on her usual home dose of lasix since her last surgery therefore this was continued at her prior dose. She was also diagnosed with large right inguinal/extraperitoneal right hem ipelvis hematoma measuring up to approximately 19 cm. This appears to be stable size on ultrasound on day of discharge although radiologist noted concern for active bleeding this was discussed with vascular surgery and hemoglobin has been stable and not concerned for ongoing active bleed. Recommend PCP orders CBC in 1-2 weeks to check for anemia but the actual hematoma will be monitored by vascular surgery as an outpatient. She has also had significant constipation while admitted therefore as needed MiraLAX and Senna prescribed on discharge as she has been requiring these routinely during her inpatient stay. Notes For Next Care Provider Follow up with primary care provider for CBC in 1-2 weeks, monitor constipation Follow up with vacular surgery Follow up wound care clinic for lower extremity venous blister/ulcers Medication Changes From Visit Eliquis 5mg PO BID - of note this dose is wrong on the prescription as was sent to pharmacy prior to discharge Aspirin switched to clopidogrel on advice of vascular surgery Advised to hold piroxicam is does not lead to stiffening joints as this increases her bleeding risk Admission HPI Per Admitting Provider The patient is a 75-year-old female with past medical history including peripheral arterial disease, osteoarthritis, diabetes mellitus type 2, hyperlipidemia, hypertension, CAD, memory impairment, peripheral neuropathy, lumbar stenosis with neurogenic claudication, GERD, hypothyroidism, and arthritis. She underwent a redo of a right femoral artery endarterectomy on 04/06, and was discharged on 04/07/2025. She has had decreased oral intake sinc e discharge, and family reports that she has been significantly weak, fatigued, has had decreased oral intake both liquids and solids. She was noted to have some increased swelling in the right lower extremity, and was brought into the emergency department for assessment. Family also reports that she was told by cardiology that she was to start Plavix after the surgery, and is unsure what the start date was supposed to be. Patient reports that her oral intake is somewhat diminished due to feeling nauseous and having no appetite. Discharge Exam Respiratory normal respiratory effort, lungs clear to auscultation Cardiovascular Rate/Rhythm: regular rate and regular rhythm Heart Sounds: no murmur Extremities: + pedal edema (2+ bilateral equal) Gastrointestinal (Abdomen) normal bowel sounds, soft, nontender, no hepatosplenomegaly Skin see wound care pictures from same day. Mild erythema does not go beyond ankles surrounding large blistering skin on dorsal aspect of both feet Discharge Plan Discharge Items Patient Disposition: Home - Home Health Services Reason For Visit: DEB,DEHYDRATION,FATIGUE,WEAKNESS,AMB DYSFUNCTION Discharge Diagnosis: Acute kidney injury Right leg deep vein thrombosis Condition on Discharge: Serious Activity: Per Instructions section Non-emergency contact: Surgeon Call non-emergency contact if: you have any medication questions and your symptoms worsen Follow-up/Referrals: Thierry Stephenson MD [Physician] - Jarrod Huber DO [Primary Care Provider] - Diet: Carb Consistent or DM2 and Heart Healthy Addtl Attending Provider Instructions: You were admitted to [facility] from April 08 to April 25, 2025 due to right leg swelling, fatigue, weakness and decreased oral intake following right femoral artery endarterectomy on 04/06. You were diagnosed with an acute right leg deep vein thrombosis. This was treated with intravenous heparin and you underwent right lower extremity venous mechanical thrombectomy on April 12 with stenting of right common femoral vein. Your post operative course was complicated by hematoma and anticoagulation was held which caused reaccumulation of clot and you underwent repeat mechanical thrombectomy right lower extremity and stenting of right common iliac vein, right external iliac vein and right common femoral vein on April 22. You leg swelling has been improving but you developed venous ulcer blisters that will need to be monitored closely at home and at wound care clinic. Home health is being arranged for you on discharge. Please follow up with your primary care provider for repeat complete blood count in 1 week due to hematoma. This will also be monitored by your vascular surgeon. Of note your Eliquis prescription is for the loading dose but you should only be taking 5mg PO BID. On discussion with your vascular surgeon aspirin will be stopped but you should now take clopidogrel once a day. Addtl Rn Clinical Quality Provider Instructions: SPECIAL CARE INSTRUCTIONS: Diet: * You may return to previous diet. Medications: * Continue to take your medications as directed. If you have been given a prescription for Plavix, please fill it immediately and take as directed. Incision Care: * Your puncture site may have some bruising and minor swelling for about one week. * You will have a small dressing covering your puncture site. You may remove the dressing after 24 hours and shower. You may let the warm soapy water run over it, but be sure to dry the puncture site well and keep it dry. * DO NOT IMMERSE THE INCISION IN A TUB/POOL/etc. UNTIL HEALED. * Puncture sites should be kept covered with a band-aid until it begins to heal. Restrictions: * Depending on whether you leg or arm was punctured to access the arteries, you will be required to lay flat, hold your arm still, or both, for about 4 hours after the procedure to prevent bleeding. * Limit your activity for the first 48 hours. You may walk and go up and down steps. Avoid excessive bending or movement at the puncture site. Possible Complications: * Excessive Swelling - after blood flow is improved you may notice increased swelling in the lower legs. This is a normal response. This usually depends on the amount of blockages in the leg, how long they have been there prior to your procedure and how much blood flow was restored. Elevating your legs will help to improve this. Please notify our office ([phone]) if the swelling does not go away after lying in bed overnight. * Infection/Drainage/Bleeding - Drainage or bleeding from the puncture site should be minimal. If you have excessive bleeding or drainage, call our office ([phone]) right away. * Pain - You may experience some mild pain or soreness at your puncture site. If your pain does not improve, please contact our office ([phone]). Call your doctor and seek emergent treatment if you develop: * Temperature above 101 degrees * Any fever or chills * Any redness or purulent drainage from the puncture site * Any new dusky/blue colored toes or feet with coolness or sharp or aching pain. SKIN IRRITATION: * You may experience some redness and/or swelling in the area where radiation was administered. If any skin irritation occurs, please contact your family physician. FOLLOW UP VISIT: Keep any scheduled doctor appointments. Call [phone] to schedule a follow up appointment if one not already scheduled. Pending Studies at Discharge: No Stand-Alone Forms: My [facility], Smoking Cessation Medications and DC Order Prescriptions: New Eliquis 5 mg tablet 5 mg PO BID Qty: 60 6RF Rx Instructions: Take two pills twice daily for 7days, then take one pill twice a day for 6 months clopidogrel 75 mg Tablet 75 mg PO QAM Qty: 30 3RF polyethylene glycol 3350 [Miralax] 17 gram Powder In Packet 17 g PO DAILY PRN (Reason: constipation) Qty: 30 0RF sennosides [Senna Lax] 8.6 mg Tablet 17.2 mg PO QAM PRN (Reason: constipation) Qty: 60 0RF Continued losartan 50 mg tablet 25 mg PO QAM metformin 500 mg tablet 500 mg PO QAM famotidine 40 mg tablet 40 mg PO HS doxepin 100 mg capsule 100 mg PO HS furosemide 40 mg tablet 40 mg PO QAM atorvastatin 40 mg tablet 40 mg PO HS donepezil 10 mg tablet 10 mg PO HS potassium chloride 10 mEq tablet extended release 10 meq PO QAM hydroxychloroquine 200 mg tablet 200 mg PO QAM levothyroxine 25 mcg Tablet 25 mcg PO QAM piroxicam 10 mg Capsule 10 mg PO QAM oxycodone-acetaminophen [Percocet] 5-325 mg tablet 1 tab PO Q6H PRN (Reason: pain) Qty: 30 0RF Discontinued aspirin 81 mg tablet,chewable 81 mg PO QAM Discharge Orders: Discharge Order (Routine); Ordered 04/25/25 Ordered By: Ronan Graf Admission Data Admit Date/Time: 04/08/25 23:20 Attending Provider: Ronan Graf Admit Provider: Dejuan Barclay Primary Care Provider: Jarrod Huber Other Providers: Thierry Stephenson; [facility],Home Healthcare Other Interventions: Discharge Summary Assessment (RN) Last Done: 04/25/25 17:36 Hospital Stay Data Consultations 04/08/25 22:01 ED Decision to Admit Stat 04/09/25 01:17 Consult Vascular Surgery Routine Procedures Performed Operation Date: 04/22/25 09:50 Actual Procedures p Right Lower Extremity Venogram,Mechanical Thrombectomy Right Lower Extremity,Percutaneous Transluminal Angioplasty and Stenting Right Common Iliac Vein,Right External Iliac Vein,Right Common Femoral Vein,Ultrasound Localization of Right Vein,Moderate Sedatio 1181-4646(Right) - Thierry Stephenson MD Diagnostic Imagining Performed 04/08/25 19:15 CTA abdomen pelvis w con [CT angio abdomen pelvis w con] Stat CTA femur RT wo/w con [CT angio femur RT wo/w con] Stat 04/09/25 12:22 US venous doppler LE RT Urgent 04/12/25 07:22 EV angio LE RT Routine US EV guide vascular access Routine 04/13/25 05:19 CT Abdomen and Pelvis [CT abd pelvis wo con] Stat 04/13/25 07:41 CTA abd pelvis wo/w con [CT angio abd pelvis wo/w con] Stat 04/18/25 10:01 US duplex aorta/iliacs/IVC ltd Stat US venous duplex leg [US venous doppler LE RT] Stat 04/22/25 07:22 EV angio LE RT Routine US EV guide vascular access Routine 04/22/25 22:25 US arterial duplex LE RT Stat 04/25/25 09:36 US duplex aorta/iliacs/IVC ltd Routine US venous duplex leg [US venous doppler LE RT] Routine Pending Results Patient Have Any Pending Studies at Discharge: No Discharge Instructions Given to Patient (Per Discharging Provider) You were admitted to [facility] from April 08 to April 25, 2025 due to right leg swelling, fatigue, weakness and decreased oral intake following right femoral artery endarterectomy on 04/06. You were diagnosed with an acute right leg deep vein thrombosis. This was treated with intravenous heparin and you underwent right lower extremity venous mechanical thrombectomy on April 12 with stenting of right common femoral vein. Your post operative course was complicated by hematoma and anticoagulation was held which caused reaccumulation of clot and you underwent repeat mechanical thrombectomy right lower extremity and stenting of right common iliac vein, right external iliac vein and right common femoral vein on April 22. You leg swelling has been improving but you developed venous ulcer blisters that will need to be monitored closely at home and at wound care clinic. Home health is being arranged for you on discharge. Please follow up with your primary care provider for repeat complete blood count in 1 week due to hematoma. This will also be monitored by your vascular surgeon. Of note your Eliquis prescription is for the loading dose but you should only be taking 5mg PO BID. On discussion with your vascular surgeon aspirin will be stopped but you should now take clopidogrel once a day. Total Time Total Time Spent Total Time Spent (In Minutes): 65 Total Time Includes: Examination of the Patient, Discharge Planning, Medication Reconciliation and Communication With Other Providers (vascular surgery) Coding Level of Care Code 48684 INP/OBS DISCH >30 MIN Diagnoses Right leg DVT I82.401 Anemia D64.9 Generalized weakness R53.1 S/P vascular surgery Z98.890 Peripheral arterial disease I73.9 Acute kidney injury N17.9 Edema of right lower extremity R60.0 DM II (diabetes mellitus, type II), controlled E11.9 HTN (hypertension) I10 Coronary artery disease I25.10 Wound of foot S91.309A Home Health Attestation I certify that this patient is under my care and that I, or a physicians assistant signal maintainer working with me, had a face to-face encounter that meets the home health [id number] encounter requirements with this patient. The encounter with the patient was in whole, or in part, for the following medical condition, which is the primary reason for home health care (list medical condition): Wound care I certify that, based on my findings, the following services are medically necessary home health services: My clinical findings support the need for the above services because: OT Assess ADL Status and Restore Function w ADLs PT Assessment for Endurance / Balance / Strength PT Eval for Safety and Mobility PT Eval for Safety, Gait Training, Assistive Devices PT Gait and Balance Training, Strengthening and Safety Skilled Nsg Assessment Skilled Nsg Assessment Surgical Incision / Wound Further, I certify that my clinical findings support that this patient is homebound (i.e. absences from home require considerable and taxing effort and are for medical reasons or mormonism services or infrequently or of short duration when for other reasons) because: Supportive Aid - Walker Certification for Home Health Services: Based on the above findings, I certify that this patient is confined to the home and needs intermittent jail care, physical therapy and/or speech therapy or continues to need occupational therapy. The patient is under my care, and I have initiated the establishment of the plan of care. This patient will be followed by a physician who will periodically review the plan of care.
--- NOTE | 2025-05-11 12:24 | Procedure Note ---
Post Operative Report Pre & Post Diagnosis Operation Date: 04/22/25 09:50 Pre-Op Diagnosis: DEEP VEIN THROMBOSIS RIGHT LOWER EXTREMITY Post-Op Diagnosis: DEEP VEIN THROMBOSIS RIGHT LOWER EXTREMITY I identified the patient and participated in the time-out.: Yes Procedure Operation Date: 04/22/25 09:50 Actual Procedures p Right Lower Extremity Venogram,Mechanical Thrombectomy Right Lower Extremity,Percutaneous Transluminal Angioplasty and Stenting Right Common Iliac Vein,Right External Iliac Vein,Right Common Femoral Vein,Ultrasound Localization of Right Popliteal Vein,Moderate Sedation [id number](Right) - Thierry Stephenson MD Surgeon Thierry Stephenson MD Director Enterprise Data [employer] none Estimated Blood Loss 400 Findings Consistent with Post-Op Diagnosis Specimens none Anesthesia Type RN Sedation Complications none Disposition Accompanied Patient To Recovery: No Disposition: Recovery Room Indications This is a 75-year-old female who had a mechanical thrombectomy done 1 week prior to this of her left leg system. The iliac and femoral vein reoccluded is most likely due to compression from retroperitoneal and pelvic hematoma. Mechanical thrombectomy of same was recommended. I have discussed the risks options and benefits of the procedure with the patient. The patient understands the risks options and benefits and agrees to the procedure. Description of Procedure The patient was taken to the operating room and placed in the prone position. The right popliteal fossa was then prepped and draped in usual manner. A timeout was performed and the patient was identified. Using ultrasound the right popliteal vein was identified. It was patent. Using ultrasound guidance the vein was punctured and a 5 Togolese sheath inserted. Venography of the right lower extremity showed occlusion of the femoral vein at the adductor hiatus with reconstitution in the external iliac which was compressed up to the distal common iliac vein which was patent. There was clot noted in the femoral common femoral and iliac veins. We then switched the sheath to the penumbra sheath. Using the penumbra device we did a mechanical thrombectomy of the femoral common femoral and iliac veins on the right side. There is narrowing noted in the left common femoral and external iliac veins on the right hunter. Still a small amount of clot present in the common femoral vein. We did another pass with the penumbrae and removed this clot. Due to the vein stenosis and narrowing in the left external iliac and common iliac vein secondary to compression we decided to insert stents to maintain outflow. We inserted a 18 x 60 Wallstent and placed in the common iliac vein which was of normal caliber. This went from the common iliac vein down into the external iliac vein we then followed this with a 16 x 6 Wallstent. We postdilated the stents with a 14 x 40 balloon. The iliac vein looked widely patent with no residual clot no stenosis. There was a narrowing seen in the common femoral vein however. We tried to dilate this with a 10 x 6 balloon. There was a lot of recoil present. We then inserted a 10 x 10 Viabahn through the common femoral vein. This stent was then dilated again with a 10 x 60 balloon. Final films showed a widely patent femoral vein up through the common femoral external iliac and common iliac veins. No residual clot was noted no narrowing was seen. Sheath was then pulled from the popliteal fossa. Pressure was applied and hemostasis was obtained. Pressure dressing was applied to the popliteal fossa.The patient left the operation room in satisfactory condition and tolerated the procedure well. All needle and sponge counts were correct at the end of the procedure. I attest to the content of the Intraoperative Record and any orders documented therein. Any exceptions are noted below.
== END 2025-04-25 18:42 | disposition home health service (06) | DRG 270 ==
LOC: ED 18:26 → 2S 23:20 → OBSVTOIN 23:20 → SUATTDRO 23:20 → INTOOBSV 23:20 → 2S 04-09 00:27